=== PATIENT | male | born 1975 | race Caucasian/White ===

== ENCOUNTER → 2019-07-09 10:33 | Outpatient (BNVA) | payer MEDICAID, SELFPAY | PROVIDERS: Family Provider Family Medicine; PCP Family Medicine; Visit Provider Psychiatry & Neurology Psychiatry | DX: F60.3 Borderline personality disorder (principal); F25.0 Schizoaffective disorder, bipolar type | CPT/HCPCS: 99213 ==

== ENCOUNTER → 2019-10-06 08:31 | Outpatient (BNVA) | payer MEDICAID, SELFPAY | PROVIDERS: Family Provider Family Medicine; PCP Family Medicine; Visit Provider Psychiatry & Neurology Psychiatry | DX: F25.0 Schizoaffective disorder, bipolar type (principal); F60.3 Borderline personality disorder | CPT/HCPCS: 99214 ==

== ENCOUNTER → 2019-12-29 09:16 | Outpatient (BNVA) | payer MEDICAID, SELFPAY | PROVIDERS: Family Provider Family Medicine; PCP Family Medicine; Visit Provider Psychiatry & Neurology Psychiatry | DX: F25.0 Schizoaffective disorder, bipolar type (principal); F60.3 Borderline personality disorder; F17.210 Nicotine dependence, cigarettes, uncomplicated | CPT/HCPCS: 99213 ==

== ENCOUNTER → 2020-06-21 07:45 | Outpatient (BNVA) | payer MEDICAID, SELFPAY | PROVIDERS: Family Provider Family Medicine; PCP Family Medicine; Visit Provider Psychiatry & Neurology Psychiatry | DX: F25.0 Schizoaffective disorder, bipolar type (principal); F60.3 Borderline personality disorder; F17.200 Nicotine dependence, unspecified, uncomplicated | CPT/HCPCS: 99214 ==

== ENCOUNTER → 2020-06-27 08:35 | Outpatient (BNVA) | payer MEDICAID, SELFPAY | PROVIDERS: Family Provider Family Medicine; PCP Family Medicine; Visit Provider Psychiatry & Neurology Psychiatry | DX: F25.0 Schizoaffective disorder, bipolar type (principal); F60.3 Borderline personality disorder | CPT/HCPCS: 80053; 80061; 83036; 84443; 85025 ==

== ENCOUNTER → 2020-12-14 07:14 | Outpatient (BNVA) | payer MEDICAID, SELFPAY | PROVIDERS: Family Provider Family Medicine; Visit Provider Psychiatry & Neurology Psychiatry | DX: F25.0 Schizoaffective disorder, bipolar type (principal); F60.3 Borderline personality disorder; F17.200 Nicotine dependence, unspecified, uncomplicated | CPT/HCPCS: 99214 ==

== ENCOUNTER 2021-03-27 14:34 | Emergency (ER) | payer MEDICAID, SELFPAY ==
[2021-03-27 14:43] VITALS: BP 131/77; PULSE 96; RESP 16; TEMP 36.7; O2SAT 97; BMI 42.9
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
[2021-03-27] MEDS: azithromycin 250 mg Tablet 1000 MG PO (15:36)
[2021-03-27 15:44] VITALS: PULSE 84; RESP 18; O2SAT 97
[2021-03-27 16:05] LABS: Amphetamines Screen Urine Negative (Negative); Barbiturates Screen Urine Negative (Negative); Benzodiazepines Screen Urine Positive (Negative); Cocaine Screen Urine Negative (Negative); Opiate Screen Urine Negative (Negative); PCP Screen Urine Negative (Negative); THC Screen Urine Negative (Negative)
[2021-03-27 16:50] LABS: HIV 1 & 2 Antibody Non-Reactive (Non-Reactiv); HIV 1 & 2 Antigen Non-Reactive (Non-Reactiv)
== END 2021-03-27 15:45 | disposition home or self-care (01) ==
PROVIDERS: Emergency Provider Physician Assistant
DX: T74.21XA Adult sexual abuse, confirmed, initial encounter (principal); Z79.82 Long term (current) use of aspirin; F17.210 Nicotine dependence, cigarettes, uncomplicated; Z20.2 Contact with and (suspected) exposure to infections with a predominantly sexual mode of transmission
CPT/HCPCS: 80306; 87491; 87591; 87806; 96372; 99283; J0696; Q0144

== ENCOUNTER → 2021-06-07 07:13 | Outpatient (BNVA) | payer MEDICAID, SELFPAY | PROVIDERS: Visit Provider Psychiatry & Neurology Psychiatry | DX: F25.0 Schizoaffective disorder, bipolar type (principal); F60.3 Borderline personality disorder; F17.200 Nicotine dependence, unspecified, uncomplicated | CPT/HCPCS: 99213 ==

== ENCOUNTER 2022-03-13 07:58 | Inpatient (IN) | payer MEDICAID, SELFPAY ==
[2022-03-13] VITALS (79 sets, daily range): BP systolic 93–155; BP diastolic 51–102; PULSE 78–105; RESP 0–34; TEMP 36.3–37.6; O2SAT 96–100; BMI 27.8
--- NOTE | 2022-03-13 08:14 | W.ED.GIBLEED ---
HPI - GI Bleed General: Chief complaint: GI Bleed Stated complaint: abdominal pain Time Seen by Provider: 03/13/22 08:03 Source: patient Mode of arrival: ambulatory History of Present Illness: 46-year-old male who presents to the emergency room with complaint of black tarry stools. He says he has had abdominal discomfort and black stools for last 3 days. He does take a lot of milk of magnesia for constipation he believes he is toxic from magnesium. He does not use any multivitamins or iron supplement he has not noticed any bright red blood. He previously has had a cholecystectomy. No hematochezia hematemesis or coffee-ground emesis. Patient believes that this is because some of cocaine methamphetamine in his house. MD complaint: melena Onset (ago): day(s) (3) Relieving factors: none Exacerbating factors: none Associated symptoms: Denies abdominal pain, chills, easy bruising, epistaxis, fever(s), headache(s), malaise, nausea, other bleeding, poor appetite, rash, syncope, vomiting or weakness Treatments Prior to Arrival: none Review of Systems Const: Denies: fever(s), chills, fatigue or malaise ENMT: Denies: throat pain or epistaxis Card: Denies: chest pain, palpitations, irregular heart rhythm or syncope Resp: Denies: dyspnea, productive cough or non-productive cough GI: Reports: belching; Denies: abdominal pain, nausea, vomiting, diarrhea, constipation, bloating or GI cramping : Denies: flank pain, difficulty urinating, dysuria, urinary frequency or urinary urgency Skin/Breast: Denies: rash or pruritus Neuro: Denies: headache(s) Hoang/Lymph: Denies: easy bruising [facility] ED PFSH: Medical History Chronic idiopathic constipation Folliculitis cruris pustulosa atrophicans Morbid obesity with BMI of 40.0-44.9, adult Nonvenomous insect bite of neck Social History Smoking and tobacco status: current every day smoker cigarettes Packs smoked per day: 2 Years cigarettes smoked: 25 Quit status (tobacco): has tried quititng Number of times tried to quit tobacco: 8 Second hand smoke exposure: No Smoking risk assessment/counseling performed?: Yes Tobacco counseling given: counseling >3 minutes Physical Exam Const: GENERAL APPEARANCE: cooperative and comfortable ORIENTATION/CONSCIOUSNESS: Yes awake, Yes oriented to person, Yes oriented to place and Yes oriented to time HENMT: COMMON NORMALS: normocephalic, atraumatic, hearing grossly normal bilaterally, external ears normal, EAC's normal, TM's normal bilaterally, Normal nasal mucous membranes and turbinates present, moist oral mucous membranes and oropharynx normal HEAD & SCALP: normocephalic and atraumatic NOSE: Normal nasal mucous membranes and turbinates present EXTERNAL EAR: Yes external ears normal EXTERNAL AUDITORY CANAL: EAC's normal TYMPANIC MEMBRANE: TM's normal bilaterally Eye: COMMON NORMALS: Equal, round and reactive pupils present, EOMs intact bilaterally, conjunctivae normal and no scleral icterus CONJUNCTIVA: Yes conjunctivae normal PUPIL: Yes Equal, round and reactive pupils present Neck/C-Spine: COMMON NORMALS: full ROM, no lymphadenopathy, supple and no JVD Lymph: LYMPHATIC: no lymphadenopathy noted and no lymphedema noted Resp: COMMON NORMALS: normal respiratory effort, No retractions, No use of accessory muscles and clear to auscultation bilaterally AUSCULTATION: clear to auscultation bilaterally Cardio: COMMON NORMALS: no JVD, regular rate, regular rhythm and No murmurs present (Cardio) RATE: regular rate RHYTHM: regular rhythm GI: COMMON NORMALS: No hepatosplenomegaly present AUSCULTATION: Yes normoactive bowel sounds PALPATION: Yes Tenderness to palpation present (GI) (Epigastric), No Guarding due to palpation present (GI) and Yes No hepatosplenomegaly present Extremity: COMMON NORMALS: normal to inspection, capillary refill normal, no clubbing, cyanosis or edema, no calf tenderness and no pedal edema Neuro: SENSORIUM/ORIENTATION: Yes oriented to person, Yes oriented to place and Yes oriented to time Skin: COMMON NORMALS: no rashes or lesions noted GENERAL SKIN EXAM: no rashes or lesions noted Course Vital Signs: Vital signs: Vital Signs Temperature 97.3 F L 03/13/22 07:59 Pulse Rate 87 03/13/22 07:59 Respiratory Rate 17 03/13/22 07:59 Blood Pressure 154/91 03/13/22 08:09 Pulse Oximetry 100 11/08/22 08:09 Oxygen Delivery Me thod 03/13/22 08:09 MDM - GI Bleed Medical Decision Making Significant anemia. He has mild tenderness in the epigastric area but no distinct peritoneal signs. His hemoglobin is 4.9. He is listed on his medicine list very high dose of aspirin although I am uncertain how much of it he is actually taking. Discussed Dr. Mendez we have ordered 2 units of blood to be transfused we will admit to the ICU. Also discussed with on-call surgery. Jamel ruby had called her to question of her for gastric perforation at the antrum we will have surgery see him. He has been given Protonix as well. Medical Records I reviewed the patient's medical records. Lab Data I reviewed the patient's lab results. : 03/13/22 08:05 03/13/22 08:05 Radiology Impressions Abdomen/Pelvis CT 03/13/22 08:24 IMPRESSION: 1. Findings suggest either distal stomach gastritis versus ulcer disease with suspected perforation. 2. THIS REPORT CONTAINS FINDINGS THAT MAY BE CRITICAL TO PATIENT CARE. The findings were verbally communicated by me to FITZ LARSON at 9:00 AM KETTLE OPERATOR on 03/13/2022. The findings were acknowledged and understood. Laboratory Results WBC 7.4 10^3/uL (4.0-10.0) 03/13/22 08:05 RBC 1.95 10^6/uL (4.1-5.3) L 03/13/22 08:05 Hgb 4.9 g/dL (11.7-16.6) L* 03/13/22 08:05 Hct 15.8 % (42.0-52.0) L* 03/13/22 08:05 MCV 81.0 fl (80-94) 03/13/22 08:05 MCH 25.1 pg (28.0-34.0) L 03/13/22 08:05 MCHC 31.0 g/dL (30.0-36.0) 03/13/22 08:05 RDW 17.2 % (12.1-15.1) H 03/13/22 08:05 Plt Count 388 10^3/cmm (130-400) 03/13/22 08:05 MPV 9.1 fL (7.4-10.4) 03/13/22 08:05 Neut % (Auto) 70.8 % 03/13/22 08:05 Lymph % (Auto) 19.9 % 03/13/22 08:05 [place] % (Auto) 7.6 % 03/13/22 08:05 Eos % (Auto) 0.8 % 03/13/22 08:05 Baso % (Auto) 0.4 % 03/13/22 08:05 Neut # (Auto) 5.20 10^3/uL (1.8-7.7) 03/13/22 08:05 Lymph # (Auto) 1.5 10^3/uL (0.8-4.8) 03/13/22 08:05 [place]cl[place] # (Auto) 0.6 10^3/uL (0.2-0.9) 03/13/22 08:05 Eos # (Auto) 0.1 10^3/uL (0.0-0.8) 03/13/22 08:05 Baso # (Auto) 0.0 10^3/uL (0.0-0.1) 03/13/22 08:05 Nucleated RBC % (auto) 0 % 03/13/22 08:05 Nucleated RBCs # 0.0 /100WBC 03/13/22 08:05 PT 14.70 SECONDS (12.1-14.9) 03/13/22 08:05 INR 1.11 (0.8-1.2) 03/13/22 08:05 APTT 49.0 SECONDS (23.9-36.7) H 03/13/22 08:05 Sodium 131 mmol/L (136-145) L 03/13/22 08:05 Potassium 4.1 mmol/L (3.5-5.1) 03/13/22 08:05 Chloride 99 mmol/L (98-107) 03/13/22 08:05 Carbon Dioxide 23 mmol/L (22-29) 03/13/22 08:05 Anion Gap 13.1 (5-19) 03/13/22 08:05 BUN 10 mg/dL (6-20) 03/13/22 08:05 Creatinine 0.6 mg/dL (0.7-1.2) L 03/13/22 08:05 GFR Calculation 146.4 mL/min (90-130) H 03/13/22 08:05 Glucose 102 mg/dL (65-115) 03/13/22 08:05 Calculated Osmolality 271 mOsm/kg (285-295) L 03/13/22 08:05 Calcium 7.9 mg/dL (8.5-10.5) L 03/13/22 08:05 Magnesium 1.8 mg/dL (1.7-2.3) 03/13/22 08:05 Total Bilirubin 0.2 mg/dL (0.15-1.2) 03/13/22 08:05 AST 5 U/L (0-40) 03/13/22 08:05 ALT < 5 U/L (0-41) 03/13/22 08:05 Alkaline Phosphatase 110 U/L (40-130) 03/13/22 08:05 Total Protein 5.4 g/dL (6.6-8.7) L 03/13/22 08:05 Albumin 2.9 g/dL (3.5-5.2) L 03/13/22 08:05 Globulin 2.5 g/dL (1.3-4.6) 03/13/22 08:05 Lipase 60 U/L (13-60) 03/13/22 08:05 Urine Color Yellow (Yellow) 03/13/22 08:40 Urine Appearance Cloudy (CLEAR) A 03/13/22 08:40 Urine pH 8 (5-7) H 03/13/22 08:40 Ur Specific [place] 1.015 (1.005-1.030) 03/13/22 08:40 Urine Protein Neg (Negative) 03/13/22 08:40 Urine Glucose (UA) Norm (Normal) 03/13/22 08:40 Urine Ketones Negative (Negative) 03/13/22 08:40 Urine Blood Neg (Negative) 03/13/22 08:40 Urine Nitrate Negative (Negative) 03/13/22 08:40 Urine Bilirubin Neg (Negative) 03/13/22 08:40 Urine Urobilinogen Norm mg/dL (Negative) 03/13/22 08:40 Ur Leukocyte Esterase Negative (Negative) 03/13/22 08:40 Urine Opiates Screen Negative ng/mL (Negative) 03/13/22 08:40 Ur Barbiturates Screen Negative ng/mL (Negative) 03/13/22 08:40 Ur Phencyclidine Scrn Negative ng/mL (Negative) 03/13/22 08:40 Ur Amphetamines Screen Negative ng/mL (Negative) 03/13/22 08:40 U Benzodiazepines Scrn Negative ng/mL (Negative) 03/13/22 08:40 Urine Cocaine Screen Negative ng/mL (Negative) 03/13/22 08:40 U Marijuana (THC) Screen Negative ng/mL (Negative) 03/13/22 08:40 Blood Type B Negative 03/13/22 08:35 Rho(D) Type Negative 03/13/22 08:35 Antibody Screen Negative 03/13/22 08:35 Crossmatch See Detail 03/13/22 08:35 Discharge Plan Discharge Patient Disposition: Admitted As Inpatient Clinical Impression: Upper gastrointestinal hemorrhage, Anemia Condition: Stable Prescriptions: No Action aspirin 325 mg tablet 1,300 mg PO Q4H PRN (Reason: fever or pain) chlorpromazine 100 mg tablet 100 mg PO TID Qty: 90 5RF clonidine HCl 0.1 mg tablet 0.1 mg PO BID Qty: 60 5RF fluoxetine 40 mg capsule 40 mg PO DAILY Qty: 30 5RF hydroxyzine HCl 50 mg tablet 50 mg PO QID PRN (Reason: anxiety) Qty: 120 5RF trazodone 100 mg tablet 300 mg PO .HS Qty: 90 5RF magnesium hydroxide [Milk Of Magnesia Concentrated] 2,400 mg/10 mL suspension See Rx Instructions PO DAILY PRN (Reason: constipation) Qty: 1000 5RF Rx Instructions: take 20 ml from 1-3 times a day as needed PO daily PRN; Coding Level of Care Code ED Machine Feeder Raw Stock for Chg Fwd Exam Comprehensive
[2022-03-13 08:18] LABS: Basophils % 0.4 %; Eosinophils # 0.1 10^3/uL (0.0-0.8); Eosinophils % 0.8 %; Lymphocytes # 1.5 10^3/uL (0.8-4.8); Lymphocytes % 19.9 %; Mean Corpuscular Hemoglobin 25.1 pg (28.0-34.0); Mean Platelet Volume 9.1 fL (7.4-10.4); Monocytes # 0.6 10^3/uL (0.2-0.9); Monocytes % 7.6 %; Neutrophils % 70.8 %; Nucleated Red Blood Cells % 0 %; Platelet Count 388 10^3/cmm (130-400); Red Blood Count 1.95 10^6/uL (4.1-5.3); Red Cell Distribution Width 17.2 % (12.1-15.1); White Blood Count 7.4 10^3/uL (4.0-10.0)
[2022-03-13 08:22] LABS: Hematocrit 15.8 % (42.0-52.0); Hemoglobin 4.9 g/dL (11.7-16.6)
--- NOTE | 2022-03-13 08:24 | CTR_ITS ---
PROCEDURE INFORMATION: Exam: CT Abdomen And Pelvis With Contrast Exam date and time: 03/13/2022 8:37 AM Age: 46 years old Clinical indication: Nausea and vomiting; Abdominal pain; Localized; Lower; Prior surgery; Surgery type: Gb; Additional info: Abd pain TECHNIQUE: Imaging protocol: Computed tomography of the abdomen and pelvis with contrast. Radiation optimization: All CT scans at this facility use at least one of these dose optimization techniques: automated exposure control; mA and/or kV adjustment per patient size (includes targeted exams where dose is matched to clinical indication); or iterative reconstruction. Contrast material: OMNI 350; Contrast volume: 100 ml; Contrast route: INTRAVENOUS (IV); COMPARISON: CR XR hip LT 2-3V wo/w pel* [id number] 04/12/2015 2:42 PM RADIATION DOSE METRICS: Total DLP (mGy-cm): 776.46 FINDINGS: Liver: Moderately fatty liver. Enlarged at 200 mm. Gallbladder and bile ducts: Cholecystectomy clips. Pancreas: Normal. No ductal dilation. Spleen: Normal. No splenomegaly. Adrenal glands: Normal. No mass. Kidneys and ureters: Normal. No hydronephrosis. Stomach and bowel: Thick-walled gastric antrum extending possibly involving the duodenal bulb with surrounding inflammatory changes. There is a pocket of fluid measuring 25 x 37 mm on image 3/30 which is questionably extraluminal and could be a perforated ulcer. Scattered colonic diverticula. No evidence of acute diverticulitis. Appendix: No evidence of appendicitis. Intraperitoneal space: Small amount of free pelvic fluid. Vasculature: Unremarkable. No abdominal aortic aneurysm. Lymph nodes: Unremarkable. No enlarged lymph nodes. Urinary bladder: Unremarkable as visualized. Reproductive: Unremarkable as visualized. Bones/joints: Arthritis and listhesis seen in the spine. Soft tissues: Mild diffuse soft tissue edema. CT/CT abdomen pelvis w con* [id number] IMPRESSION: 1. Findings suggest either distal stomach gastritis versus ulcer disease with suspected perforation. 2. THIS REPORT CONTAINS FINDINGS THAT MAY BE CRITICAL TO PATIENT CARE. The findings were verbally communicated by me to BLAYNE JACOBO at 9:00 AM CAR FERRY MASTER on 03/13/2022. The findings were acknowledged and understood.
[2022-03-13 08:25] LABS: INR 1.11 (0.8-1.2)
[2022-03-13 08:29] LABS: Alanine Aminotransferase < 5 U/L (0-41); Albumin Level 2.9 g/dL (3.5-5.2); Alkaline Phosphatase 110 U/L (40-130); Anion Gap 13.1 (5-19); Aspartate Amino Transferase 5 U/L (0-40); Blood Urea Nitrogen 10 mg/dL (6-20); Calcium 7.9 mg/dL (8.5-10.5); Carbon Dioxide 23 mmol/L (22-29); Chloride 99 mmol/L (98-107); Globulin 2.5 g/dL (1.3-4.6); Glomerular Filtration Rate 146.4 mL/min (90-130); Glucose 102 mg/dL (65-115); Lipase 60 U/L (13-60); Osmolality Calculated 271 mOsm/kg (285-295); Potassium 4.1 mmol/L (3.5-5.1); Sodium 131 mmol/L (136-145); Total Bilirubin 0.2 mg/dL (0.15-1.2); Total Protein 5.4 g/dL (6.6-8.7)
[2022-03-13 08:30] LABS: Creatinine Clr Calc Pharmacy 181.0382
[2022-03-13 08:34] LABS: Magnesium 1.8 mg/dL (1.7-2.3)
[2022-03-13] MEDS: pantoprazole 40 mg SDV 80 MG IVP (08:36)
[2022-03-13] MEDS: iohexol 350 mg/mL 500 mL Btl (per mL) IV (08:41)
[2022-03-13 08:44] LABS: Add Urine Microscopic? NO; Charge for UA Resulting for Rev
[2022-03-13 08:59] LABS: Amphetamines Screen Urine Negative (Negative); Barbiturates Screen Urine Negative (Negative); Benzodiazepines Screen Urine Negative (Negative); Cocaine Screen Urine Negative (Negative); Opiate Screen Urine Negative (Negative); PCP Screen Urine Negative (Negative); THC Screen Urine Negative (Negative)
[2022-03-13 09:00] LABS: Blood Urine Neg (Negative); Glucose Urine UA Norm (Normal); Ketones Urine Negative (Negative); Nitrate Urine Negative (Negative); Protein Urine Neg (Negative); Specific Gravity, Urine 1.015 (1.005-1.030); Urine Appearance Cloudy (CLEAR); Urine Color Yellow (Yellow); pH Urine 8 (5-7)
[2022-03-13 09:01] LABS: Bilirubin Urine Neg (Negative); Leukocyte Esterase Urine Negative (Negative); Urobilinogen Urine Norm (Negative)
--- NOTE | 2022-03-13 09:18 | PM.HP ---
Providers/Chief Complaint Admitting Physician: Chris Mendez MD Chief Complaint: abdominal pain History of Present Illness Tarun Summers is a 46 year old male presenting to the emergency department with complaints of abdominal pain, dark stool over the last 2 to 3 days. He has chronic constipation, and he was initially worried he might be toxic from magnesium that he takes for this. He reports he has a lot of chronic back pain, and has had a laminectomy in the past and takes quite a bit of aspirin. I confirmed that he does take 1300 mg every 4 hours as needed. He reports no prior history of significant GI bleed, although there are notes in the chart regarding EGD and colonoscopy done in 2016 and gastritis being found at that time. H. pylori at that time was negative. He reports fatigue as well. Denies any blood in his stool, or vomiting blood. No history of liver disease. Reports he has not had any alcohol in many years. In the emergency department saline was ordered, Protonix given, 2 units of packed red blood cells ordered. Surgery consult was called. Review of Systems General: Reports: 10 or more systems reviewed and unremarkable except in HPI and below Const: Denies: fever(s) or chills Eyes: Denies: change in vision ENMT: Denies: throat pain Card: Denies: chest pain Resp: Denies: dyspnea GI: Reports: abdominal pain, constipation and melena; Denies: hematemesis : Denies: flank pain Musc: Denies: neck pain Skin/Breast: Denies: rash Neuro: Denies: headache(s) Psych: Reports: depression and mood swings Endo: Denies: polyuria Hoang/Lymph: Denies: easy bruising All/Imm: Denies: urticaria Medications/Allergies Home Medications Medication Instructions Recorded Confirmed Last Taken Type aspirin 325 mg tablet 1,300 mg PO Q4H PRN fever or pain 07/09/19 11/29/21 Unknown History chlorpromazine 100 mg tablet 100 mg PO TID #90 tabs 11/29/21 11/29/21 Unknown Rx clonidine HCl 0.1 mg tablet 0.1 mg PO BID #60 tabs 11/29/21 11/29/21 Unknown Rx fluoxetine 40 mg capsule 40 mg PO DAILY #30 caps 11/29/21 11/29/21 Unknown Rx hydroxyzine HCl 50 mg tablet 50 mg PO QID PRN anxiety #120 tabs 11/29/21 11/29/21 Unknown Rx famotidine 20 mg tablet (Pepcid) 20 mg PO .UP TO BID 03/13/22 03/13/22 Unknown History magnesium hydroxide 2,400 mg/10 mL See Rx Instructions .Route .COMPLEX 03/13/22 03/13/22 Unknown History oral suspension (Milk Of Magnesia Concentrated) simethicone 125 mg capsule (Gas 125 mg PO DAILY PRN Stomach Upset 03/13/22 03/13/22 Unknown History Relief Extra Strength) trazodone 100 mg tablet 300 mg PO BEDTIME PRN Sleep 03/13/22 03/13/22 Unknown History Allergies Allergy/AdvReac Type Severity Reaction Status Date / Time amoxicillin AdvReac Intermediate Rash Verified 03/13/22 09:26 Penicillins AdvReac Intermediate Rash Verified 03/13/22 09:26 PFSH Acute PFSH: Medical History (Updated 03/13/22 @ 09:27 by Chris Mendez MD) Borderline personality disorder Chronic idiopathic constipation Folliculitis cruris pustulosa atrophicans Morbid obesity with BMI of 40.0-44.9, adult Nicotine dependence, unspecified, uncomplicated Nonvenomous insect bite of neck Schizoaffective disorder, bipolar type Surgical History (Updated 03/13/22 @ 09:22 by Chris Menedz MD) History of back surgery History of cholecystectomy Social History Smoking and tobacco status: current every day smoker cigarettes Packs smoked per day: 2 Years cigarettes smoked: 25 Quit status (tobacco): has tried quititng Number of times tried to quit tobacco: 8 Second hand smoke exposure: No Smoking risk assessment/counseling performed?: Yes Tobacco counseling given: counseling >3 minutes Other PFSH information: Supplemental PFSH Information: Reports he does not know any significant past family history. Vitals/I&O/Wt Last Vital Signs Temp 97.3 F L 03/13/22 07:59 Pulse 87 03/13/22 07:59 Resp 17 03/13/22 07:59 BP 154/91 03/13/22 08:09 Pulse Ox 100 03/13/22 08:09 O2 Del Method 03/13/22 08:09 Weight last 48 hrs Weight 90.718 kg Physical Exam Narrative: General exam demonstrates a pale white male, reporting abdominal pain HEENT: Atraumatic normocephalic. Pupils equally round. Oropharynx clear. Neck is supple no lymphadenopathy or thyromegaly Cardiovascular regular rate and rhythm without murmur Lungs clear no wheezing or crackles Abdomen is tender epigastric area. No obvious organomegaly exam is deferred Extremities no cyanosis clubbing, cap refill brisk. Trace edema present bilaterally Skin no rash, pale Neuro no obvious focal deficits. Data : 03/13/22 08:05 03/13/22 08:05 Other Labs: INR is normal, PTT elevated at 49 Calcium 7.9 Magnesium 1.8 LFTs normal Albumin 2.9 Urinalysis negative Urine tox negative Lipase 60 CT abdomen pelvis, with contrast demonstrates concern of distal stomach gastritis versus ulcer disease with suspected perforation A&P Assessment and plan (1) Anemia: Severe anemia, secondary to acute blood loss anemia. This appears to be secondary to gastric ulcer with likely perforation. 2 units of packed red blood cells have been ordered by the emergency department. This is appropriate. Check hemoglobin following transfusion Continue serial hemoglobin monitoring. (2) GI bleed: Surgery consultation Note that concern of perforation exists on CT scan. N.p.o. No history, or evidence currently for liver disease. (3) Perforated stomach: Add Cipro, and Flagyl for prophylactic antibiotics secondary to concern for development of peritonitis Pain control with morphine (4) Nicotine dependence, unspecified, uncomplicated: Offered nicotine patch with she refused currently. Plan Mental health illness. Monitor closely. May need Haldol as needed. Initiate p.o. medicines when able Full code SCDs for DVT prophylaxis Attestations Medical Necessity Statement*: Will require greater than 2 midnight stay for evaluation and treatment of severe anemia, GI bleed, gastric ulcer with likely perforation Critical Care Time: The high probability of a clinically significant, sudden or life threatening deterioration of the patient's [hematologic, GI] system(s) required my full and direct attention, intervention and personal management. The critical care time is as shown. This time is in addition to time spent performing any reported procedures but includes the following: [x] Data and vital sign review and interpretation [x] Patient assessment, examination and intervention [x] Documentation [x] Medication orders and management Critical Care Time (min): 59 Coding Level of Care Code Acute Adult Literacy Instructor for Chg Fwd Diagnoses Anemia D64.9 GI bleed K92.2 Perforated stomach K25.5 Nicotine dependence, unspecified, uncomplicated F17.200
[2022-03-13] MEDS: sodium chloride 0.9% 250 ML 50 ML IV (09:48)
[2022-03-13] MEDS: ondansetron 2 mg/ML SDV 2 mL 4 MG IVP ×2 (11:06→20:28)
[2022-03-13] MEDS: pantoprazole 40 MG in sodium chloride 0.9% (plus) 100 ML 20 MG IV ×3 (11:27→22:07)
[2022-03-13] MEDS: pantoprazole 40 mg SDV IVP ×2 (11:27→22:05)
[2022-03-13] MEDS: metroNIDAZOLE IV 500 MG/100 ML PREMIX 100 MG IV ×2 (11:55→17:04)
[2022-03-13] MEDS: ciprofloxacin 400 MG/200 ML PREMIX 200 MG IV ×2 (11:57→22:05)
--- NOTE | 2022-03-13 12:27 | PM.CONSULT ---
Providers/Reason For Consult Consulting Physician/Specialty*: General Surgery/Mitch Bird MD, FACS, RPVI Reason for Consult*: GI bleeding Attending Physician: Chris Mendez MD History of Present Illness History of Present Illness Tarun Summers is a 46 year old male Presented to the emergency room complaining of extremity weakness, melanotic stool, vomiting. He has multiple psych issues and on disability for mental problems. Complaining of abdominal pain for weeks to months, is been getting worse over the last several days. He is taking up to 15 325 mg aspirin per day for his chronic back pain. History of upper and lower endoscopy sometime ago, reportedly it was normal. History of back surgery for chronic pain Denies chest pain or shortness of breath with physical exertion. He smokes about a pack a day. He does not exercise. Review of Systems Narrative: 10 point review of systems is negative except as per HPI Medications/Allergies Home Medications Medication Instructions Recorded Confirmed Last Taken Type aspirin 325 mg tablet 1,300 mg PO Q4H PRN Pain 07/09/19 03/13/22 03/13/22 History see pharmacy comment chlorpromazine 100 mg tablet 100 mg PO TID #90 tabs 11/29/21 03/13/22 03/13/22 Rx clonidine HCl 0.1 mg tablet 0.1 mg PO BID #60 tabs 11/29/21 03/13/22 03/13/22 Rx fluoxetine 40 mg capsule 40 mg PO DAILY #30 caps 11/29/21 03/13/22 2 Days Ago Rx ~03/11/22 hydroxyzine HCl 50 mg tablet 50 mg PO QID PRN anxiety #120 tabs 11/29/21 03/13/22 Unknown Rx famotidine 20 mg tablet (Pepcid) 20 mg PO .UP TO BID 03/13/22 03/13/22 Unknown History magnesium hydroxide 2,400 mg/10 mL See Rx Instructions .Route .COMPLEX 03/13/22 03/13/22 Unknown History oral suspension (Milk Of Magnesia Concentrated) simethicone 125 mg capsule (Gas 125 mg PO DAILY PRN Stomach Upset 03/13/22 03/13/22 Unknown History Relief Extra Strength) trazodone 100 mg tablet 300 mg PO BEDTIME PRN Sleep 03/13/22 03/13/22 Unknown History Allergies Allergy/AdvReac Type Severity Reaction Status Date / Time amoxicillin AdvReac Intermediate Rash Verified 03/13/22 09:26 Penicillins AdvReac Intermediate Rash Verified 03/13/22 09:26 Current Medications Generic Name Dose Route Start Last Admin Trade Name Freq PRN Reason Stop Dose Admin Ciprofloxacin/Dextrose 400 mg in 200 mls @ 200 mls/hr 03/13/22 09:30 03/13/22 11:57 Cipro IV 200 mls/hr Q12H TRISTIN Administration Protocol Metronidazole 500 mg in 100 mls @ 100 mls/hr 03/13/22 09:30 03/13/22 11:55 Flagyl Iv IV 100 mls/hr Q8H TRISTIN Administration Protocol Pantoprazole Sodium 40 mg/ 100 mls @ 20 mls/hr 03/13/22 12:00 03/13/22 11:27 Sodium Chloride IV 8 mg/hr .Q5H TRISTIN 20 mls/hr Administration 8 MG/HR Ondansetron HCl 4 mg 03/13/22 10:35 03/13/22 11:06 Ondansetron 2 Mg/Ml Sdv 2 Ml IVP 4 mg Q6H PRN Administration NAUSEA AND VOMITING Pantoprazole Sodium 40 mg 03/13/22 10:35 03/13/22 11:27 Pantoprazole 40 Mg Sdv IVP 40 mg Q12H TRISTIN Administration PFSH Acute PFSH: Medical History (Updated 03/13/22 @ 09:27 by Chris Mendez MD) Borderline personality disorder Chronic idiopathic constipation Folliculitis cruris pustulosa atrophicans Morbid obesity with BMI of 40.0-44.9, adult Nicotine dependence, unspecified, uncomplicated Nonvenomous insect bite of neck Schizoaffective disorder, bipolar type Surgical History (Updated 03/13/22 @ 09:22 by Chris Mendez MD) History of back surgery History of cholecystectomy Social History Smoking and tobacco status: current every day smoker cigarettes Packs smoked per day: 2 Years cigarettes smoked: 25 Quit status (tobacco): has tried quititng Number of times tried to quit tobacco: 8 Second hand smoke exposure: No Smoking risk assessment/counseling performed?: Yes Tobacco counseling given: counseling >3 minutes Vitals/I&O/Wt Last Vital Signs Temp 98.7 F 03/13/22 12:23 Pulse 99 03/13/22 12:23 Resp 18 03/13/22 12:23 BP 127/68 03/13/22 12:23 Pulse Ox 98 03/13/22 12:23 O2 Del Method 03/13/22 12:23 03/12/22 03/13/22 03/13/22 22:59 06:59 14:59 Intake Total 0 / 0 Output Total 200 / 200 Balance -200 / -200 Weight last 48 hrs Weight 207 lb 14.4 oz Weight 200 lb Physical Exam Narrative: General: No acute distress Psych: [AAOx3] Eyes: [sclerae are white] Head/ENT: [normocephalic, symmetric] CV: [regular] pulse, [], no JVD Lungs: [symmetrical chest rise] Abdomen: [soft, ND, minimal tenderness to palpation in the epigastrium. No peritoneal signs.] Ext: [no obvious traumatic deformities] Skin: warm Data : 03/13/22 08:05 03/13/22 08:05 A&P Assessment and plan (1) GI bleed: Acute anemia related to GI bleed. Given history of aspirin use, most likely GI bleed from the stomach. It will also explain his abdominal pain. On physical exam he does not have any signs of perforation. There is no free air on CT scan. At this time I do not see any evidence of a perforation of the ulcer. No indications for any surgical intervention at this time. Continue observation Plan to proceed with EGD today. We will discuss colonoscopy tomorrow depending upon the findings on EGD, as for now he is not prepped and the source is most likely upper GI. Risks and benefits of colonoscopy were discussed with the patient, inlcuding bleeding, damage to surrounding structures/tissue, perforation, aspiration, complications related to sedation and anesthesia, possible complications related to the bowel preparation. The patient agreed to proceed with a colonoscopy and all other indicated procedures and signed an informed consent. 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
--- NOTE | 2022-03-13 13:00 | P.ANESASSM_ITS ---
Pre-Anesthetic Assessment Height/Weight: Height 1.8 m Weight 94.302 kg Temp Pulse Resp BP Pulse Ox O2 Del Method 98.7 F 99 18 127/68 98 03/13/22 12:23 03/13/22 12:23 03/13/22 12:23 03/13/22 12:23 03/13/22 12:23 03/13/22 12:23 Operation Date: 03/13/22 11:10 Proposed Procedures p EGD(Not Applicable) - Mitch Bird MD Familial anesthetic complications: none Was Beta William taken within 24 hours: N/A Was Clonidine taken within 24 hours: Yes Social Tobacco and No alcohol Exam alert, oriented x 3 and regular rate & rhythm Airway Submandibular: within normal limits Cervical ROM: within normal limits Mallampati: Class II Dentition: chipped Pulmonary Chronic Obstructive Pulmonary Disease CV/HEM Anemia and Hypertension GI gastritis Neuropsych Anxiety and Depression Schizoaffective Anesthetic Plan ASA status: 3 Anesthesia: MAC Medications/Allergies Home Medications Medication Instructions Recorded Confirmed Last Taken Type aspirin 325 mg tablet 1,300 mg PO Q4H PRN Pain 07/09/19 03/13/22 03/13/22 History see pharmacy comment chlorpromazine 100 mg tablet 100 mg PO TID #90 tabs 11/29/21 03/13/22 03/13/22 Rx clonidine HCl 0.1 mg tablet 0.1 mg PO BID #60 tabs 11/29/21 03/13/22 03/13/22 Rx fluoxetine 40 mg capsule 40 mg PO DAILY #30 caps 11/29/21 03/13/22 2 Days Ago Rx ~03/11/22 hydroxyzine HCl 50 mg tablet 50 mg PO QID PRN anxiety #120 tabs 11/29/21 03/13/22 Unknown Rx famotidine 20 mg tablet (Pepcid) 20 mg PO .UP TO BID 03/13/22 03/13/22 Unknown History magnesium hydroxide 2,400 mg/10 mL See Rx Instructions .Route .COMPLEX 03/13/22 03/13/22 Unknown History oral suspension (Milk Of Magnesia Concentrated) simethicone 125 mg capsule (Gas 125 mg PO DAILY PRN Stomach Upset 03/13/22 03/13/22 Unknown History Relief Extra Strength) trazodone 100 mg tablet 300 mg PO BEDTIME PRN Sleep 03/13/22 03/13/22 Unknown History Allergies Allergy/AdvReac Type Severity Reaction Status Date / Time amoxicillin AdvReac Intermediate Rash Verified 03/13/22 09:26 Penicillins AdvReac Intermediate Rash Verified 03/13/22 09:26 Current Medications Generic Name Dose Route Start Last Admin Trade Name Freq PRN Reason Stop Dose Admin Ciprofloxacin/Dextrose 400 mg in 200 mls @ 200 mls/hr 03/13/22 09:30 03/13/22 11:57 Cipro IV 200 mls/hr Q12H TRISTIN Administration Protocol Metronidazole 500 mg in 100 mls @ 100 mls/hr 03/13/22 09:30 03/13/22 11:55 Flagyl Iv IV 100 mls/hr Q8H TRISTIN Administration Protocol Pantoprazole Sodium 40 mg/ 100 mls @ 20 mls/hr 03/13/22 12:00 03/13/22 11:27 Sodium Chloride IV 8 mg/hr .Q5H TRISTIN 20 mls/hr Administration 8 MG/HR Ondansetron HCl 4 mg 03/13/22 10:35 03/13/22 11:06 Ondansetron 2 Mg/Ml Sdv 2 Ml IVP 4 mg Q6H PRN Administration NAUSEA AND VOMITING Pantoprazole Sodium 40 mg 03/13/22 10:35 03/13/22 11:27 Pantoprazole 40 Mg Sdv IVP 40 mg Q12H TRISTIN Administration [facility] Anesthesia Medical History (Updated 03/13/22 @ 09:27 by Chris Mendez MD) Borderline personality disorder Chronic idiopathic constipation Folliculitis cruris pustulosa atrophicans Morbid obesity with BMI of 40.0-44.9, adult Nicotine dependence, unspecified, uncomplicated Nonvenomous insect bite of neck Schizoaffective disorder, bipolar type Surgical History (Updated 03/13/22 @ 09:22 by Chris Mendez MD) History of back surgery History of cholecystectomy Social History Smoking and tobacco status: current every day smoker cigarettes Packs smoked per day: 2 Years cigarettes smoked: 25 Quit status (tobacco): has tried quititng Number of times tried to quit tobacco: 8 Second hand smoke exposure: No Smoking risk assessment/counseling performed?: Yes Tobacco counseling given: counseling >3 minutes Supplemental [facility] Information Reports he does not know any significant past family history. Data Anesthesia : 03/13/22 08:05 03/13/22 08:05 Short CBC 03/13/22 Range/Units 08:05 WBC 7.4 (4.0-10.0) 10^3/uL Hgb 4.9 L* (11.7-16.6) g/dL Hct 15.8 L* (42.0-52.0) % MCV 81.0 (80-94) fl Plt Count 388 (130-400) 10^3/cmm Neut % (Auto) 70.8 % Neut # (Auto) 5.20 (1.8-7.7) 10^3/uL BMP 03/13/22 08:05 Sodium 131 L Potassium 4.1 Chloride 99 Carbon Dioxide 23 BUN 10 Creatinine 0.6 L Glucose 102 Calcium 7.9 L Liver Function 03/13/22 Range/Units 08:05 Total Bilirubin 0.2 (0.15-1.2) mg/dL AST 5 (0-40) U/L ALT < 5 (0-41) U/L Alkaline Phosphatase 110 (40-130) U/L Albumin 2.9 L (3.5-5.2) g/dL Urine 03/13/22 Range/Units 08:40 Urine Color Yellow (Yellow) Urine Appearance Cloudy A (CLEAR) Urine pH 8 H (5-7) Ur Specific [place] 1.015 (1.005-1.030) Urine Protein Neg (Negative) Urine Glucose (UA) Norm (Normal) Urine Ketones Negative (Negative) Urine Nitrate Negative (Negative) Urine Bilirubin Neg (Negative) Ur Leukocyte Esterase Negative (Negative) Blood Bank 03/13/22 08:35 Blood Type B Negative Rho(D) Type Negative Antibody Screen Negative Coags 03/13/22 08:05 PT 14.70 INR 1.11 APTT 49.0 H Cardiac Studies: No Data to Display
[2022-03-13] MEDS: EPINEPHrine 1 mg/mL INJ XX (14:39)
[2022-03-13] MEDS: sodium chloride 0.9% 1,000 ML 100 ML IV (15:20)
--- NOTE | 2022-03-13 15:20 | ANE.PACU2 ---
Inpatient post-anesthesia follow up: Airway intact: Yes Vital signs: Temperature 97.7 F Pulse Rate 90 Respiratory Rate 20 Blood Pressure 108/59 Pulse Oximetry 100 Oxygen Delivery Me thod Room Air Oxygen Flow Rate Fraction of Inspir ed Oxygen Hydration adequate: Yes Nausea and vomiting: No Pain level: 1 Mental status: Baseline
[2022-03-13] MEDS: sucralfate 1 gm/10 mL Oral Liq UDC PO ×2 (17:04→22:13)
[2022-03-13 19:03] LABS: Hemoglobin 6.7 g/dL (11.7-16.6)
[2022-03-13 19:16] LABS: Hematocrit 20.9 % (42.0-52.0)
--- NOTE | 2022-03-13 19:32 | PC.NURSE ---
SHift SUmmary: Patient received 2 units of blood. Went to GI lab and had Epi applied to a duodenal ulcer. Pt recovered form GI lab sedation without incident and is currently resting in bed. CBC pending post blood transfusion.
[2022-03-13] MEDS: morphine 4 mg/mL SDV 1 mL 2 MG IVP (20:20)
[2022-03-13] MEDS: sodium chloride 0.9% (100 ml) 100 ML (22:07)
[2022-03-13] MEDS: nicotine 21 mg Patch 1 PATCH TRANSDERMA (23:38)
[2022-03-14] VITALS (82 sets, daily range): BP systolic 79–165; BP diastolic 53–108; PULSE 67–110; RESP 6–27; TEMP 36.4–37.1; O2SAT 96–100
[2022-03-14] MEDS: sodium chloride 0.9% 1,000 ML 100 ML IV ×3 (00:31→17:47)
[2022-03-14] MEDS: metroNIDAZOLE IV 500 MG/100 ML PREMIX 100 MG IV ×3 (00:32→17:47)
[2022-03-14] MEDS: pantoprazole 40 MG in sodium chloride 0.9% (plus) 100 ML 20 MG IV ×3 (03:36→20:06)
[2022-03-14 04:17] LABS: Basophils % 0.6 %; Eosinophils # 0.1 10^3/uL (0.0-0.8); Eosinophils % 1.6 %; Hematocrit 23.8 % (42.0-52.0); Hemoglobin 7.5 g/dL (11.7-16.6); Lymphocytes # 1.7 10^3/uL (0.8-4.8); Mean Corpuscular HGB Conc 31.5 g/dL (30.0-36.0); Mean Corpuscular Hemoglobin 26.6 pg (28.0-34.0); Mean Corpuscular Volume 84.4 fl (80-94); Mean Platelet Volume 9.4 fL (7.4-10.4); Monocytes # 0.5 10^3/uL (0.2-0.9); Monocytes % 8.7 %; Neutrophils # 3.77 10^3/uL (1.8-7.7); Neutrophils % 60.8 %; Nucleated Red Blood Cells % 0 %; Platelet Count 302 10^3/cmm (130-400); Red Blood Count 2.82 10^6/uL (4.1-5.3); Red Cell Distribution Width 16.2 % (12.1-15.1); White Blood Count 6.2 10^3/uL (4.0-10.0)
[2022-03-14] MEDS: ondansetron 2 mg/ML SDV 2 mL 4 MG IVP ×2 (04:30→11:52)
[2022-03-14 04:45] LABS: Alanine Aminotransferase < 5 U/L (0-41); Albumin Level 2.3 g/dL (3.5-5.2); Alkaline Phosphatase 91 U/L (40-130); Aspartate Amino Transferase 5 U/L (0-40); Blood Urea Nitrogen 6 mg/dL (6-20); Calcium 7.7 mg/dL (8.5-10.5); Carbon Dioxide 22 mmol/L (22-29); Chloride 104 mmol/L (98-107); Globulin 2.3 g/dL (1.3-4.6); Glomerular Filtration Rate 146.4 mL/min (90-130); Glucose 79 mg/dL (65-115); Osmolality Calculated 277 mOsm/kg (285-295); Sodium 135 mmol/L (136-145); Total Bilirubin 0.2 mg/dL (0.15-1.2); Total Protein 4.6 g/dL (6.6-8.7)
--- NOTE | 2022-03-14 04:46 | P.EN_ITS ---
Event Note Event Note: He brought up to his RN that that he considered signing a DNR . And consider whether he even wanted to receive further blood transfusion. Discussing with him he states that he would not want to be kept on life support in case there was no chance for recovery. We discussed with him that he is c ertainly in a risky situation and in critical condition, however, would be expected to make a recovery. He states would like to continue as full code. He reports he has been feeling unwell for several months. He has lost weight. We discussed with him that in case of recovering from current episode he still feels unwell additional work-up could be warranted to assess for any contributing factors other than GI bleeding and anemia. However, these could certainly cause the symptoms of feeling weak and unwell. He does report that he has been feeling more depressed recently, however, denies any suicidal ideation. This would benefit from further follow-up. His weight loss would benefit further attention as well after he recovers from acute illness.
[2022-03-14] MEDS: sodium chloride 0.9% (100 ml) 100 ML (05:58)
[2022-03-14] MEDS: sucralfate 1 gm/10 mL Oral Liq UDC PO ×3 (06:00→22:10)
--- NOTE | 2022-03-14 06:32 | PC.NURSE ---
Shift summary Pt received 1u of PRBC at begging of shift with no issues. Pt remained hemodynamically stable until around 4am. While preforming venipuncture for morning labs pt became nauseous and began vomiting up emilee red blood with golf ball sized clots. Estimated volume of 300-400ml. Pts BP dropped to 70's systolic, HR in the 120's. Orders for 250 bolus for LR were received from attending physician. Surgeon was notified and orders for 2 more units of PRBC received.
[2022-03-14 08:07] LABS: Thyroid Stimulating Hormone 2.25 uIU/mL (0.27-4.20)
[2022-03-14] MEDS: ciprofloxacin 400 MG/200 ML PREMIX 200 MG IV ×2 (09:17→22:10)
[2022-03-14] MEDS: nicotine 21 mg Patch 1 PATCH TRANSDERMA (09:17)
[2022-03-14] MEDS: metoclopramide 5 mg/mL SDV 2 mL 10 MG IVP ×2 (09:19→14:01)
--- NOTE | 2022-03-14 09:31 | PM.PN ---
Subjective Subjective: Tarun had an episode of hematemesis this morning. He feels like his stomach rumbling is starting to get any may do it again. He reports his stomach does not really hurt right now. Medications: Reviewed: Yes Vitals/I&O/Wt Last Vital Signs Temp 97.8 F 03/14/22 05:45 Pulse 87 03/14/22 09:09 Resp 18 03/14/22 06:15 BP 107/61 03/14/22 06:15 Pulse Ox 100 03/14/22 09:09 O2 Del Method 03/14/22 09:09 03/13/22 03/14/22 03/14/22 22:59 06:59 14:59 Intake Total 1208.333 / 8042.358 2474.333 / 3326.666 875 / 875 Output Total 1100 / 1300 600 / 1900 Balance 108.333 / 8.333 1418.333 / 1426.666 875 / 875 Weight last 48 hrs Weight 94.302 kg Weight 90.718 kg Physical Exam Narrative: General exam demonstrates a white male who is nauseous Neck is supple no lymphadenopathy or thyromegaly Cardiovascular regular rate and rhythm without murmur Lungs clear no wheezing or crackles Abdomen is tender epigastric area. No obvious organomegaly exam is deferred Extremities no cyanosis clubbing, cap refill brisk. Trace edema present bilaterally Skin no rash, pale Data : 03/14/22 03:50 03/14/22 03:50 Micro: Microbiology 03/13/22 18:40 Occult Blood (FIT) - Final Stool - Stool Aspirate A&P Assessment and plan (1) Anemia: Severe anemia, secondary to acute blood loss anemia. Duodenal ulceration was seen on EGD. Epinephrine was injected. He had recurrent hematemesis this morning. He has had a total of 5 units of packed red blood cells, and a repeat hemoglobin is pending for around 10 AM Monitor for any continued hematemesis Continue Protonix drip Etiology, likely secondary to extended use of high-dose aspirin. Patient reports Zofran is not effective for nausea. We will add some Reglan as needed as well. Continue hydration (2) GI bleed: Appreciate surgical consultation EGD was performed yesterday with identification of duodenal ulcer, and epinephrine injection Note that concern of perforation exists on CT scan. Surgery does not believe this is likely. Reinitiated n.p.o. status No evidence of liver disease (3) Perforated stomach: Surgery believed clinically this is not likely. I concur. Cipro and Flagyl were added for the possibility of this. As patient improves these could be discontinued. (4) Nicotine dependence, unspecified, uncomplicated: Offered nicotine patch with she refused currently. Plan Mental health illness. Monitor closely. May need Haldol as needed. Initiate p.o. medicines when able Full code SCDs for DVT prophylaxis Attestations Medical Necessity Statement*: Needs continued hospital stay secondary to continued GI bleeding with need for high-volume transfusion. Critical Care Time: The high probability of a clinically significant, sudden or life threatening deterioration of the patient's [GI, hematologic] system(s) required my full and direct attention, intervention and personal management. The critical care time is as shown. 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
[2022-03-14 09:57] LABS: Basophils % 0.3 %; Eosinophils % 0.5 %; Lymphocytes # 1.3 10^3/uL (0.8-4.8); Lymphocytes % 20.6 %; Mean Corpuscular HGB Conc 31.7 g/dL (30.0-36.0); Mean Corpuscular Hemoglobin 27.1 pg (28.0-34.0); Mean Corpuscular Volume 85.7 fl (80-94); Mean Platelet Volume 9.5 fL (7.4-10.4); Monocytes # 0.4 10^3/uL (0.2-0.9); Monocytes % 6.8 %; Neutrophils # 4.33 10^3/uL (1.8-7.7); Neutrophils % 71.3 %; Nucleated Red Blood Cells % 0 %; Platelet Count 249 10^3/cmm (130-400); Red Cell Distribution Width 15.7 % (12.1-15.1); White Blood Count 6.1 10^3/uL (4.0-10.0)
[2022-03-14 10:03] LABS: Hemoglobin 5.7 g/dL (11.7-16.6)
--- NOTE | 2022-03-14 11:25 | P.PN_ITS ---
Subjective Subjective: Vomiting blood overnight, dropped blood pressure to 80s, received 2 units of blood. Hemoglobin down trended to 5.7. No bowel movements. Vitals/I&O/Wt Last Vital Signs Temp 98.1 F 03/14/22 11:15 Pulse 79 03/14/22 11:15 Resp 18 03/14/22 11:15 BP 115/65 03/14/22 11:15 Pulse Ox 100 03/14/22 11:15 O2 Del Method 03/14/22 09:09 03/13/22 03/14/22 03/14/22 22:59 06:59 14:59 Intake Total 1208.333 / 1137.385 4537.333 / 3676.666 1175 / 1175 Output Total 1100 / 1300 600 / 1900 Balance 108.333 / 8.333 1768.333 / 4250.816 7079 / 1175 Weight last 48 hrs Weight 211 lb Weight 207 lb 14.4 oz Weight 200 lb Physical Exam Narrative: General: No acute distress Psych: AAOx3 Eyes: Sclerae are white Head/ENT: Normocephalic, symmetric CV: Regular pulse,, no JVD Lungs: Symmetrical chest rise Abdomen: Soft, ND, minimal tenderness to palpation in the epigastrium. No peritoneal signs. Ext: No obvious traumatic deformities Skin: warm Data : 03/14/22 09:40 03/14/22 03:50 Micro: Microbiology 03/13/22 18:40 Occult Blood (FIT) - Final Stool - Stool Aspirate A&P Assessment and plan (1) GI bleed: Acute anemia related to GI bleed. Given history of aspirin use, most likely GI bleed from the stomach. It will also explain his abdominal pain. On physical exam he does not have any signs of perforation. There is no free air on CT scan. At this time I do not see any evidence of a perforation of the ulcer. No indications for any surgical intervention at this time. Continue observation Plan to proceed with EGD today. We will discuss colonoscopy tomorrow depending upon the findings on EGD, as for now he is not prepped and the source is most likely upper GI. Risks and benefits of colonoscopy were discussed with the patient, inlcuding bleeding, damage to surrounding structures/tissue, perforation, aspiration, complications related to sedation and anesthesia, possible complications related to the bowel preparation. The patient agreed to proceed with a colonoscopy and all other indicated procedures and signed an informed consent. (2) Borderline personality disorder: (3) Nicotine dependence, unspecified, uncomplicated: (4) Schizoaffective disorder, bipolar type: (5) Chronic idiopathic constipation: (6) Duodenal ulcer: Plan The patient is bleeding again. Plan to repeat GI endoscopy today in order to improve hemostasis. Given significant chance of active bleeding, will plan to intubate the patient and performed under general anesthesia. I also discussed with the patient that in case of continuous bleeding that I am not able to stop endoscopically, he may require surgical procedure specifically resection of the stomach, oversewing of the bleeding vessels, closure of the duodenal stump. Ri sks and benefits of surgery were discussed including infection, bleeding, damage to surrounding structures, complications related to general anesthesia, blood clots, possibility of . The patient agreed to proceed with endoscopy and all other indicated procedures including surgical hemostasis and stomach resection. All questions were answered. We discussed GDA embolization. We do not have availability of this procedure in this hospital. I think the first next step should be endoscopic hemostasis not embolization. The patient also does not want to be transferred and would prefer to stay locally. I discussed his family relationship with the patient. He is estranged from his family and does not want me to communicate to anybody in his family. He is going to receive 2 units of blood already. We will reassess hemoglobin after transfusion. -Continue Protonix drip, sucralfate. 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
[2022-03-14] MEDS: morphine 4 mg/mL SDV 1 mL 2 MG IVP ×2 (11:52→18:24)
--- NOTE | 2022-03-14 12:42 | ANES.PAUD2 ---
Documented by User: Izabela Ku CRNA 03/14/22 12:43 Pre-Anesthetic Update Pre-Anesthetic Assessment: Date of Surgery/Procedure: 03/14/22 Preop Diagnosis: GI bleed Proposed Procedure: Operation Date: 03/13/22 11:10 Proposed Procedures p EGD(Not Applicable) - Mitch Bird MD Operation Date: 03/14/22 11:30 Proposed Procedures p EGD(Not Applicable) - Mitch Bird MD Changes from Pre-Anesthetic Assessment: no Labs Last 48hrs: Short CBC 03/13/22 03/13/22 03/14/22 Range/Units 08:05 18:37 03:50 WBC 7.4 6.2 (4.0-10.0) 10^3/ uL Hgb 4.9 L* 6.7 L D 7.5 L (11.7-16.6) g/dL Hct 15.8 L* 20.9 L D 23.8 L (42.0-52.0) % MCV 81.0 84.4 (80-94) fl Plt Count 388 302 (130-400) 10^3/c mm Neut % (Auto) 70.8 60.8 % Neut # (Auto) 5.20 3.77 (1.8-7.7) 10^3/u L 03/14/22 Range/Units 09:40 WBC 6.1 (4.0-10.0) 10^3/ uL Hgb 5.7 L* (11.7-16.6) g/dL Hct 18.0 L* (42.0-52.0) % MCV 85.7 (80-94) fl Plt Count 249 (130-400) 10^3/c mm Neut % (Auto) 71.3 % Neut # (Auto) 4.33 (1.8-7.7) 10^3/u L BMP 03/13/22 03/14/22 08:05 03:50 Sodium 131 L 135 L Potassium 4.1 4.0 Chloride 99 104 Carbon Dioxide 23 22 BUN 10 6 Creatinine 0.6 L 0.6 L Glucose 102 79 Calcium 7.9 L 7.7 L Liver Function 03/13/22 03/14/22 Range/Units 08:05 03:50 Total Bilirubin 0.2 0.2 (0.15-1.2) mg/dL AST 5 5 (0-40) U/L ALT < 5 < 5 (0-41) U/L Alkaline Phosphata se 110 91 (40-130) U/L Albumin 2.9 L 2.3 L (3.5-5.2) g/dL Urine 03/13/22 Range/Units 08:40 Urine Color Yellow (Yellow) Urine Appearance Cloudy A (CLEAR) Urine pH 8 H (5-7) Ur Specific Gravit y 1.015 (1.005-1.030) Urine Protein Neg (Negative) Urine Glucose (UA) Norm (Normal) Urine Ketones Negative (Negative) Urine Nitrate Negative (Negative) Urine Bilirubin Neg (Negative) Ur Leukocyte [place] ase Negative (Negative) Blood Bank 03/13/22 08:35 Blood Type B Negative Rho(D) Type Negative Antibody Screen Negative Coags 03/13/22 08:05 PT 14.70 INR 1.11 APTT 49.0 H Vitals: Temperature 98.0 F 03/14/22 12:15 Temperature Source Axillary 03/14/22 12:15 Pulse Rate 83 03/14/22 12:15 Pulse Rhythm 03/14/22 05:40 Pulse Strength 3+ Normal 03/13/22 23:31 Respiratory Rate 16 03/14/22 12:15 Respiratory Effort Non-Labored 03/14/22 12:15 Respiratory Depth Normal 03/14/22 12:15 Respiratory Patter n 03/14/22 11:52 Blood Pressure 115/62 03/14/22 12:15 Blood Pressure Yuridia n 79 03/14/22 12:15 Blood Pressure Pos ition Semi Fowlers 03/14/22 05:25 Pulse Oximetry 100 03/14/22 12:15 Oxygen Delivery Me thod 03/14/22 09:09 Sepsis Recent Feve r Within 48 Hours No 03/13/22 07:59 Exam: Pre-Anes Outpt Exam: alert and oriented x 3 Cardiac Studies: No Data to Display Documented by User: Cristiano Hinojosa 03/14/22 15:05 Pre-Anesthetic Update Pre-Anesthetic Assessment: Date of Surgery/Procedure: 03/14/22 Cardiac Studies: No Data to Display
[2022-03-14] MEDS: sodium chloride 0.9% 1,000 ML 30 ML IV (12:45)
[2022-03-14] MEDS: EPINEPHrine 1 mg/mL INJ XX (13:10)
[2022-03-14 14:34] LABS: Hematocrit 26.8 % (42.0-52.0); Hemoglobin 8.4 g/dL (11.7-16.6)
[2022-03-14 14:48] LABS: INR 1.19 (0.8-1.2)
--- NOTE | 2022-03-14 15:05 | ANE.PACU2 ---
Inpatient post-anesthesia follow up: Airway intact: Yes Vital signs: Temperature 98.1 F Pulse Rate 76 Respiratory Rate 16 Blood Pressure 113/64 Pulse Oximetry 100 Oxygen Delivery Me thod [ Room Air Current Rate & Del naida] Oxygen Delivery Me thod Room Air Oxygen Flow Rate Fraction of Inspir ed Oxygen Hydration adequate: Yes Nausea and vomiting: No Pain level: 2 Mental status: Baseline
[2022-03-14 18:59] LABS: Hematocrit 22.5 % (42.0-52.0); Hemoglobin 7.5 g/dL (11.7-16.6)
--- NOTE | 2022-03-14 19:22 | PC.NURSE ---
Bedside report given by MELISA Maldonado.
[2022-03-15] VITALS (47 sets, daily range): BP systolic 110–141; BP diastolic 59–97; PULSE 74–107; RESP 10–23; TEMP 36.6–36.8; O2SAT 94–100
[2022-03-15] MEDS: metroNIDAZOLE IV 500 MG/100 ML PREMIX 100 MG IV ×3 (00:37→17:22)
[2022-03-15] MEDS: ondansetron 2 mg/ML SDV 2 mL 4 MG IVP (00:38)
[2022-03-15] MEDS: pantoprazole 40 MG in sodium chloride 0.9% (plus) 100 ML 20 MG IV ×2 (01:39→07:00)
[2022-03-15] MEDS: metoclopramide 5 mg/mL SDV 2 mL 10 MG IVP (03:36)
[2022-03-15] MEDS: sodium chloride 0.9% 1,000 ML 100 ML IV (03:37)
[2022-03-15] MEDS: morphine 4 mg/mL SDV 1 mL 2 MG IVP (06:34)
[2022-03-15 06:49] LABS: Basophils % 0.4 %; Eosinophils # 0.1 10^3/uL (0.0-0.8); Eosinophils % 0.7 %; Hematocrit 22.2 % (42.0-52.0); Hemoglobin 7.2 g/dL (11.7-16.6); Lymphocytes # 1.7 10^3/uL (0.8-4.8); Mean Corpuscular HGB Conc 32.4 g/dL (30.0-36.0); Mean Corpuscular Hemoglobin 27.4 pg (28.0-34.0); Mean Corpuscular Volume 84.4 fl (80-94); Mean Platelet Volume 9.9 fL (7.4-10.4); Monocytes # 0.4 10^3/uL (0.2-0.9); Neutrophils # 5.09 10^3/uL (1.8-7.7); Neutrophils % 69.6 %; Nucleated Red Blood Cells % 0 %; Platelet Count 261 10^3/cmm (130-400); Red Blood Count 2.63 10^6/uL (4.1-5.3); Red Cell Distribution Width 15.9 % (12.1-15.1); White Blood Count 7.3 10^3/uL (4.0-10.0)
[2022-03-15 07:07] LABS: Alanine Aminotransferase < 5 U/L (0-41); Albumin Level 2.1 g/dL (3.5-5.2); Alkaline Phosphatase 72 U/L (40-130); Aspartate Amino Transferase 6 U/L (0-40); Blood Urea Nitrogen 20 mg/dL (6-20); Calcium 7.5 mg/dL (8.5-10.5); Carbon Dioxide 21 mmol/L (22-29); Chloride 105 mmol/L (98-107); Globulin 2.2 g/dL (1.3-4.6); Glomerular Filtration Rate 146.4 mL/min (90-130); Glucose 86 mg/dL (65-115); Osmolality Calculated 278 mOsm/kg (285-295); Sodium 133 mmol/L (136-145); Total Bilirubin 0.2 mg/dL (0.15-1.2); Total Protein 4.3 g/dL (6.6-8.7)
[2022-03-15] MEDS: sucralfate 1 gm/10 mL Oral Liq UDC PO ×4 (07:22→20:04)
--- NOTE | 2022-03-15 08:58 | P.PN_ITS ---
Subjective Subjective: Tarun reports he feels better. Not nauseous right now. Did have some bowel movements through the night, dark and tarry. Last one was about 2 hours ago. No real abdominal pain. Medications: Reviewed: Yes Vitals/I&O/Wt Last Vital Signs Temp 98.2 F 03/15/22 04:30 Pulse 85 03/15/22 07:00 Resp 16 03/15/22 07:00 BP 141/90 03/15/22 07:00 Pulse Ox 100 03/15/22 07:00 O2 Del Method 03/14/22 12:40 03/14/22 03/15/22 03/15/22 22:59 06:59 14:59 Intake Total 1051.667 / 3276.667 1383.333 / 4660.000 Output Total 200 / 800 300 / 1100 Balance 851.667 / 2476.667 1083.333 / 3560.000 Weight last 48 hrs Weight 95.481 kg Weight 95.708 kg Weight 94.302 kg Physical Exam Narrative: General exam demonstrates a white male currently in no distress Neck is supple no lymphadenopathy or thyromegaly Cardiovascular regular rate and rhythm without murmur Lungs clear no wheezing or crackles Abdomen is tender epigastric area. No obvious organomegaly exam is deferred Extremities no cyanosis clubbing, cap refill brisk. No edema Skin no rash Data : 03/15/22 06:36 03/15/22 06:36 A&P Assessment and plan (1) Anemia: Severe anemia, secondary to acute blood loss anemia. Duodenal ulceration was seen on EGD. Epinephrine was injected initially. Went back to EGD yesterday 03/14 and clips deployed He had recurrent hematemesis this morning. He has had a total of 5 units of packed red blood cells Hemoglobin may be stabilizing. Repeat hemoglobin around 11 Monitor for any continued hematemesis May discontinue Protonix drip, changed to Protonix twice daily Etiology, likely secondary to extended use of high-dose aspirin. Reduce IV fluids (2) GI bleed: Appreciate surgical consultation 03/13 and 03/14 with last procedure deploying clips Note that concern of perforation exists on CT scan. Surgery does not believe this is likely. Reinitiated n.p.o. status No evidence of liver disease Defer initiation of diet to surgery (3) Perforated stomach: Surgery believed clinically this is not likely. I concur. Cipro and Flagyl were added for the possibility of this. As patient improves these could be discontinued. (4) Nicotine dependence, unspecified, uncomplicated: Offered nicotine patch with she refused currently. Plan Mental health illness. Monitor closely. Reinitiate fluoxetine and chlorpromazine Full code SCDs for DVT prophylaxis Possible transfer out of ICU later today Attestations Medical Necessity Statement*: Needs continued hospital stay for close monitori ng following duodenal ulcer clipping, in this patient with severe anemia and blood loss Coding Level of Care Code Acute Carpenter Cradle And Dolly for Chg Fwd Diagnoses Anemia D64.9 GI bleed K92.2 Perforated stomach K25.5 Nicotine dependence, unspecified, uncomplicated F17.200
[2022-03-15] MEDS: pantoprazole 40 mg SDV IVP ×2 (10:12→20:04)
[2022-03-15] MEDS: chlorPROMazine 50 mg Tablet 100 MG PO ×3 (10:12→20:04)
[2022-03-15] MEDS: fluoxetine 20 mg Capsule 40 MG PO (10:13)
[2022-03-15] MEDS: nicotine 21 mg Patch 1 PATCH TRANSDERMA (10:13)
[2022-03-15] MEDS: ciprofloxacin 400 MG/200 ML PREMIX 200 MG IV ×2 (10:13→20:05)
--- NOTE | 2022-03-15 10:45 | PM.PN ---
Subjective Subjective: No acute events overnight. Denies any abdominal pain. No more nausea or vomiting. Only small tarry bowel movements. Hemoglobin remained stable. He was switched to twice daily Protonix scheduled. Vitals/I&O/Wt Last Vital Signs Temp 98.2 F 03/15/22 04:30 Pulse 83 03/15/22 09:27 Resp 16 03/15/22 07:00 BP 141/90 03/15/22 07:00 Pulse Ox 100 03/15/22 09:27 O2 Del Method 03/15/22 09:27 03/14/22 03/15/22 03/15/22 22:59 06:59 14:59 Intake Total 1051.667 / 3276.667 1383.333 / 4660.000 Output Total 200 / 800 300 / 1100 Balance 851.667 / 2476.667 1083.333 / 3560.000 Weight last 48 hrs Weight 210 lb 8 oz Weight 211 lb Physical Exam Narrative: General: No acute distress Psych: AAOx3 Eyes: Sclerae are white Head/ENT: Normocephalic, symmetric CV: Regular pulse,, no JVD Lungs: Symmetrical chest rise Abdomen: Soft, ND, nontender Ext: No obvious traumatic deformities Skin: warm Data : 03/15/22 06:36 03/15/22 06:36 A&P Assessment and plan (1) GI bleed: (2) Borderline personality disorder: (3) Nicotine dependence, unspecified, uncomplicated: (4) Schizoaffective disorder, bipolar type: (5) Chronic idiopathic constipation: (6) Duodenal ulcer: Plan No evidence of recurrent bleeding. Okay to transfer out of the ICU. Start clear liquid diet. I will add Ensure to his diet. Continue Protonix and Carafate. Given high risk of recurrent bleeding, only mechanical DVT prophylaxis for now. Given that he is doing well and stable, no indications for a routine second look endoscopy at this time. Continue to monitor him closely. Attestations Medical Necessity Statement*: Treatment of acute GI bleed Coding Level of Care Code Acute Linseed Oil Temperer for g Fwd Diagnoses GI bleed K92.2 Borderline personality disorder F60.3 Nicotine dependence, unspecified, uncomplicated F17.200 Schizoaffective disorder, bipolar type F25.0 Chronic idiopathic constipation K59.04 Duodenal ulcer K26.9
[2022-03-15 10:48] LABS: Hematocrit 21.6 % (42.0-52.0); Hemoglobin 7.1 g/dL (11.7-16.6)
[2022-03-15 17:25] LABS: Hematocrit 20.9 % (42.0-52.0); Hemoglobin 6.9 g/dL (11.7-16.6)
[2022-03-15 20:04] LABS: Basophils % 0.4 %; Eosinophils # 0.1 10^3/uL (0.0-0.8); Eosinophils % 1.4 %; Hemoglobin 6.6 g/dL (11.7-16.6); Lymphocytes # 1.6 10^3/uL (0.8-4.8); Lymphocytes % 28.4 %; Mean Corpuscular HGB Conc 32.5 g/dL (30.0-36.0); Mean Corpuscular Hemoglobin 27.6 pg (28.0-34.0); Mean Corpuscular Volume 84.9 fl (80-94); Mean Platelet Volume 9.8 fL (7.4-10.4); Monocytes # 0.4 10^3/uL (0.2-0.9); Monocytes % 7.4 %; Neutrophils # 3.47 10^3/uL (1.8-7.7); Neutrophils % 62.2 %; Nucleated Red Blood Cells % 0 %; Platelet Count 248 10^3/cmm (130-400); Red Blood Count 2.39 10^6/uL (4.1-5.3); Red Cell Distribution Width 16.1 % (12.1-15.1); White Blood Count 5.6 10^3/uL (4.0-10.0)
[2022-03-15 20:31] LABS: Hematocrit 20.3 % (42.0-52.0)
--- NOTE | 2022-03-15 20:57 | PC.NURSE ---
Unit of blood transfused in Tar form 03/14/22 so the new unit could be transfused.
[2022-03-15] MEDS: sodium chloride 0.9% (100 ml) 100 ML (21:38)
[2022-03-16] VITALS (26 sets, daily range): BP systolic 102–157; BP diastolic 64–104; PULSE 75–100; RESP 9–22; TEMP 36.4–36.8; O2SAT 95–100
--- NOTE | 2022-03-16 00:17 | PC.NURSE ---
prbc infusion actually started at 2047 not 2027. incorrect time keyed in, no way to edit on tar.
[2022-03-16] MEDS: metroNIDAZOLE IV 500 MG/100 ML PREMIX 100 MG IV (00:51)
[2022-03-16] MEDS: morphine 4 mg/mL SDV 1 mL 2 MG IVP (04:09)
[2022-03-16] MEDS: metoclopramide 5 mg/mL SDV 2 mL 10 MG IVP (04:09)
[2022-03-16 04:33] LABS: Basophils % 0.7 %; Eosinophils # 0.1 10^3/uL (0.0-0.8); Eosinophils % 2.4 %; Hematocrit 24.2 % (42.0-52.0); Hemoglobin 7.9 g/dL (11.7-16.6); Lymphocytes # 1.1 10^3/uL (0.8-4.8); Lymphocytes % 24.1 %; Mean Corpuscular HGB Conc 32.6 g/dL (30.0-36.0); Mean Corpuscular Volume 85.8 fl (80-94); Monocytes # 0.3 10^3/uL (0.2-0.9); Monocytes % 6.6 %; Neutrophils # 3.01 10^3/uL (1.8-7.7); Neutrophils % 65.8 %; Nucleated Red Blood Cells % 0 %; Platelet Count 244 10^3/cmm (130-400); Red Blood Count 2.82 10^6/uL (4.1-5.3); Red Cell Distribution Width 15.6 % (12.1-15.1); White Blood Count 4.6 10^3/uL (4.0-10.0)
[2022-03-16 05:07] LABS: Anion Gap 11.7 (5-19); Blood Urea Nitrogen 7 mg/dL (6-20); Calcium 7.8 mg/dL (8.5-10.5); Carbon Dioxide 22 mmol/L (22-29); Chloride 108 mmol/L (98-107); Glomerular Filtration Rate 180.6 mL/min (90-130); Glucose 126 mg/dL (65-115); Osmolality Calculated 286 mOsm/kg (285-295); Potassium 3.7 mmol/L (3.5-5.1); Sodium 138 mmol/L (136-145)
[2022-03-16] MEDS: fluoxetine 20 mg Capsule 40 MG PO (08:02)
[2022-03-16] MEDS: pantoprazole 40 mg SDV IVP ×2 (08:02→20:36)
[2022-03-16] MEDS: nicotine 21 mg Patch 1 PATCH TRANSDERMA (08:02)
[2022-03-16] MEDS: sucralfate 1 gm/10 mL Oral Liq UDC PO ×4 (08:05→20:37)
[2022-03-16] MEDS: chlorPROMazine 50 mg Tablet 100 MG PO ×3 (08:23→20:37)
[2022-03-16] MEDS: ciprofloxacin 400 MG/200 ML PREMIX 200 MG IV (08:23)
--- NOTE | 2022-03-16 08:50 | P.PN_ITS ---
Subjective Subjective: Tarun reports he feels better. He did have some dark stools last night. Still a little bit of abdominal pain. No nausea. Medications: Reviewed: Yes Vitals/I&O/Wt Last Vital Signs Temp 97.6 F 03/16/22 03:00 Pulse 77 03/16/22 08:30 Resp 9 L 03/16/22 08:30 BP 139/102 03/16/22 08:30 Pulse Ox 100 03/16/22 08:30 O2 Del Method 03/16/22 03:00 03/15/22 03/16/22 03/16/22 22:59 06:59 14:59 Intake Total 500 / 1100 950 / 2050 Output Total 300 / 300 Balance 500 / 1100 650 / 1750 Weight last 48 hrs Weight 95.209 kg Weight 95.481 kg Weight 95.708 kg Physical Exam Narrative: General exam demonstrates a white male currently in no distress Neck is supple no lymphadenopathy or thyromegaly Cardiovascular regular rate and rhythm without murmur Lungs clear no wheezing or crackles Abdomen is tender epigastric area. No obvious organomegaly exam is deferred Extremities no cyanosis clubbing, cap refill brisk. No edema Skin no rash Data : 03/16/22 03:50 03/16/22 03:50 A&P Assessment and plan (1) Anemia: Severe anemia, secondary to acute blood loss anemia. Duodenal ulceration was seen on EGD. Epinephrine was injected initially. Went back to EGD yesterday 03/14 and clips deployed He had recurrent hematemesis this morning. He has had a total of 6 units of packed red blood cells Hemoglobin may be stabilizing. Monitor for any continued hematemesis Continue Protonix IV twice daily Etiology, likely secondary to extended use of high-dose aspirin. (2) GI bleed: Appreciate surgical consultation 03/13 and 03/14 with last procedure deploying clips Note that concern of perforation exists on CT scan. Surgery does not believe this is likely. Reinitiated n.p.o. status No evidence of liver disease Defer advancement of diet to surgery (3) Perforated stomach: Surgery believed clinically this is not likely. I concur. Cipro and Flagyl were added for the possibility of this. As patient is improving, will discontinue this (4) Nicotine dependence, unspecified, uncomplicated: Offered nicotine patch with she refused currently. Plan Mental health illness. Monitor closely. Reinitiate fluoxetine and chlorpromazine Full code SCDs for DVT prophylaxis Attestations Medical Necessity Statement*: Needs continued hospitalization for close monitoring secondary to recent upper GI bleed, active, requiring high-volume transfusion and intervention. Coding Level of Care Code Acute Lockstitch Collar Setter for Chg Fwd Diagnoses Anemia D64.9 GI bleed K92.2 Perforated stomach K25.5 Nicotine dependence, unspecified, uncomplicated F17.200
--- NOTE | 2022-03-16 10:29 | P.PN_ITS ---
Subjective Subjective: No acute events overnight. Denies any abdominal pain. He had 2 small black bowel movements. No other acute events. Hemoglobin down trended slightly and he received 1 unit of blood. He responded appropriately to blood transfusion. Vitals/I&O/Wt Last Vital Signs Temp 97.6 F 03/16/22 03:00 Pulse 77 03/16/22 08:30 Resp 9 L 03/16/22 08:30 BP 139/102 03/16/22 08:30 Pulse Ox 100 03/16/22 08:30 O2 Del Method 03/16/22 03:00 03/15/22 03/16/22 03/16/22 22:59 06:59 14:59 Intake Total 500 / 1100 950 / 2050 500 / 500 Output Total 300 / 300 Balance 500 / 1100 650 / 1750 500 / 500 Weight last 48 hrs Weight 209 lb 14.4 oz Weight 210 lb 8 oz Weight 211 lb Physical Exam Narrative: General: No acute distress Psych: AAOx3 Eyes: Sclerae are white Head/ENT: Normocephalic, symmetric CV: Regular pulse,, no JVD Lungs: Symmetrical chest rise Abdomen: Soft, ND, nontender Ext: No obvious traumatic deformities Skin: warm Data : 03/16/22 03:50 03/16/22 03:50 A&P Assessment and plan (1) GI bleed: (2) Borderline personality disorder: (3) Nicotine dependence, unspecified, uncomplicated: (4) Schizoaffective disorder, bipolar type: (5) Chronic idiopathic constipation: (6) Duodenal ulcer: Plan Advance to soft mechanical diet. Continue Protonix twice daily. He is off IV fluids already. We will recheck his hemoglobin tomorrow a.m. If stable, okay to discharge home on Protonix and Carafate. He will need repeat endoscopy in a month to reassess healing and perform biopsies. Given the strong causal relation NSAIDS and duodenal ulcer, I do think empiric treatment of the H. pylori is indicated right now. Discussed with the patient. Attestations Medical Necessity Statement*: Treatment of bleeding duodenal ulcer Coding Level of Care Code Acute Clinical Documentation Clerk for g Fwd Diagnoses GI bleed K92.2 Borderline personality disorder F60.3 Nicotine dependence, unspecified, uncomplicated F17.200 Schizoaffective disorder, bipolar type F25.0 Chronic idiopathic constipation K59.04 Duodenal ulcer K26.9
--- NOTE | 2022-03-16 10:32 | PC.NURSE ---
report given and transfered to floor at this
[2022-03-16 15:06] LABS: Hematocrit 23.9 % (42.0-52.0); Hemoglobin 7.8 g/dL (11.7-16.6)
[2022-03-17] VITALS: BP 134/73; PULSE 87; RESP 18; TEMP 36.4; O2SAT 98
[2022-03-17 04:00] VITALS: BP 103/57; PULSE 91; RESP 16; TEMP 36.6; O2SAT 99
[2022-03-17 05:29] LABS: Basophils % 0.2 %; Eosinophils # 0.2 10^3/uL (0.0-0.8); Eosinophils % 3.5 %; Hemoglobin 7.6 g/dL (11.7-16.6); Lymphocytes # 1.4 10^3/uL (0.8-4.8); Lymphocytes % 27.1 %; Mean Corpuscular Hemoglobin 27.6 pg (28.0-34.0); Mean Corpuscular Volume 83.6 fl (80-94); Mean Platelet Volume 9.8 fL (7.4-10.4); Monocytes # 0.5 10^3/uL (0.2-0.9); Monocytes % 8.8 %; Neutrophils # 3.07 10^3/uL (1.8-7.7); Nucleated Red Blood Cells % 0 %; Platelet Count 295 10^3/cmm (130-400); Red Blood Count 2.75 10^6/uL (4.1-5.3); Red Cell Distribution Width 16.3 % (12.1-15.1); White Blood Count 5.1 10^3/uL (4.0-10.0)
[2022-03-17 05:47] LABS: Blood Urea Nitrogen 5 mg/dL (6-20); Calcium 7.8 mg/dL (8.5-10.5); Carbon Dioxide 24 mmol/L (22-29); Chloride 104 mmol/L (98-107); Glomerular Filtration Rate 233.7 mL/min (90-130); Glucose 89 mg/dL (65-115); Osmolality Calculated 275 mOsm/kg (285-295); Sodium 134 mmol/L (136-145)
[2022-03-17 06:15] VITALS: PULSE 80
[2022-03-17] MEDS: sucralfate 1 gm/10 mL Oral Liq UDC PO (07:01)
--- NOTE | 2022-03-17 07:55 | P.DS_ITS ---
Discharge Providers Date of Admission: 03/13/22 09:09 Date of Discharge: March 17, 2022 Attending Provider at Admission: Chris Mendez MD Attending Provider at Discharge: Jean Mayorga MD Diagnoses at Discharge Discharge Diagnosis (1) GI bleed: Status: Acute (2) Borderline personality disorder: Status: Acute (3) Nicotine dependence, unspecified, uncomplicated: Status: Acute (4) Schizoaffective disorder, bipolar type: Status: Acute (5) Chronic idiopathic constipation: Status: Acute (6) Duodenal ulcer: Status: Acute Reason for Visit Reason for Visit: abdominal pain Hospital Course Hospital Course 46-year male who presented to hospital for upper GI bleed secondary to blood loss anemia, he has received 6 units PRBC has had 2 EGDs, on first EGD he had epinephrine injection that did not stop his bleeding second EGD was done to put clips around his duodenal ulcer. He did well in the next 72 hours, no significant drop in hemoglobin he remained hemodynamically stable. I have given him sucralfate and Protonix supplements for the next 12 weeks, H. pylori report is still pending. In case of recurrent event he might need embolization. He has been educated and counseled. Patient will not take aspirin or NSAIDs. He has been counseled. Physical Exam Narrative: Awake and alert Sitting in a chair Currently on room air Abdomen soft Pleasant and cooperative S1, S2 Discharge Data Studies Completed and Pending Completed Studies During Hospitalization Category Date Time Status CT abdomen pelvis w con* [id number] Stat Cat Scan 03/13/22 08:24 Completed Pending at discharge Category Date Time Status Hemoglobin and Hematocrit Stat Lab 03/17/22 07:53 Ordered Radiology Impressions Abdomen/Pelvis CT 03/13/22 08:24 IMPRESSION: 1. Findings suggest either distal stomach gastritis versus ulcer disease with suspected perforation. 2. THIS REPORT CONTAINS FINDINGS THAT MAY BE CRITICAL TO PATIENT CARE. The findings were verbally communicated by me to BLAYNE JACOBO at 9:00 AM CESSPOOL CLEANER on 03/13/2022. The findings were acknowledged and understood. Laboratory Results WBC 5.1 10^3/uL (4.0-10.0) 03/17/22 04:59 RBC 2.75 10^6/uL (4.1-5.3) L 03/17/22 04:59 Hgb 7.6 g/dL (11.7-16.6) L 03/17/22 04:59 Hct 23.0 % (42.0-52.0) L 03/17/22 04:59 MCV 83.6 fl (80-94) 03/17/22 04:59 MCH 27.6 pg (28.0-34.0) L 03/17/22 04:59 MCHC 33.0 g/dL (30.0-36.0) 03/17/22 04:59 RDW 16.3 % (12.1-15.1) H 03/17/22 04:59 Plt Count 295 10^3/cmm (130-400) 03/17/22 04:59 MPV 9.8 fL (7.4-10.4) 03/17/22 04:59 Neut % (Auto) 60.0 % 03/17/22 04:59 Lymph % (Auto) 27.1 % 03/17/22 04:59 [place] % (Auto) 8.8 % 03/17/22 04:59 Eos % (Auto) 3.5 % 03/17/22 04:59 Baso % (Auto) 0.2 % 03/17/22 04:59 Neut # (Auto) 3.07 10^3/uL (1.8-7.7) 03/17/22 04:59 Lymph # (Auto) 1.4 10^3/uL (0.8-4.8) 03/17/22 04:59 [place] # (Auto) 0.5 10^3/uL (0.2-0.9) 03/17/22 04:59 Eos # (Auto) 0.2 10^3/uL (0.0-0.8) 03/17/22 04:59 Baso # (Auto) 0.0 10^3/uL (0.0-0.1) 03/17/22 04:59 Nucleated RBC % (auto) 0 % 03/17/22 04:59 Nucleated RBCs # 0.0 /100WBC 03/17/22 04:59 PT 15.40 SECONDS (12.1-14.9) H 03/14/22 14:22 INR 1.19 (0.8-1.2) 03/14/22 14:22 APTT 49.0 SECONDS (23.9-36.7) H 03/13/22 08:05 Sodium 134 mmol/L (136-145) L 03/17/22 04:59 Potassium 4.0 mmol/L (3.5-5.1) 03/17/22 04:59 Chloride 104 mmol/L (98-107) 03/17/22 04:59 Carbon Dioxide 24 mmol/L (22-29) 03/17/22 04:59 Anion Gap 10.0 (5-19) 03/17/22 04:59 BUN 5 mg/dL (6-20) L 03/17/22 04:59 Creatinine 0.4 mg/dL (0.7-1.2) L 03/17/22 04:59 GFR Calculation 233.7 mL/min (90-130) H 03/17/22 04:59 Glucose 89 mg/dL (65-115) 03/17/22 04:59 Calculated Osmolality 275 mOsm/kg (285-295) L 03/17/22 04:59 Calcium 7.8 mg/dL (8.5-10.5) L 03/17/22 04:59 Magnesium 1.8 mg/dL (1.7-2.3) 03/13/22 08:05 Total Bilirubin 0.2 mg/dL (0.15-1.2) 03/15/22 06:36 AST 6 U/L (0-40) 03/15/22 06:36 ALT < 5 U/L (0-41) 03/15/22 06:36 Alkaline Phosphatase 72 U/L (40-130) 03/15/22 06:36 Total Protein 4.3 g/dL (6.6-8.7) L 03/15/22 06:36 Albumin 2.1 g/dL (3.5-5.2) L 03/15/22 06:36 Globulin 2.2 g/dL (1.3-4.6) 03/15/22 06:36 Lipase 60 U/L (13-60) 03/13/22 08:05 TSH 2.25 uIU/mL (0.27-4.20) 03/14/22 03:50 Urine Color Yellow (Yellow) 03/13/22 08:40 Urine Appearance Cloudy (CLEAR) A 03/13/22 08:40 Urine pH 8 (5-7) H 03/13/22 08:40 Ur Specific [place] 1.015 (1.005-1.030) 03/13/22 08:40 Urine Protein Neg (Negative) 03/13/22 08:40 Urine Glucose (UA) Norm (Normal) 03/13/22 08:40 Urine Ketones Negative (Negative) 03/13/22 08:40 Urine Blood Neg (Negative) 03/13/22 08:40 Urine Nitrate Negative (Negative) 03/13/22 08:40 Urine Bilirubin Neg (Negative) 03/13/22 08:40 Urine Urobilinogen Norm mg/dL (Negative) 03/13/22 08:40 Ur Leukocyte Esterase Negative (Negative) 03/13/22 08:40 Urine Opiates Screen Negative ng/mL (Negative) 03/13/22 08:40 Ur Barbiturates Screen Negative ng/mL (Negative) 03/13/22 08:40 Ur Phencyclidine Scrn Negative ng/mL (Negative) 03/13/22 08:40 Ur Amphetamines Screen Negative ng/mL (Negative) 03/13/22 08:40 U Benzodiazepines Scrn Negative ng/mL (Negative) 03/13/22 08:40 Urine Cocaine Screen Negative ng/mL (Negative) 03/13/22 08:40 U Marijuana (THC) Screen Negative ng/mL (Negative) 03/13/22 08:40 Blood Type B Negative 03/16/22 03:50 Rho(D) Type Negative 03/16/22 03:50 Antibody Screen Negative 03/16/22 03:50 Crossmatch See Detail 03/13/22 08:35 Vitals Last Vital Signs Temp 97.8 F 03/17/22 04:00 Pulse 80 03/17/22 06:15 Resp 16 03/17/22 04:00 BP 103/57 03/17/22 04:00 Pulse Ox 99 03/17/22 04:00 O2 Del Method 03/16/22 16:00 Discharge Plan Discharge Patient Disposition: Home Condition: Stable Prescriptions: New omeprazole 40 mg capsule,delayed release(DR/EC) 40 mg PO ONCE 84 Days Qty: 84 0RF Carafate 100 mg/mL suspension 1 g PO Q6H 84 Days Qty: 3360 0RF Iron (ferrous sulfate) 325 mg (65 mg iron) tablet 325 mg PO DAILY Qty: 60 0RF folic acid-vit B6-vit B12 0.5-5-0.2 mg tablet 1 tab PO DAILY Qty: 60 0RF Continued chlorpromazine 100 mg tablet 100 mg PO TID Qty: 90 5RF clonidine HCl 0.1 mg tablet 0.1 mg PO BID Qty: 60 5RF fluoxetine 40 mg capsule 40 mg PO DAILY Qty: 30 5RF hydroxyzine HCl 50 mg tablet 50 mg PO QID PRN (Reason: anxiety) Qty: 120 5RF Milk Of Magnesia Concentrated 2,400 mg/10 mL suspension See Rx Instructions .ROUTE .COMPLEX Rx Instructions: take 20 ml po from 1-3 times a day as needed Gas Relief Extra Strength 125 mg Capsule 125 mg PO DAILY PRN (Reason: Stomach Upset) Pepcid 20 mg Tablet 20 mg PO .UP TO BID trazodone 100 mg tablet 300 mg PO BEDTIME PRN (Reason: Sleep) Discontinued aspirin 325 mg tablet 1,300 mg PO Q4H PRN (Reason: Pain) Discharge Orders: Discharge Order (Routine); Ordered 03/17/22 Ordered By: Jean Mayorga Referrals: Jorge Mccormick MD [Physician] - 2 weeks (Return to surgery office in 2-week) Jesus Colmenares MD [Physician] - 03/22/22 11:00 am Discharge Diet: As Directed Discharge Activity: Increase activity as tolerated Patient Instructions: Iron Supplements (By mouth) (Duofer, Fe-20, Bifera, Oscar- Iron), Sucralfate (By mouth), Omeprazole (By mouth), Folic Acid (By mouth), Peptic Ulcer (GEN), Diet for Stomach Ulcers and Gastritis (GEN), Safe Use of NSAIDs (DC), GI Discharge Instructions, Opioid Safety Activity Restrictions/Additional Instructions: Raise the head of the bed 4-6 inches Frequent small meals through the day Avoid smoking or Chewing Tobacco Avoid excess coffee, tea, and other caffeinated beverages Avoid garments that fit tightly through the abdomen Avoid eating before going to sleep Avoid nonsteroidal anti-inflammatory drugs (NSAIDs) when possible Anti-reflux diet Anti-reflux medications as prescribed Emphasis on weight management Discharge Attestations Time Spent in Discharge Care*: less than 30 min Quality Metrics Clinical Quality Measures [ No reported AMI, CVA or VTE this stay] Coding Level of Care Code Acute Chg FW DC note Diagnoses GI bleed K92.2 Borderline personality disorder F60.3 Nicotine dependence, unspecified, uncomplicated F17.200 Schizoaffective disorder, bipolar type F25.0 Chronic idiopathic constipation K59.04 Duodenal ulcer K26.9
[2022-03-17 08:00] VITALS: BP 127/70; PULSE 79; RESP 17; TEMP 36.6; O2SAT 100
[2022-03-17] MEDS: fluoxetine 20 mg Capsule 40 MG PO (08:20)
[2022-03-17] MEDS: nicotine 21 mg Patch 1 PATCH TRANSDERMA (08:21)
[2022-03-17] MEDS: pantoprazole 40 mg SDV IVP (08:21)
[2022-03-17] MEDS: chlorPROMazine 50 mg Tablet 100 MG PO (08:26)
[2022-03-17 09:14] LABS: Hematocrit 26.4 % (42.0-52.0); Hemoglobin 8.5 g/dL (11.7-16.6)
--- NOTE | 2022-03-17 09:44 | P.PN_ITS ---
Subjective Subjective: Patient overall feels well. Denies any hematemesis or bleeding per rectum. H&H stable and tolerating p.o. intake. Medications: Reviewed: Yes Vitals/I&O/Wt Last Vital Signs Temp 97.8 F 03/17/22 08:00 Pulse 79 03/17/22 08:00 Resp 17 03/17/22 08:00 BP 127/70 03/17/22 08:00 Pulse Ox 100 03/17/22 08:00 O2 Del Method 03/17/22 08:00 03/16/22 03/17/22 03/17/22 22:59 06:59 14:59 Intake Total 440 / 2753.417 Output Total 300 / 300 Balance 440 / 2753.417 -300 / 2453.417 Weight last 48 hrs Weight 208 lb Weight 209 lb 14.4 oz Physical Exam Const: COMMON NORMALS: no acute distress and patient oriented x3 GENERAL APPEARANCE: cooperative ORIENTATION/CONSCIOUSNESS: Yes awake, Yes oriented to person, Yes oriented to place and Yes oriented to time HENMT: COMMON NORMALS: normocephalic HEAD & SCALP: normocephalic Eye: COMMON NORMALS: Equal, round and reactive pupils present and no scleral i cterus PUPIL: Yes Equal, round and reactive pupils present Lymph: LYMPHATIC: no lymphadenopathy noted Chest: COMMONS NORMALS: normal inspection of the chest Resp: COMMON NORMALS: normal respiratory effort and clear to auscultation bilaterally AUSCULTATION: clear to auscultation bilaterally Cardio: COMMON NORMALS: S1 normal heart sound present and S2 normal heart sound present; negative for No murmurs present (Cardio) HEART SOUNDS: S1 normal heart sound present and S2 normal heart sound present GI: COMMON NORMALS: Soft to palpation; negative for No hepatosplenomegaly present INSPECTION: Yes normal to inspection PALPATION: Yes Soft to palpation, No Firmness to palpation present (GI), No Tenderness to palpation present (GI), No Guarding due to palpation present (GI), No Rigid due to palpation and No No hepatosplenomegaly present Neuro: COMMON NORMALS: patient oriented x3 SENSORIUM/ORIENTATION: Yes orie nted to person, Yes oriented to place and Yes oriented to time Psych: COMMON NORMALS: mental status grossly normal Skin: COMMON NORMALS: no rashes or lesions noted GENERAL SKIN EXAM: no rashes or lesions noted Data : 03/17/22 08:20 03/17/22 04:59 A&P Assessment and plan (1) Duodenal ulcer: Assessment 46 years old gentleman with bleeding wall ulcer that required endoscopic intervention on 03/13 and 03/14/[address] Bird [facility] surgeon. Plan Raise the head of the bed 4-6 inches Frequent small meals through the day Avoid smoking or Chewing Tobacco Avoid excess coffee, tea, and other caffeinated beverages Avoid garments that fit tightly through the abdomen Avoid eating before going to sleep Avoid nonsteroidal anti-inflammatory drugs (NSAIDs) when possible Anti-reflux diet Anti-reflux medications as prescribed as well as Carafate Emphasis on weight management Patient was educated if he had a repeat episode he will potentially require angioembolization which we do not carry in our facility. Return to surgery office in 2 weeks to arrange for repeat EGD in 6 to 8 weeks Attestations Medical Necessity Statement*: Per admitting service Coding Level of Care Code Acute Strategic Intelligence Officer for Kobe Riggs Diagnoses Duodenal ulcer K26.9
--- NOTE | 2022-03-17 10:34 | PC.NURSE ---
22 gauge that was placed per personal development educator in RUE was removed for D/C.
== END 2022-03-17 10:38 | disposition home or self-care (01) | DRG 381 ==
LOC: ER 09:14 → ICU 09:18 → MEDSURG 03-16 10:25
PROVIDERS: Internal Medicine; Surgery; Admitting Provider Internal Medicine; Emergency Provider Family Medicine; Visit Provider Internal Medicine
PROC: 0DJ08ZZ Inspection of Upper Intestinal Tract, Via Natural or Artificial Opening Endoscopic (ICD-10-PCS; CPT 43235; principal; 2022-03-13 11:10)
DX: K26.5 Chronic or unspecified duodenal ulcer with perforation (principal); D62 Acute posthemorrhagic anemia; K20.90 Esophagitis, unspecified without bleeding; K59.04 Chronic idiopathic constipation; G89.29 Other chronic pain; M54.9 Dorsalgia, unspecified; F60.3 Borderline personality disorder; E66.01 Morbid (severe) obesity due to excess calories; Z68.29 Body mass index [BMI] 29.0-29.9, adult; F17.210 Nicotine dependence, cigarettes, uncomplicated; F25.0 Schizoaffective disorder, bipolar type; Z88.1 Allergy status to other antibiotic agents; Z88.0 Allergy status to penicillin; Z79.891 Long term (current) use of opiate analgesic
CPT/HCPCS: 12345; 36415; 36430; 43255; 74177; 80048; 80053; 80306; 81003; 82274; 83690; 83735; 84443; 85014; 85018; 85025; 85610; 85730; 86850; 86900; 86920; 96365; 96367; 96375; 99285; C9113; J0171; J0330; J0744; J2270; J2405; J2704; J2765; J3010; J3490; J7030; J7050; J7120; P9016; P9047; Q0161; Q9967

== ENCOUNTER → 2022-03-22 12:09 | Outpatient (BNVA) | payer MEDICAID, SELFPAY | PROVIDERS: Visit Provider Family Medicine | DX: D62 Acute posthemorrhagic anemia (principal); F25.0 Schizoaffective disorder, bipolar type | CPT/HCPCS: 80053; 80061; 81000; 85025 ==

== ENCOUNTER → 2022-03-27 10:58 | Outpatient (BNVA) | payer MEDICAID, SELFPAY | PROVIDERS: PCP Family Medicine; Visit Provider Surgery | DX: Z09 Encounter for follow-up examination after completed treatment for conditions other than malignant neoplasm (principal); K26.9 Duodenal ulcer, unspecified as acute or chronic, without hemorrhage or perforation | CPT/HCPCS: 99203; 99213 ==

== ENCOUNTER → 2022-04-19 11:22 | Outpatient (BNVA) | payer MEDICAID, SELFPAY | PROVIDERS: PCP Family Medicine; Visit Provider Family Medicine | DX: D62 Acute posthemorrhagic anemia (principal) | CPT/HCPCS: 85025 ==

== ENCOUNTER → 2022-06-13 10:18 | Outpatient (BNVA) | payer MEDICAID, SELFPAY | PROVIDERS: PCP Family Medicine; Visit Provider Family Medicine | DX: D62 Acute posthemorrhagic anemia (principal) | CPT/HCPCS: 80053; 85025 ==

== ENCOUNTER 2022-07-11 10:47 | Outpatient (CLI) | payer MEDICAID, SELFPAY ==
--- NOTE | 2022-07-11 11:05 | USCV_ITS ---
Tarun Summers Age: 46 Gender: M : 1975 Exam Date: 07/11/2022 11:27 Ordering Phys: Jesus Colmenares MD Technologist: CT Exam [facility] [facility] [place] Indication: edema PROCEDURES: The venous duplex Doppler examination of both lower extremities was performed in the standard fashion. In addition, the posterior tibial and peroneal trunk were evaluated. Bilaterally, the common femoral, superficial femoral, profunda femoral, popliteal, posterior tibial, greater saphenous veins, and the peroneal trunk were identified and interrogated in the standard fashion. These veins were found to be easily compressible with spontaneous blood flow. No evidence of insufficiency or thrombus noted. FINDINGS: no dvt, small bakers on rt CONCLUSIONS No evidence of right lower extremity DVT. No evidence of left lower extremity DVT. Right popliteal cyst measuring 1.7 x 1.1cm David Martin MD (Electronically Signed) Final Date: 11 July 2022 16:47 S
== END 2022-07-11 10:48 | disposition home or self-care (01) ==
PROVIDERS: PCP Family Medicine; Visit Provider Family Medicine
DX: R60.9 Edema, unspecified (principal); M71.21 Synovial cyst of popliteal space [Baker], right knee
CPT/HCPCS: 93970

== ENCOUNTER 2022-08-04 08:54 | Inpatient (IN) | payer MEDICAID, SELFPAY ==
[2022-08-04] VITALS (7 sets, daily range): BP systolic 91–162; BP diastolic 50–110; PULSE 81–99; RESP 14–20; TEMP 36.6–36.7; O2SAT 93–99; BMI 26.3
--- NOTE | 2022-08-04 09:04 | ED.C_ITS ---
Documented by User: PHIL Giles 08/04/22 10:56 HPI - Psych General: Chief Complaint: Psychiatric Symptoms Stated Complaint: PSYCH EVAL Time Seen by Provider: 08/04/22 08:55 Source: patient and EMS Mode of arrival: EMS Limitations: no limitations History of Present Illness: Patient is a 46-year-old male who presents to ED today via EMS for mental health evaluation. Patient tells me that he is having auditory and visual hallucinations stating that he hears and sees people living in his ceiling. Patient tells me he has a history of schizoaffective disorder, bipolar, borderline personality disorder. He states his psychiatrist is Dr. Amaral at [facility] he has not seen him in 4 to 5 months. He does state he has an appointment on 08/22. On exam patient appears very paranoid and responding to internal stimuli. He tells me that Dillon Pacheco is his uncle. He states he does not want to be admitted to [facility] because his certificate states he was born at this hospital and I know I was not . He states that I need to consult with the [employer] and that they will send me where they want to send me . Patient states he started using recreational marijuana about a week ago. Denies SI/HI. complaint: altered mental status and other (hallucinations, paranoia, psychosis ) Onset (ago): day(s) Duration: intermittent History of same: Yes Associated psychiatric symptoms: auditory hallucinations and visual hallucinations Associated symptoms: Reports auditory hallucinations and visual hallucinations; Deny depression, homicidal ideation or suicidal ideation Treatments prior to arrival: none Review of Systems Const: Denies: fever(s) or chills Card: Denies: chest pain, palpitations, lightheadedness or syncope Resp: Denies: dyspnea GI: Denies: abdominal pain, nausea, vomiting or diarrhea Skin/Breast: Denies: rash Neuro: Denies: headache(s) Psych: Reports: paranoia, visual hallucinations and auditory hallucinations; Denies: anxiety, depression, suicidal ideation or homicidal ideation [facility] ED PFSH: Medical History Anemia Borderline personality disorder Chronic idiopathic constipation Duodenal ulcer Folliculitis cruris pustulosa atrophicans GI bleed Morbid obesity with BMI of 40.0-44.9, adult Nicotine dependence, unspecified, uncomplicated Nonvenomous insect bite of neck Perforated stomach Peripheral neuropathy Schizoaffective disorder, bipolar type Spina bifida Upper gastrointestinal hemorrhage Surgical History History of back surgery History of carpal tunnel surgery of right wrist History of cholecystectomy History of incision and drainage left hip History of tonsillectomy Family History Mother Bleeding disorder anemia Cancer uterine Hypertension Lung disease asthma Grandmother Bleeding disorder anemia Diabetes Father Cancer melonoma Hyperlipidemia Grandfather Chronic kidney disease (CKD) Diabetes Stroke Denies family history of CAD (coronary artery disease) Clotting disorder Dementia Psychiatric illness Anesthesia complication Social History Smoking and tobacco status: current every day smoker cigarettes Packs smoked per day: 1 Years cigarettes smoked: 25 [ Other cigarette details: current 1.25 PPD, 54PY ] Quit status (tobacco): has tried quititng Number of times tried to quit tobacco: 8 Second hand smoke exposure: No Smoking risk assessment/counseling performed?: Yes Tobacco counseling given: counseling >3 minutes Alcohol intake: current Alcohol intake frequency: holidays/special occasions only Alcohol type: hard liquor Desire information about alcohol rehabilitation?: No Desire information about substance/drug rehabilitation?: No Lives independently: Yes Household members: caregiver Marital status: Single Number of children: 0 Current occupational status: disabled Current gender identity: Male Special dagmar needs: No Agree to transfusion: Yes Physical Exam Const: COMMON NORMALS: no acute distress, patient oriented x3, alert and well nourished GENERAL APPEARANCE: cooperative Resp: COMMON NORMALS: normal respiratory effort and clear to auscultation bilaterally AUSCULTATION: clear to auscultation bilaterally Cardio: COMMON NORMALS: regular rate and regular rhythm RATE: regular rate RHYTHM: regular rhythm Neuro: COMMON NORMALS: patient oriented x3 SENSORIUM/ORIENTATION: Yes alert Psych: COMMON NORMALS: mental status grossly normal, Normal thought process present, cooperative, normal affect, speech normal, activity/motor behavior normal, denies homicidal ideation and denies suicidal ideation APPEARANCE: Yes grossly normal ATTITUDE: Yes engaged and Yes paranoid ACTIVITY/MOTOR BEHAVIOR: Yes appropriate eye contact and No psychomotor agitation SPEECH: Yes normal speech MOOD & AFFECT: Yes euthymic mood THOUGHT PROCESS: Normal thought process present THOUGHT CONTENT: Yes Hallucination(s) present ATTENTION/CONCENTRATION: Yes attention grossly intact and Yes concentration grossly intact MEMORY/COGNITION: Yes memory grossly intact INSIGHT: Fair insight present (Psych) JUDGEMENT: Fair judgement present (Psych) Course Consultations: Consultation #1: Dr. Field-accepts to [facility] Vital Signs: Vital signs: Vital Signs Temperature 98.1 F 08/04/22 08:57 Pulse Rate 99 08/04/22 08:57 Respiratory Rate 14 08/04/22 08:57 Blood Pressure 158/110 08/04/22 08:57 Pulse Oximetry 98 08/04/22 08:57 Oxygen Delivery Me thod 08/04/22 08:57 MDM - Psych Lab Data 08/04/22 09:34 08/04/22 09:34 Laboratory Results WBC 9.7 10^3/uL (4.0-10.0) 08/04/22 09:34 RBC 5.42 10^6/uL (4.1-5.3) H 08/04/22 09:34 Hgb 15.2 g/dL (11.7-16.6) 08/04/22 09:34 Hct 43.5 % (42.0-52.0) 08/04/22 09:34 MCV 80.3 fl (80-94) 08/04/22 09:34 MCH 28.0 pg (28.0-34.0) 08/04/22 09:34 MCHC 34.9 g/dL (30.0-36.0) 08/04/22 09:34 RDW 15.9 % (12.1-15.1) H 08/04/22 09:34 Plt Count 254 10^3/cmm (130-400) 08/04/22 09:34 MPV 9.3 fL (7.4-10.4) 08/04/22 09:34 Neut % (Auto) 68.1 % 08/04/22 09:34 Lymph % (Auto) 20.9 % 08/04/22 09:34 Heard % (Auto) 9.9 % 08/04/22 09:34 Eos % (Auto) 0.6 % 08/04/22 09:34 Baso % (Auto) 0.1 % 08/04/22 09:34 Neut # (Auto) 6.60 10^3/uL (1.8-7.7) 08/04/22 09:34 Lymph # (Auto) 2.0 10^3/uL (0.8-4.8) 08/04/22 09:34 Heard # (Auto) 1.0 10^3/uL (0.2-0.9) H 08/04/22 09:34 Eos # (Auto) 0.1 10^3/uL (0.0-0.8) 08/04/22 09:34 Baso # (Auto) 0.0 10^3/uL (0.0-0.1) 08/04/22 09:34 Nucleated RBC % (auto) 0 % 08/04/22 09:34 Nucleated RBCs # 0.0 /100WBC 08/04/22 09:34 Sodium 134 mmol/L (136-145) L 08/04/22 09:34 Potassium 3.8 mmol/L (3.5-5.1) 08/04/22 09:34 Chloride 95 mmol/L (98-107) L 08/04/22 09:34 Carbon Dioxide 26 mmol/L (22-29) 08/04/22 09:34 Anion Gap 16.8 (5-19) 08/04/22 09:34 BUN 6 mg/dL (6-20) 08/04/22 09:34 Creatinine 0.8 mg/dL (0.7-1.2) 08/04/22 09:34 GFR Calculation 105.0 mL/min (90-130) 08/04/22 09:34 Glucose 125 mg/dL (65-115) H 08/04/22 09:34 Calculated Osmolality 277 mOsm/kg (285-295) L 08/04/22 09:34 Calcium 9.6 mg/dL (8.5-10.5) 08/04/22 09:34 Total Bilirubin 0.5 mg/dL (0.15-1.2) 08/04/22 09:34 AST 19 U/L (0-40) 08/04/22 09:34 ALT 13 U/L (0-41) 08/04/22 09:34 Alkaline Phosphatase 122 U/L (40-130) 08/04/22 09:34 Total Protein 7.5 g/dL (6.6-8.7) 08/04/22 09:34 Albumin 4.3 g/dL (3.5-5.2) 08/04/22 09:34 Globulin 3.2 g/dL (1.3-4.6) 08/04/22 09:34 Salicylates < 0.3 mg/dL (3-10) L 08/04/22 09:34 Acetaminophen 8.1 ug/mL (10-30) L 08/04/22 09:34 Ethyl Alcohol < 10 mg/dL (0-10) 08/04/22 09:34 Discharge Plan Discharge Patient Disposition: Admitted As Inpatient Clinical Impression: Acute psychosis, Chronic schizophrenia, Marijuana use, Schizoaffective disorder, bipolar type Condition: Stable Coding Level of Care Code ED Senior Hr Generalist for Chg Fwd Documented by User: Fitz Larson DO 08/04/22 10:57 HPI - Psych General: Chief Complaint: Psychiatric Symptoms Stated Complaint: PSYCH EVAL Time Seen by Provider: 08/04/22 08:55 PFSH ED PFSH: Medical History Anemia Borderline personality disorder Chronic idiopathic constipation Duodenal ulcer Folliculitis cruris pustulosa atrophicans GI bleed Morbid obesity with BMI of 40.0-44.9, adult Nicotine dependence, unspecified, uncomplicated Nonvenomous insect bite of neck Perforated stomach Peripheral neuropathy Schizoaffective disorder, bipolar type Spina bifida Upper gastrointestinal hemorrhage Surgical History History of back surgery History of carpal tunnel surgery of right wrist History of cholecystectomy History of incision and drainage left hip History of tonsillectomy Family History Mother Bleeding disorder anemia Cancer uterine Hypertension Lung disease asthma Grandmother Bleeding disorder anemia Diabetes Father Cancer melonoma Hyperlipidemia Grandfather Chronic kidney disease (CKD) Diabetes Stroke Denies family history of CAD (coronary artery disease) Clotting disorder Dementia Psychiatric illness Anesthesia complication Social History Smoking and tobacco status: current every day smoker cigarettes Packs smoked per day: 1 Years cigarettes smoked: 25 [ Other cigarette details: current 1.25 PPD, 54PY ] Quit status (tobacco): has tried quititng Number of times tried to quit tobacco: 8 Second hand smoke exposure: No Smoking risk assessment/counseling performed?: Yes Tobacco counseling given: counseling >3 minutes Alcohol intake: current Alcohol intake frequency: holidays/special occasions only Alcohol type: hard liquor Desire information about alcohol rehabilitation?: No Desire information about substance/drug rehabilitation?: No Lives independently: Yes Household members: caregiver Marital status: Single Number of children: 0 Current occupational status: disabled Current gender identity: Male Special dagmar needs: No Agree to transfusion: Yes Course Vital Signs: Vital signs: Vital Signs Temperature 98.1 F 08/04/22 08:57 Pulse Rate 99 08/04/22 08:57 Respiratory Rate 14 08/04/22 08:57 Blood Pressure 158/110 08/04/22 08:57 Pulse Oximetry 98 08/04/22 08:57 Oxygen Delivery Me thod 08/04/22 08:57 MDM - Psych Medical Decision Making Chart reviewed and patient discussed with midlevel. Agree with assessment and plan. Medical Records I reviewed the patient's medical records. Lab Data I reviewed the patient's lab results. 08/04/22 09:34 08/04/22 09:34 Laboratory Results WBC 9.7 10^3/uL (4.0-10.0) 08/04/22 09:34 RBC 5.42 10^6/uL (4.1-5.3) H 08/04/22 09:34 Hgb 15.2 g/dL (11.7-16.6) 08/04/22 09:34 Hct 43.5 % (42.0-52.0) 08/04/22 09:34 MCV 80.3 fl (80-94) 08/04/22 09:34 MCH 28.0 pg (28.0-34.0) 08/04/22 09:34 MCHC 34.9 g/dL (30.0-36.0) 08/04/22 09:34 RDW 15.9 % (12.1-15.1) H 08/04/22 09:34 Plt Count 254 10^3/cmm (130-400) 08/04/22 09:34 MPV 9.3 fL (7.4-10.4) 08/04/22 09:34 Neut % (Auto) 68.1 % 08/04/22 09:34 Lymph % (Auto) 20.9 % 08/04/22 09:34 Heard % (Auto) 9.9 % 08/04/22 09:34 Eos % (Auto) 0.6 % 08/04/22 09:34 Baso % (Auto) 0.1 % 08/04/22 09:34 Neut # (Auto) 6.60 10^3/uL (1.8-7.7) 08/04/22 09:34 Lymph # (Auto) 2.0 10^3/uL (0.8-4.8) 08/04/22 09:34 Heard # (Auto) 1.0 10^3/uL (0.2-0.9) H 08/04/22 09:34 Eos # (Auto) 0.1 10^3/uL (0.0-0.8) 08/04/22 09:34 Baso # (Auto) 0.0 10^3/uL (0.0-0.1) 08/04/22 09:34 Nucleated RBC % (auto) 0 % 08/04/22 09:34 Nucleated RBCs # 0.0 /100WBC 08/04/22 09:34 Sodium 134 mmol/L (136-145) L 08/04/22 09:34 Potassium 3.8 mmol/L (3.5-5.1) 08/04/22 09:34 Chloride 95 mmol/L (98-107) L 08/04/22 09:34 Carbon Dioxide 26 mmol/L (22-29) 08/04/22 09:34 Anion Gap 16.8 (5-19) 08/04/22 09:34 BUN 6 mg/dL (6-20) 08/04/22 09:34 Creatinine 0.8 mg/dL (0.7-1.2) 08/04/22 09:34 GFR Calculation 105.0 mL/min (90-130) 08/04/22 09:34 Glucose 125 mg/dL (65-115) H 08/04/22 09:34 Calculated Osmolality 277 mOsm/kg (285-295) L 08/04/22 09:34 Calcium 9.6 mg/dL (8.5-10.5) 08/04/22 09:34 Total Bilirubin 0.5 mg/dL (0.15-1.2) 08/04/22 09:34 AST 19 U/L (0-40) 08/04/22 09:34 ALT 13 U/L (0-41) 08/04/22 09:34 Alkaline Phosphatase 122 U/L (40-130) 08/04/22 09:34 Total Protein 7.5 g/dL (6.6-8.7) 08/04/22 09:34 Albumin 4.3 g/dL (3.5-5.2) 08/04/22 09:34 Globulin 3.2 g/dL (1.3-4.6) 08/04/22 09:34 Salicylates < 0.3 mg/dL (3-10) L 08/04/22 09:34 Acetaminophen 8.1 ug/mL (10-30) L 08/04/22 09:34 Ethyl Alcohol < 10 mg/dL (0-10) 08/04/22 09:34 Discharge Plan Discharge Patient Disposition: Admitted As Inpatient Clinical Impression: Acute psychosis, Chronic schizophrenia, Marijuana use, Schizoaffective disorder, bipolar type Condition: Stable Coding Level of Care Code ED Senior Hr Generalist for Kobe Riggs
[2022-08-04] MEDS: OLANZapine 5 mg ODT 7.5 MG PO (09:09)
[2022-08-04 09:44] LABS: Basophils % 0.1 %; Eosinophils # 0.1 10^3/uL (0.0-0.8); Eosinophils % 0.6 %; Hematocrit 43.5 % (42.0-52.0); Hemoglobin 15.2 g/dL (11.7-16.6); Lymphocytes % 20.9 %; Mean Corpuscular HGB Conc 34.9 g/dL (30.0-36.0); Mean Corpuscular Volume 80.3 fl (80-94); Mean Platelet Volume 9.3 fL (7.4-10.4); Monocytes % 9.9 %; Neutrophils % 68.1 %; Nucleated Red Blood Cells % 0 %; Platelet Count 254 10^3/cmm (130-400); Red Blood Count 5.42 10^6/uL (4.1-5.3); Red Cell Distribution Width 15.9 % (12.1-15.1); White Blood Count 9.7 10^3/uL (4.0-10.0)
[2022-08-04 10:20] LABS: Acetaminophen 8.1 ug/mL (10-30); Alanine Aminotransferase 13 U/L (0-41); Albumin Level 4.3 g/dL (3.5-5.2); Alkaline Phosphatase 122 U/L (40-130); Anion Gap 16.8 (5-19); Aspartate Amino Transferase 19 U/L (0-40); Blood Urea Nitrogen 6 mg/dL (6-20); Calcium 9.6 mg/dL (8.5-10.5); Carbon Dioxide 26 mmol/L (22-29); Chloride 95 mmol/L (98-107); Globulin 3.2 g/dL (1.3-4.6); Glucose 125 mg/dL (65-115); Osmolality Calculated 277 mOsm/kg (285-295); Potassium 3.8 mmol/L (3.5-5.1); Sodium 134 mmol/L (136-145); Total Bilirubin 0.5 mg/dL (0.15-1.2); Total Protein 7.5 g/dL (6.6-8.7)
[2022-08-04 10:21] LABS: Alcohol Level < 10 mg/dL (0-10); Salicylate < 0.3 mg/dL (3-10)
[2022-08-04 11:30] LABS: Amphetamines Screen Urine Negative (Negative); Barbiturates Screen Urine Negative (Negative); Benzodiazepines Screen Urine Negative (Negative); Cocaine Screen Urine Negative (Negative); Opiate Screen Urine Negative (Negative); PCP Screen Urine Negative (Negative); THC Screen Urine Negative (Negative)
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
[2022-08-04] MEDS: chlorPROMazine 50 mg Tablet 100 MG PO (18:25)
[2022-08-05 06:00] VITALS: BP 144/90; PULSE 92; RESP 16; TEMP 36.2; O2SAT 99
[2022-08-05] MEDS: chlorPROMazine 50 mg Tablet 100 MG PO (08:24)
[2022-08-05 08:25] VITALS: BP 144/90
[2022-08-05] MEDS: pantoprazole DR 40 mg Tablet PO (08:25)
[2022-08-05] MEDS: fluoxetine 20 mg Capsule 40 MG PO (08:25)
[2022-08-05] MEDS: cloNIDine 0.1 mg Tablet PO (08:25)
[2022-08-05] MEDS: TORSEmide 20 mg Tablet 40 MG PO (08:28)
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
[2022-08-05] MEDS: diphenhydrAMINE 50 mg/mL SDV 1mL IM (13:38)
[2022-08-05] MEDS: haloperidol inj 5 mg/mL INJ 1 mL IM (13:38)
[2022-08-05] MEDS: LORazepam 2 mg/mL INJ 1 mL IM (13:39)
[2022-08-05 14:00] VITALS: RESP 16
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
[2022-08-05 21:17] VITALS: RESP 17
[2022-08-06 06:00] VITALS: BP 143/93; PULSE 103; RESP 16; TEMP 37.3; O2SAT 100
[2022-08-06] MEDS: LORazepam 2 mg Tablet PO (08:03)
[2022-08-06] MEDS: acetaminophen 325 mg Tablet 650 MG PO ×2 (08:14→15:47)
[2022-08-06 08:15] VITALS: BP 143/93
[2022-08-06] MEDS: fluoxetine 20 mg Capsule 40 MG PO (08:15)
[2022-08-06] MEDS: cloNIDine 0.1 mg Tablet PO ×2 (08:15→20:13)
[2022-08-06] MEDS: ferrous sulfate EC 325 mg Tablet PO (08:15)
[2022-08-06] MEDS: pantoprazole DR 40 mg Tablet PO (08:15)
[2022-08-06] MEDS: chlorPROMazine 50 mg Tablet 100 MG PO ×2 (08:15→20:14)
[2022-08-06] MEDS: TORSEmide 20 mg Tablet 40 MG PO (08:17)
--- NOTE | 2022-08-06 10:04 | PC.NURSE ---
Given ativan PO at 0803 due to severe shaking during assessment. Patient spilled water while drinking it during assessment due to him shaking violently.
[2022-08-06] MEDS: polyethylene glycol 3350 Pkt 17 gm 34 GM PO (13:43)
[2022-08-06 14:00] VITALS: BP 132/93; PULSE 108; RESP 17; TEMP 37.2; O2SAT 97
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
[2022-08-06] MEDS: blistex lip oint 7 gm Tube 1 APPLIC TOPICAL (20:27)
[2022-08-06 22:00] VITALS: BP 122/73; PULSE 93; RESP 16; TEMP 36.6; O2SAT 95
[2022-08-07 06:00] VITALS: BP 114/75; PULSE 72; RESP 16; TEMP 36.3; O2SAT 99
[2022-08-07] MEDS: TORSEmide 20 mg Tablet 40 MG PO (09:14)
[2022-08-07] MEDS: pantoprazole DR 40 mg Tablet PO (09:14)
[2022-08-07] MEDS: fluoxetine 20 mg Capsule 40 MG PO (09:15)
[2022-08-07 09:17] VITALS: BP 111/77
[2022-08-07] MEDS: cloNIDine 0.1 mg Tablet PO ×2 (09:17→20:15)
[2022-08-07] MEDS: chlorPROMazine 50 mg Tablet 100 MG PO ×2 (09:20→20:15)
[2022-08-07] MEDS: magnesium hydroxide 30 mL UDC PO (12:29)
[2022-08-07 14:00] VITALS: BP 123/83; PULSE 96; RESP 20; TEMP 37; O2SAT 93
[2022-08-07] MEDS: paliperidone palmitate 234 mg Syringe IM (16:52)
--- NOTE | 2022-08-07 16:52 | PC.NURSE ---
Administered Invega Sustenna 234mg IM in pt's right deltoid, tolerated well.
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
[2022-08-07 19:37] VITALS: BP 123/77; PULSE 84; RESP 16; TEMP 36.7; O2SAT 98
[2022-08-07] MEDS: acetaminophen 325 mg Tablet 650 MG PO (22:01)
[2022-08-08] MEDS: trazodone 50 mg Tablet PO (01:21)
--- NOTE | 2022-08-08 01:26 | PC.NURSE ---
PRN trazodone for sleep given as ordered per pt request.
[2022-08-08 06:00] VITALS: BP 122/78; PULSE 88; RESP 16; TEMP 36.4; O2SAT 96
[2022-08-08 08:37] VITALS: BP 122/78
[2022-08-08] MEDS: cloNIDine 0.1 mg Tablet PO ×2 (08:37→20:06)
[2022-08-08] MEDS: paliperidone ER 6 mg Tablet PO (08:38)
[2022-08-08] MEDS: pantoprazole DR 40 mg Tablet PO (08:38)
[2022-08-08] MEDS: TORSEmide 20 mg Tablet 40 MG PO (08:39)
[2022-08-08] MEDS: chlorPROMazine 50 mg Tablet PO ×2 (08:39→20:07)
[2022-08-08] MEDS: ferrous sulfate EC 325 mg Tablet PO (08:40)
[2022-08-08] MEDS: magnesium hydroxide 30 mL UDC PO ×2 (10:09→18:36)
--- NOTE | 2022-08-08 10:24 | PC.NURSE ---
Administered Milk of Magnesia to patient, 30mL per patient request. Patient states that he is constipated.
[2022-08-08] MEDS: fluoxetine 20 mg Capsule 40 MG PO (11:50)
[2022-08-08 14:00] VITALS: BP 124/79; PULSE 84; RESP 18; TEMP 36.6; O2SAT 100
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
[2022-08-08] MEDS: nicotine 4 mg lozenge MUCOUS MEM (16:35)
[2022-08-08 21:07] VITALS: RESP 18
[2022-08-09 06:00] VITALS: RESP 15
[2022-08-09] MEDS: TORSEmide 20 mg Tablet 40 MG PO (09:35)
[2022-08-09] MEDS: nicotine 21 mg Patch 1 PATCH TRANSDERMA (09:35)
[2022-08-09] MEDS: paliperidone ER 6 mg Tablet PO (09:35)
[2022-08-09] MEDS: fluoxetine 20 mg Capsule 40 MG PO (09:36)
[2022-08-09] MEDS: pantoprazole DR 40 mg Tablet PO (09:36)
[2022-08-09] MEDS: acetaminophen 325 mg Tablet 650 MG PO (09:43)
[2022-08-09 09:44] VITALS: BP 123/86
[2022-08-09] MEDS: cloNIDine 0.1 mg Tablet PO (09:44)
[2022-08-09] MEDS: chlorPROMazine 50 mg Tablet PO (09:44)
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
[2022-08-09 14:00] VITALS: BP 140/78; PULSE 87; RESP 20; TEMP 36.1; O2SAT 99
[2022-08-09] MEDS: magnesium hydroxide 30 mL UDC PO (15:14)
[2022-08-09 22:00] VITALS: BP 111/70; PULSE 82; RESP 15; TEMP 36.6; O2SAT 99
[2022-08-10 06:00] VITALS: RESP 17
[2022-08-10] MEDS: magnesium hydroxide 30 mL UDC PO (07:42)
[2022-08-10] MEDS: TORSEmide 20 mg Tablet 40 MG PO (08:12)
[2022-08-10] MEDS: fluoxetine 20 mg Capsule 40 MG PO (08:12)
[2022-08-10] MEDS: paliperidone ER 6 mg Tablet PO (08:12)
[2022-08-10] MEDS: pantoprazole DR 40 mg Tablet PO (08:12)
[2022-08-10] MEDS: ferrous sulfate EC 325 mg Tablet PO (08:12)
[2022-08-10] MEDS: cloNIDine 0.1 mg Tablet PO (08:12)
[2022-08-10] MEDS: nicotine 21 mg Patch 1 PATCH TRANSDERMA (09:35)
[2022-08-10] MEDS: blistex lip oint 7 gm Tube 1 APPLIC TOPICAL (11:00)
[2022-08-10 13:24] VITALS: BP 109/63; PULSE 83; RESP 16; TEMP 36.8; O2SAT 100
[2022-08-10] MEDS: OLANZapine 5 mg ODT PO (13:38)
--- NOTE | 2022-08-10 13:39 | PC.NURSE ---
[employer] Patient states he is feeling a little overwhelmed due to his 21 day paperwork, but is not angry about it. He is unsure of his health care attorney at the moment and this RN assured him he would be represented in court pro sammi. He asked who would be his health care attorney and I assured him I would ask the social work program coordinator as I am not sure who it is at the time. Patient administered zyprexa 5mg odt.
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
[2022-08-10 20:12] VITALS: BP 111/68; PULSE 78; RESP 18; TEMP 36.8; O2SAT 98
[2022-08-10 21:48] VITALS: BP 111/68
[2022-08-11 06:00] VITALS: BP 117/67; PULSE 76; RESP 18; TEMP 36.5; O2SAT 97
[2022-08-11] MEDS: magnesium hydroxide 30 mL UDC PO ×2 (07:19→20:15)
[2022-08-11 08:05] VITALS: BP 125/80
[2022-08-11] MEDS: paliperidone ER 6 mg Tablet PO (08:05)
[2022-08-11] MEDS: TORSEmide 20 mg Tablet 40 MG PO (08:05)
[2022-08-11] MEDS: cloNIDine 0.1 mg Tablet PO (08:05)
[2022-08-11] MEDS: fluoxetine 20 mg Capsule 40 MG PO (08:05)
[2022-08-11] MEDS: pantoprazole DR 40 mg Tablet PO (08:05)
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
[2022-08-11] MEDS: nicotine 21 mg Patch 1 PATCH TRANSDERMA (10:08)
[2022-08-11 14:00] VITALS: BP 168/78; PULSE 116; RESP 16; TEMP 36.6; O2SAT 97
[2022-08-11] MEDS: acetaminophen 325 mg Tablet 650 MG PO (14:38)
[2022-08-11 22:00] VITALS: BP 104/73; PULSE 104; RESP 18; TEMP 36.4; O2SAT 98
[2022-08-11 23:05] VITALS: BP 104/73
[2022-08-12 06:00] VITALS: BP 102/60; PULSE 75; RESP 16; TEMP 36.4; O2SAT 97; BMI 25.7
[2022-08-12] MEDS: fluoxetine 20 mg Capsule 40 MG PO (08:38)
[2022-08-12] MEDS: paliperidone ER 6 mg Tablet PO (08:38)
[2022-08-12 08:39] VITALS: BP 114/76
[2022-08-12] MEDS: cloNIDine 0.1 mg Tablet PO ×2 (08:39→19:59)
[2022-08-12] MEDS: TORSEmide 20 mg Tablet 40 MG PO (08:42)
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
[2022-08-12] MEDS: pantoprazole DR 40 mg Tablet PO (12:45)
[2022-08-12 14:00] VITALS: BP 117/73; PULSE 97; RESP 17; TEMP 36.9; O2SAT 97
[2022-08-12] MEDS: nicotine 2 mg Gum BUCCAL (14:21)
[2022-08-12 19:59] VITALS: BP 128/74
[2022-08-12] MEDS: nicotine 4 mg lozenge MUCOUS MEM (19:59)
[2022-08-12] MEDS: magnesium hydroxide 30 mL UDC PO (20:00)
[2022-08-12 20:31] VITALS: BP 128/74; PULSE 97; RESP 18; TEMP 36.6; O2SAT 97
[2022-08-13 06:00] VITALS: BP 97/59; PULSE 75; RESP 16; TEMP 36.4; O2SAT 97
[2022-08-13] MEDS: acetaminophen 325 mg Tablet 650 MG PO (07:37)
[2022-08-13] MEDS: TORSEmide 20 mg Tablet 40 MG PO (07:44)
[2022-08-13] MEDS: nicotine 21 mg Patch 1 PATCH TRANSDERMA (07:44)
[2022-08-13] MEDS: pantoprazole DR 40 mg Tablet PO (07:45)
[2022-08-13] MEDS: paliperidone ER 6 mg Tablet PO (07:45)
[2022-08-13] MEDS: fluoxetine 20 mg Capsule 40 MG PO (07:46)
[2022-08-13] MEDS: polyethylene glycol 3350 Pkt 17 gm 34 GM PO (07:47)
[2022-08-13 14:00] VITALS: BP 134/85; PULSE 85; RESP 20; TEMP 36.6; O2SAT 100
[2022-08-13] MEDS: hyDROXYzine 25 mg Capsule 50 MG PO (14:20)
--- NOTE | 2022-08-13 14:21 | PC.NURSE ---
Administered 50mg hydroxyzine PO for patient. Patient came to me stating that he was having anxiety after singing with another patient. After discussing his feelings further, this nurse administered medication to patient.
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
[2022-08-13 19:59] VITALS: BP 122/80; PULSE 82; RESP 16; TEMP 36.4; O2SAT 98
[2022-08-13 21:30] VITALS: BP 122/80
[2022-08-14 06:00] VITALS: BP 110/66; PULSE 112; RESP 16; TEMP 36.4; O2SAT 98
[2022-08-14] MEDS: nicotine 21 mg Patch 1 PATCH TRANSDERMA (07:33)
[2022-08-14] MEDS: fluoxetine 20 mg Capsule 40 MG PO (08:21)
[2022-08-14] MEDS: paliperidone ER 6 mg Tablet 3 MG PO (08:21)
[2022-08-14] MEDS: pantoprazole DR 40 mg Tablet PO (08:22)
[2022-08-14] MEDS: TORSEmide 20 mg Tablet 40 MG PO (08:22)
[2022-08-14] MEDS: polyethylene glycol 3350 Pkt 17 gm 34 GM PO (08:22)
[2022-08-14] MEDS: ferrous sulfate EC 325 mg Tablet PO (08:22)
[2022-08-14] MEDS: paliperidone palmitate 156 mg Syringe IM (11:04)
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
[2022-08-14 13:33] VITALS: BP 110/66; PULSE 112; RESP 16; TEMP 36.4; O2SAT 98
[2022-08-14] MEDS: acetaminophen 325 mg Tablet 650 MG PO (13:34)
--- NOTE | 2022-08-14 13:56 | PC.NURSE ---
Discharge information, including appointments, meds, and diagnoses, were reviewed with pt. Pt verbalized his understanding. Pt reported he felt ready to leave; denied thoughts of hurting himself or anyone else. Pt awaiting ride.
== END 2022-08-14 14:26 | disposition home or self-care (01) | DRG 885 ==
LOC: ER 10:56 → NP 15:28
PROVIDERS: Physician Assistant; Admitting Provider Psychiatry & Neurology Psychiatry; Emergency Provider Family Medicine; PCP Family Medicine; Visit Provider Psychiatry & Neurology Psychiatry
DX: F25.0 Schizoaffective disorder, bipolar type (principal); F60.3 Borderline personality disorder; F17.210 Nicotine dependence, cigarettes, uncomplicated; I10 Essential (primary) hypertension; G89.29 Other chronic pain; M54.9 Dorsalgia, unspecified; F41.9 Anxiety disorder, unspecified; Z79.891 Long term (current) use of opiate analgesic; K59.04 Chronic idiopathic constipation; G62.9 Polyneuropathy, unspecified; F12.90 Cannabis use, unspecified, uncomplicated
CPT/HCPCS: 80053; 80306; 80307; 85025; 96372; 97150; 97165; 99285; J1200; J1630; J2060; Q0161

== ENCOUNTER 2023-02-01 14:22 | Inpatient (IN) | payer MEDICAID, SELFPAY ==
--- NOTE | 2023-02-01 15:03 | PC.PHAR ---
PT STATES DOES NOT TAKE MEDICATIONS AND WILL NEVER TAKE ANYTHING AGAIN. PT GUESSED HIS NAME IS SKY BUT WOULD NOT VERIFY HIS BIRTHDAY. SAID WE WERE A BUNCH OF IDIOTS.
[2023-02-01 15:18] LABS: Basophils % 0.4 %; Eosinophils # 0.2 10^3/uL (0.0-0.8); Eosinophils % 3.1 %; Hematocrit 36.8 % (37-53); Lymphocytes % 26.8 %; Mean Corpuscular HGB Conc 34.2 g/dL (30-55); Mean Corpuscular Hemoglobin 28.3 pg (27-33); Mean Corpuscular Volume 82.7 fl (82-101); Mean Platelet Volume 10.2 fL (7.4-10.4); Monocytes # 0.8 10^3/uL (0.2-0.9); Monocytes % 10.1 %; Neutrophils # 4.39 10^3/uL (1.8-7.7); Neutrophils % 59.3 %; Nucleated Red Blood Cells % 0 %; Platelet Count 164 10^3/cmm (157-399); Red Blood Count 4.45 10^6/uL (3.85-5.65); Red Cell Distribution Width 14.1 % (12.1-15.1)
--- NOTE | 2023-02-01 15:30 | ED.C_ITS ---
HPI - Psych General: Chief Complaint: Psychiatric Symptoms Stated Complaint: 96 hr hold Time Seen by Provider: 02/01/23 14:41 Source: patient Mode of arrival: other (Law enforcement) History of Present Illness: 47-year-old male who presents to the emergency room with complaints of altered mental status. He was found walking down the middle of the road in his underwear he believes that he is that he was killed by his mother he has various other vague hallucinations and distorted thoughts. He was at crisis intervention center and was directed to the emergency room as a 96-hour hold. He denies any injury denies any recent illness. Reviewing the chart I cannot see the notes but I can see multiple visits to crisis stabilization previously. MD complaint: altered mental status Duration: constant History of same: Yes Relieving factors: none Exacerbating factors: none Associated psychiatric symptoms: none Associated symptoms: Reports delusions; Deny auditory hallucinations, visual hallucinations, depression, homicidal ideation, suicidal ideation or racing thoughts Treatments prior to arrival: none Review of Systems General: Reports: ROS unobtainable due to mental status Psych: Denies: depression, visual hallucinations, auditory hallucinations, suicidal ideation or homicidal ideation [facility] ED PFSH: Medical History Anemia Borderline personality disorder Chronic idiopathic constipation Duodenal ulcer Folliculitis cruris pustulosa atrophicans GI bleed Morbid obesity with BMI of 40.0-44.9, adult Nicotine dependence, unspecified, uncomplicated Nonvenomous insect bite of neck Perforated stomach Peripheral neuropathy Schizoaffective disorder, bipolar type Spina bifida Upper gastrointestinal hemorrhage Surgical History History of back surgery History of carpal tunnel surgery of right wrist History of cholecystectomy History of incision and drainage left hip History of tonsillectomy Family History Mother Bleeding disorder anemia Cancer uterine Hypertension Lung disease asthma Grandmother Bleeding disorder anemia Diabetes Father Cancer melonoma Hyperlipidemia Grandfather Chronic kidney disease (CKD) Diabetes Stroke Denies family history of CAD (coronary artery disease) Clotting disorder Dementia Psychiatric illness Anesthesia complication Social History Smoking and tobacco status: current every day smoker cigarettes Packs smoked per day: 1 Years cigarettes smoked: 25 [ Other cigarette details: current 1.25 PPD, 54PY ] Quit status (tobacco): has tried quititng Number of times tried to quit tobacco: 8 Second hand smoke exposure: No Smoking risk assessment/counseling performed?: Yes Tobacco counseling given: counseling >3 minutes Alcohol intake: current Alcohol intake frequency: holidays/special occasions only Alcohol type: hard liquor Desire information about alcohol rehabilitation?: No Substance/Drug Use: never Desire information about substance/drug rehabilitation?: No Lives independently: Yes Household members: caregiver Marital status: Single Number of children: 0 Current occupational status: disabled Current gender identity: Male Special dagmar needs: No Agree to transfusion: Yes Physical Exam Const: GENERAL APPEARANCE: cooperative and comfortable ORIENTATION/CONSCIOUSNESS: Yes awake HENMT: COMMON NORMALS: normocephalic, atraumatic and hearing grossly normal bilaterally HEAD & SCALP: normocephalic and atraumatic Resp: COMMON NORMALS: normal respiratory effort, No retractions, No use of accessory muscles and clear to auscultation bilaterally AUSCULTATION: clear to auscultation bilaterally Cardio: COMMON NORMALS: regular rate, regular rhythm and No murmurs present (Cardio) RATE: regular rate RHYTHM: regular rhythm GI: COMMON NORMALS: Soft to palpation and No hepatosplenomegaly present AUSCULTATION: Yes normoactive bowel sounds PALPATION: Yes Soft to palpation, No Tenderness to palpation present (GI), No Guarding due to palpation present (GI) and Yes No hepatosplenomegaly present Extremity: COMMON NORMALS: normal to inspection, capillary refill normal, no clubbing, cyanosis or edema, no calf tenderness and no pedal edema Psych: THOUGHT CONTENT: Yes delusions Skin: COMMON NORMALS: no rashes or lesions noted GENERAL SKIN EXAM: no rashes or lesions noted Course Vital Signs: Vital signs: Vital Signs Temperature 97.8 F 02/05/23 06:00 Pulse Rate 72 02/05/23 06:00 Respiratory Rate 18 02/05/23 06:00 Blood Pressure 123/79 02/05/23 06:00 Pulse Oximetry 100 02/05/23 06:00 Oxygen Delivery Me thod Room Air 02/05/23 06:00 MDM - Psych Medical Decision Making Acute psychosis. Discussed with hospitalist will admit orders written medically cleared to go to the psychiatric floor. Medical Records I reviewed the patient's medical records. Lab Data I reviewed the patient's lab results. 02/01/23 15:06 02/01/23 15:06 Laboratory Results WBC 7.40 10^3/uL (3.29-11.43) 02/01/23 15:06 RBC 4.45 10^6/uL (3.85-5.65) 02/01/23 15:06 Hgb 12.60 g/dL (11.27-16.99) 02/01/23 15:06 Hct 36.8 % (37-53) L 02/01/23 15:06 MCV 82.7 fl (82-101) 02/01/23 15:06 MCH 28.3 pg (27-33) 02/01/23 15:06 MCHC 34.2 g/dL (30-55) 02/01/23 15:06 RDW 14.1 % (12.1-15.1) 02/01/23 15:06 Plt Count 164 10^3/cmm (157-399) 02/01/23 15:06 MPV 10.2 fL (7.4-10.4) 02/01/23 15:06 Neut % (Auto) 59.3 % 02/01/23 15:06 Lymph % (Auto) 26.8 % 02/01/23 15:06 [place] % (Auto) 10.1 % 02/01/23 15:06 Eos % (Auto) 3.1 % 02/01/23 15:06 Baso % (Auto) 0.4 % 02/01/23 15:06 Neut # (Auto) 4.39 10^3/uL (1.8-7.7) 02/01/23 15:06 Lymph # (Auto) 2.0 10^3/uL (0.8-4.8) 02/01/23 15:06 [place] # (Auto) 0.8 10^3/uL (0.2-0.9) 02/01/23 15:06 Eos # (Auto) 0.2 10^3/uL (0.0-0.8) 02/01/23 15:06 Baso # (Auto) 0.0 10^3/uL (0.0-0.1) 02/01/23 15:06 Nucleated RBC % (auto) 0 % 02/01/23 15:06 Nucleated RBCs # 0.0 /100WBC 02/01/23 15:06 Sodium 133 mmol/L (136-145) L 02/01/23 15:06 Potassium 3.7 mmol/L (3.5-5.1) 02/01/23 15:06 Chloride 100 mmol/L (98-107) 02/01/23 15:06 Carbon Dioxide 23 mmol/L (22-29) 02/01/23 15:06 Anion Gap 13.7 (5-19) 02/01/23 15:06 BUN 12 mg/dL (6-20) 02/01/23 15:06 Creatinine 0.7 mg/dL (0.7-1.2) 02/01/23 15:06 GFR Calculation 122.0 mL/min (90-130) 02/01/23 15:06 Glucose 160 mg/dL (65-115) H 02/01/23 15:06 Calculated Osmolality 279 mOsm/kg (285-295) L 02/01/23 15:06 Calcium 8.6 mg/dL (8.5-10.5) 02/01/23 15:06 Total Bilirubin 0.4 mg/dL (0.15-1.2) 02/01/23 15:06 AST 34 U/L (0-40) 02/01/23 15:06 ALT 17 U/L (0-41) 02/01/23 15:06 Alkaline Phosphatase 91 U/L (40-130) 02/01/23 15:06 Total Protein 6.4 g/dL (6.6-8.7) L 02/01/23 15:06 Albumin 3.8 g/dL (3.5-5.2) 02/01/23 15:06 Globulin 2.6 g/dL (1.3-4.6) 02/01/23 15:06 Urine Color Yellow (Yellow) 02/01/23 15:48 Urine Appearance Clear (CLEAR) 02/01/23 15:48 Urine pH 5 (5-7) 02/01/23 15:48 Ur Specific [place] 1.020 (1.005-1.030) 02/01/23 15:48 Urine Protein Neg (Negative) 02/01/23 15:48 Urine Glucose (UA) Norm (Normal) 02/01/23 15:48 Urine Ketones 1+ (Negative) H 02/01/23 15:48 Urine Blood Neg (Negative) 02/01/23 15:48 Urine Nitrate Negative (Negative) 02/01/23 15:48 Urine Bilirubin Neg (Negative) 02/01/23 15:48 Urine Urobilinogen 1 mg/dL (Negative) H 02/01/23 15:48 Ur Leukocyte Esterase Negative (Negative) 02/01/23 15:48 Salicylates < 0.3 mg/dL (3-10) L 02/01/23 15:06 Urine Opiates Screen Negative ng/mL (Negative) 02/01/23 15:48 Acetaminophen < 5.0 ug/mL (10-30) L 02/01/23 15:06 Ur Barbiturates Screen Negative ng/mL (Negative) 02/01/23 15:48 Ur Phencyclidine Scrn Negative ng/mL (Negative) 02/01/23 15:48 Ur Amphetamines Screen Negative ng/mL (Negative) 02/01/23 15:48 U Benzodiazepines Scrn Negative ng/mL (Negative) 02/01/23 15:48 Urine Cocaine Screen Negative ng/mL (Negative) 02/01/23 15:48 U Marijuana (THC) Screen Negative ng/mL (Negative) 02/01/23 15:48 Ethyl Alcohol < 10 mg/dL (0-10) 02/01/23 15:06 No radiology studies performed this visit Discharge Plan Discharge Patient Disposition: Admitted As Inpatient Admit Provider: Panda Bansal Clinical Impression: Acute psychosis, Borderline personality disorder Condition: Stable Coding Level of Care Code ED 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
[2023-02-01 15:35] LABS: Alanine Aminotransferase 17 U/L (0-41); Albumin Level 3.8 g/dL (3.5-5.2); Alkaline Phosphatase 91 U/L (40-130); Anion Gap 13.7 (5-19); Aspartate Amino Transferase 34 U/L (0-40); Blood Urea Nitrogen 12 mg/dL (6-20); Calcium 8.6 mg/dL (8.5-10.5); Carbon Dioxide 23 mmol/L (22-29); Chloride 100 mmol/L (98-107); Globulin 2.6 g/dL (1.3-4.6); Glucose 160 mg/dL (65-115); Osmolality Calculated 279 mOsm/kg (285-295); Potassium 3.7 mmol/L (3.5-5.1); Sodium 133 mmol/L (136-145); Total Bilirubin 0.4 mg/dL (0.15-1.2); Total Protein 6.4 g/dL (6.6-8.7)
[2023-02-01 15:36] LABS: Acetaminophen < 5.0 ug/mL (10-30); Alcohol Level < 10 mg/dL (0-10); Salicylate < 0.3 mg/dL (3-10)
--- NOTE | 2023-02-01 15:55 | PC.NURSE ---
Reviewed patient 96 hr rights with patient and with assistance of Tarun [employer] @[id number]. No needs verbalized at this time. Patient copy left at bedside with patient.
[2023-02-01 15:56] LABS: Add Urine Microscopic? NO; Charge for UA Resulting for Rev
[2023-02-01 16:03] LABS: Bilirubin Urine Neg (Negative); Blood Urine Neg (Negative); Glucose Urine UA Norm (Normal); Ketones Urine 1+ (Negative); Leukocyte Esterase Urine Negative (Negative); Nitrate Urine Negative (Negative); Protein Urine Neg (Negative); Urine Appearance Clear (CLEAR); Urine Color Yellow (Yellow); Urobilinogen Urine 1 mg/dL (Negative); pH Urine 5 (5-7)
[2023-02-01 16:07] VITALS: BP 143/83; PULSE 83; RESP 18; TEMP 36.4; O2SAT 98
[2023-02-01 16:09] LABS: Amphetamines Screen Urine Negative (Negative); Barbiturates Screen Urine Negative (Negative); Benzodiazepines Screen Urine Negative (Negative); Cocaine Screen Urine Negative (Negative); Opiate Screen Urine Negative (Negative); PCP Screen Urine Negative (Negative); THC Screen Urine Negative (Negative)
[2023-02-01 17:04] VITALS: BP 128/84; PULSE 84; RESP 16; TEMP 36.8; O2SAT 96
[2023-02-01 20:25] VITALS: RESP 18
--- NOTE | 2023-02-01 20:25 | PC.NURSE ---
pt refused resp 18
[2023-02-02] MEDS: magnesium hydroxide 30 mL UDC PO (06:40)
--- NOTE | 2023-02-02 06:46 | PC.NURSE ---
pt refused vs stating he felt fine resp 17
[2023-02-02] MEDS: ibuprofen 600 mg Tablet PO (07:33)
--- NOTE | 2023-02-02 09:56 | PC.NURSE ---
Patient denies si/hi. When asked if he was experiencing any auditory or visual hallucinations patient stated, I don't even know. Patient did appear delusional, making statements that his face had been cut off, that he was and had been killed several times, how he had been in a woodchipper and cut into strips for thread, and he believed he had no heart. Patient was cooperative with assessment.
[2023-02-02] MEDS: acetaminophen 325 mg Tablet 650 MG PO (10:55)
[2023-02-02] MEDS: OLANZapine 5 mg ODT PO (11:28)
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
[2023-02-02 13:17] VITALS: BP 167/99; PULSE 69; RESP 16; TEMP 37.2; O2SAT 100
[2023-02-02] MEDS: paliperidone palmitate 234 mg Syringe IM (13:57)
[2023-02-02] MEDS: paliperidone ER 6 mg Tablet PO (13:59)
--- NOTE | 2023-02-02 13:59 | PC.NURSE ---
Invega 234mg IM given in right deltoid. Patient tolerated well.
[2023-02-02 19:38] VITALS: BP 154/100; PULSE 83; RESP 16; TEMP 36.7; O2SAT 100; BMI 28.2
[2023-02-03 06:00] VITALS: BP 109/67; PULSE 70; RESP 18; TEMP 36.4; O2SAT 99
[2023-02-03] MEDS: paliperidone ER 6 mg Tablet PO (09:59)
[2023-02-03] MEDS: diphenhydrAMINE 50 mg Capsule PO (12:23)
[2023-02-03 14:00] VITALS: BP 131/83; PULSE 87; RESP 17; TEMP 36.4; O2SAT 98
[2023-02-03] MEDS: ibuprofen 600 mg Tablet PO (14:42)
[2023-02-03] MEDS: haloperidol 5 mg Tablet PO (14:47)
[2023-02-03] MEDS: hyDROXYzine 25 mg Capsule 50 MG PO (14:47)
--- NOTE | 2023-02-03 15:36 | W.PM.NPUPNS ---
Subjective [facility] Subjective: 47-year-old white male with a history of schizoaffective disorder admitted with noncompliance with medications and disorganized behavior and thinking. Patient reported no side effects from his medications. He had reported that he needed to leave by February 07 as it had been stated that way in the digital application that was inside of his body. He had continued to describe having bizarre ideas and had continued to appear very paranoid and unwilling to discuss anything in specific detail. He reported poor sleep. He had required as needed Zyprexa last night. Due to increased agitation. Mental Status Exam MSE Comments: This is a well-nourished well-developed white male in hospital scrubs looking older than his stated age with poor grooming and intense eye contact. No abnormal movements except for significant psychomotor agitation. He was uncooperative with exam and moderate to extreme distress. Speech was increased rate and increased volume. Mood was good. His affect was odd. Thought process was disorganized with looseness of associations. Thought content: Patient did not endorse suicidal or homicidal ideation. Patient had endorsed bizarre delusions regarding having a chip implanted inside of him that would go off on February 07. He did not report auditory or visual hallucinations and did not appear to be responding to internal stimuli. Attention and concentration were impaired and memory was unreliable, but none were formally tested. He is alert and oriented to person and place. Insight is feeble and judgment and impulse control are impaired. Vitals/I&O/Wt Last Vital Signs Temp 97.6 F 02/03/23 14:00 Pulse 87 02/03/23 14:00 Resp 17 02/03/23 14:00 BP 131/83 02/03/23 14:00 Pulse Ox 98 02/03/23 14:00 O2 Del Method Room Air 02/03/23 14:00 Weight last 48 hrs Weight 91.852 kg Weight 89.358 kg Data [facility] 02/01/23 15:06 02/01/23 15:06 A&P Assessment and plan (1) Acute psychosis: (2) Schizoaffective disorder, bipolar type without good prognostic features: (3) Chronic schizophrenia: (4) Marijuana use: Plan This is a 46-year-old white male who presents inpatient unit with noncompliance with his medications once again with bizarre thoughts, decreased sleep, and continued inability to care for himself. 1.? Invega Sustenna 234mg IM given on 02/02/23 with initiation of oral invega at 6mg at night. 2.? Continue on 96 hour hold. 3.? Encourage individual, group and milieu therapy. 4.? Continue every 15 minute checks for safety. Involuntary Hold Information 96 Hour Hold: 96 Hour Involuntary Admission: Yes 96 Hour Hold Ending Date: 02/07/23 96 Hour Hold Ending Time: 14:22 Attestations [facility] Medical Necessity Statement*: Inpatient hospitalization is medically necessary and clinically appropriate intervention at this time.? We will initiate medication and/or make changes as indicated..? His likely length of stay is 5-7 days. Coding Level of Care Code Acute Code for [facility] Fwd Diagnoses Acute psychosis F23 Schizoaffective disorder, bipolar type without good prognostic features F25.0 Chronic schizophrenia F20.9 Marijuana use F12.90
[2023-02-03 20:05] VITALS: BP 150/82; PULSE 84; RESP 15; O2SAT 100
--- NOTE | 2023-02-03 20:14 | PC.NURSE ---
Addendum entered by Gabriele Kimball 02/03/23 20:18: Explained to patient that he would need to speak with the doctor before we were able to release him. Patient stated that he wanted out now and then demanded two cartons of cigarettes. Told the patient that we wouldnt be able to do that. Patient then stated that we were worthless. Original Note: Patient approached the nurses station and asked Nurse Tech Bernabe if he was his father. Bernabe informed the patient that he was not. Patient then proceeded to making comments under his breathe and walked to the doors trying to open them to leave. Patient asked how to get out of here and we let patient know that he was not able to open the doors and explained (again) about his 96. Patient then looked at this tech and stated that I was too young to be his mother and asked if i was 2. Let the patient know that i was not his mother and much older than [age]. Patient then proceeded to tell this tech that I was an ugly son of a bitch. Patient then demanded to be released with a cartoon of cigarette. E
[2023-02-04 06:00] VITALS: RESP 15
--- NOTE | 2023-02-04 06:28 | PC.NURSE ---
Patient refused vitals. RR obtained
[2023-02-04] MEDS: paliperidone ER 6 mg Tablet PO (08:17)
--- NOTE | 2023-02-04 09:58 | PC.NURSE ---
During morning assessment, patient stated that [facility] sucks balls . Patient states that he hates it here, that he hates the planet. Patient denies SI, HI, AVH. Patient agitated during assessment, stating that he didn't want me to be asking him questions.
[2023-02-04] MEDS: nicotine 21 mg Patch 1 PATCH TRANSDERMA (11:39)
[2023-02-04] MEDS: acetaminophen 325 mg Tablet 650 MG PO (12:54)
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
[2023-02-04 13:17] VITALS: BP 131/81; PULSE 80; RESP 16; O2SAT 94
--- NOTE | 2023-02-04 14:34 | P.NPUPN_ITS ---
Subjective NPU Subjective: 47-year-old white male with a history of schizoaffective disorder admitted with noncompliance with medications and disorganized behavior and thinking. Patient had continued to be intrusive and continued to make verbal threats. He was compliant with his medication. He had reported that he was ready to leave on February 07 as he had stated that he was ordained to be free on that day. He c ontinued to appear confused on the unit while attempting to superficially engage with other patients. He reported adequate sleep. He had acknowledged having been homeless and reported no difficulties with sleep last night. Staff notes the patient had required redirection. He had stated that he had great power and influence over others. Mental Status Exam MSE Comments: This is a well-nourished well-developed white male in hospital scrubs looking older than his stated age with poor grooming and intense eye contact. No abnormal movements except for significant psychomotor agitation. He was min imally cooperative with exam and moderate distress today. His speech was normal in rate and normal in volume with some periods of latency noted. Mood was described as good. His affect was odd and subdued. Thought process was disorganized with looseness of associations. Thought content: Patient did not endorse suicidal or homicidal ideation. Patient had endorsed bizarre delusions with signficant ideas of reference and paranoia. He did not report auditory or visual hallucinations and did not appear to be responding to internal stimuli. Attention and concentration were impaired and memory was unreliable, but none were formally tested. He is alert and oriented to person and place. Insight is feeble and judgment and impulse control are impaired. Vitals/I&O/Wt Last Vital Signs Temp 97.6 F 02/03/23 14:00 Pulse 80 02/04/23 13:17 Resp 16 02/04/23 13:17 BP 131/81 02/04/23 13:17 Pulse Ox 94 02/04/23 13:17 O2 Del Method Room Air 02/04/23 13:17 Weight last 48 hrs Weight 91.852 kg Data NPU 02/01/23 15:06 02/01/23 15:06 A&P Assessment and plan (1) Acute psychosis: (2) Schizoaffective disorder, bipolar type without good prognostic features: (3) Chronic schizophrenia: (4) Marijuana use: Plan This is a 46-year-old white male who presents inpatient unit with noncompliance with his medications once again with bizarre thoughts, decreased sleep, and continued inability to care for himself. 1.? Invega Sustenna 234mg IM given on 02/02/23 with increase in oral invega to 9mg daily. 2nd shot of invega 156mg due on 02/07/23 2.? Continue on 96 hour hold. 3.? Encourage individual, group and milieu therapy. 4.? Continue every 15 minute checks for safety. Involuntary Hold Information 96 Hour Hold: 96 Hour Involuntary Admission: Yes 96 Hour Hold Ending Date: 02/07/23 96 Hour Hold Ending Time: 14:22 Attestations NPU Medical Necessity Statement*: Inpatient hospitalization is medically necessary and clinically appropriate intervention at this time.? We will initiate medication and/or make changes as indicated..? His likely length of stay is 5-7 days. Coding Level of Care Code Acute Code for g Fwd Diagnoses Acute psychosis F23 Schizoaffective disorder, bipolar type without good prognostic features F25.0 Chronic schizophrenia F20.9 Marijuana use F12.90
--- NOTE | 2023-02-04 20:19 | PC.NURSE ---
Respiration Rate 16. Couldn't wake pt up due to pt sleeping deeply.
[2023-02-05 06:00] VITALS: BP 123/79; PULSE 72; RESP 18; TEMP 36.6; O2SAT 100
[2023-02-05] MEDS: paliperidone ER 9 mg Tablet PO (07:59)
[2023-02-05] MEDS: acetaminophen 325 mg Tablet 650 MG PO (07:59)
[2023-02-05] MEDS: polyethylene glycol 3350 Pkt 17 gm PO (08:20)
[2023-02-05] MEDS: nicotine 21 mg Patch 1 PATCH TRANSDERMA (12:09)
[2023-02-05 14:00] VITALS: BP 132/81; PULSE 84; RESP 16; TEMP 37.2; O2SAT 99
--- NOTE | 2023-02-05 16:02 | P.NPUPN_ITS ---
Subjective NPU Subjective: 47-year-old white male with a history of schizoaffective disorder admitted with noncompliance with medications and disorganized behavior and thinking. the patient received his second dose of Invega at 156 mg intramuscularly today. He had remained on oral Invega at 9 mg daily. He had continued to appear somewhat bizarre on the unit often engaging in conversations without any clear direction or any clear logical format. He had stated that he wished to leave here and stay at a hotel. He had continued to minimize having any problems and stated that he did not need to be hospitalized and did not need to be on any medications. He had endorsed having multiple degrees and stated that he did not need to be locked up . Mental Status Exam MSE Comments: This is a well-nourished well-developed white male in hospital scrubs looking older than his stated age with poor grooming and intense eye contact. No abnormal movements except for significant psychomotor agitation. He was minimally cooperative with exam and appeared in no acute distress. His speech was normal in rate and normal in volume with some periods of latency noted. Mood was described as okay. His affect was odd and subdued. Thought process was disorganized with looseness of associations. Thought content: Patient did not endorse suicidal or homicidal ideation. Patient had endorsed bizarre delusions with significant ideas of reference and paranoia. He did not report auditory or visual hallucinations and did not appear to be responding to internal stimuli. Attention and concentration were impaired and memory was unreliable, but none were formally tested. He is alert and oriented to person and place. Insight is feeble and judgment and impulse control are impaired. Vitals/I&O/Wt Last Vital Signs Temp 99 F 02/05/23 14:00 Pulse 84 02/05/23 14:00 Resp 16 02/05/23 14:00 BP 132/81 02/05/23 14:00 Pulse Ox 99 02/05/23 14:00 O2 Del Method Room Air 02/05/23 06:00 Data NPU 02/01/23 15:06 02/01/23 15:06 A&P Assessment and plan (1) Acute psychosis: (2) Schizoaffective disorder, bipolar type without good prognostic features: (3) Chronic schizophrenia: (4) Marijuana use: Plan This is a 46-year-old white male who presents inpatient unit with noncompliance with his medications once again with bizarre thoughts, decreased sleep, and continued inability to care for himself. 1.? Invega Sustenna 234mg IM given on 02/02/23 and continue invega at 9mg daily. 2nd shot of invega 156mg IM given today. 2.? Continue on 96 hour hold. 3.? Encourage individual, group and milieu therapy. 4.? Continue every 15 minute checks for safety. Involuntary Hold Information 96 Hour Hold: 96 Hour Involuntary Admission: Yes 96 Hour Hold Ending Date: 02/07/23 96 Hour Hold Ending Time: 14:22 Attestations NPU Medical Necessity Statement*: Inpatient hospitalization is medically necessary and clinically appropriate intervention at this time.? We will initiate medication and/or make changes as indicated..? His likely length of stay is 5-7 days. Coding Level of Care Code Acute Code for [facility] Fwd Diagnoses Acute psychosis F23 Schizoaffective disorder, bipolar type without good prognostic features F25.0 Chronic schizophrenia F20.9 Marijuana use F12.90
[2023-02-05 19:45] VITALS: BP 135/81; PULSE 102; RESP 16; TEMP 36.8; O2SAT 96
[2023-02-05 20:31] VITALS: BP 138/70; PULSE 102; RESP 16; TEMP 36.8; O2SAT 96
[2023-02-06 06:00] VITALS: BP 133/74; PULSE 77; RESP 18; TEMP 36.7; O2SAT 99
[2023-02-06] MEDS: paliperidone ER 9 mg Tablet PO (08:30)
[2023-02-06] MEDS: polyethylene glycol 3350 Pkt 17 gm PO (08:31)
[2023-02-06] MEDS: diphenhydrAMINE 50 mg Capsule PO (11:13)
[2023-02-06] MEDS: nicotine 21 mg Patch 1 PATCH TRANSDERMA (13:02)
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
[2023-02-06] MEDS: paliperidone palmitate 156 mg Syringe IM (13:54)
[2023-02-06 14:00] VITALS: BP 112/78; PULSE 68; RESP 16; TEMP 36.9; O2SAT 98
[2023-02-06 14:43] VITALS: BP 112/78; PULSE 68; RESP 16; TEMP 36.9; O2SAT 98
== END 2023-02-06 15:00 | disposition home or self-care (01) | DRG 885 ==
LOC: ER 15:37 → NP 15:57
PROVIDERS: Admitting Provider Psychiatry & Neurology Psychiatry; Emergency Provider Family Medicine; PCP Family Medicine; Visit Provider Psychiatry & Neurology Psychiatry
DX: F25.0 Schizoaffective disorder, bipolar type (principal); Z59.00 Homelessness unspecified; Z91.148 Patient's other noncompliance with medication regimen for other reason
CPT/HCPCS: 36415; 80053; 80306; 80307; 81003; 85025; 96372; 97150; 97165; 99285; Q0163

== ENCOUNTER → 2023-04-19 14:22 | Outpatient (BNVA) | payer MEDICAID, SELFPAY | PROVIDERS: PCP Family Medicine; Visit Provider Family Medicine | DX: D50.9 Iron deficiency anemia, unspecified (principal); R60.0 Localized edema; F25.0 Schizoaffective disorder, bipolar type; Z23 Encounter for immunization | CPT/HCPCS: 80053; 82728; 83550; 85025 ==

== ENCOUNTER 2023-06-18 21:01 | Inpatient (IN) | payer MEDICAID, SELFPAY ==
[2023-06-18 21:06] VITALS: BP 164/75; PULSE 89; RESP 18; TEMP 36.7; O2SAT 98; BMI 28.7
[2023-06-18 21:21] LABS: Basophils % 0.3 %; Eosinophils # 0.1 10^3/uL (0.0-0.8); Eosinophils % 0.7 %; Hematocrit 39.1 % (37-53); Lymphocytes # 2.2 10^3/uL (0.8-4.8); Lymphocytes % 18.9 %; Mean Corpuscular HGB Conc 34.8 g/dL (30-55); Mean Corpuscular Hemoglobin 27.8 pg (27-33); Mean Corpuscular Volume 79.8 fl (82-101); Mean Platelet Volume 8.9 fL (7.4-10.4); Monocytes % 9.2 %; Neutrophils % 70.5 %; Nucleated Red Blood Cells % 0 %; Platelet Count 269 10^3/cmm (157-399); Red Cell Distribution Width 14.7 % (12.1-15.1); White Blood Count 11.35 10^3/uL (3.29-11.43)
--- NOTE | 2023-06-18 21:23 | ED.C_ITS ---
HPI - Psych 2 General: Chief Complaint: Psychiatric Symptoms Stated Complaint: 96 hr hold Time Seen by Provider: 06/18/23 21:08 Source: patient Mode of arrival: ambulatory Limitations: no limitations History of Present Illness: 47-year-old male has a history of schizo affective borderline personality disorder patient brought in by police under a 96-hour hold he has had increasing paranoia along with hallucinations. Patient is cooperative here he states he has been hallucinating denies any SI or HI. Associated symptoms: Reports visual hallucinations; Deny depression Review of Systems 2 Const: Denies: fever(s), chills, body aches or change in appetite ENMT: Denies: throat pain or dental pain Card: Denies: chest pain Resp: Denies: dyspnea GI: Denies: abdominal pain, nausea, vomiting or diarrhea Musc: Denies: neck pain or back pain Skin/Breast: Denies: rash Neuro: Denies: headache(s) Psych: Reports: paranoia and visual hallucinations; Denies: depression PFSH ED 2 PFSH: Medical History Psychiatric care Chronic schizophrenia Spina bifida Peripheral neuropathy Duodenal ulcer Perforated stomach GI bleed Anemia Upper gastrointestinal hemorrhage Chronic idiopathic constipation Morbid obesity with BMI of 40.0-44.9, adult Folliculitis cruris pustulosa atrophicans Nonvenomous insect bite of neck Nicotine dependence, unspecified, uncomplicated Schizoaffective disorder, bipolar type Borderline personality disorder Surgical History History of incision and drainage left hip History of tonsillectomy History of carpal tunnel surgery of right wrist History of back surgery History of cholecystectomy Family History Mother Bleeding disorder anemia Cancer uterine Hypertension Lung disease asthma Grandmother Bleeding disorder anemia Diabetes Father Cancer melonoma Hyperlipidemia Grandfather Chronic kidney disease (CKD) Diabetes Stroke Denies family history of CAD (coronary artery disease) Clotting disorder Dementia Psychiatric illness Anesthesia complication Social History Smoking and tobacco/nicotine status: current every day tobacco/nicotine user cigarettes Packs smoked per day: 1 Years cigarettes smoked: 25 [ Other cigarette details: current 1.25 PPD, 54PY ] Quit status (tobacco/nicotine): has tried quititng Number of times tried to quit tobacco: 8 Second hand smoke exposure: No Alcohol intake: current Alcohol intake frequency: holidays/special occasions only Alcohol type: hard liquor Substance/Drug Use: never Lives independently: Yes Household members: caregiver Marital status: Single Number of children: 0 Current occupational status: disabled Current gender identity: Male Special dagmar needs: No Agree to transfusion: Yes Physical Exam 2 Const: COMMON NORMALS: no acute distress, patient oriented x3 and healthy appearing HENMT: COMMON NORMALS: normocephalic and atraumatic HEAD & SCALP: n ormocephalic and atraumatic Neck/C-Spine: COMMON NORMALS: full ROM and supple Chest: COMMONS NORMALS: normal inspection of the chest Resp: COMMON NORMALS: normal respiratory effort Cardio: COMMON NORMALS: regular rate, regular rhythm and No murmurs present (Cardio) RATE: regular rate RHYTHM: regular rhythm Extremity: COMMON NORMALS: normal to inspection and full ROM Neuro: COMMON NORMALS: patient oriented x3, moves all extremities and no focal motor deficits Psych: COMMON NORMALS: mental status grossly normal and cooperative A TTITUDE: Yes paranoid MOOD & AFFECT: Yes elevated mood Skin: COMMON NORMALS: no rashes or lesions noted and no wounds GENERAL SKIN EXAM: no rashes or lesions noted Course 2 Vital Signs: Vital signs: Vital Signs Temperature 98.0 F 06/18/23 21:06 Pulse Rate 89 06/18/23 21:06 Respiratory Rate 18 06/18/23 21:06 Blood Pressure 164/75 06/18/23 21:06 Pulse Oximetry 98 06/18/23 21:06 Oxygen Delivery Me thod Room Air 06/18/23 21:06 MDM - Psych Medical Decision Making Patient presents here under 96-hour hold for acute psychosis and paranoia spoke to Dr. Field patient is medically cleared will admit at this time. Medical Records I reviewed the patient's medical records. Lab Data I reviewed the patient's lab results. 06/18/23 21:16 06/18/23 21:16 Laboratory Results WBC 11.35 10^3/uL (3.29-11.43) 06/18/23 21:16 RBC 4.90 10^6/uL (3.85-5.65) 06/18/23 21:16 Hgb 13.60 g/dL (11.27-16.99) 06/18/23 21:16 Hct 39.1 % (37-53) 06/18/23 21:16 MCV 79.8 fl (82-101) L 06/18/23 21:16 MCH 27.8 pg (27-33) 06/18/23 21:16 MCHC 34.8 g/dL (30-55) 06/18/23 21:16 RDW 14.7 % (12.1-15.1) 06/18/23 21:16 Plt Count 269 10^3/cmm (157-399) 06/18/23 21:16 MPV 8.9 fL (7.4-10.4) 06/18/23 21:16 Neut % (Auto) 70.5 % 06/18/23 21:16 Lymph % (Auto) 18.9 % 06/18/23 21:16 Pratt % (Auto) 9.2 % 06/18/23 21:16 Eos % (Auto) 0.7 % 06/18/23 21:16 Baso % (Auto) 0.3 % 06/18/23 21:16 Neut # (Auto) 8.00 10^3/uL (1.8-7.7) H 06/18/23 21:16 Lymph # (Auto) 2.2 10^3/uL (0.8-4.8) 06/18/23 21:16 Pratt # (Auto) 1.0 10^3/uL (0.2-0.9) H 06/18/23 21:16 Eos # (Auto) 0.1 10^3/uL (0.0-0.8) 06/18/23 21:16 Baso # (Auto) 0.0 10^3/uL (0.0-0.1) 06/18/23 21:16 Nucleated RBC % (auto) 0 % 06/18/23 21:16 Nucleated RBCs # 0.0 /100WBC 06/18/23 21:16 No radiology studies performed this visit Discharge Plan Discharge Patient Disposition: Admitted As Inpatient Clinical Impression: Acute psychosis, Schizoaffective disorder, bipolar type Condition: Stable Prescriptions: No Action acetaminophen 500 mg capsule 500 mg PO Q6H PRN torsemide 40 mg tablet 40 mg PO DAILY Qty: 90 1RF potassium chloride 20 mEq tablet extended release 20 meq PO DAILY Qty: 90 1RF paliperidone 6 mg tablet extended release 24hr 6 mg PO QAM Qty: 30 0RF Iron (ferrous sulfate) 325 mg (65 mg iron) tablet 325 mg PO .q48 90 Days Qty: 90 1RF Referrals: Jesus Colmenares MD [Primary Care Provider] - Coding Level of Care Code ED 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
[2023-06-18 21:34] LABS: Amphetamines Screen Urine Negative (Negative); Barbiturates Screen Urine Negative (Negative); Benzodiazepines Screen Urine Negative (Negative); Cocaine Screen Urine Negative (Negative); Opiate Screen Urine Negative (Negative); PCP Screen Urine Negative (Negative); THC Screen Urine Positive (Negative)
--- NOTE | 2023-06-18 21:34 | PC.NURSE ---
Pt served with copy of 96 HH right paper by this RN, primary RN and security. Pt is A&Ox3. Pt states he has no questions at this time. Personal belongings collected at bedside include 1 watch an 2 hoop piercings pt removed from his pants.
[2023-06-18 21:39] LABS: Alanine Aminotransferase 17 U/L (0-41); Albumin Level 4.3 g/dL (3.5-5.2); Alkaline Phosphatase 103 U/L (40-130); Anion Gap 16.3 (5-19); Aspartate Amino Transferase 45 U/L (0-40); Blood Urea Nitrogen 6 mg/dL (6-20); Carbon Dioxide 24 mmol/L (22-29); Chloride 89 mmol/L (98-107); Globulin 3.1 g/dL (1.3-4.6); Glomerular Filtration Rate 104.5 mL/min (90-130); Glucose 140 mg/dL (65-115); Osmolality Calculated 262 mOsm/kg (285-295); Potassium 3.3 mmol/L (3.5-5.1); Sodium 126 mmol/L (136-145); Total Bilirubin 0.3 mg/dL (0.15-1.2); Total Protein 7.4 g/dL (6.6-8.7)
[2023-06-18 21:47] LABS: Acetaminophen < 5.0 ug/mL (10-30); Alcohol Level < 10 mg/dL (0-10); Salicylate < 0.3 mg/dL (3-10)
[2023-06-19 06:00] VITALS: BP 162/94; PULSE 75; RESP 18; TEMP 36.3; O2SAT 99
[2023-06-19] MEDS: nicotine 21 mg Patch 1 PATCH TRANSDERMA (08:08)
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
[2023-06-19] MEDS: OLANZapine 5 mg ODT PO (09:03)
[2023-06-19 14:00] VITALS: BP 110/65; PULSE 68; RESP 16; TEMP 36.6; O2SAT 98
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
[2023-06-19] MEDS: acetaminophen 325 mg Tablet 650 MG PO (19:58)
--- NOTE | 2023-06-19 21:10 | PC.NURSE ---
RESTING IN BED AROUSES TO VOICE. PT DENIES SI/HI AND AVH AT THIS TIME. RATES PAIN IN BACK 3/10, TYLENOL WAS GIVEN ORDERED. RATES ANXIETY AND DEPRESSION 0/10. SUPPORT WAS VOICED
[2023-06-19 21:18] VITALS: BP 131/70; PULSE 79; RESP 15; O2SAT 97
[2023-06-20 06:00] VITALS: BP 131/74; PULSE 74; RESP 17; TEMP 36.6; O2SAT 98
--- NOTE | 2023-06-20 06:21 | PC.NURSE ---
PT HAS RESTED WELL THROUGH OUT THE SHIFT. PT RECEIVED TYLENOL EARLIER IN THE SHIFT AND HAS NOT HAD ANYMORE COMPLAINTS OF PAIN. PT HAS SLEPT APPROXIMATELY 10 HOURS THIS SHIFT. PT CONTINUES TO REST IN BED WITH EYES CLOSED.
[2023-06-20] MEDS: acetaminophen 325 mg Tablet 650 MG PO (08:36)
[2023-06-20] MEDS: nicotine 21 mg Patch 1 PATCH TRANSDERMA (08:47)
[2023-06-20] MEDS: OLANZapine 5 mg ODT PO (11:15)
[2023-06-20] MEDS: magnesium hydroxide 30 mL UDC PO (12:19)
[2023-06-20 14:00] VITALS: BP 127/79; PULSE 73; RESP 16; TEMP 36.7; O2SAT 99
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
[2023-06-20] MEDS: alum-mag-hydroxide-sime 30 mL UDC PO (17:43)
[2023-06-20 20:05] VITALS: BP 121/76; PULSE 116; RESP 15; TEMP 37; O2SAT 94
--- NOTE | 2023-06-20 20:21 | PC.NURSE ---
IN BED RESTING AROUSES TO VOICE. DENIES PAIN. DENIES SI/HI AND AVH AT THIS TIME. RATES ANXIETY AND DEPRESSION 0/10. PT IS NOTED TO HAVE A FLAT AND DEPRESSED AFFECT AND MOOD. PT STATES HE IS TIRED AND WANTS TO SLEEP. ALL QUESTIONS ANSWERED AND SUPPORT VOICED. PT ROLLED OVER AND CONTINUED TO REST.
[2023-06-21 06:00] VITALS: BP 121/78; PULSE 67; RESP 15; TEMP 36.6; O2SAT 98
[2023-06-21] MEDS: acetaminophen 325 mg Tablet 650 MG PO ×2 (06:34→19:56)
[2023-06-21] MEDS: nicotine 21 mg Patch 1 PATCH TRANSDERMA (07:55)
[2023-06-21] MEDS: ibuprofen 600 mg Tablet PO (07:55)
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
[2023-06-21] MEDS: magnesium hydroxide 30 mL UDC PO (09:28)
[2023-06-21 14:00] VITALS: BP 124/80; PULSE 78; RESP 12; TEMP 36.7; O2SAT 100
--- NOTE | 2023-06-21 16:16 | P.NPUPN_ITS ---
Subjective NPU 2 Subjective: 47-year-old male with a history of schiz oaffective disorder bipolar type admitted with worsening psychosis and some manic symptoms. He continued to appear somewhat grandiose on the milieu. He had reported that is Invega was working and did not wish to receive any additional medications. Patient was informed that it would likely benefit him for him to take oral Invega to supplement his current dose of 156 mg IM given its lack of success that keeping him out of the hospital when taking his intramuscular depot. He had reported that his mood was good. He had been redirectable on the milieu. He reported adequate sleep. Mental Status Exam 2 MSE Comments: This is a well-nourished well-developed white male in hospital scrubs looking older than his stated age with improved grooming and fair eye contact. No abnormal involuntary motor movements appreciated. There is no evidence of psychomotor agitation or psychomotor retardation. He was cooperative with exam and in no acute distress. Speech was normal in rate and normal in volume. Mood described as good. His affect was labile today. His thought process was linear. Thought content: Patient did not endorse homicidal ideation or suicidal ideation. He had some delusions of grandeur stating that he was special He did not report auditory or visual hallucinations. Attention and concentration were impaired and memory was unreliable, but none were formally tested. He is alert and oriented to person and place. Insight is poor, judgment is poor and impulse control is impaired. Vitals/I&O/Wt Last Vital Signs Temp 97.8 F 06/21/23 06:00 Pulse 67 06/21/23 06:00 Resp 15 06/21/23 06:00 BP 121/78 06/21/23 06:00 Pulse Ox 98 06/21/23 06:00 O2 Del Method Room Air 06/21/23 06:00 Data NPU 06/18/23 21:16 06/18/23 21:16 A&P Assessment and plan (1) Acute psychosis: (2) Schizoaffective disorder, bipolar type without good prognostic features: (3) Chronic schizophrenia: (4) Marijuana use: Plan This is a 47-year-old white male who presents inpatient unit with compliance with his medications but currently homeless and engaged in disorganized behavior with increase in paranoia. 1.?Invega sustenna 156mg daily given on 05/31/23. Consider addition of another mood stabilizer or adding oral invega sustenna with plan NEXT INVEGA IM to increase to 234mg on monthly basis. 2.? Encourage sobriety at the highest possible level of care the patient is willing to commit. 3.? Encourage individual, group and milieu therapy. 4.? Continue every 15 minute checks for safety. 5. Add invega oral at 3mg at night. Involuntary Hold Information 2 96 Hour Hold: 96 Hour Involuntary Admission: Yes 96 Hour Hold Ending Date: 06/25/23 96 Hour Hold Ending Time: 21:01 Attestations NPU 2 Medical Necessity Statement*: Inpatient hospitalization is medically necessary and clinically appropriate intervention at this time.? ? We will initiate medication and/or make changes as indicated..? His likely length of stay is 4-6 days. Coding Level of Care Code Acute Code for g Fwd Diagnoses Acute psychosis F23 Schizoaffective disorder, bipolar type without good prognostic features F25.0 Chronic schizophrenia F20.9 Marijuana use F12.90
[2023-06-21] MEDS: hyDROXYzine 25 mg Capsule 50 MG PO (16:17)
[2023-06-21] MEDS: alum-mag-hydroxide-sime 30 mL UDC PO (17:22)
[2023-06-21] MEDS: neomycin-poly-bacitracin oint 28 gm 1 APPLIC TOPICAL (18:12)
[2023-06-21] MEDS: paliperidone ER 3 mg Tablet PO (19:57)
[2023-06-21 20:37] VITALS: BP 114/74; PULSE 68; RESP 16; O2SAT 98
[2023-06-22 06:00] VITALS: BP 102/67; PULSE 70; RESP 16; O2SAT 98
[2023-06-22] MEDS: nicotine 21 mg Patch 1 PATCH TRANSDERMA (08:14)
[2023-06-22] MEDS: magnesium hydroxide 30 mL UDC PO (08:49)
[2023-06-22] MEDS: acetaminophen 325 mg Tablet 650 MG PO (10:27)
[2023-06-22] MEDS: neomycin-poly-bacitracin oint 28 gm 1 APPLIC TOPICAL ×2 (10:28→17:35)
--- NOTE | 2023-06-22 12:17 | P.NPUPN_ITS ---
Subjective NPU 2 Subjective: 47-year-old male with a history of schiz oaffective disorder bipolar type admitted with worsening psychosis and manic symptoms. Patient appears less grandiose. He continued to report that he now wished to stay in [place] and would stay in a custodial until his new home was in place. Patient had minimized the significance of his removal from the previous custodial and stated that the people at the custodial had wanted patient out for reasons relating to his sexuality. He was redirectable but demanding on the unit. He had reported no side effects from his medication. He denied any feelings of hopelessness. He reported adequate energy and reported no racing thoughts. Mental Status Exam 2 MSE Comments: This is a well-nourished well-developed white male in hospital scrubs looking older than his stated age with improved grooming and fair eye contact. No abnormal involuntary motor movements appreciated. There is no evidence of psychomotor agitation or psychomotor retardation. He was cooperative with exam and in no acute distress. Speech was normal in rate and normal in volume. Mood described as okay. His affect was less labile and less irritable today. His thought process was linear. Thought content: Patient did not endorse homicidal ideation or suicidal ideation. His grandiosity was diminished. He did not report auditory or visual hallucinations. Attention and concentration were impaired and memory was unreliable, but none were formally tested. He is alert and oriented to person and place. Insight is poor, judgment is poor and impulse control is impaired. Vitals/I&O/Wt Last Vital Signs Temp 98.1 F 06/21/23 14:00 Pulse 70 06/22/23 06:00 Resp 16 06/22/23 06:00 BP 102/67 06/22/23 06:00 Pulse Ox 98 06/22/23 06:00 O2 Del Method Room Air 06/22/23 06:00 Data NPU 06/18/23 21:16 06/18/23 21:16 A&P Assessment and plan (1) Schizoaffective disorder, bipolar type without good prognostic features: (2) Acute psychosis: (3) Chronic schizophrenia: (4) Marijuana use: Plan This is a 47-year-old white male who presents inpatient unit with compliance with his medications but currently homeless and engaged in disorganized behavior with increase in paranoia. 1.?Invega sustenna 156mg daily given on 05/31/23. Consider addition of another mood stabilizer or adding oral invega sustenna with plan NEXT INVEGA IM to increase to 234mg on monthly basis. 2.? Encourage sobriety at the highest possible level of care the patient is willing to commit. 3.? Encourage individual, group and milieu therapy. 4.? Continue every 15 minute checks for safety. 5. Continue invega oral at 3mg at night. Involuntary Hold Information 2 96 Hour Hold: 96 Hour Involuntary Admission: Yes 96 Hour Hold Ending Date: 06/25/23 96 Hour Hold Ending Time: 21:01 Attestations NPU 2 Medical Necessity Statement*: Inpatient hospitalization is medically necessary and clinically appropriate intervention at this time.? ? We will initiate medication and/or make changes as indicated..? His likely length of stay is 1-2 days. Coding Level of Care Code Acute Code for g Fwd Diagnoses Schizoaffective disorder, bipolar type without good prognostic features F25.0 Acute psychosis F23 Chronic schizophrenia F20.9 Marijuana use F12.90
[2023-06-22 14:00] VITALS: BP 132/80; PULSE 72; RESP 16; TEMP 36.6; O2SAT 100
--- NOTE | 2023-06-22 15:00 | PC.NURSE ---
wanting to know if he could have his invega injection while he was here. last one was given 05/31/23 he believes at the crisis center.
[2023-06-22 20:10] VITALS: BP 146/64; PULSE 88; RESP 16; TEMP 36.3; O2SAT 100
[2023-06-22] MEDS: paliperidone ER 3 mg Tablet PO (20:19)
[2023-06-23 05:58] VITALS: BP 106/64; PULSE 72; RESP 16; O2SAT 99
[2023-06-23] MEDS: nicotine 21 mg Patch 1 PATCH TRANSDERMA (08:37)
[2023-06-23] MEDS: acetaminophen 325 mg Tablet 650 MG PO (08:37)
[2023-06-23] MEDS: ibuprofen 600 mg Tablet PO (10:25)
[2023-06-23 14:00] VITALS: BP 128/82; PULSE 69; RESP 16; TEMP 36.6; O2SAT 100
--- NOTE | 2023-06-23 16:34 | P.NPUPN_ITS ---
Subjective NPU 2 Subjective: 47-year-old male with a history of schiz oaffective disorder bipolar type admitted with worsening psychosis and manic symptoms. The patient reported that he was feeling better with the additional of oral Invega. He continued to spouse that he had several medical degrees and earned a degree from [id number] for engineering. He reported that he would like to leave soon but wished to be given a 3-month extended release Invega prior to leaving the hospital. He was redirectable on the milieu. He continued to report adequate sleep. He denied having any racing thoughts. Mental Status Exam 2 MSE Comments: This is a well-nourished well-developed white male in hospital scrubs looking older than his stated age with improved grooming and fair eye contact. No abnormal involuntary motor movements appreciated. There is no evidence of psychomotor agitation or psychomotor retardation. He was cooperative with exam and in no acute distress. Speech was normal in rate and normal in volume. Mood described as okay. His affect was less labile and less irritable today. His thought process was linear. Thought content: Patient did not endorse homicidal ideation or suicidal ideation. His delusions of grandeur was prominent. He did not report auditory or visual hallucinations. Attention and concentration were impaired and memory was unreliable, but none were formally tested. He is alert and oriented to person and place. Insight is poor, judgment is poor and impulse control is impaired. Vitals/I&O/Wt Last Vital Signs Temp 98 F 06/23/23 14:00 Pulse 69 06/23/23 14:00 Resp 16 06/23/23 14:00 BP 128/82 06/23/23 14:00 Pulse Ox 100 06/23/23 14:00 O2 Del Method Room Air 06/23/23 14:00 Weight last 48 hrs Weight 105.687 kg Data NPU 06/18/23 21:16 06/18/23 21:16 A&P Assessment and plan (1) Schizoaffective disorder, bipolar type without good prognostic features: (2) Acute psychosis: (3) Chronic schizophrenia: (4) Marijuana use: Plan This is a 47-year-old white male who presents inpatient unit with compliance with his medications but currently homeless and engaged in disorganized behavior with increase in paranoia. 1.?Invega sustenna 156mg daily given on 05/31/23. Consider addition of another mood stabilizer or adding oral invega sustenna with plan NEXT INVEGA IM to increase to 234mg on monthly basis. CONSIDER SWITCH TO INVEGA TRINZA. 2.? Encourage sobriety at the highest possible level of care the patient is willing to commit. 3.? Encourage individual, group and milieu therapy. 4.? Continue every 15 minute checks for safety. 5. Continue invega oral at 3mg at night. Involuntary Hold Information 2 96 Hour Hold: 96 Hour Involuntary Admission: Yes 96 Hour Hold Ending Date: 06/25/23 96 Hour Hold Ending Time: 21:01 Attestations NPU 2 Medical Necessity Statement*: Inpatient hospitalization is medically necessary and clinically appropriate intervention at this time.? ? We will initiate medication and/or make changes as indicated..? His likely length of stay is 1-2 days. Coding Level of Care Code Acute Code for g Fwd Diagnoses Schizoaffective disorder, bipolar type without good prognostic features F25.0 Acute psychosis F23 Chronic schizophrenia F20.9 Marijuana use F12.90
[2023-06-23] MEDS: paliperidone ER 3 mg Tablet PO (20:09)
[2023-06-23 20:20] VITALS: BP 114/71; PULSE 68; RESP 16; TEMP 36.3; O2SAT 98
[2023-06-24] MEDS: magnesium hydroxide 30 mL UDC PO (03:07)
[2023-06-24 06:00] VITALS: BP 126/82; PULSE 70; RESP 18; TEMP 36.3; O2SAT 99
[2023-06-24] MEDS: nicotine 21 mg Patch 1 PATCH TRANSDERMA (08:02)
[2023-06-24 12:33] VITALS: BP 121/82; PULSE 87; RESP 13; TEMP 36.6; O2SAT 100
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
[2023-06-24 12:57] VITALS: BP 121/82; PULSE 87; RESP 13; TEMP 36.6; O2SAT 100
== END 2023-06-24 15:28 | disposition home or self-care (01) | DRG 885 ==
LOC: ER 21:27 → NP 21:37
PROVIDERS: Admitting Provider Psychiatry & Neurology Psychiatry; Emergency Provider Emergency Medicine; PCP Family Medicine; Visit Provider Psychiatry & Neurology Psychiatry
DX: F25.0 Schizoaffective disorder, bipolar type (principal); Z59.00 Homelessness unspecified; F12.90 Cannabis use, unspecified, uncomplicated; F17.210 Nicotine dependence, cigarettes, uncomplicated; G62.9 Polyneuropathy, unspecified; K59.04 Chronic idiopathic constipation; E66.01 Morbid (severe) obesity due to excess calories; F60.3 Borderline personality disorder; Z91.128 Patient's intentional underdosing of medication regimen for other reason; Z68.32 Body mass index [BMI] 32.0-32.9, adult
CPT/HCPCS: 36415; 80053; 80306; 80307; 85025; 97150; 97165; 99285

== ENCOUNTER 2023-07-19 20:54 | Inpatient (IN) | payer MEDICAID, SELFPAY ==
[2023-07-19 20:57] VITALS: BP 144/88; PULSE 91; RESP 14; TEMP 36.4; O2SAT 97; BMI 32.1
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
[2023-07-19 21:15] LABS: Basophils % 0.6 %; Eosinophils # 0.2 10^3/uL (0.0-0.8); Lymphocytes # 2.8 10^3/uL (0.8-4.8); Lymphocytes % 42.3 %; Mean Corpuscular Hemoglobin 28.1 pg (27-33); Mean Corpuscular Volume 82.9 fl (82-101); Mean Platelet Volume 9.7 fL (7.4-10.4); Monocytes # 0.6 10^3/uL (0.2-0.9); Monocytes % 9.1 %; Neutrophils % 44.7 %; Nucleated Red Blood Cells % 0 %; Platelet Count 238 10^3/cmm (157-399); Red Blood Count 5.19 10^6/uL (3.85-5.65); Red Cell Distribution Width 15.1 % (12.1-15.1); White Blood Count 6.71 10^3/uL (3.29-11.43)
[2023-07-19 21:40] LABS: Alanine Aminotransferase 12 U/L (0-41); Albumin Level 4.1 g/dL (3.5-5.2); Alkaline Phosphatase 100 U/L (40-130); Anion Gap 16.1 (5-19); Aspartate Amino Transferase 16 U/L (0-40); Blood Urea Nitrogen 7 mg/dL (6-20); Calcium 8.9 mg/dL (8.5-10.5); Carbon Dioxide 26 mmol/L (22-29); Chloride 101 mmol/L (98-107); Creatinine Clr Calc Pharmacy 163.8192; Glucose 113 mg/dL (65-115); Osmolality Calculated 287 mOsm/kg (285-295); Potassium 4.1 mmol/L (3.5-5.1); Sodium 139 mmol/L (136-145); Total Bilirubin 0.2 mg/dL (0.15-1.2); Total Protein 7.1 g/dL (6.6-8.7)
[2023-07-19 21:41] LABS: Amphetamines Screen Urine Negative (Negative); Barbiturates Screen Urine Negative (Negative); Benzodiazepines Screen Urine Negative (Negative); Cocaine Screen Urine Negative (Negative); Opiate Screen Urine Negative (Negative); PCP Screen Urine Negative (Negative); THC Screen Urine Negative (Negative)
[2023-07-19 21:44] LABS: Acetaminophen < 5.0 ug/mL (10-30); Alcohol Level < 10 mg/dL (0-10); Salicylate < 0.3 mg/dL (3-10)
[2023-07-19 22:58] VITALS: BP 127/84; PULSE 83; RESP 18; TEMP 36.6; O2SAT 99
[2023-07-20 06:00] VITALS: BP 107/70; PULSE 70; RESP 18; TEMP 36.7; O2SAT 98
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
[2023-07-20] MEDS: potassium chloride ER 20 mEq Tablet PO (11:49)
[2023-07-20] MEDS: ferrous sulfate EC 325 mg Tablet PO (11:49)
[2023-07-20] MEDS: TORSEmide 20 mg Tablet 40 MG PO (11:50)
[2023-07-20 14:00] VITALS: BP 114/78; PULSE 113; RESP 20; TEMP 36.9; O2SAT 95
[2023-07-20] MEDS: acetaminophen 325 mg Tablet 650 MG PO (20:47)
[2023-07-20 22:00] VITALS: BP 107/67; PULSE 73; RESP 17; TEMP 36.8; O2SAT 98
[2023-07-20] MEDS: hyDROXYzine 25 mg Capsule 50 MG PO (22:11)
[2023-07-20] MEDS: trazodone 50 mg Tablet PO (22:11)
[2023-07-21 06:00] VITALS: BP 112/63; PULSE 72; RESP 18; TEMP 36.3; O2SAT 96
--- NOTE | 2023-07-21 07:36 | P.NPUPN_ITS ---
Subjective NPU 2 Subjective: Patient presented today reporting that he is feeling better. We discussed working with the social work team to identify there are any additional outpatient resources to assist with his residential challenges. We discussed the likelihood of discharge by the middle of the week. He denied any side effect of medications. Mental Status Exam 2 MSE Comments: This is a well-nourished well-developed white male in hospital scrubs with adequate grooming and eye contact. No abnormal movements. Cooperative with exam in mild distress. Speech was mostly normal in rate and volume. Mood described as less angry today. His affect was congruent. His thought process was mostly organized but occasionally disorganized. Thought content: Patient did not endorse homicidal ideation but endorsed some fleeting suicidal ideation without a plan, there were no delusions reported but paranoia and odd delusions as well as delusions of grandeur noted. He did not report auditory or visual hallucinations. Attention and concentration were limited and memory was unreliable, but none were formally tested. He is alert and oriented to person and place. Insight and judgment are limited and impulse control is limited. Vitals/I&O/Wt Last Vital Signs Temp 97.4 F L 07/21/23 06:00 Pulse 72 07/21/23 06:00 Resp 18 07/21/23 06:00 BP 112/63 07/21/23 06:00 Pulse Ox 96 07/21/23 06:00 O2 Del Method Room Air 07/21/23 06:00 Weight last 48 hrs Weight 104.326 kg Weight 104.326 kg Data NPU 07/19/23 21:06 07/19/23 21:06 A&P Assessment and plan (1) Acute psychosis: (2) Schizoaffective disorder, bipolar type without good prognostic features: (3) Chronic schizophrenia: (4) Marijuana use: Plan This is a 47-year-old white male who presents inpatient unit with endorsed compliance with his medications but currently homeless and engaged in disorganized behavior including grandiose delusions and paranoia reporting that he is 4 to 6 months away from opportunities to get him out of being homeless. 1.? Continue Invega sustenna 156mg daily given on 06/27/2023. Should give injection prior to discharge even if early in the ?7-day window. 2.? Encourage sobriety at the highest possible level of care the patient is willing to commit. 3.? Encourage individual, group and milieu therapy. 4.? Continue every 15 minute checks for safety. Involuntary Hold Information 2 96 Hour Hold: 96 Hour Involuntary Admission: No Attestations NPU 2 Medical Necessity Statement*: Inpatient hospitalization is medically necessary and clinically appropriate intervention at this time.? We will initiate medication and/or make changes as indicated..? His likely length of stay is 2-3 days. Coding Level of Care Code Acute Code for [facility] Fwd Diagnoses Acute psychosis F23 Schizoaffective disorder, bipolar type without good prognostic features F25.0 Chronic schizophrenia F20.9 Marijuana use F12.90
[2023-07-21] MEDS: potassium chloride ER 20 mEq Tablet PO (09:50)
[2023-07-21] MEDS: TORSEmide 20 mg Tablet 40 MG PO (09:50)
[2023-07-21] MEDS: acetaminophen 325 mg Tablet 650 MG PO (10:43)
[2023-07-21 14:00] VITALS: BP 117/73; PULSE 106; RESP 18; TEMP 37.2; O2SAT 98
[2023-07-21] MEDS: nicotine 21 mg Patch 1 PATCH TRANSDERMA (16:25)
[2023-07-21 19:53] VITALS: BP 121/80; PULSE 72; RESP 18; O2SAT 96
[2023-07-21] MEDS: hyDROXYzine 25 mg Capsule 50 MG PO (20:34)
[2023-07-21] MEDS: trazodone 50 mg Tablet PO (20:34)
[2023-07-22 06:00] VITALS: BP 114/77; PULSE 54; RESP 16; TEMP 36.9; O2SAT 99
[2023-07-22] MEDS: TORSEmide 20 mg Tablet 40 MG PO (08:22)
[2023-07-22] MEDS: ferrous sulfate EC 325 mg Tablet PO (08:22)
[2023-07-22] MEDS: potassium chloride ER 20 mEq Tablet PO (08:22)
[2023-07-22] MEDS: acetaminophen 325 mg Tablet 650 MG PO ×2 (08:22→19:19)
[2023-07-22] MEDS: magnesium hydroxide 30 mL UDC PO (13:41)
[2023-07-22 14:00] VITALS: BP 105/69; PULSE 93; RESP 14; TEMP 36.4; O2SAT 99
[2023-07-22] MEDS: nicotine 21 mg Patch 1 PATCH TRANSDERMA (15:28)
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
[2023-07-22] MEDS: hyDROXYzine 25 mg Capsule 50 MG PO (20:25)
[2023-07-22] MEDS: trazodone 50 mg Tablet PO (20:25)
[2023-07-22 21:18] VITALS: BP 106/67; PULSE 67; RESP 16; TEMP 36.4; O2SAT 95
[2023-07-23 06:00] VITALS: BP 126/73; PULSE 59; RESP 15; O2SAT 99
[2023-07-23] MEDS: potassium chloride ER 20 mEq Tablet PO (07:41)
[2023-07-23] MEDS: acetaminophen 325 mg Tablet 650 MG PO ×2 (07:41→17:24)
[2023-07-23] MEDS: TORSEmide 20 mg Tablet 40 MG PO (07:41)
[2023-07-23 14:00] VITALS: BP 99/53; PULSE 68; RESP 16; TEMP 36.6; O2SAT 98
[2023-07-23] MEDS: nicotine 21 mg Patch 1 PATCH TRANSDERMA (15:14)
--- NOTE | 2023-07-23 16:39 | PC.NURSE ---
Dr. Bansal gave verbal orders to this nurse to order Invega Intrensa 819mg IM injection for pt at the out patient pharmacy. The medicine is due to arrive on 07/24/23.
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
[2023-07-23 20:06] VITALS: BP 122/71; PULSE 77; RESP 17; TEMP 36.8; O2SAT 97
[2023-07-23] MEDS: trazodone 50 mg Tablet PO (20:07)
[2023-07-23] MEDS: hyDROXYzine 25 mg Capsule 50 MG PO (20:07)
[2023-07-24 06:00] VITALS: BP 103/65; PULSE 65; RESP 16; TEMP 36.4; O2SAT 98
[2023-07-24] MEDS: ferrous sulfate EC 325 mg Tablet PO (08:18)
[2023-07-24] MEDS: potassium chloride ER 20 mEq Tablet PO (08:18)
[2023-07-24] MEDS: TORSEmide 20 mg Tablet 40 MG PO (08:18)
[2023-07-24] MEDS: acetaminophen 325 mg Tablet 650 MG PO ×2 (10:18→20:07)
[2023-07-24 14:00] VITALS: BP 95/64; PULSE 91; RESP 18; TEMP 36.4; O2SAT 97
[2023-07-24] MEDS: magnesium hydroxide 30 mL UDC PO (15:32)
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
[2023-07-24] MEDS: trazodone 50 mg Tablet PO (20:06)
[2023-07-24] MEDS: hyDROXYzine 25 mg Capsule 50 MG PO (20:09)
[2023-07-24 20:32] VITALS: BP 117/77; PULSE 79; RESP 16; TEMP 36.6; O2SAT 97
[2023-07-25 06:00] VITALS: BP 111/64; PULSE 64; RESP 18; TEMP 36.3; O2SAT 99
[2023-07-25] MEDS: potassium chloride ER 20 mEq Tablet PO (08:17)
[2023-07-25] MEDS: TORSEmide 20 mg Tablet 40 MG PO (08:18)
[2023-07-25] MEDS: nicotine 21 mg Patch 1 PATCH TRANSDERMA (08:18)
--- NOTE | 2023-07-25 08:26 | PC.NURSE ---
UP TO NURSES STATION FOR MEDICATIONS. DENIES SI/HI AND AVH AT THIS TIME. RATES ANXIETY 0/10 AND DEPRESSION 2/10. PT STATES HE SHOULD BE LEAVING TODAY AFTER HE TAKES HIS SHOT. DENIES PAIN. PT MOOD APPEARS UPBEAT AND BRIGHT, EXCITED TO BE DISCHARGING. ALL QUESTIONS ANSWERED AND SUPPORT WAS VOICED.
[2023-07-25] MEDS: INVEGA TRINZA 819 MG IM (10:54)
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
[2023-07-25 13:09] VITALS: BP 111/64; PULSE 64; RESP 18; TEMP 36.3; O2SAT 99
--- NOTE | 2023-07-25 17:57 | CSC.DCP_ITS ---
CSC Discharge Plan Current SI: None Current HI: Denies any homicidal thoughts, plans, intentions, or time frames Safety Plan Completed: No Client Presentation upon Discharge: Client was pleasant upon discharge. Current Progress Towards Recovery and Well-Being: Client will return to [facility] facility tomorrow. Continued Stability Barriers: Unhoused, mental health. Stability Goals Achieved During Program Participation: Community-based assistance and Basic needs assistance Services referred from Center: Outpatient MH treatment Care Provided-Services the individual received: Crisis Services Was the client admitted to [facility]?: Yes [facility] Outcome: Crisis Stabilized CSC Discharge Disposition/Location: No Fixed Place/Residence
--- NOTE | 2023-07-25 17:57 | CSC.DSPLAN ---
CSC Discharge Plan Current SI: None Current HI: Denies any homicidal thoughts, plans, intentions, or time frames Safety Plan Completed: No Client Presentation upon Discharge: Client was pleasant upon discharge. Current Progress Towards Recovery and Well-Being: Client will return to [facility] facility tomorrow. Continued Stability Barriers: Unhoused, mental health. Stability Goals Achieved During Program Participation: Community-based assistance and Basic needs assistance Services referred from Center: Outpatient MH treatment Care Provided-Services the individual received: Crisis Services Was the client admitted to [facility]?: Yes [facility] Outcome: Crisis Stabilized CSC Discharge Disposition/Location: No Fixed Place/Residence
== END 2023-07-25 13:30 | disposition home or self-care (01) | DRG 885 ==
LOC: ER 21:11 → NP 21:54
PROVIDERS: Admitting Provider Psychiatry & Neurology Psychiatry; Emergency Provider Emergency Medicine; PCP Family Medicine; Visit Provider Psychiatry & Neurology Psychiatry
DX: F25.0 Schizoaffective disorder, bipolar type (principal); F60.3 Borderline personality disorder; G62.9 Polyneuropathy, unspecified; K59.04 Chronic idiopathic constipation; F17.210 Nicotine dependence, cigarettes, uncomplicated; F12.90 Cannabis use, unspecified, uncomplicated
CPT/HCPCS: 36415; 80053; 80306; 80307; 85025; 96372; 97150; 97165; 99285

== ENCOUNTER 2023-07-26 19:49 | Emergency (ER) | payer MEDICAID, SELFPAY ==
[2023-07-26 19:53] VITALS: BP 149/74; PULSE 107; RESP 18; TEMP 36.6; O2SAT 96; BMI 34.2
[2023-07-26 21:39] LABS: Basophils % 0.5 %; Eosinophils # 0.1 10^3/uL (0.0-0.8); Eosinophils % 2.2 %; Hematocrit 42.9 % (37-53); Lymphocytes # 2.4 10^3/uL (0.8-4.8); Mean Corpuscular HGB Conc 33.6 g/dL (30-55); Mean Corpuscular Hemoglobin 27.9 pg (27-33); Monocytes # 0.7 10^3/uL (0.2-0.9); Monocytes % 11.7 %; Neutrophils # 2.72 10^3/uL (1.8-7.7); Neutrophils % 45.4 %; Nucleated Red Blood Cells % 0 %; Platelet Count 206 10^3/cmm (157-399); Red Blood Count 5.17 10^6/uL (3.85-5.65); Red Cell Distribution Width 15.3 % (12.1-15.1); White Blood Count 5.98 10^3/uL (3.29-11.43)
[2023-07-26 21:57] LABS: Anion Gap 13.8 (5-19); Blood Urea Nitrogen 16 mg/dL (6-20); Calcium 9.1 mg/dL (8.5-10.5); Carbon Dioxide 29 mmol/L (22-29); Chloride 99 mmol/L (98-107); Creatinine Clr Calc Pharmacy 147.8306; Glomerular Filtration Rate 104.5 mL/min (90-130); Glucose 81 mg/dL (65-115); Osmolality Calculated 286 mOsm/kg (285-295); Potassium 3.8 mmol/L (3.5-5.1); Sodium 138 mmol/L (136-145)
[2023-07-26 22:02] LABS: Add Urine Microscopic? NO; Charge for UA Resulting for Rev
[2023-07-26 22:07] LABS: Bilirubin Urine Neg (Negative); Blood Urine Neg (Negative); Glucose Urine UA Norm (Normal); Ketones Urine Negative (Negative); Leukocyte Esterase Urine Negative (Negative); Nitrate Urine Negative (Negative); Protein Urine Neg (Negative); Urine Appearance Clear (CLEAR); Urine Color Yellow (Yellow); Urobilinogen Urine Neg (Negative); pH Urine 5 (5-7)
--- NOTE | 2023-07-27 00:24 | ED_ITS ---
HPI - General Adult 2 General: Chief complaint: General Medical Stated complaint: trouble walk sob feels like toxic shock from meds Time Seen by Provider: 07/27/23 00:24 History of Present Illness: 47-year-old male presents to the emergen cy department stating that he received an Invega shot from Dr. Fink and he is concerned that it might have been too strong. The patient denies fevers chills rigors stiff muscles. He states he has had muscle cramps for a very long time. He states he feels like after sitting in the waiting room so long that his neck and shoulders are stiff also. He states that he was discharged from the psychiatric unit yesterday. Associated symptoms: Deny chest pain or dyspnea Review of Systems 2 General: Reports: 10 or more systems reviewed and unremarkable except in HPI and below Card: Denies: chest pain Resp: Denies: dyspnea Musc: Reports: other (Intermittent muscle cramps) PFSH ED 2 PFSH: Medical History Psychiatric care Schizoaffective disorder, bipolar type without good prognostic features Chronic schizophrenia Spina bifida Peripheral neuropathy Duodenal ulcer Perforated stomach GI bleed Anemia Upper gastrointestinal hemorrhage Chronic idiopathic constipation Morbid obesity with BMI of 40.0-44.9, adult Folliculitis cruris pustulosa atrophicans Nonvenomous insect bite of neck Nicotine dependence, unspecified, uncomplicated Schizoaffective disorder, bipolar type Borderline personality disorder Surgical History History of incision and drainage left hip History of tonsillectomy History of carpal tunnel surgery of right wrist History of back surgery History of cholecystectomy Family History Mother Bleeding disorder anemia Cancer uterine Hypertension Lung disease asthma Grandmother Bleeding disorder anemia Diabetes Father Cancer melonoma Hyperlipidemia Grandfather Chronic kidney disease (CKD) Diabetes Stroke Denies family history of CAD (coronary artery disease) Clotting disorder Dementia Psychiatric illness Anesthesia complication Social History Smoking and tobacco/nicotine status: current every day tobacco/nicotine user cigarettes Packs smoked per day: 1 Years cigarettes smoked: 25 [ Other cigarette details: current 1.25 PPD, 54PY ] Quit status (tobacco/nicotine): has tried quititng Number of times tried to quit tobacco: 8 Second hand smoke exposure: No Alcohol intake: current Alcohol intake frequency: holidays/special occasions only Alcohol type: hard liquor Substance/Drug Use: never Lives independently: Yes Household members: caregiver Marital status: Single Number of children: 0 Current occupational status: disabled Current gender identity: Male Special dagmar needs: No Agree to transfusion: Yes Physical Exam 2 Narrative: EXAM NARRATIVE: Constitutional: the patient appears well nourished and with normal development. Vital signs reviewed as documented. HENMT: Normocephalic, atraumatic. External ears normal appearance without drainage. Nose without drainage, normal appearance. Mucus membranes moist. Neck is supple, No jugular venous distension, trachea is midline, no appreciable carotid bruits. No lymphadenopathy. No meningeal signs. Flexion, extension and lateral rotation is without pain. Eyes: Pupils are equal, round, reactive to light and accommodation. No scleral icterus. Extra-ocular movement are intact. Thorax is symmetrical and with equal rise and fall with respirations. Resp: Lungs are clear to auscultation. No wheezes, rales, crackles or ronchi at present. Cardio: Regular rate and rhythm. Positive S1, S2. No appreciable murmurs, rubs or gallops. GI: Abdominal exam reveals normal bowel sounds to all quadrants. No organomegaly. No obvious palpable masses noted. No hepatomegally appreciated. Soft, non-tender to palpation. Extremity: Extremities are non-edematous and both femoral and pedal pulses are 2+ and equal bilaterally. Moves all extremities well, sensation in all extremities. Neuro: Alert and oriented x4, person, place, time and situation. Cranial nerves II through XII are grossly intact, there is no focal neurological deficits that I can appreciate at present. Sensation intact to all extremities. 2-point discrimination intact. Light touch intact to all extremities. Motor strength in the upper and lower extremities are equal and bilateral 5/5. Psych: Cooperative, calm, normal thought process, appropriate judgment. Skin: No lesions, rashes. No gross abnormalities noted. Back: Symmetrical, no obvious deformity, No CVA tenderness Course 2 Vital Signs: Vital signs: Vital Signs Temperature 97.8 F 07/26/23 19:53 Pulse Rate 107 H 07/26/23 19:53 Respiratory Rate 18 07/26/23 19:53 Blood Pressure 149/74 07/26/23 19:53 Pulse Oximetry 96 07/26/23 19:53 Oxygen Delivery Me thod Room Air 07/26/23 19:53 MDM - General Adult Medical Decision Making Physical exam completed and documented patient's physical exam is negative for any concerns of medication excess. Differential Diagnosis Dehydration, medication reaction Medical Records I reviewed the patient's medical records. Lab Data I reviewed the patient's lab results. 07/26/23 21:22 07/26/23 21: Laboratory Results WBC 5.98 10^3/uL (3.29-11.43) 07/26/23 21: RBC 5.17 10^6/uL (3.85-5.65) 07/26/23 21: Hgb 14.40 g/dL (11.27-16.99) 07/26/23 21: Hct 42.9 % (37-53) 07/26/23 21: MCV 83.0 fl (82-101) 07/26/23 21: MCH 27.9 pg (27-33) 07/26/23 21: MCHC 33.6 g/dL (30-55) 07/26/23 21: RDW 15.3 % (12.1-15.1) H 07/26/23 21: Plt Count 206 10^3/cmm (157-399) 07/26/23 21: MPV 10.0 fL (7.4-10.4) 07/26/23: Neut % (Auto) 45.4 % 07/26/23: Lymph % (Auto) 40.0 % 07/26/23 21: [place] % (Auto) 11.7 % 07/26/23: Eos % (Auto) 2.2 % 07/26/23: Baso % (Auto) 0.5 % 07/26/23: Neut # (Auto) 2.72 10^3/uL (1.8-7.7) 07/26/23: Lymph # (Auto) 2.4 10^3/uL (0.8-4.8) 07/26/23: [place] # (Auto) 0.7 10^3/uL (0.2-0.9) 07/26/23 21:22 Eos # (Auto) 0.1 10^3/uL (0.0-0.8) 07/26/23 21:22 Baso # (Auto) 0.0 10^3/uL (0.0-0.1) 07/26/23 21:22 Nucleated RBC % (auto) 0 % 07/26/23 21: Nucleated RBCs # 0.0 /100WBC 07/26/23 21:22 Sodium 138 mmol/L (136-145) 07/26/23 21:22 Potassium 3.8 mmol/L (3.5-5.1) 07/26/23 21:22 Chloride 99 mmol/L (98-107) 07/26/23 21:22 Carbon Dioxide 29 mmol/L (22-29) 07/26/23 21:22 Anion Gap 13.8 (5-19) 07/26/23 21: BUN 16 mg/dL (6-20) 07/26/23 21:22 Creatinine 0.8 mg/dL (0.7-1.2) 07/26/23 21:22 GFR Calculation 104.5 mL/min (90-130) 07/26/23 21:22 Glucose 81 mg/dL (65-115) 07/26/23 21: Calculated Osmolality 286 mOsm/kg (285-295) 07/26/23 21:22 Calcium 9.1 mg/dL (8.5-10.5) 07/26/23 21:22 Urine Color Yellow (Yellow) 07/26/23 21:57 Urine Appearance Clear (CLEAR) 07/26/23 21:57 Urine pH 5 (5-7) 07/26/23 21:57 Ur Specific [place] 1.010 (1.005-1.030) 07/26/23 21:57 Urine Protein Neg (Negative) 07/26/23 21:57 Urine Glucose (UA) Norm (Normal) 07/26/23 21:57 Urine Ketones Negative (Negative) 07/26/23 21:57 Urine Blood Neg (Negative) 07/26/23 21:57 Urine Nitrate Negative (Negative) 07/26/23 21:57 Urine Bilirubin Neg (Negative) 07/26/23 21:57 Urine Urobilinogen Neg mg/dL (Negative) 07/26/23 21:57 Ur Leukocyte Esterase Negative (Negative) 07/26/23 21:57 No radiology studies performed this visit Discharge Plan Discharge Patient Disposition: Home Clinical Impression: Medical condition not demonstrated Condition: Stable Prescriptions: No Action ferrous sulfate 325 mg (65 mg iron) tablet,delayed release (DR/EC) 325 mg PO EVERY OTHER DAY torsemide [Soaanz] 20 mg tablet 40 mg PO DAILY potassium chloride [K-Tab] 20 mEq tablet extended release 20 meq PO DAILY Invega Trinza 819 mg/2.63 mL syringe 819 mg IM ONCE Qty: 2.63 0RF Rx Instructions: Patient due date for next shot is on October 23, 2023. Discharge Orders: Discharge ED (Routine); Ordered 07/27/23 Ordered By: Geoff Khoury Referrals: Jesus Colmenares MD [Primary Care Provider] - Discharge Diet: Usual diet Discharge Activity: Resume usual activity Patient Instructions: Opioid Safety, Pain Management Activity Restrictions/Additional Instructions: Follow-up with your psychiatrist to discuss your concerns and to discuss additional therapy or alternative therapies. Coding Level of Care Code ED Computer Aided Design Operator for Kobe Riggs
[2023-07-27 02:42] VITALS: BP 110/75; PULSE 80; O2SAT 98
[2023-07-27 02:46] VITALS: BP 110/75; PULSE 80; O2SAT 98
== END 2023-07-27 02:46 | disposition home or self-care (01) ==
PROVIDERS: Emergency Provider Internal Medicine; PCP Family Medicine
DX: Z03.89 Encounter for observation for other suspected diseases and conditions ruled out (principal); F17.210 Nicotine dependence, cigarettes, uncomplicated
CPT/HCPCS: 36415; 80048; 81003; 85025; 99283

== ENCOUNTER 2023-07-28 16:56 | Inpatient (IN) | payer MEDICAID, SELFPAY ==
--- NOTE | 2023-07-28 17:01 | W.ED.GENADLT ---
HPI - General Adult General: Chief complaint: Psychiatric Symptoms Stated complaint: MHE Time Seen by Provider: 07/28/23 17:01 History of Present Illness: 47-year-old male presents to the emergency department stating that he received an Invega shot and was discharged from the behavioral health unit on 07/25/2023. He states that since receiving the Invega shot he was concerned that it may have been too strong because he is feeling more depressed and having visual hallucinations. Patient does have a history of borderline personality disorder as well as schizoaffective disorder. He is not suicidal or homicidal. He states he is hearing voices but they are not telling him to harm himself or harm anyone else. It does appear that the patient's presenting complaints today are very similar to what he has recently been treated for by Dr. Bansal. Review of Systems General: Reports: 10 or more systems reviewed and unremarkable except in HPI and below Psych: Reports: depression and auditory hallucinations; Denies: visual hallucinations, tactile hallucinations, suicidal ideation or homicidal ideation [facility] ED PFSH: Medical History Psychiatric care Schizoaffective disorder, bipolar type without good prognostic features Chronic schizophrenia Spina bifida Peripheral neuropathy Duodenal ulcer Perforated stomach GI bleed Anemia Upper gastrointestinal hemorrhage Chronic idiopathic constipation Morbid obesity with BMI of 40.0-44.9, adult Folliculitis cruris pustulosa atrophicans Nonvenomous insect bite of neck Nicotine dependence, unspecified, uncomplicated Schizoaffective disorder, bipolar type Borderline personality disorder Surgical History History of incision and drainage left hip History of tonsillectomy History of carpal tunnel surgery of right wrist History of back surgery History of cholecystectomy Family History Mother Bleeding disorder anemia Cancer uterine Hypertension Lung disease asthma Grandmother Bleeding disorder anemia Diabetes Father Cancer melonoma Hyperlipidemia Grandfather Chronic kidney disease (CKD) Diabetes Stroke Denies family history of CAD (coronary artery disease) Clotting disorder Dementia Psychiatric illness Anesthesia complication Social History Smoking and tobacco/nicotine status: current every day tobacco/nicotine user cigarettes Packs smoked per day: 1 Years cigarettes smoked: 25 [ Other cigarette details: current 1.25 PPD, 54PY ] Quit status (tobacco/nicotine): has tried quititng Number of times tried to quit tobacco: 8 Second hand smoke exposure: No Alcohol intake: current Alcohol intake frequency: holidays/special occasions only Alcohol type: hard liquor Substance/Drug Use: never Lives independently: Yes Household members: caregiver Marital status: Single Number of children: 0 Current occupational status: disabled Current gender identity: Male Special dagmar needs: No Agree to transfusion: Yes Physical Exam Narrative: EXAM NARRATIVE: Constitutional: the patient appears well nourished and with normal development. Vital signs reviewed as documented. HENMT: Normocephalic, atraumatic. External ears normal appearance without drainage. Nose without drainage, normal appearance. Mucus membranes moist. Neck is supple, No jugular venous distension, trachea is midline, no appreciable carotid bruits. No lymphadenopathy. No meningeal signs. Flexion, extension and lateral rotation is without pain. Eyes: Pupils are equal, round, reactive to light and accommodation. No scleral icterus. Extra-ocular movement are intact. Thorax is symmetrical and with equal rise and fall with respirations. Resp: Lungs are clear to auscultation. No wheezes, rales, crackles or ronchi at present. Cardio: Regular rate and rhythm. Positive S1, S2. No appreciable murmurs, rubs or gallops. GI: Abdominal exam reveals normal bowel sounds to all quadrants. No organomegaly. No obvious palpable masses noted. No hepatomegally appreciated. Soft, non-tender to palpation. Extremity: Extremities are non-edematous and both femoral and pedal pulses are 2+ and equal bilaterally. Moves all extremities well, sensation in all extremities. Neuro: Alert and oriented x4, person, place, time and situation. Cranial nerves II through XII are grossly intact, there is no focal neurological deficits that I can appreciate at present. Motor strength in the upper and lower extremities are equal and bilateral 5/5. Psych: Cooperative, calm, normal thought process, appropriate judgment. Skin: No lesions, rashes. No gross abnormalities noted. Back: Symmetrical, no obvious deformity, No CVA tenderness Course Vital Signs: Vital signs: Vital Signs Temperature 97.9 F 07/28/23 17:02 Pulse Rate 114 H 07/28/23 17:02 Respiratory Rate 17 07/28/23 17:02 Blood Pressure 143/92 07/28/23 17:02 Pulse Oximetry 98 07/28/23 17:02 Oxygen Delivery Me thod Room Air 07/28/23 17:02 MDM - General Adult Medical Decision Making Physical exam completed and documented I did review the patient's CBC and CMP which were essentially unremarkable I reviewed the patient's previous admission and [facility] I did contact Dr. Field and Dr. Field excepted the patient for admission to the [facility]. Medical Records I reviewed the patient's medical records. Lab Data I reviewed the patient's lab results. 07/28/23 17:43 07/28/23 17:43 Laboratory Results WBC 8.54 10^3/uL (3.29-11.43) 07/28/23 17:43 RBC 5.47 10^6/uL (3.85-5.65) 07/28/23 17:43 Hgb 15.60 g/dL (11.27-16.99) 07/28/23 17:43 Hct 46.2 % (37-53) 07/28/23 17:43 MCV 84.5 fl (82-101) 07/28/23 17:43 MCH 28.5 pg (27-33) 07/28/23 17:43 MCHC 33.8 g/dL (30-55) 07/28/23 17:43 RDW 15.1 % (12.1-15.1) 07/28/23 17:43 Plt Count 233 10^3/cmm (157-399) 07/28/23 17:43 MPV 10.3 fL (7.4-10.4) 07/28/23 17:43 Neut % (Auto) 65.2 % 07/28/23 17:43 Lymph % (Auto) 26.1 % 07/28/23 17:43 [place] % (Auto) 6.3 % 07/28/23 17:43 Eos % (Auto) 1.4 % 07/28/23 17:43 Baso % (Auto) 0.6 % 07/28/23 17:43 Neut # (Auto) 5.57 10^3/uL (1.8-7.7) 07/28/23 17:43 Lymph # (Auto) 2.2 10^3/uL (0.8-4.8) 07/28/23 17:43 [place] # (Auto) 0.5 10^3/uL (0.2-0.9) 07/28/23 17:43 Eos # (Auto) 0.1 10^3/uL (0.0-0.8) 07/28/23 17:43 Baso # (Auto) 0.1 10^3/uL (0.0-0.1) 07/28/23 17:43 Nucleated RBC % (auto) 0 % 07/28/23 17:43 Nucleated RBCs # 0.0 /100WBC 07/28/23 17:43 Sodium 138 mmol/L (136-145) 07/28/23 17:43 Potassium 3.2 mmol/L (3.5-5.1) L 07/28/23 17:43 Chloride 96 mmol/L (98-107) L 07/28/23 17:43 Carbon Dioxide 27 mmol/L (22-29) 07/28/23 17:43 Anion Gap 18.2 (5-19) 07/28/23 17:43 BUN 12 mg/dL (6-20) 07/28/23 17:43 Creatinine 0.8 mg/dL (0.7-1.2) 07/28/23 17:43 GFR Calculation 104.5 mL/min (90-130) 07/28/23 17:43 Glucose 87 mg/dL (65-115) 07/28/23 17:43 Calculated Osmolality 285 mOsm/kg (285-295) 07/28/23 17:43 Calcium 9.4 mg/dL (8.5-10.5) 07/28/23 17:43 Total Bilirubin 0.3 mg/dL (0.15-1.2) 07/28/23 17:43 AST 22 U/L (0-40) 07/28/23 17:43 ALT 26 U/L (0-41) 07/28/23 17:43 Alkaline Phosphatase 109 U/L (40-130) 07/28/23 17:43 Total Protein 7.7 g/dL (6.6-8.7) 07/28/23 17:43 Albumin 4.6 g/dL (3.5-5.2) 07/28/23 17:43 Globulin 3.1 g/dL (1.3-4.6) 07/28/23 17:43 Urine Color Yellow (Yellow) 07/28/23 17:29 Urine Appearance Clear (CLEAR) 07/28/23 17:29 Urine pH 5 (5-7) 07/28/23 17:29 Ur Specific [place] 1.015 (1.005-1.030) 07/28/23 17:29 Urine Protein Neg (Negative) 07/28/23 17:29 Urine Glucose (UA) Norm (Normal) 07/28/23 17:29 Urine Ketones Negative (Negative) 07/28/23 17:29 Urine Blood Neg (Negative) 07/28/23 17: Urine Nitrate Negative (Negative) 07/28/23 17: Urine Bilirubin Neg (Negative) 07/28/23 17:29 Urine Urobilinogen Norm mg/dL (Negative) 07/28/23 17:29 Ur Leukocyte Esterase Trace (Negative) H 07/28/23 17:29 Urine RBC None /hpf (0-2) 07/28/23 17:29 Urine WBC Rare /hpf (0-5) 07/28/23 17:29 Ur Squamous Epith Cells 0-4 /hpf (0-5) H 07/28/23 17:29 Amorphous Sediment Not Reportable 07/28/23 17:29 Urine Bacteria Trace /hpf (NONE) 07/28/23 17:29 Salicylates < 0.3 mg/dL (3-10) L 07/28/23 17:43 Urine Opiates Screen Negative ng/mL (Negative) 07/28/23 17: Acetaminophen < 5.0 ug/mL (10-30) L 07/28/23 17:43 Ur Barbiturates Screen Negative ng/mL (Negative) 07/28/23 17:29 Ur Phencyclidine Scrn Negative ng/mL (Negative) 07/28/23 17:29 Ur Amphetamines Screen Negative ng/mL (Negative) 07/28/23 17:29 U Benzodiazepines Scrn Negative ng/mL (Negative) 07/28/23 17:29 Urine Cocaine Screen Negative ng/mL (Negative) 07/28/23 17:29 U Marijuana (THC) Screen Positive ng/mL (Negative) H 07/28/23 17:29 Ethyl Alcohol < 10 mg/dL (0-10) 07/28/23 17:43 No radiology studies performed this visit Discharge Plan Discharge Patient Disposition: Admitted As Inpatient Admit Provider: Manfred Field Clinical Impression: Auditory hallucination, Depression, Acute hypokalemia Condition: Stable Coding Level of Care Code ED Weatherization Technician for Kobe Riggs
[2023-07-28 17:02] VITALS: BP 143/92; PULSE 114; RESP 17; TEMP 36.6; O2SAT 98; BMI 34.2
--- NOTE | 2023-07-28 17:35 | ECG_ITS ---
[facility] Test Date: 2023-07-28 Pat Name: Tarun Summers Department: Room: Gender: Male Chief Resource Officer: : 1975 Requested By: Geoff Khoury Order Number: [id number] England MD: Andriy Hairston M.D. Measurements Intervals [place] Rate: 90 P: 52 KS: 135 QRS: 75 QRSD: 93 T: 59 QT: 341 QTc: 419 Interpretive Statements SINUS RHYTHM Compared to ECG 07/04/2018 19:24:54 Sinus tachycardia no longer present Electronically Signed On 07-28-2023 23:51:52 CDT by Andriy Hairston M.D. [email or web address]
[2023-07-28 18:13] LABS: Basophils # 0.1 10^3/uL (0.0-0.1); Basophils % 0.6 %; Eosinophils # 0.1 10^3/uL (0.0-0.8); Eosinophils % 1.4 %; Hematocrit 46.2 % (37-53); Lymphocytes # 2.2 10^3/uL (0.8-4.8); Lymphocytes % 26.1 %; Mean Corpuscular HGB Conc 33.8 g/dL (30-55); Mean Corpuscular Hemoglobin 28.5 pg (27-33); Mean Corpuscular Volume 84.5 fl (82-101); Mean Platelet Volume 10.3 fL (7.4-10.4); Monocytes # 0.5 10^3/uL (0.2-0.9); Monocytes % 6.3 %; Neutrophils # 5.57 10^3/uL (1.8-7.7); Neutrophils % 65.2 %; Nucleated Red Blood Cells % 0 %; Platelet Count 233 10^3/cmm (157-399); Red Blood Count 5.47 10^6/uL (3.85-5.65); Red Cell Distribution Width 15.1 % (12.1-15.1); White Blood Count 8.54 10^3/uL (3.29-11.43)
[2023-07-28 18:16] LABS: Add Urine Culture? No; Add Urine Microscopic? YES; Bacteria Urine TRACE /hpf; Bilirubin Urine Neg (Negative); Blood Urine Neg (Negative); Glucose Urine UA Norm (Normal); Ketones Urine Negative (Negative); Leukocyte Esterase Urine Trace (Negative); Nitrate Urine Negative (Negative); Protein Urine Neg (Negative); Specific Gravity, Urine 1.015 (1.005-1.030); Squamous Epithelial Cell Urine 0-4 /hpf (0-5); Urine Appearance Clear (CLEAR); Urine Color Yellow (Yellow); Urobilinogen Urine Norm (Negative); WBC Urine RARE /hpf (0-5); pH Urine 5 (5-7)
[2023-07-28 18:19] LABS: Amphetamines Screen Urine Negative (Negative); Barbiturates Screen Urine Negative (Negative); Benzodiazepines Screen Urine Negative (Negative); Cocaine Screen Urine Negative (Negative); Opiate Screen Urine Negative (Negative); PCP Screen Urine Negative (Negative); THC Screen Urine Positive (Negative)
[2023-07-28 18:34] LABS: Alanine Aminotransferase 26 U/L (0-41); Albumin Level 4.6 g/dL (3.5-5.2); Alkaline Phosphatase 109 U/L (40-130); Anion Gap 18.2 (5-19); Aspartate Amino Transferase 22 U/L (0-40); Blood Urea Nitrogen 12 mg/dL (6-20); Calcium 9.4 mg/dL (8.5-10.5); Carbon Dioxide 27 mmol/L (22-29); Chloride 96 mmol/L (98-107); Creatinine Clr Calc Pharmacy 147.8306; Globulin 3.1 g/dL (1.3-4.6); Glomerular Filtration Rate 104.5 mL/min (90-130); Glucose 87 mg/dL (65-115); Osmolality Calculated 285 mOsm/kg (285-295); Potassium 3.2 mmol/L (3.5-5.1); Sodium 138 mmol/L (136-145); Total Bilirubin 0.3 mg/dL (0.15-1.2); Total Protein 7.7 g/dL (6.6-8.7)
[2023-07-28 18:41] LABS: Acetaminophen < 5.0 ug/mL (10-30); Alcohol Level < 10 mg/dL (0-10); Salicylate < 0.3 mg/dL (3-10)
[2023-07-28] MEDS: potassium chloride ER 20 mEq Tablet 40 MEQ PO (19:32)
[2023-07-28 19:42] VITALS: BP 113/78; PULSE 98; RESP 18; TEMP 36.2; O2SAT 98
[2023-07-28] MEDS: hyDROXYzine 25 mg Capsule 50 MG PO (20:05)
[2023-07-28] MEDS: trazodone 50 mg Tablet PO (20:05)
[2023-07-28 22:00] VITALS: BP 113/78; PULSE 98; RESP 18; TEMP 36.2; O2SAT 98
[2023-07-29 06:00] VITALS: BP 115/65; PULSE 52; RESP 16; O2SAT 97
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
[2023-07-29] MEDS: potassium chloride ER 10 mEq Tablet 20 MEQ PO (09:54)
[2023-07-29] MEDS: TORSEmide 20 mg Tablet 40 MG PO (09:54)
[2023-07-29 14:00] VITALS: BP 94/54; PULSE 82; RESP 15; TEMP 36.3; O2SAT 96
[2023-07-29 19:17] VITALS: BP 90/56; PULSE 86; RESP 16; TEMP 36.6; O2SAT 97
[2023-07-30 06:00] VITALS: BP 109/71; PULSE 78; RESP 20; TEMP 36.7; O2SAT 98
[2023-07-30] MEDS: acetaminophen 325 mg Tablet 650 MG PO (07:04)
[2023-07-30] MEDS: TORSEmide 20 mg Tablet 40 MG PO (08:08)
[2023-07-30] MEDS: ferrous sulfate EC 325 mg Tablet PO (08:08)
[2023-07-30] MEDS: potassium chloride ER 10 mEq Tablet 20 MEQ PO (08:08)
[2023-07-30] MEDS: nicotine 21 mg Patch 1 PATCH TRANSDERMA (08:55)
[2023-07-30] MEDS: ibuprofen 600 mg Tablet PO (11:35)
[2023-07-30 14:00] VITALS: BP 124/84; PULSE 108; RESP 16; TEMP 36.6; O2SAT 98
--- NOTE | 2023-07-30 15:43 | P.NPUPN_ITS ---
Subjective NPU 2 Subjective: Patient presented today reporting that he was open to some of the recommendations of the treatment team. He was less adversarial in his approach and reported that he knows he needs to find some kind of residential setting to avoid this pattern of hospitalization. He reported that he wanted to go to [facility]. We discussed the fact that that meant he needed that he be discharged earlier in the day to be there in time for their walk-in. He denied any side effects to his medications. Mental Status Exam 2 MSE Comments: This is a well-nourished well-developed white male in hospital scrubs with adequate grooming and limited eye contact. No abnormal movements except for mild psychomotor retardation. Cooperative with exam in no mild distress. Speech was normal in rate, rhythm and volume. Mood described as fine, his affect was labile and frustrated/irritable. His thought process was mostly linear and organized. Thought content: Patient did not endorse homicidal ideation and denied any suicidal ideation, There were no delusions reported but clear evidence of paranoia and delusional thinking. He did not report auditory or visual hallucinations. Attention and concentration were limited and memory was unreliable, but none were formally tested. He is alert and oriented to person and place. Insight was poor, and judgment are limited and impulse control was limited versus impaired. Vitals/I&O/Wt Last Vital Signs Temp 97.9 F 07/30/23 14:00 Pulse 108 H 07/30/23 14:00 Resp 16 07/30/23 14:00 BP 124/84 07/30/23 14:00 Pulse Ox 98 07/30/23 14:00 O2 Del Method Room Air 07/30/23 14:00 Weight last 48 hrs Weight 111.13 kg Data NPU 07/28/23 17:43 07/28/23 17:43 A&P Assessment and plan (1) Acute psychosis: (2) Schizoaffective disorder, bipolar type without good prognostic features: (3) Chronic schizophrenia: (4) Marijuana use: Plan This is a 47-year-old white male who presents inpatient unit with endorsed compliance with his medications but currently homeless and engaged in disorganized behavior including grandiose delusions and paranoia reporting that he is 4 to 6 months away from opportunities to get him out of being homeless. 1.? Continue current medication. 2.? Encourage sobriety at the highest possible level of care the patient is willing to commit. 3.? Encourage individual, group and milieu therapy. 4.? Continue every 15 minute checks for safety. 5. Work with social work team on whether there are any possible options to assist with his residential situation which is clearly adding stress to his overall challenges. 6. Tentative plan for discharge tomorrow. Involuntary Hold Information 2 96 Hour Hold: 96 Hour Involuntary Admission: No Attestations NPU 2 Medical Necessity Statement*: Inpatient hospitalization is medically necessary and clinically appropriate intervention at this time.? We will initiate medication and/or make changes as indicated..? His likely length of stay is 1-3 days. Coding Level of Care Code Acute Code for [facility] Fwd Diagnoses Acute psychosis F23 Schizoaffective disorder, bipolar type without good prognostic features F25.0 Chronic schizophrenia F20.9 Marijuana use F12.90
[2023-07-30 19:53] VITALS: BP 123/86; PULSE 79; RESP 18; TEMP 36.3; O2SAT 99
[2023-07-30] MEDS: trazodone 50 mg Tablet PO (20:01)
[2023-07-30] MEDS: magnesium hydroxide 30 mL UDC PO (20:01)
[2023-07-30] MEDS: hyDROXYzine 25 mg Capsule 50 MG PO (20:06)
[2023-07-31 06:00] VITALS: BP 111/69; PULSE 76; RESP 15; TEMP 36.4; O2SAT 99
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
[2023-07-31 07:47] VITALS: BP 111/69; PULSE 76; RESP 15; TEMP 36.4; O2SAT 99
== END 2023-07-31 07:51 | disposition home or self-care (01) | DRG 885 ==
LOC: ER 18:35 → NP 18:44
PROVIDERS: Admitting Provider Psychiatry & Neurology Psychiatry; Emergency Provider Internal Medicine; PCP Family Medicine; Visit Provider Psychiatry & Neurology Psychiatry
DX: F25.0 Schizoaffective disorder, bipolar type (principal); F60.3 Borderline personality disorder; Q05.9 Spina bifida, unspecified; G62.9 Polyneuropathy, unspecified; K59.04 Chronic idiopathic constipation; F17.210 Nicotine dependence, cigarettes, uncomplicated; F12.90 Cannabis use, unspecified, uncomplicated
CPT/HCPCS: 36415; 80053; 80306; 80307; 81001; 85025; 93005; 97165; 99285

== ENCOUNTER 2023-11-04 01:33 | Emergency (ER) | payer MEDICAID, SELFPAY ==
[2023-11-04 01:33] VITALS: BP 168/109; PULSE 71; RESP 15; TEMP 36.3; O2SAT 97; BMI 34.8
--- NOTE | 2023-11-04 01:39 | W.ED.PSYCHS ---
Documented by User: Yashira Hubbard MD 11/04/23 18:25 HPI - Psych General: Chief Complaint: Psychiatric Symptoms Stated Complaint: MHE Time Seen by Provider: 11/04/23 01:37 Source: patient Mode of arrival: ambulatory Limitations: no limitations History of Present Illness: 47-year-old male who has a history of schizoaffective disorder hallucinations and bipolar. Patient's been seen here before and is known to me. He states that he has not had his Invega in 3 months and he is having auditory hallucinations. He states has not taken any of his meds at this time states he wants to get help. He is not suicidal or homicidal he is answer my questions appropriately Associated symptoms: Reports auditory hallucinations and depression Review of Systems Const: Denies: fever(s), chills, body aches or change in appetite ENMT: Denies: throat pain or dental pain Card: Denies: chest pain Resp: Denies: dyspnea GI: Denies: abdominal pain, nausea, vomiting or diarrhea Musc: Denies: neck pain or back pain Skin/Breast: Denies: rash Neuro: Denies: headache(s) Psych: Reports: depression and auditory hallucinations [facility] ED PFSH: Medical History Psychiatric care Schizoaffective disorder, bipolar type without good prognostic features Chronic schizophrenia Spina bifida Peripheral neuropathy Duodenal ulcer Perforated stomach GI bleed Anemia Upper gastrointestinal hemorrhage Chronic idiopathic constipation Morbid obesity with BMI of 40.0-44.9, adult Folliculitis cruris pustulosa atrophicans Nonvenomous insect bite of neck Nicotine dependence, unspecified, uncomplicated Schizoaffective disorder, bipolar type Borderline personality disorder Surgical History History of incision and drainage left hip History of tonsillectomy History of carpal tunnel surgery of right wrist History of back surgery History of cholecystectomy Family History Mother Bleeding disorder anemia Cancer uterine Hypertension Lung disease asthma Grandmother Bleeding disorder anemia Diabetes Father Cancer melonoma Hyperlipidemia Grandfather Chronic kidney disease (CKD) Diabetes Stroke Denies family history of CAD (coronary artery disease) Clotting disorder Dementia Psychiatric illness Anesthesia complication Social History Smoking and tobacco/nicotine status: current every day tobacco/nicotine user cigarettes Packs smoked per day: 1 Years cigarettes smoked: 25 [ Other cigarette details: current 1.25 PPD, 54PY ] Quit status (tobacco/nicotine): has tried quititng Number of times tried to quit tobacco: 8 Second hand smoke exposure: No Alcohol intake: current Alcohol intake frequency: holidays/special occasions only Alcohol type: hard liquor Substance/Drug Use: never Lives independently: Yes Household members: caregiver Marital status: Single Number of children: 0 Current occupational status: disabled Current gender identity: Male Special dagmar needs: No Agree to transfusion: Yes Physical Exam Const: COMMON NORMALS: no acute distress, patient oriented x3 and healthy appearing HENMT: COMMON NORMALS: normocephalic and atraumatic HEAD & SCALP: normocephalic and atraumatic Eye: COMMON NORMALS: Equal, round and reactive pupils present and EOMs intact bilaterally PUPIL: Yes Equal, round and reactive pupils present Neck/C-Spine: COMMON NORMALS: full ROM and supple Chest: COMMONS NORMALS: normal inspection of the chest Resp: COMMON NORMALS: normal respiratory effort Cardio: COMMON NORMALS: regular rate RATE: regular rate Extremity: COMMON NORMALS: normal to inspection and full ROM Neuro: COMMON NORMALS: patient oriented x3, moves all extremities and no focal motor deficits Psych: COMMON NORMALS: mental status grossly normal and cooperative THOUGHT CONTENT: Yes Hallucination(s) present Skin: COMMON NORMALS: no rashes or lesions noted and no wounds GENERAL SKIN EXAM: no rashes or lesions noted Course Vital Signs: Vital signs: Vital Signs Temperature 97.4 F L 11/04/23 01:33 Pulse Rate 71 11/04/23 01:33 Respiratory Rate 15 11/04/23 01:33 Blood Pressure 168/109 11/04/23 01:33 Pulse Oximetry 97 11/04/23 01:33 Oxygen Delivery Me thod Room Air 11/04/23 01:33 MDM - Psych Lab Data 11/04/23 01:56 11/04/23 01:56 Laboratory Results WBC 6.13 10^3/uL (3.29-11.43) 11/04/23 01:56 RBC 4.85 10^6/uL (3.85-5.65) 11/04/23 01:56 Hgb 14.10 g/dL (11.27-16.99) 11/04/23 01:56 Hct 40.8 % (37-53) 11/04/23 01:56 MCV 84.1 fl (82-101) 11/04/23 01:56 MCH 29.1 pg (27-33) 11/04/23 01:56 MCHC 34.6 g/dL (30-55) 11/04/23 01:56 RDW 14.4 % (12.1-15.1) 11/04/23 01:56 Plt Count 197 10^3/cmm (157-399) 11/04/23 01:56 MPV 9.9 fL (7.4-10.4) 11/04/23 01:56 Neut % (Auto) 55.1 % 11/04/23 01:56 Lymph % (Auto) 33.9 % 11/04/23 01:56 [place] % (Auto) 8.3 % 11/04/23 01:56 Eos % (Auto) 2.0 % 11/04/23 01:56 Baso % (Auto) 0.5 % 11/04/23 01:56 Neut # (Auto) 3.38 10^3/uL (1.8-7.7) 11/04/23 01:56 Lymph # (Auto) 2.1 10^3/uL (0.8-4.8) 11/04/23 01:56 [place] # (Auto) 0.5 10^3/uL (0.2-0.9) 11/04/23 01:56 Eos # (Auto) 0.1 10^3/uL (0.0-0.8) 11/04/23 01:56 Baso # (Auto) 0.0 10^3/uL (0.0-0.1) 11/04/23 01:56 Nucleated RBC % (auto) 0 % 11/04/23 01:56 Nucleated RBCs # 0.0 /100WBC 11/04/23 01:56 Sodium 138 mmol/L (136-145) 11/04/23 01:56 Potassium 3.3 mmol/L (3.5-5.1) L 11/04/23 01:56 Chloride 101 mmol/L (98-107) 11/04/23 01:56 Carbon Dioxide 27 mmol/L (22-29) 11/04/23 01:56 Anion Gap 13.3 (5-19) 11/04/23 01:56 BUN 3 mg/dL (6-20) L 11/04/23 01:56 Creatinine 0.7 mg/dL (0.7-1.2) 11/04/23 01:56 GFR Calculation 122.0 mL/min (90-130) 11/04/23 01:56 Glucose 98 mg/dL (65-115) 11/04/23 01:56 Calculated Osmolality 283 mOsm/kg (285-295) L 11/04/23 01:56 Calcium 9.0 mg/dL (8.5-10.5) 11/04/23 01:56 Total Bilirubin 0.4 mg/dL (0.15-1.2) 11/04/23 01:56 AST 12 U/L (0-40) 11/04/23 01:56 ALT 8 U/L (0-41) 11/04/23 01:56 Alkaline Phosphatase 96 U/L (40-130) 11/04/23 01:56 Total Protein 7.0 g/dL (6.6-8.7) 11/04/23 01:56 Albumin 4.1 g/dL (3.5-5.2) 11/04/23 01:56 Globulin 2.9 g/dL (1.3-4.6) 11/04/23 01:56 TSH 2.04 uIU/mL (0.27-4.20) 11/04/23 01:58 Urine Color Yellow (Yellow) 11/04/23 01:50 Urine Appearance Clear (CLEAR) 11/04/23 01:50 Urine pH 8 (5-7) H 11/04/23 01:50 Ur Specific [place] 1.005 (1.005-1.030) 11/04/23 01:50 Urine Protein Neg (Negative) 11/04/23 01:50 Urine Glucose (UA) Norm (Normal) 11/04/23 01:50 Urine Ketones Negative (Negative) 11/04/23 01:50 Urine Blood Neg (Negative) 11/04/23 01:50 Urine Nitrate Negative (Negative) 11/04/23 01:50 Urine Bilirubin Neg (Negative) 11/04/23 01:50 Urine Urobilinogen Neg mg/dL (Negative) 11/04/23 01:50 Ur Leukocyte Esterase Negative (Negative) 11/04/23 01:50 Salicylates < 0.3 mg/dL (3-10) L 11/04/23 01:56 Urine Opiates Screen Negative ng/mL (Negative) 11/04/23 01:50 Acetaminophen < 5.0 ug/mL (10-30) L 11/04/23 01:56 Ur Barbiturates Screen Negative ng/mL (Negative) 11/04/23 01:50 Ur Phencyclidine Scrn Negative ng/mL (Negative) 11/04/23 01:50 Ur Amphetamines Screen Negative ng/mL (Negative) 11/04/23 01:50 U Benzodiazepines Scrn Negative ng/mL (Negative) 11/04/23 01:50 Urine Cocaine Screen Negative ng/mL (Negative) 11/04/23 01:50 U Marijuana (THC) Screen Negative ng/mL (Negative) 11/04/23 01:50 Ethyl Alcohol < 10 mg/dL (0-10) 11/04/23 01:56 Influenza Type A Ag negative (Negative) 11/04/23 02:22 Influenza Type B Ag negative (Negative) 11/04/23 02:22 RSV Antigen Negative (Negative) 11/04/23 02:22 SARS-CoV-2 Ag (Rapid) negative (Negative) 11/04/23 02:22 Discharge Plan Discharge Patient Disposition: Home Clinical Impression: Auditory hallucination, Schizoaffective disorder, bipolar type Condition: Stable Prescriptions: No Action ferrous sulfate 325 mg (65 mg iron) tablet,delayed release (DR/EC) 325 mg PO .EVERY 48 HOURS torsemide [Soaanz] 20 mg tablet 40 mg PO QAM potassium chloride [K-Tab] 20 mEq tablet extended release 20 meq PO QAM Invega Trinza 819 mg/2.63 mL syringe 819 mg IM .EVERY 3 MONTHS Rx Instructions: Patient due date for next shot is on October 23, 2023. acetaminophen 500 mg Tablet 1,000 mg PO BID Discharge Orders: Discharge ED (Routine); Ordered 11/04/23 Ordered By: Fitz Larson Referrals: Jesus Colmenares MD [Primary Care Provider] - Discharge Diet: Usual diet Discharge Activity: Resume usual activity Patient Instructions: Opioid Safety, Pain Management Activity Restrictions/Additional Instructions: Thank you for choosing [facility] for your healthcare needs today. It is very important that you follow up as instructed or that you return to the Emergency Department should you have concerns or if your condition changes or worsens in any way. You were seen in the emergency room today for hallucinations and paranoid thoughts. We reviewed your case with the on-call psychiatrist. You are approximately 12 days late on your Invega. You had requested to be discharged. Psychiatry feels that is a viable option if you proceed directly from the emergency room to crisis stabilization while they will make adjustments in your medications and continue your outpatient therapy. Coding Level of Care Code ED Paraffin Machine Operator for Chg Fwd Documented by User: Fitz Larson DO 11/04/23 14:04 HPI - Psych General: Chief Complaint: Psychiatric Symptoms Stated Complaint: MHE Time Seen by Provider: 11/04/23 01:37 [facility] ED PFSH: Medical History Psychiatric care Schizoaffective disorder, bipolar type without good prognostic features Chronic schizophrenia Spina bifida Peripheral neuropathy Duodenal ulcer Perforated stomach GI bleed Anemia Upper gastrointestinal hemorrhage Chronic idiopathic constipation Morbid obesity with BMI of 40.0-44.9, adult Folliculitis cruris pustulosa atrophicans Nonvenomous insect bite of neck Nicotine dependence, unspecified, uncomplicated Schizoaffective disorder, bipolar type Borderline personality disorder Surgical History History of incision and drainage left hip History of tonsillectomy History of carpal tunnel surgery of right wrist History of back surgery History of cholecystectomy Family History Mother Bleeding disorder anemia Cancer uterine Hypertension Lung disease asthma Grandmother Bleeding disorder anemia Diabetes Father Cancer melonoma Hyperlipidemia Grandfather Chronic kidney disease (CKD) Diabetes Stroke Denies family history of CAD (coronary artery disease) Clotting disorder Dementia Psychiatric illness Anesthesia complication Social History Smoking and tobacco/nicotine status: current every day tobacco/nicotine user cigarettes Packs smoked per day: 1 Years cigarettes smoked: 25 [ Other cigarette details: current 1.25 PPD, 54PY ] Quit status (tobacco/nicotine): has tried quititng Number of times tried to quit tobacco: 8 Second hand smoke exposure: No Alcohol intake: current Alcohol intake frequency: holidays/special occasions only Alcohol type: hard liquor Substance/Drug Use: never Lives independently: Yes Household members: caregiver Marital status: Single Number of children: 0 Current occupational status: disabled Current gender identity: Male Special dagmar needs: No Agree to transfusion: Yes Course Vital Signs: Vital signs: Vital Signs Temperature 97.4 F L 11/04/23 01:33 Pulse Rate 71 11/04/23 01:33 Respiratory Rate 15 11/04/23 01:33 Blood Pressure 168/109 11/04/23 01:33 Pulse Oximetry 97 11/04/23 01:33 Oxygen Delivery Me thod Room Air 11/04/23 01:33 MDM - Psych Medical Decision Making Care assumed at change of shift and working on finding placement for the patient. Later on he approached staff and wanted to be discharged states he is feeling much better. We do not have him on a 96-hour hold only and talk to the patient on of anything that he can really justify 96-hour hold at this time but I do think he needs to reinitiate his medications. I contacted Dr. Fink is actually familiar with this patient we will discharge the patient from the emergency room security will escort him to the crisis stabilization and they are Dr. Fink is planning to adjust his medications and initiate an injectable long-acting antipsychotic or make arrangements for follow-up. Nursing staff also contacted prior crisis stabilization to ensure that they were prepared for the patient. Medical Records I reviewed the patient's medical records. Lab Data I reviewed the patient's lab results. 11/04/23 01:56 11/04/23 01:56 Laboratory Results WBC 6.13 10^3/uL (3.29-11.43) 11/04/23 01:56 RBC 4.85 10^6/uL (3.85-5.65) 11/04/23 01:56 Hgb 14.10 g/dL (11.27-16.99) 11/04/23 01:56 Hct 40.8 % (37-53) 11/04/23 01:56 MCV 84.1 fl (82-101) 11/04/23 01:56 MCH 29.1 pg (27-33) 11/04/23 01:56 MCHC 34.6 g/dL (30-55) 11/04/23 01:56 RDW 14.4 % (12.1-15.1) 11/04/23 01:56 Plt Count 197 10^3/cmm (157-399) 11/04/23 01:56 MPV 9.9 fL (7.4-10.4) 11/04/23 01:56 Neut % (Auto) 55.1 % 11/04/23 01:56 Lymph % (Auto) 33.9 % 11/04/23 01:56 [place] % (Auto) 8.3 % 11/04/23 01:56 Eos % (Auto) 2.0 % 11/04/23 01:56 Baso % (Auto) 0.5 % 11/04/23 01:56 Neut # (Auto) 3.38 10^3/uL (1.8-7.7) 11/04/23 01:56 Lymph # (Auto) 2.1 10^3/uL (0.8-4.8) 11/04/23 01:56 [place] # (Auto) 0.5 10^3/uL (0.2-0.9) 11/04/23 01:56 Eos # (Auto) 0.1 10^3/uL (0.0-0.8) 11/04/23 01:56 Baso # (Auto) 0.0 10^3/uL (0.0-0.1) 11/04/23 01:56 Nucleated RBC % (auto) 0 % 11/04/23 01:56 Nucleated RBCs # 0.0 /100WBC 11/04/23 01:56 Sodium 138 mmol/L (136-145) 11/04/23 01:56 Potassium 3.3 mmol/L (3.5-5.1) L 11/04/23 01:56 Chloride 101 mmol/L (98-107) 11/04/23 01:56 Carbon Dioxide 27 mmol/L (22-29) 11/04/23 01:56 Anion Gap 13.3 (5-19) 11/04/23 01:56 BUN 3 mg/dL (6-20) L 11/04/23 01:56 Creatinine 0.7 mg/dL (0.7-1.2) 11/04/23 01:56 GFR Calculation 122.0 mL/min (90-130) 11/04/23 01:56 Glucose 98 mg/dL (65-115) 11/04/23 01:56 Calculated Osmolality 283 mOsm/kg (285-295) L 11/04/23 01:56 Calcium 9.0 mg/dL (8.5-10.5) 11/04/23 01:56 Total Bilirubin 0.4 mg/dL (0.15-1.2) 11/04/23 01:56 AST 12 U/L (0-40) 11/04/23 01:56 ALT 8 U/L (0-41) 11/04/23 01:56 Alkaline Phosphatase 96 U/L (40-130) 11/04/23 01:56 Total Protein 7.0 g/dL (6.6-8.7) 11/04/23 01:56 Albumin 4.1 g/dL (3.5-5.2) 11/04/23 01:56 Globulin 2.9 g/dL (1.3-4.6) 11/04/23 01:56 TSH 2.04 uIU/mL (0.27-4.20) 11/04/23 01:58 Urine Color Yellow (Yellow) 11/04/23 01:50 Urine Appearance Clear (CLEAR) 11/04/23 01:50 Urine pH 8 (5-7) H 11/04/23 01:50 Ur Specific [place] 1.005 (1.005-1.030) 11/04/23 01:50 Urine Protein Neg (Negative) 11/04/23 01:50 Urine Glucose (UA) Norm (Normal) 11/04/23 01:50 Urine Ketones Negative (Negative) 11/04/23 01:50 Urine Blood Neg (Negative) 11/04/23 01:50 Urine Nitrate Negative (Negative) 11/04/23 01:50 Urine Bilirubin Neg (Negative) 11/04/23 01:50 Urine Urobilinogen Neg mg/dL (Negative) 11/04/23 01:50 Ur Leukocyte Esterase Negative (Negative) 11/04/23 01:50 Salicylates < 0.3 mg/dL (3-10) L 11/04/23 01:56 Urine Opiates Screen Negative ng/mL (Negative) 11/04/23 01:50 Acetaminophen < 5.0 ug/mL (10-30) L 11/04/23 01:56 Ur Barbiturates Screen Negative ng/mL (Negative) 11/04/23 01:50 Ur Phencyclidine Scrn Negative ng/mL (Negative) 11/04/23 01:50 Ur Amphetamines Screen Negative ng/mL (Negative) 11/04/23 01:50 U Benzodiazepines Scrn Negative ng/mL (Negative) 11/04/23 01:50 Urine Cocaine Screen Negative ng/mL (Negative) 11/04/23 01:50 U Marijuana (THC) Screen Negative ng/mL (Negative) 11/04/23 01:50 Ethyl Alcohol < 10 mg/dL (0-10) 11/04/23 01:56 Influenza Type A Ag negative (Negative) 11/04/23 02:22 Influenza Type B Ag negative (Negative) 11/04/23 02:22 RSV Antigen Negative (Negative) 11/04/23 02:22 SARS-CoV-2 Ag (Rapid) negative (Negative) 11/04/23 02:22 No radiology studies performed this visit Discharge Plan Discharge Patient Disposition: Home Clinical Impression: Auditory hallucination, Schizoaffective disorder, bipolar type Condition: Stable Prescriptions: No Action ferrous sulfate 325 mg (65 mg iron) tablet,delayed release (DR/EC) 325 mg PO .EVERY 48 HOURS torsemide [Soaanz] 20 mg tablet 40 mg PO QAM potassium chloride [K-Tab] 20 mEq tablet extended release 20 meq PO QAM Invega Trinza 819 mg/2.63 mL syringe 819 mg IM .EVERY 3 MONTHS Rx Instructions: Patient due date for next shot is on October 23, 2023. acetaminophen 500 mg Tablet 1,000 mg PO BID Discharge Orders: Discharge ED (Routine); Ordered 11/04/23 Ordered By: Fitz Larson Referrals: Jesus Colmenares MD [Primary Care Provider] - Discharge Diet: Usual diet Discharge Activity: Resume usual activity Patient Instructions: Opioid Safety, Pain Management Activity Restrictions/Additional Instructions: Thank you for choosing [facility] for your healthcare needs today. It is very important that you follow up as instructed or that you return to the Emergency Department should you have concerns or if your condition changes or worsens in any way. You were seen in the emergency room today for hallucinations and paranoid thoughts. We reviewed your case with the on-call psychiatrist. You are approximately 12 days late on your Invega. You had requested to be discharged. Psychiatry feels that is a viable option if you proceed directly from the emergency room to crisis stabilization while they will make adjustments in your medications and continue your outpatient therapy. Coding Level of Care Code ED Paraffin Machine Operator for Kobe Riggs
[2023-11-04 02:01] LABS: Basophils % 0.5 %; Eosinophils # 0.1 10^3/uL (0.0-0.8); Hematocrit 40.8 % (37-53); Lymphocytes # 2.1 10^3/uL (0.8-4.8); Lymphocytes % 33.9 %; Mean Corpuscular HGB Conc 34.6 g/dL (30-55); Mean Corpuscular Hemoglobin 29.1 pg (27-33); Mean Corpuscular Volume 84.1 fl (82-101); Mean Platelet Volume 9.9 fL (7.4-10.4); Monocytes # 0.5 10^3/uL (0.2-0.9); Monocytes % 8.3 %; Neutrophils # 3.38 10^3/uL (1.8-7.7); Neutrophils % 55.1 %; Nucleated Red Blood Cells % 0 %; Platelet Count 197 10^3/cmm (157-399); Red Blood Count 4.85 10^6/uL (3.85-5.65); Red Cell Distribution Width 14.4 % (12.1-15.1); White Blood Count 6.13 10^3/uL (3.29-11.43)
[2023-11-04 02:11] LABS: Amphetamines Screen Urine Negative (Negative); Barbiturates Screen Urine Negative (Negative); Benzodiazepines Screen Urine Negative (Negative); Cocaine Screen Urine Negative (Negative); Opiate Screen Urine Negative (Negative); PCP Screen Urine Negative (Negative); THC Screen Urine Negative (Negative)
--- NOTE | 2023-11-04 02:13 | ECG_ITS ---
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 Measurements Intervals [place] Rate: 72 P: 55 [place]: 179 QRS: 59 QRSD: 92 T: 53 QT: 418 QTc: 460 Interpretive Statements SINUS RHYTHM Compared to ECG 07/28/2023 17:35:01 No significant changes Electronically Signed On 11-05-2023 21:46:53 CDT by Ayad Chen M.D. [id number]
[2023-11-04 02:21] LABS: Alanine Aminotransferase 8 U/L (0-41); Albumin Level 4.1 g/dL (3.5-5.2); Alkaline Phosphatase 96 U/L (40-130); Anion Gap 13.3 (5-19); Aspartate Amino Transferase 12 U/L (0-40); Blood Urea Nitrogen 3 mg/dL (6-20); Carbon Dioxide 27 mmol/L (22-29); Chloride 101 mmol/L (98-107); Creatinine Clr Calc Pharmacy 170.6592; Globulin 2.9 g/dL (1.3-4.6); Glucose 98 mg/dL (65-115); Osmolality Calculated 283 mOsm/kg (285-295); Potassium 3.3 mmol/L (3.5-5.1); Sodium 138 mmol/L (136-145); Total Bilirubin 0.4 mg/dL (0.15-1.2)
[2023-11-04 02:24] LABS: Acetaminophen < 5.0 ug/mL (10-30); Alcohol Level < 10 mg/dL (0-10); Salicylate < 0.3 mg/dL (3-10)
[2023-11-04 02:44] LABS: Influenza A by IFA negative (Negative); Influenza B by IFA negative (Negative); SARS Covid-2 Antigen negative (Negative)
[2023-11-04 02:47] LABS: RSV Transfer Patient (ED) Negative (Negative)
[2023-11-04 03:31] LABS: Add Urine Microscopic? NO; Charge for UA Resulting for Rev
[2023-11-04 03:33] LABS: Urine Appearance Clear (CLEAR); Urine Color Yellow (Yellow)
[2023-11-04 03:34] LABS: Bilirubin Urine Neg (Negative); Blood Urine Neg (Negative); Glucose Urine UA Norm (Normal); Ketones Urine Negative (Negative); Leukocyte Esterase Urine Negative (Negative); Nitrate Urine Negative (Negative); Protein Urine Neg (Negative); Specific Gravity, Urine 1.005 (1.005-1.030); Urobilinogen Urine Neg (Negative); pH Urine 8 (5-7)
[2023-11-04 03:51] LABS: Thyroid Stimulating Hormone 2.04 uIU/mL (0.27-4.20)
--- NOTE | 2023-11-04 07:37 | PC.NURSE ---
Rounding Patient is resting in bed with eyes closed. No signs of distress noted at this time. PSA has eyes on patient.
--- NOTE | 2023-11-04 09:42 | PC.PHAR ---
PT UNABLE TO VERIFY MEDICATIONS. MED REC DONE FROM LAST FILL DATES AND PT HISTORY AT LAST VISIT DONE BY ALEKSANDAR JENNINGS
== END 2023-11-04 11:59 | disposition home or self-care (01) ==
PROVIDERS: Emergency Medicine; Emergency Provider Family Medicine; PCP Family Medicine
DX: F25.0 Schizoaffective disorder, bipolar type (principal); Z11.52 Encounter for screening for COVID-19; F17.210 Nicotine dependence, cigarettes, uncomplicated
CPT/HCPCS: 36415; 80053; 80306; 80307; 81003; 84443; 85025; 87426; 87804; 87899; 93005; 99284

== ENCOUNTER 2023-11-29 07:19 | Inpatient (IN) | payer MEDICAID, SELFPAY ==
[2023-11-29] VITALS (51 sets, daily range): BP systolic 90–149; BP diastolic 56–86; PULSE 87–132; RESP 5–27; TEMP 36.4–37.2; O2SAT 91–100; BMI 33.5
--- NOTE | 2023-11-29 07:26 | XR_ITS ---
WS: [id number] XR chest 1V portable [id number] REASON FOR EXAM: dyspnea/cough FINDINGS: Chest is unchanged compared to 07/04/2018. Mild tortuosity of the thoracic aorta. Normal heart size. Calcified granulomas disease bilaterally. No acute/subacute pulmonary parenchymal or pleural abnormality. Mild thoracic scoliosis. XR/XR chest 1V portable [id number] IMPRESSION: No acute abnormality.
--- NOTE | 2023-11-29 07:38 | ECG_ITS ---
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 Measurements Intervals [place] Rate: 104 P: 2 [place]: 145 QRS: -12 QRSD: 89 T: -1 QT: 336 QTc: 443 Interpretive Statements SINUS TACHYCARDIA ABNORMAL RHYTHM ECG Compared to ECG 11/04/2023 02:13:30 Sinus rhythm no longer present Electronically Signed On 11-29-2023 9:18:43 CDT by Ayad Chen M.D. [id number]
[2023-11-29] MEDS: sodium chloride 0.9% 1,000 ML 999 ML IV (07:43)
[2023-11-29] MEDS: ondansetron 2 mg/ML SDV 2 mL 4 MG IVP ×2 (07:45→20:49)
[2023-11-29 07:51] LABS: Basophils % 0.4 %; Eosinophils % 0.2 %; Hematocrit 27.4 % (37-53); Lymphocytes # 1.8 10^3/uL (0.8-4.8); Lymphocytes % 21.4 %; Mean Corpuscular HGB Conc 33.2 g/dL (30-55); Mean Corpuscular Hemoglobin 29.1 pg (27-33); Mean Corpuscular Volume 87.5 fl (82-101); Mean Platelet Volume 10.4 fL (7.4-10.4); Monocytes # 0.6 10^3/uL (0.2-0.9); Monocytes % 7.2 %; Neutrophils # 5.95 10^3/uL (1.8-7.7); Neutrophils % 70.3 %; Nucleated Red Blood Cells % 0 %; Platelet Count 218 10^3/cmm (157-399); Red Blood Count 3.13 10^6/uL (3.85-5.65); Red Cell Distribution Width 14.7 % (12.1-15.1); White Blood Count 8.46 10^3/uL (3.29-11.43)
--- NOTE | 2023-11-29 08:07 | ED_ITS ---
HPI - Nausea/Vomiting/Diarrhea 2 General: Chief complaint: Nausea/Vomiting/Diarrhea Stated complaint: N/V Time Seen by Provider: 11/29/23 07:22 History of Present Illness: 48-year-old male presents emergency room complaining of hematochezia and hematemesis as well as some moderate melena. Patient has had several episodes in the past of GI bleed including 2 hospitalizations in the last 3 years required transfusion and EGD with epinephrine injection. Both times he recovered. 1 related to excessive use of NSAIDs. He denies heavy drinking or recent use of NSAIDs. He had 2 episodes of hematemesis last night as well as 1 dark stool mixed with red blood. Associated nausea: Yes Associated symtoms: Reports nausea; Denies chest pain or dysuria Review of Systems 2 Const: Denies: fever(s) or chills Card: Denies: chest pain Resp: Denies: dyspnea GI: Reports: abdominal pain, nausea, vomiting, hematemesis, coffee ground emesis, hematochezia and melena : Denies: dysuria, urinary frequency or urinary urgency Musc: Denies: neck pain or back pain Skin/Breast: Denies: rash PFSH ED 2 PFSH: Medical History Psychiatric care Schizoaffective disorder, bipolar type without good prognostic features Chronic schizophrenia Spina bifida Peripheral neuropathy Duodenal ulcer Perforated stomach GI bleed Anemia Upper gastrointestinal hemorrhage Chronic idiopathic constipation Morbid obesity with BMI of 40.0-44.9, adult Folliculitis cruris pustulosa atrophicans Nonvenomous insect bite of neck Nicotine dependence, unspecified, uncomplicated Schizoaffective disorder, bipolar type Borderline personality disorder Surgical History History of incision and drainage left hip History of tonsillectomy History of carpal tunnel surgery of right wrist History of back surgery History of cholecystectomy Family History Mother Bleeding disorder anemia Cancer uterine Hypertension Lung disease asthma Grandmother Bleeding disorder anemia Diabetes Father Cancer melonoma Hyperlipidemia Grandfather Chronic kidney disease (CKD) Diabetes Stroke Other Acute psychosis Denies family history of CAD (coronary artery disease) Clotting disorder Dementia Psychiatric illness Anesthesia complication Social History Smoking and tobacco/nicotine status: current every day tobacco/nicotine user cigarettes Packs smoked per day: 1 Years cigarettes smoked: 25 [ Other cigarette details: current 1.25 PPD, 54PY ] Quit status (tobacco/nicotine): has tried quititng Number of times tried to quit tobacco: 8 Second hand smoke exposure: No Alcohol intake: current Alcohol intake frequency: holidays/special occasions only Alcohol type: hard liquor Substance/Drug Use: never Lives independently: Yes Household members: caregiver Marital status: Single Number of children: 0 Current occupational status: disabled Current gender identity: Male Special dagmar needs: No Agree to transfusion: Yes Physical Exam 2 Const: GENERAL APPEARANCE: cooperative ORIENTATION/CONSCIOUSNESS: Yes awake, Yes oriented to person, Yes oriented to place and Yes oriented to time HENMT: COMMON NORMALS: normocephalic, atraumatic and hearing grossly normal bilaterally HEAD & SCALP: normocephalic and atraumatic Resp: COMMON NORMALS: normal respiratory effort, No retractions, No use of accessory muscles and clear to auscultation bilaterally AUSCULTATION: clear to auscultation bilaterally Cardio: COMMON NORMALS: regular rhythm and No murmurs present (Cardio) R ATE: tachycardic RHYTHM: regular rhythm GI: COMMON NORMALS: No hepatosplenomegaly present AUSCULTATION: Yes normoactive bowel sounds PALPATION: Yes Tenderness to palpation present (GI) (Mild diffuse), No Guarding due to palpation present (GI) and Yes No hepatosplenomegaly present Extremity: COMMON NORMALS: normal to inspection, capillary refill normal, no clubbing, cyanosis or edema, no calf tenderness and no pedal edema Neuro: SENSORIUM/ORIENTATION: Yes oriented to person, Yes oriented to place and Yes oriented to time Skin: COMMON NORMALS: no rashes or lesions noted GENERAL SKIN EXAM: no rashes or lesions noted Course 2 Vital Signs: Vital signs: Vital Signs Temperature 97.5 F L 11/29/23 07:20 Pulse Rate 91 11/29/23 12:25 Respiratory Rate 18 11/29/23 12:25 Blood Pressure 138/86 11/29/23 12:25 Pulse Oximetry 100 11/29/23 12:25 Oxygen Delivery Me thod Room Air 11/29/23 12:21 MDM - Nausea/Vomiting/Diarrhea Medical Decision Making Hemoglobin is dropped from 14 110 9 1 on rectal exam patient had a mix of melanic stools and some bright red blood. He has not had any vomiting or further bloody stools since arriving here. He has a history of 2 previous GI bleeds requiring admission. He has been typed and screened will admit started on Protonix consult Dr. Snell I did contact him he is aware the patient is here Dr. Mendez is seeing patient in the department. Lab Data 11/29/23 11:48 11/29/23 08:05 Radiology Impressions Chest X-Ray 11/29/23 07:26 IMPRESSION: No acute abnormality. Abdomen/Pelvis CT 11/29/23 08:18 IMPRESSION: 1. No active contrast extravasation within the GI tract identified. 2. There is increased attenuation within the stomach/duodenum and distal colon. This can be seen with blood products in the GI tract from bleeding. 3. Prior cholecystectomy. 4. No renal obstruction. 5. No ascites or adenopathy. Laboratory Results WBC 8.46 10^3/uL (3.29-11.43) 11/29/23 07:37 RBC 3.13 10^6/uL (3.85-5.65) L 11/29/23 07:37 Hgb 9.10 g/dL (11.27-16.99) L 11/29/23 07:37 Hct 27.4 % (37-53) L 11/29/23 07:37 MCV 87.5 fl (82-101) 11/29/23 07:37 MCH 29.1 pg (27-33) 11/29/23 07:37 MCHC 33.2 g/dL (30-55) 11/29/23 07:37 RDW 14.7 % (12.1-15.1) 11/29/23 07:37 Plt Count 218 10^3/cmm (157-399) 11/29/23 07:37 MPV 10.4 fL (7.4-10.4) 11/29/23 07:37 Neut % (Auto) 70.3 % 11/29/23 07:37 Lymph % (Auto) 21.4 % 11/29/23 07:37 [place] % (Auto) 7.2 % 11/29/23 07:37 Eos % (Auto) 0.2 % 11/29/23 07:37 Baso % (Auto) 0.4 % 11/29/23 07:37 Neut # (Auto) 5.95 10^3/uL (1.8-7.7) 11/29/23 07:37 Lymph # (Auto) 1.8 10^3/uL (0.8-4.8) 11/29/23 07:37 [place] # (Auto) 0.6 10^3/uL (0.2-0.9) 11/29/23 07:37 Eos # (Auto) 0.0 10^3/uL (0.0-0.8) 11/29/23 07:37 Baso # (Auto) 0.0 10^3/uL (0.0-0.1) 11/29/23 07:37 Nucleated RBC % (auto) 0 % 11/29/23 07:37 Nucleated RBCs # 0.0 /100WBC 11/29/23 07:37 PT 14.30 SECONDS (12.1-14.9) 11/29/23 08:35 INR 1.08 (0.8-1.2) 11/29/23 08:35 APTT 37.9 SECONDS (23.9-36.7) H 11/29/23 08:35 Sodium 140 mmol/L (136-145) 11/29/23 08:05 Potassium 4.6 mmol/L (3.5-5.1) 11/29/23 08:05 Chloride 105 mmol/L (98-107) 11/29/23 08:05 Carbon Dioxide 24 mmol/L (22-29) 11/29/23 08:05 Anion Gap 15.6 (5-19) 11/29/23 08:05 BUN 39 mg/dL (6-20) H 11/29/23 08:05 Creatinine 0.7 mg/dL (0.7-1.2) 11/29/23 08:05 GFR Calculation 121.4 mL/min (90-130) 11/29/23 08:05 Glucose 108 mg/dL (65-115) 11/29/23 08:05 Calculated Osmolality 300 mOsm/kg (285-295) H 11/29/23 08:05 Calcium 8.0 mg/dL (8.5-10.5) L 11/29/23 08:05 Total Bilirubin 0.3 mg/dL (0.15-1.2) 11/29/23 08:05 AST 9 U/L (0-40) 11/29/23 08:05 ALT 10 U/L (0-41) 11/29/23 08:05 Alkaline Phosphatase 64 U/L (40-130) 11/29/23 08:05 Total Protein 5.5 g/dL (6.6-8.7) L 11/29/23 08:05 Albumin 3.3 g/dL (3.5-5.2) L 11/29/23 08:05 Globulin 2.2 g/dL (1.3-4.6) 11/29/23 08:05 Urine Color Yellow (Yellow) 11/29/23 09:02 Urine Appearance Slightly cloudy (CLEAR) 11/29/23 09:02 Urine pH 5 (5-7) 11/29/23 09:02 Ur Specific Orange 1.015 (1.005-1.030) 11/29/23 09:02 Urine Protein Neg (Negative) 11/29/23 09:02 Urine Glucose (UA) Norm (Normal) 11/29/23 09:02 Urine Ketones Negative (Negative) 11/29/23 09:02 Urine Blood Neg (Negative) 11/29/23 09:02 Urine Nitrate Negative (Negative) 11/29/23 09:02 Urine Bilirubin Neg (Negative) 11/29/23 09:02 Urine Urobilinogen Norm mg/dL (Negative) 11/29/23 09:02 Ur Leukocyte Esterase Negative (Negative) 11/29/23 09:02 Urine RBC 0-4 /hpf (0-2) H 11/29/23 09:02 Urine WBC 0-4 /hpf (0-5) H 11/29/23 09:02 Ur Squamous Epith Cells 0-4 /hpf (0-5) H 11/29/23 09:02 Amorphous Sediment Not Reportable 11/29/23 09:02 Urine Bacteria Trace /hpf (NONE) 11/29/23 09:02 Hyaline Casts 0-4 /lpf H 11/29/23 09:02 Blood Type B Negative 11/29/23 08:35 Rho(D) Type Rh negative 11/29/23 08:35 Antibody Screen Negative 11/29/23 08:35 All radiology interpretation(s) finalized by discharge Discharge Plan Discharge Patient Disposition: Admitted As Inpatient Admit Provider: Chris Mendez Clinical Impression: GI bleed, Duodenal ulcer, Anemia associated with acute blood loss Condition: Stable Coding Level of Care Code 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
--- NOTE | 2023-11-29 08:18 | CT_ITS ---
WS: [id number] CT ABDOMEN AND PELVIS WITH CONTRAST HISTORY: abd pain TECHNIQUE: Imaging performed of the abdomen and pelvis with IV contrast. Single phase imaging of the abdomen. Coronal and sagittal reformats are submitted. All CT scans at [facility] use at [address] one of these dose optimization techniques: automated exposure control; mA and/or kV adjustment per patient size (includes targeted exams where dose is matched to clinical indication); or iterative re construction. IV CONTRAST: Omnipaque 350; 100 mL IV. Partially delayed injection due to IV difficulty. Oral contrast: No DLP: 991.31 mGy.cm COMPARISON: 03/13/2022 Lower thorax: Lungs are clear. Heart is normal size. Small hiatal hernia. Liver/biliary system: Normal size with no intrahepatic dilatation. Gallbladder: Prior cholecystectomy. Pancreas: Normal size pancreas and pancreatic duct. No adjacent inflammation. Spleen: Normal size spleen. No mass or infarct. Adrenal glands: Normal. Right kidney: Too small to characterize cortical hypodensity lower pole. No renal obstruction. Left kidney: Normal. Aorta: Normal. Lymphadenopathy: None. Free fluid: None. GI tract: Stomach is moderately well distended with fluid and air. Towards the pylorus and proximal d uodenum there is mixed attenuation in the fluid. With the history of hematemesis this may be blood mi xed with stomach content. No small bowel obstruction. No colon obstruction. The appendix is identifie d and normal. No site of active extravasation. There is additional increased attenuation in the lumen of the distal colon. This could represent blood products within the colon. Abdominal wall: Unremarkable abdominal wall. No hernia. Pelvis: No free fluid or adenopathy within the pelvis. Small amount of extravasated contrast in the d ependent bladder. Bones: Mild degenerative changes throughout the lumbar spine. Slight retrolisthesis of L4 by 3 to 4 m m. At L3-4 there is a focal large central disc protrusion without laminectomy defect. CT/CT abdomen pelvis w con* [id number] IMPRESSION: 1. No active contrast extravasation within the GI tract identified. 2. There is increased attenuation within the stomach/duodenum and distal colon . This can be seen with blood products in the GI tract from bleeding. 3. Prior cholecystectomy. 4. No renal obstruction. 5. No ascites or adenopathy.
[2023-11-29 08:42] LABS: Alanine Aminotransferase 10 U/L (0-41); Albumin Level 3.3 g/dL (3.5-5.2); Alkaline Phosphatase 64 U/L (40-130); Anion Gap 15.6 (5-19); Aspartate Amino Transferase 9 U/L (0-40); Blood Urea Nitrogen 39 mg/dL (6-20); Carbon Dioxide 24 mmol/L (22-29); Chloride 105 mmol/L (98-107); Creatinine Clr Calc Pharmacy 165.4788; Globulin 2.2 g/dL (1.3-4.6); Glomerular Filtration Rate 121.4 mL/min (90-130); Glucose 108 mg/dL (65-115); Osmolality Calculated 300 mOsm/kg (285-295); Potassium 4.6 mmol/L (3.5-5.1); Sodium 140 mmol/L (136-145); Total Bilirubin 0.3 mg/dL (0.15-1.2); Total Protein 5.5 g/dL (6.6-8.7)
[2023-11-29 08:52] LABS: INR 1.08 (0.8-1.2)
[2023-11-29 08:53] LABS: Partial Thromboplastin Time 37.9 SECONDS (23.9-36.7)
[2023-11-29] MEDS: pantoprazole 40 mg SDV 80 MG IVP (08:57)
[2023-11-29 09:33] LABS: Add Urine Microscopic? YES; Bilirubin Urine Neg (Negative); Blood Urine Neg (Negative); Glucose Urine UA Norm (Normal); Ketones Urine Negative (Negative); Leukocyte Esterase Urine Negative (Negative); Nitrate Urine Negative (Negative); Protein Urine Neg (Negative); Specific Gravity, Urine 1.015 (1.005-1.030); Urine Appearance Slightly Cloudy (CLEAR); Urine Color Yellow (Yellow); Urobilinogen Urine Norm (Negative); pH Urine 5 (5-7)
[2023-11-29 09:34] LABS: Bacteria Urine TRACE /hpf; Hyaline Casts Urine 0-4 /lpf; RBC Urine 0-4 /hpf (0-2); Squamous Epithelial Cell Urine 0-4 /hpf (0-5); WBC Urine 0-4 /hpf (0-5)
[2023-11-29] MEDS: iohexol 350 mg/mL 500 mL Btl (per mL) IV ×2 (09:47→23:53)
--- NOTE | 2023-11-29 11:06 | P.HP_ITS ---
Providers/Chief Complaint 2 Admitting Physician: Chris Mendez MD Primary Care Provider: Jesus Colmenares MD Chief Complaint: N/V History of Present Illness Tarun Summers is a 48 year old male presenting to the emergency department complaining of GI bleeding. He has been noticing some bright red blood in his stool, mixed with some dark material as well as hematemesis. Symptoms started occurring around 9 or 10 PM last night. His last emesis was around 730 this morning. He has a prior history of GI bleeding 2 years ago from a duodenal ulcer with anti-inflammatory use. He reports he has been taking aspirin. 25 mg twice daily recently for back pain. He denies any significant alcohol use. He denies any history of liver disease. At this point he denies any abdominal pain. Review of Systems 2 General: Reports: 10 or more systems reviewed and unremarkable except in HPI and below Card: Denies: chest pain Resp: Denies: dyspnea GI: Reports: nausea, vomiting, hematemesis, hematochezia and melena; Denies: abdominal pain Medications/Allergies Home Medications Medication Instructions Recorded Confirmed Last Taken Type paliperidone palm (3 month) 819 819 mg IM .EVERY 3 MONTHS 07/28/23 11/29/23 07/23/23 History mg/2.63 mL intramuscular syringe (Invega Trinza) aspirin 325 mg tablet 325 mg PO Q4H PRN Pain 11/29/23 11/29/23 Unknown History benztropine 1 mg tablet 1 - 2 mg PO DAILY PRN TREMORS 11/29/23 11/29/23 Unknown History Allergies Allergy/AdvReac Type Severity Reaction Status Date / Time amoxicillin AdvReac Intermediate Rash Verified 07/26/23 20:07 Penicillins AdvReac Intermediate Rash Verified 07/26/23 20:07 PFSH Acute 2 PFSH: Medical History (Updated 11/29/23 @ 11:15 by Chris Mendez MD) Psychiatric care Schizoaffective disorder, bipolar type without good prognostic features Chronic schizophrenia Spina bifida Peripheral neuropathy Duodenal ulcer Perforated stomach GI bleed Anemia Upper gastrointestinal hemorrhage Chronic idiopathic constipation Morbid obesity with BMI of 40.0-44.9, adult Folliculitis cruris pustulosa atrophicans Nonvenomous insect bite of neck Nicotine dependence, unspecified, uncomplicated Schizoaffective disorder, bipolar type Borderline personality disorder Surgical History History of incision and drainage left hip History of tonsillectomy History of carpal tunnel surgery of right wrist History of back surgery History of cholecystectomy Family History Mother Bleeding disorder anemia Cancer uterine Hypertension Lung disease asthma Grandmother Bleeding disorder anemia Diabetes Father Cancer melonoma Hyperlipidemia Grandfather Chronic kidney disease (CKD) Diabetes Stroke Other Acute psychosis Denies family history of CAD (coronary artery disease) Clotting disorder Dementia Psychiatric illness Anesthesia complication Social History Smoking and tobacco/nicotine status: current every day tobacco/nicotine user cigarettes Packs smoked per day: 1 Years cigarettes smoked: 25 [ Other cigarette details: current 1.25 PPD, 54PY ] Quit status (tobacco/nicotine): has tried quititng Number of times tried to quit tobacco: 8 Second hand smoke exposure: No Alcohol intake: current Alcohol intake frequency: holidays/special occasions only Alcohol type: hard liquor Substance/Drug Use: never Lives independently: Yes Household members: caregiver Marital status: Single Number of children: 0 Current occupational status: disabled Current gender identity: Male Special dagmar needs: No Agree to transfusion: Yes Vitals/I&O/Wt Last Vital Signs Temp 97.5 F L 11/29/23 07:20 Pulse 106 H 11/29/23 10:35 Resp 22 H 11/29/23 10:35 BP 104/64 11/29/23 10:35 Pulse Ox 96 11/29/23 10:35 Weight last 48 hrs Weight 108.862 kg Physical Exam 2 Narrative: General exam is a male, no distress, really wanting to sleep HEENT: Atraumatic normocephalic. Oropharynx clear Neck is supple no lymphadenopathy thyromegaly Cardiovascular tachycardic, regular, no murmur Lungs clear Abdomen is soft, positive bowel sounds. No obvious organomegaly exam is deferred Extremities no cyanosis, edema, cap refill brisk Skin no rash Neuro no obvious focal deficits. Data 11/29/23 07:37 11/29/23 08:05 Other Labs: PT, PTT normal Calcium 8.0, albumin 3.3 LFTs normal Urinalysis negative CT abdomen pelvis no active contrast in the GI tract, increased attenuation stomach duodenum. I reviewed this as well Chest x-ray no infiltrate, I reviewed as well. EKG which I reviewed demonstrates sinus tachycardia, left axis deviation, nonspecific ST-T wave changes. A&P Assessment and plan (1) GI bleed: Patient with significant GI bleed with acute blood loss anemia 80 mg of Protonix given in the ER, continue 40 mg IV every 12 hours Risk factors include aspirin use, obviously hold any anti-inflammatories Surgery consult N.p.o. for now Hydration Serial hemoglobins No evidence of liver disease Associated with tachycardia, borderline hypotension (2) Anemia associated with acute blood loss: See above Plan Nicotine dependence, encourage abstinence Bipolar disorder Attestations 2 Medical Necessity Statement*: Will require greater than 2 midnight stay for secondary to severe acute blood loss anemia with GI bleeding in this patient who has abnormal vital signs with tachycardia and borderline hypotension Critical Care Time: The high probability of a clinically significant, sudden or life threatening deterioration of the patient's [GI, vascular] system(s) required my full and direct attention, intervention and personal management. The critical care time is as shown. This time is in addition to time spent performing any reported procedures but includes the following: [x] Data and vital sign review and interpretation [x] Patient assessment, examination and intervention [x] Documentation [x] Medication orders and management Critical Care Time (min): 48 Coding Level of Care Code Critical Care >/= 30 minutes Critical care time (in minutes): 48 The high probability of a clinically significant, sudden or life threatening deterioration, as referenced in this documentation, required my full and direct attention, intervention and personal management. The critical care time shown is in addition to time spent performing any reported separately billable procedures and includes the following: [x] Data and vital sign review and interpretation [x ] Patient assessment, examination and intervention [x] Medication orders and management [x] Patient/Family updates as able [x] Care Coordination and Documentation. Diagnoses GI bleed K92.2 Anemia associated with acute blood loss D62
[2023-11-29 11:56] LABS: Hematocrit 22.8 % (37-53)
--- NOTE | 2023-11-29 12:19 | PC.NURSE ---
Arrived from ED AO x4 no c/o
[2023-11-29] MEDS: sodium chloride 0.9% 1,000 ML 125 ML IV ×2 (12:33→21:36)
[2023-11-29] MEDS: peg /e-lyte soln 4,000 mL Btl 1000 ML PO (13:10)
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
[2023-11-29] MEDS: bisacodyl 5 mg Tablet 20 MG PO (17:25)
[2023-11-29 19:11] LABS: Hematocrit 22.2 % (37-53)
[2023-11-29] MEDS: morphine 4 mg/mL SDV 1 mL 2 MG IVP (19:44)
[2023-11-29] MEDS: pantoprazole 40 mg SDV IVP (19:44)
[2023-11-29] MEDS: sodium chloride 0.9% 100 mL Bag 50 ML IV ×2 (20:41→22:49)
[2023-11-29] MEDS: norepinephrine 4 MG/250 ML BAG 15 MG IV (21:10)
[2023-11-29 21:20] LABS: Glucose Point of Care 187 mg/dL (70-110)
[2023-11-29] MEDS: octreotide 500 MCG in sodium chloride 0.9% (100 ml) 100 ML 10.1 MCG IV (21:39)
[2023-11-29 21:53] LABS: Hematocrit 19.3 % (37-53)
--- NOTE | 2023-11-29 22:00 | PM.CCNAC ---
Critical Care Event Note Rapid response was called when patient became hypotensive, became unresponsive, when I arrived in the room patient was cold and clammy however verbally redirectable We used Trendelenburg position which improved his blood pressure I requested Levophed and octreotide on stat basis and request another unit of blood and platelets I also give him 1 dose of Tranxene [place] acid Patient endorsing feeling worn out he is alert and oriented airway is protected currently on room air Blood pressure improved The high probability of a clinically significant, sudden or life threatening deterioration of the patient's [] system(s) required my full and direct attention, intervention and personal management. The critical care time is as shown. This time is in addition to time spent performing any reported procedures but includes the following: [x] Data and vital sign review and interpretation [x] Patient assessment, examination and intervention [x] Documentation [x] Medication orders and management Critical Care Time Code activated: No Critical Care Time (min): 30 Additional information about critical care time: 30 Coding Level of Care Code Acute Code for [facility]
[2023-11-29] MEDS: tranexamic acid 1,000 MG/100 ML PREMIX 600 MG IV ×4 (22:42→23:24)
--- NOTE | 2023-11-29 23:00 | CTR_ITS ---
PROCEDURE INFORMATION: Exam: CT Abdomen And Pelvis With Contrast Exam date and time: 11/29/2023 11:42 PM Age: 48 years old Clinical indication: Other: Hematemesis and rectal bleeding; Prior surgery; Surgery date: 6+ months; Patient HX: New onset of copious hematemesis with rectal bleeding. Hgb of 6.40. History of duodenal ulcer. ; Additional info: Bloody emesis TECHNIQUE: Imaging protocol: Computed tomography of the abdomen and pelvis with contrast. Radiation optimization: All CT scans at this facility use at least one of these dose optimization techniques: automated exposure control; mA and/or kV adjustment per patient size (includes targeted exams where dose is matched to clinical indication); or iterative reconstruction. Contrast material: OMNI 350; Contrast volume: 100 ml; Contrast route: INTRAVENOUS (IV); COMPARISON: CT abdomen pelvis w con* [id number] 11/29/2023 9:45 AM RADIATION DOSE METRICS: Total DLP (mGy-cm): 1501.55 FINDINGS: Lungs: On the 1st slice of the scan there is a persisting 8 mm noncalcified nodule in the left lower lobe similar to the recent prior. However the nodule was not present on the scan from 2019. Liver: Normal. No mass. Gallbladder and biliary ducts: The gallbladder is surgically absent Pancreas: Normal. No ductal dilation. Spleen: Normal. No splenomegaly. Adrenal glands: Normal. No mass. Kidneys and ureters: Normal. No hydronephrosis. Stomach and bowel: No bowel obstruction or ileus. There is scattered stool and fluid in both the proximal and distal colon. No wall thickening, obstruction or surrounding inflammation. No visible mass. The fluid is not hyperdense and is not obviously hemorrhagic. Small bowel is unremarkable. Appendix: The appendix is normal. Intraperitoneal space: Unremarkable. No free air. No significant fluid collection. Vasculature: Unremarkable. No abdominal aortic aneurysm. Lymph nodes: Unremarkable. No enlarged lymph nodes. Urinary bladder: Unremarkable as visualized. Reproductive: Unremarkable as visualized. Bones/joints: L4-L5 chronic degenerative disc disease. Soft tissues: Unremarkable. CT/CT abdomen pelvis w con* [id number] IMPRESSION: 1. No acute abdominopelvic findings. However there is fluid in the distal colon consistent with history of GI hemorrhage. No evidence of active bleeding. The source of the hemorrhage is not evident. 2. Since 2021 new 8 mm left lower lobe noncalcified lung nodule. For patients at low risk (minimal or absent history of smoking and of other known risk factors), recommend CT Chest at 6-12 months, then consider CT Chest at 18-24 months. For patients at high risk (history of smoking or of other known risk factors), recommend CT Chest at 6-12 months, then CT Chest at 18-24 months. (Reference: [place]) References: [place] Sherman, et al. Guidelines for Management of Incidental Pulmonary Nodules Detected on CT Images: From the Fleischner Society 2017. Radiology. 2017;284(1):228-243.
[2023-11-30] VITALS (91 sets, daily range): BP systolic 94–140; BP diastolic 56–84; PULSE 67–100; RESP 2–33; TEMP 36.1–36.8; O2SAT 91–100
[2023-11-30] MEDS: morphine 4 mg/mL SDV 1 mL 2 MG IVP ×4 (00:30→23:53)
[2023-11-30 01:18] LABS: Basophils % 0.1 %; Eosinophils % 0.1 %; Lymphocytes # 1.5 10^3/uL (0.8-4.8); Lymphocytes % 10.2 %; Mean Corpuscular HGB Conc 32.7 g/dL (30-55); Mean Corpuscular Hemoglobin 29.1 pg (27-33); Mean Platelet Volume 11.3 fL (7.4-10.4); Monocytes # 0.9 10^3/uL (0.2-0.9); Monocytes % 5.8 %; Neutrophils # 12.47 10^3/uL (1.8-7.7); Neutrophils % 83.1 %; Nucleated Red Blood Cells % 0 %; Platelet Count 142 10^3/cmm (157-399); Red Blood Count 2.27 10^6/uL (3.85-5.65); Red Cell Distribution Width 15.7 % (12.1-15.1); White Blood Count 15.01 10^3/uL (3.29-11.43)
[2023-11-30 01:19] LABS: Hematocrit 20.2 % (37-53)
--- NOTE | 2023-11-30 03:35 | PC.NURSE ---
Pt up to bathroom multiple times at beginning of shift. Very bloody stool was noted each time. This nurse was in pt room starting blood when pt stated he needed to use the bathroom again. Pt sat up on side of bed, but became dizzy and stated, I won't be able to walk to the bathroom this time. This nurse retrieved a bedside commode and pt continued to c/o dizziness. Pt stated he did not need assistance to get to bedside commode. This nurse stayed at pt side. Pt transferred himself to bedside commode and as soon as stool came out, pt's head tilted backwards and he began snore-breathing and unresponsive. This nurse yelled out for help. iraj Hamilton RN and MELISA Florian came to bedside along with RT Marilynn. A Rapid Response was called at 2103. Bora from lab, [place] - milk route supervisor, and Dr. Mayorga arrived. New labs were drawn at 2106. Levophed was started at 2107. Bedside blood sugar was checked and a bedside EKG was done at 2107. Pt vitals: BP 83/58, HR 116, 97% O2 on RA. At 2109, pt BP 115/66, HR 111, 96% O2 on RA. Orders from Dr. Mayorga to give 1000 mg tranexamic acid (TXA), start octreotide gtt, and finish giving the unit of blood that had been started. 1 unit FFP ordered with 1 unit platelets and one more unit PRBC. At 2244, second unit PRBC began infusing. Pt became nauseas and began throwing up large blood clots. Blood transfusion was paused. This nurse called Dr. Mayorga at approx. 2300. Dr. Mayorga stated to call Dr. Snell. Dr. Snell was contacted and updated on pt status. Dr. Snell stated that blood was to be continued and ordered a stat CT abdomen/pelvis with contrast as well as 3 more units of TXA. This nurse verified with Dr. Snell that pt had just received [address] Snell stated pt needed 3 more bags. MELISA Hamilton was at this nurse's side and heard this nurse verify TXA order with Dr. Snell. Dr. Snell then asked how fast the TXA bag would run. This nurse informed Dr. Snell that each bag would be ran in [address] Snell ordered an H&H drawn after TXA infused and CT scan read. At 0130, this nurse had resulted H&H and CT scan read. Dr. Snell contacted and told 4,000 mg TXA had been infused as well as second unit PRBC and platelets. Dr. Snell stated, How much TXA? This nurse, again, stated 4,000 mg was given - per Dr. Snell's previous order. Dr. Snell stated, He needs 2 more units PRBC. This nurse verified, again, that two more units PRBC needed infused and a new H&H drawn after those units had infused. Dr. Snell agreed this was correct.
[2023-11-30] MEDS: sodium chloride 0.9% 1,000 ML 125 ML IV (04:00)
[2023-11-30] MEDS: sodium chloride 0.9% 100 mL Bag 50 ML IV (04:44)
[2023-11-30] MEDS: octreotide 500 MCG in sodium chloride 0.9% (100 ml) 100 ML 10.1 MCG IV (05:19)
[2023-11-30] MEDS: pantoprazole 40 mg SDV IVP ×2 (07:40→19:49)
--- NOTE | 2023-11-30 08:00 | W.PM.OPSUD ---
Surgery/Procedure H&P Update DATE OF PROCEDURE: November 30, 2023 DATE H&P PERFORMED: 11/29/23 H&P UPDATE INFORMATION: I have reviewed H&P completed within last 30 days, I have examined patient prior to procedure and No changes to prior documentation PLANNED PROCEDURE: Operation Date: 11/30/23 08:15 Proposed Procedures p EGD(Not Applicable) - DO misha Damon Colonoscopy(Not Applicable) - Joshua Snell DO
[2023-11-30 08:17] LABS: Basophils % 0.3 %; Eosinophils % 0.2 %; Hematocrit 27.3 % (37-53); Lymphocytes # 2.4 10^3/uL (0.8-4.8); Lymphocytes % 23.2 %; Mean Corpuscular HGB Conc 32.6 g/dL (30-55); Mean Corpuscular Hemoglobin 28.3 pg (27-33); Mean Corpuscular Volume 86.9 fl (82-101); Monocytes # 0.7 10^3/uL (0.2-0.9); Monocytes % 6.7 %; Neutrophils # 6.99 10^3/uL (1.8-7.7); Neutrophils % 69.2 %; Nucleated Red Blood Cells % 0 %; Platelet Count 152 10^3/cmm (157-399); Red Blood Count 3.14 10^6/uL (3.85-5.65); Red Cell Distribution Width 15.9 % (12.1-15.1); White Blood Count 10.11 10^3/uL (3.29-11.43)
--- NOTE | 2023-11-30 08:39 | ANES.PREANE2 ---
Pre-Anesthetic Assessment Height/Weight: Height 1.8 m Weight 111.13 kg Temp Pulse Resp BP Pulse Ox O2 Del Method 97 F L 71 12 116/66 100 Room Air 11/30/23 05:12 11/30/23 08:15 11/30/23 08:15 11/30/23 08:00 11/30/23 08:15 11/30/23 08:15 Operation Date: 11/30/23 08:15 Proposed Procedures p EGD(Not Applicable) - Joshua Snell DO s Colonoscopy(Not Applicable) - Joshua Snell DO Familial anesthetic complications: None Was Beta William taken within 24 hours: N/A Was Clonidine taken within 24 hours: N/A Last intake: . 8 hrs, but vomiting up large clots as of last night Social Alcohol and Tobacco Exam alert, oriented x 3, clear to auscultation bilaterally and regular rate & rhythm Airway Mallampati: Class III CV/HEM Anemia on levo 1 mcg/min Anesthetic Plan ASA status: 3E Anesthesia: General Risk of > 500 ml blood loss (7ml/kg in children): No Medications/Allergies Home Medications Medication Instructions Recorded Confirmed Last Taken Type paliperidone palm (3 month) 819 819 mg IM .EVERY 3 MONTHS 07/28/23 11/29/23 07/23/23 History mg/2.63 mL intramuscular syringe (Thuyega Brittaneyza) aspirin 325 mg tablet 325 mg PO Q4H PRN Pain 11/29/23 11/29/23 Unknown History benztropine 1 mg tablet 1 - 2 mg PO DAILY PRN TREMORS 11/29/23 11/29/23 Unknown History Allergies Allergy/AdvReac Type Severity Reaction Status Date / Time amoxicillin AdvReac Intermediate Rash Verified 07/26/23 20:07 Penicillins AdvReac Intermediate Rash Verified 07/26/23 20:07 Current Medications Generic Name Dose Route Start Last Admin Trade Name Freq PRN Reason Stop Dose Admin Sodium Chloride 1,000 mls @ 125 mls/hr 11/29/23 12:18 11/30/23 04:00 Sodium Chloride 0.9% IV 125 mls/hr .Q8H TRISTIN Administration Octreotide Acetate 500 mcg/ 101 mls @ 10.1 mls/hr 11/29/23 21:15 11/30/23 05:19 Sodium Chloride IV 50 mcg/hr .Q10H TRISTIN 10.1 mls/hr Administration 50 MCG/HR Norepinephrine Bitartrate 4 mg in 250 mls @ 0 mls/hr 11/29/23 21:15 11/30/23 06:18 Levophed IV 1 mcg/min .Q0M TRISTIN 3.75 mls/hr Titration Protocol Per Protocol Morphine Sulfate 2 mg 11/29/23 19:32 11/30/23 04:18 Morphine 4 Mg/Ml Sdv 1 Ml IVP 2 mg Q4H PRN Administration SEVERE PAIN Ondansetron HCl 4 mg 11/29/23 12:18 11/29/23 20:49 Ondansetron 2 Mg/Ml Sdv 2 Ml IVP 4 mg Q6H PRN Administration NAUSEA AND VOMITING Pantoprazole Sodium 40 mg 11/29/23 20:00 11/30/23 07:40 Pantoprazole 40 Mg Sdv IVP 40 mg Q12H TRISTIN Administration Sodium Chloride 50 ml 11/29/23 19:32 11/30/23 04:44 Sodium Chloride 0.9% 100 Ml Bag IV 11/30/23 19:32 50 ml PRN PRN Administration Blood transfusion prime and flush PFSH Anesthesia Medical History Psychiatric care Schizoaffective disorder, bipolar type without good prognostic features Chronic schizophrenia Spina bifida Peripheral neuropathy Duodenal ulcer Perforated stomach GI bleed Anemia Upper gastrointestinal hemorrhage Chronic idiopathic constipation Morbid obesity with BMI of 40.0-44.9, adult Folliculitis cruris pustulosa atrophicans Nonvenomous insect bite of neck Nicotine dependence, unspecified, uncomplicated Schizoaffective disorder, bipolar type Borderline personality disorder Surgical History History of incision and drainage left hip History of tonsillectomy History of carpal tunnel surgery of right wrist History of back surgery History of cholecystectomy Family History Mother Bleeding disorder anemia Cancer uterine Hypertension Lung disease asthma Grandmother Bleeding disorder anemia Diabetes Father Cancer melonoma Hyperlipidemia Grandfather Chronic kidney disease (CKD) Diabetes Stroke Other Acute psychosis Denies family history of CAD (coronary artery disease) Clotting disorder Dementia Psychiatric illness Anesthesia complication Social History Smoking and tobacco/nicotine status: current every day tobacco/nicotine user cigarettes Packs smoked per day: 1 Years cigarettes smoked: 25 [ Other cigarette details: current 1.25 PPD, 54PY ] Quit status (tobacco/nicotine): has tried quititng Number of times tried to quit tobacco: 8 Second hand smoke exposure: No Alcohol intake: current Alcohol intake frequency: holidays/special occasions only Alcohol type: hard liquor Substance/Drug Use: never Lives independently: Yes Household members: caregiver Marital status: Single Number of children: 0 Current occupational status: disabled Current gender identity: Male Special dagmar needs: No Agree to transfusion: Yes Data Anesthesia 11/30/23 00:20 11/29/23 08:05 Short CBC 11/29/23 11/29/23 11/29/23 Range/Units 00:20 07:37 11:48 WBC Cancelled 8.46 Hgb Cancelled 9.10 L 7.60 L Hct Cancelled 27.4 L 22.8 L MCV Cancelled 87.5 Plt Count Cancelled 218 Neut % (Auto) Cancelled 70.3 Neut # (Auto) Cancelled 5.95 11/29/23 11/29/23 11/30/23 Range/Units 19:06 21:07 00:20 WBC 15.01 H Hgb 7.40 L 6.40 L* 6.60 L Hct 22.2 L 19.3 L* 20.2 L* MCV 89.0 Plt Count 142 L D Neut % (Auto) 83.1 Neut # (Auto) 12.47 H BMP 11/29/23 11/29/23 07:37 08:05 Sodium Cancelled 140 Potassium Cancelled 4.6 Chloride Cancelled 105 Carbon Dioxide Cancelled 24 BUN Cancelled 39 H Creatinine Cancelled 0.7 Glucose Cancelled 108 Calcium Cancelled 8.0 L Liver Function 11/29/23 11/29/23 Range/Units 07:37 08:05 Total Bilirubin Cancelled 0.3 AST Cancelled 9 ALT Cancelled 10 Alkaline Phosphatase Cancelled 64 Albumin Cancelled 3.3 L Urine 11/29/23 Range/Units 09:02 Urine Color Yellow (Yellow) Urine Appearance Slightly cloudy (CLEAR) Urine pH 5 (5-7) Ur Specific [place] 1.015 (1.005-1.030) Urine Protein Neg (Negative) Urine Glucose (UA) Norm (Normal) Urine Ketones Negative (Negative) Urine Nitrate Negative (Negative) Urine Bilirubin Neg (Negative) Ur Leukocyte Esterase Negative (Negative) Urine RBC 0-4 H (0-2) /hpf Urine WBC 0-4 H (0-5) /hpf Blood Bank 11/29/23 08:35 Blood Type B Negative Rho(D) Type Rh negative Antibody Screen Negative Coags 11/29/23 08:35 PT 14.30 INR 1.08 APTT 37.9 H Cardiac Studies: No Data to Display
--- NOTE | 2023-11-30 09:10 | PC.NURSE ---
Patient in care of GI lab staff at 0906.
[2023-11-30] MEDS: EPINEPHrine 1 mg/mL INJ XX (09:32)
--- NOTE | 2023-11-30 10:25 | ANE.PACU2 ---
Inpatient post-anesthesia follow up: Airway intact: Yes Vital signs: Temperature 97.6 F Pulse Rate 87 Respiratory Rate 18 Blood Pressure 126/63 Pulse Oximetry 94 Oxygen Delivery Me thod [ Room Air Current Rate & Del naida] Oxygen Delivery Me thod Room Air Oxygen Flow Rate Fraction of Inspir ed Oxygen Hydration adequate: Yes Nausea and vomiting: No Pain level: 1 Mental status: Baseline
--- NOTE | 2023-11-30 10:29 | PC.NURSE ---
1023:Patient arrived from GI lab with anesthesiologist and 1 RN, patient alert and able to transfer self from GI bed to ICU bed. Patient is requesting tissues and lunch. Tissues provided, Pending Dr. Carpio orders on meal status. Patient asks Were there any lacerations or punctures during my procedure? Anesthesiologist educated patient that there were none reported to the best of her knowledge, but Dr. Snell would be giving a patient update soon. See Documented stable vitals.
[2023-11-30 11:51] LABS: Estmated Average Glucose 91; Hemoglobin A1C 4.8 % (4.0-6.0)
[2023-11-30] MEDS: sodium chloride 0.9% 1,000 ML 75 ML IV ×2 (12:04→23:57)
[2023-11-30] MEDS: sucralfate 1 gm/10 mL Oral Liq UDC PO ×3 (12:04→21:43)
[2023-11-30 12:53] LABS: Alanine Aminotransferase 9 U/L (0-41); Albumin Level 2.7 g/dL (3.5-5.2); Alkaline Phosphatase 52 U/L (40-130); Aspartate Amino Transferase 11 U/L (0-40); Blood Urea Nitrogen 21 mg/dL (6-20); Calcium 7.3 mg/dL (8.5-10.5); Carbon Dioxide 20 mmol/L (22-29); Chloride 107 mmol/L (98-107); Creatinine Clr Calc Pharmacy 167.1708; Globulin 1.9 g/dL (1.3-4.6); Glomerular Filtration Rate 121.4 mL/min (90-130); Glucose 128 mg/dL (65-115); Magnesium 1.9 mg/dL (1.7-2.3); Osmolality Calculated 287 mOsm/kg (285-295); Sodium 136 mmol/L (136-145); Total Bilirubin 0.3 mg/dL (0.15-1.2); Total Protein 4.6 g/dL (6.6-8.7)
--- NOTE | 2023-11-30 13:01 | P.PN_ITS ---
Subjective 2 Subjective: Hospital course, labs appreciated. Today morning seen post endoscopy. Overnight patient had episode of hypotension for which he was started on Levophed drip. Today morning receiving second round of blood transfusion. Currently on 2 of Levophed. Vitals/I&O/Wt Last Vital Signs Temp 97.6 F 11/30/23 10:30 Pulse 78 11/30/23 12:00 Resp 12 11/30/23 12:00 BP 137/75 11/30/23 12:00 Pulse Ox 97 11/30/23 12:00 O2 Del Method Room Air 11/30/23 12:00 11/29/23 11/30/23 11/30/23 22:59 06:59 14:59 Intake Total 3350 / 3350 2744.938 / 6094.938 1084.590 / 1084.590 Output Total 800 / 800 450 / 1250 350 / 350 Balance 2550 / 2550 2294.938 / 4844.938 734.590 / 734.590 Weight last 48 hrs Weight 111.13 kg Weight 108.862 kg Weight 108.862 kg Physical Exam 2 Narrative: General exam is a male, no distress, drowsy post EGD, waking up to have complete normalization and following directions HEENT: Atraumatic normocephalic. Oropharynx clear Neck is supple no lymphadenopathy thyromegaly Cardiovascular tachycardic, regular, no murmur Lungs clear Abdomen is soft, positive bowel sounds. No obvious organomegaly exam is deferred Extremities no cyanosis, edema, cap refill brisk Skin no rash Neuro no obvious focal deficits. Data 11/30/23 08:11 11/30/23 12:11 A&P Assessment and plan (1) GI bleed: Post EGD. Found to have significant duodenitis and gastritis without any active source of bleeding. Also found to have digested blood throughout colon. Monitor hemoglobin every 12 hourly. Target hemoglobin more than 7. Post 2 unit of blood transfusion. Continue with Protonix twice daily, Carafate before meals and at bedtime. Diet advance as per surgical team. (2) Anemia associated with acute blood loss: See above (3) Shock: In setting of GI bleed. Currently on 2 of Levophed. Wean keeping mean artery pressure 65. Continue with NS at 75 cc/h. (4) Duodenal ulcer: (5) Tobacco use disorder, moderate, dependence: Plan Nicotine dependence, encourage abstinence Bipolar disorder Check A1c, B12 and folate level. Appreciate recent TSH levels. Appreciate iron panel from 2022. Full code Brat diet Protonix will be sufficient for PUD prophylaxis SCD for DVT prophylaxis. Not on medical prophylaxis given blood loss anemia Attestations 2 Medical Necessity Statement*: Requires further hospitalization for management of acute blood loss anemia in setting of duodenitis, gastritis, leading to shock on vasopressors Critical Care Time: The high probability of a clinically significant, sudden or life threatening deterioration of the patient's [GI, cardiac] system(s) required my full and direct attention, intervention and personal management. The critical care time is as shown. This time is in addition to time spent performing any reported procedures but includes the following: [x] Data and vital sign review and interpretation [x] Patient assessment, examination and intervention [x] Documentation [x] Medication orders and management Critical Care Time (min): 60 Coding Level of Care Code Critical Care >/= 30 minutes Critical care time (in minutes): 60 The high probability of a clinically significant, sudden or life threatening deterioration, as referenced in this documentation, required my full and direct attention, intervention and personal management. The critical care time shown is in addition to time spent performing any reported separately billable procedures and includes the following: [x] Data and vital sign review and interpretation [x ] Patient assessment, examination and intervention [x] Medication orders and management [x] Patient/Family updates as able [x] Care Coordination and Documentation. Other Coding Information This patient has a high probability of clinically significant, sudden or life threatening deterioration of the patient's (neurological/pulmonary/cardiac/renal/ID/endocrine) systems required my full, direct attention, the highest level of physician preparedness for urgent intervention and personal management. I managed/supervised life or organ supporting interventions that required frequent physician assessment. I devoted my full attention in the ICU to the direct care of this patient for the period of time indicated above. Time I spent with family or surrogate(s) is included only if the patient was incapable of providing necessary information or participating in decision making. This time includes the following services provided: Telemetry review Hemodynamic interpretation, assessment and management Review and interpretation of CXR Review and interpretation of lab values Review and interpretation of microbiologic data and culture results Review of medications and administration Review and interpretation of Nutrition requirements and management Discussion of management with other consultants and services Clinical update to family members Diagnoses GI bleed K92.2 Anemia associated with acute blood loss D62 Shock R57.9 Duodenal ulcer K26.9 Tobacco use disorder, moderate, dependence F17.200
[2023-11-30 13:09] LABS: Vitamin B12 217 pg/mL (232-1245)
[2023-11-30 13:19] LABS: Anion Gap 13.4 (5-19); Potassium 4.4 mmol/L (3.5-5.1)
[2023-11-30 15:18] LABS: Hematocrit 26.5 % (37-53)
--- NOTE | 2023-11-30 17:24 | PC.NURSE ---
Family at bedside, 165 patient AOX4, product transfer pumper ashley, JARRED. Approximately 15 minutes later, patient is lethargic and mumbling, no longer following commands. Dr. Finney notified.
[2023-12-01] VITALS (17 sets, daily range): BP systolic 98–124; BP diastolic 51–67; PULSE 63–95; RESP 12–20; TEMP 36.4–37.1; O2SAT 96–100
[2023-12-01 04:19] LABS: Basophils % 0.2 %; Eosinophils # 0.1 10^3/uL (0.0-0.8); Eosinophils % 0.5 %; Hematocrit 23.4 % (37-53); Lymphocytes # 2.4 10^3/uL (0.8-4.8); Mean Corpuscular HGB Conc 33.3 g/dL (30-55); Mean Corpuscular Hemoglobin 29.2 pg (27-33); Mean Corpuscular Volume 87.6 fl (82-101); Mean Platelet Volume 10.3 fL (7.4-10.4); Monocytes # 0.7 10^3/uL (0.2-0.9); Monocytes % 5.4 %; Neutrophils # 8.85 10^3/uL (1.8-7.7); Neutrophils % 73.4 %; Nucleated Red Blood Cells % 0 %; Platelet Count 144 10^3/cmm (157-399); Red Blood Count 2.67 10^6/uL (3.85-5.65); Red Cell Distribution Width 16.9 % (12.1-15.1); White Blood Count 12.05 10^3/uL (3.29-11.43)
[2023-12-01 04:40] LABS: Alanine Aminotransferase 7 U/L (0-41); Albumin Level 2.7 g/dL (3.5-5.2); Alkaline Phosphatase 60 U/L (40-130); Anion Gap 10.3 (5-19); Aspartate Amino Transferase 10 U/L (0-40); Blood Urea Nitrogen 12 mg/dL (6-20); Calcium 7.4 mg/dL (8.5-10.5); Carbon Dioxide 26 mmol/L (22-29); Chloride 109 mmol/L (98-107); Chol HDL Ratio 4.15 mg/dL (1.0-5.00); Cholesterol 83 mg/dL (0-200); Creatinine Clr Calc Pharmacy 195.0326; Globulin 1.7 g/dL (1.3-4.6); Glucose 100 mg/dL (65-115); HDL Cholesterol 20 mg/dL (60-100); LDL Cholesterol Calculated 25 mg/dL (50-129); Magnesium 2.1 mg/dL (1.7-2.3); Osmolality Calculated 292 mOsm/kg (285-295); Potassium 4.3 mmol/L (3.5-5.1); Sodium 141 mmol/L (136-145); Total Bilirubin 0.2 mg/dL (0.15-1.2); Total Protein 4.4 g/dL (6.6-8.7); Triglycerides 189 mg/dL (0-150); VLDL Cholestrol Calculation 38 mg/dL (0-30)
[2023-12-01 04:56] LABS: Folate Level 5.6 ng/mL (4.5-32.2)
[2023-12-01] MEDS: sucralfate 1 gm/10 mL Oral Liq UDC PO ×2 (06:44→09:47)
[2023-12-01] MEDS: morphine 4 mg/mL SDV 1 mL 2 MG IVP (07:45)
[2023-12-01] MEDS: pantoprazole 40 mg SDV IVP (07:45)
--- NOTE | 2023-12-01 10:20 | PC.NURSE ---
Pt complaining of hip pain. States he HAS to get up and walk or it will get worse. Assisted pt ( standby) elevated one time a round unit and wren with walker. Gait steady , no balance issues noted. Heart rate in 90's. No complaints of abdominal pain, shortness of breath, etc. back to chair in room, soda provided as requested. Pt stated it felt somewhat better
[2023-12-01 13:19] LABS: Hematocrit 24.9 % (37-53)
--- NOTE | 2023-12-01 13:25 | P.DS_ITS ---
Discharge Providers Date of Admission: 11/29/23 11:17 Date of Discharge: December 01, 2023 Attending Provider at Admission: Chris Mendez MD Attending Provider at Discharge: Triston Zamudio MD Consults: Surgery: Dr. Snell Primary Care Provider: Jesus Colmenares MD Diagnoses at Discharge Discharge Diagnosis (1) GI bleed: Status: Acute (2) Anemia associated with acute blood loss: Status: Acute (3) Shock: Status: Acute (4) Duodenal ulcer: Status: Acute (5) Tobacco use disorder, moderate, dependence: Status: Acute Reason for Visit Reason for Visit: N/V Brief History: History as per HPI: Tarun Summers is a 48 year old male presenting to the emergency department complaining of GI bleeding. He has been noticing some bright red blood in his stool, mixed with some dark material as well as hematemesis. Symptoms started occurring around 9 or 10 PM last night. His last emesis was around 730 this morning. He has a prior history of GI bleeding 2 years ago from a duodenal ulcer with anti-inflammatory use. He reports he has been taking aspirin. 25 mg twice daily recently for back pain. He denies any significant alcohol use. He denies any history of liver disease. At this point he denies any abdominal pain. Hospital Course Hospital Course Patient was admitted to the hospital further evaluation and management of acute blood loss anemia in setting of GI bleed. Overall during hospitalization required 2 unit of blood transfusion. He did develop shock during hospitalization for which she was transiently treated with IV fluids and va sopressors. Surgery was consulted he underwent endoscopy on 11/29 which showed significant duodenitis/gastritis without any active bleeding but did show digested blood in the colon. His hemoglobin was monitored and had remained stable over last 24 hours while he has been on bland diet. He is been discharged in medically stable condition on bland diet for next 1 week with advised to continue taking Protonix twice daily for next 1 month followed by once daily, Carafate 4 times a day with meals for next 4 weeks. He is to follow-up with a primary care provider within next 1 week for repeat CBC. Physical Exam Narrative: General exam is a male, no distress, AAox3 HEENT: Atraumatic normocephalic. Oropharynx clear Neck is supple no lymphadenopathy thyromegaly Cardiovascular tachycardic, regular, no murmur Lungs clear Abdomen is soft, positive bowel sounds. No obvious organomegaly exam is deferred Extremities no cyanosis, edema, cap refill brisk Skin no rash Neuro no obvious focal deficits. Discharge Data Studies Completed and Pending Completed Studies During Hospitalization Category Date Time Status CT abdomen pelvis w con* [id number] Stat Cat Scan 11/29/23 08:[address] abdomen pelvis w con* [id number] Stat Cat Scan 11/29/23 23:00 Completed XR chest 1V portable [id number] Stat Exams 11/29/23 07:26 Completed Pending at discharge Category Date Time Status Complete Blood Count w/Auto AM LABS Lab 11/30/23 04:00 Ordered Gastricult Occult BLD Stat Lab 11/29/23 08:19 Ordered Immunochemical Fecal OCB Stat Lab 11/29/23 08:19 Uncollected MAG [Magnesium] AM LABS Lab 12/02/23 04:00 Ordered MAG [Magnesium] AM LABS Lab 12/03/23 04:00 Ordered Pathology: Surgical [PTH] Routine Pth 11/30/23 10:09 Ordered Radiology Impressions Chest X-Ray 11/29/23 07:26 IMPRESSION: No acute abnormality. Abdomen/Pelvis CT 11/29/23 23:00 IMPRESSION: 1. No acute abdominopelvic findings. However there is fluid in the distal colon consistent with history of GI hemorrhage. No evidence of active bleeding. The source of the hemorrhage is not evident. 2. Since 2021 new 8 mm left lower lobe noncalcified lung nodule. For patients at low risk (minimal or absent history of smoking and of other known risk factors), recommend CT Chest at 6-12 months, then consider CT Chest at 18-24 months. For patients at high risk (history of smoking or of other known risk factors), recommend CT Chest at 6-12 months, then CT Chest at 18-24 months. (Reference: [place]) References: [place] Sherman, et al. Guidelines for Management of Incidental Pulmonary Nodules Detected on CT Images: From the Fleischner Society 2017. Radiology. 2017;284(1):228-243. Laboratory Results WBC 12.05 10^3/uL (3.29-11.43) H 12/01/23 03:52 Corrected WBC Cancelled 11/29/23 00:20 RBC 2.67 10^6/uL (3.85-5.65) L 12/01/23 03:52 Hgb 8.10 g/dL (11.27-16.99) L 12/01/23 13:04 Hct 24.9 % (37-53) L 12/01/23 13:04 MCV 87.6 fl (82-101) 12/01/23 03:52 MCH 29.2 pg (27-33) 12/01/23 03:52 MCHC 33.3 g/dL (30-55) 12/01/23 03:52 RDW 16.9 % (12.1-15.1) H 12/01/23 03:52 Plt Count 144 10^3/cmm (157-399) L 12/01/23 03:52 MPV 10.3 fL (7.4-10.4) 12/01/23 03:52 Gran % Cancelled 11/29/23 00:20 Neut % (Auto) 73.4 % 12/01/23 03:52 Lymph % (Auto) 20.0 % 12/01/23 03:52 [place] % (Auto) 5.4 % 12/01/23 03:52 Eos % (Auto) 0.5 % 12/01/23 03:52 Baso % (Auto) 0.2 % 12/01/23 03:52 Neut # (Auto) 8.85 10^3/uL (1.8-7.7) H 12/01/23 03:52 Lymph # (Auto) 2.4 10^3/uL (0.8-4.8) 12/01/23 03:52 [place] # (Auto) 0.7 10^3/uL (0.2-0.9) 12/01/23 03:52 Eos # (Auto) 0.1 10^3/uL (0.0-0.8) 12/01/23 03:52 Baso # (Auto) 0.0 10^3/uL (0.0-0.1) 12/01/23 03:52 Absolute Gran (auto) Cancelled 11/29/23 00:20 Nucleated RBC % (auto) 0 % 12/01/23 03:52 Nucleated RBCs # 0.0 /100WBC 12/01/23 03:52 PT 14.30 SECONDS (12.1-14.9) 11/29/23 08:35 INR 1.08 (0.8-1.2) 11/29/23 08:35 APTT 37.9 SECONDS (23.9-36.7) H 11/29/23 08:35 Sodium 141 mmol/L (136-145) 12/01/23 03:52 Potassium 4.3 mmol/L (3.5-5.1) 12/01/23 03:52 Chloride 109 mmol/L (98-107) H 12/01/23 03:52 Carbon Dioxide 26 mmol/L (22-29) 12/01/23 03:52 Anion Gap 10.3 (5-19) 12/01/23 03:52 BUN 12 mg/dL (6-20) 12/01/23 03:52 Creatinine 0.6 mg/dL (0.7-1.2) L 12/01/23 03:52 GFR Calculation 145.0 mL/min (90-130) H 12/01/23 03:52 Glucose 100 mg/dL (65-115) 12/01/23 03:52 POC Glucose 187 mg/dL (70-110) H 11/29/23 21:08 Estimat Average Glucose 91 11/30/23 08:11 Hemoglobin A1c 4.8 % (4.0-6.0) 11/30/23 08:11 Calculated Osmolality 292 mOsm/kg (285-295) 12/01/23 03:52 Calcium 7.4 mg/dL (8.5-10.5) L 12/01/23 03:52 Magnesium 2.1 mg/dL (1.7-2.3) 12/01/23 03:52 Total Bilirubin 0.2 mg/dL (0.15-1.2) 12/01/23 03:52 AST 10 U/L (0-40) 12/01/23 03:52 ALT 7 U/L (0-41) 12/01/23 03:52 Alkaline Phosphatase 60 U/L (40-130) 12/01/23 03:52 Total Protein 4.4 g/dL (6.6-8.7) L 12/01/23 03:52 Albumin 2.7 g/dL (3.5-5.2) L 12/01/23 03:52 Globulin 1.7 g/dL (1.3-4.6) 12/01/23 03:52 Triglycerides 189 mg/dL (0-150) H 12/01/23 03:52 Cholesterol 83 mg/dL (0-200) 12/01/23 03:52 LDL Cholesterol, Calc 25 mg/dL (50-129) L 12/01/23 03:52 Total VLDL Cholesterol 38 mg/dL (0-30) H 12/01/23 03:52 HDL Cholesterol 20 mg/dL (60-100) L 12/01/23 03:52 Cholesterol/HDL Ratio 4.15 mg/dL (1.0-5.00) 12/01/23 03:52 Vitamin B12 217 pg/mL (232-1245) L 11/30/23 12:11 Folate 5.6 ng/mL (4.5-32.2) 12/01/23 03:52 Urine Color Yellow (Yellow) 11/29/23 09:02 Urine Appearance Slightly cloudy (CLEAR) 11/29/23 09:02 Urine pH 5 (5-7) 11/29/23 09:02 Ur Specific [place] 1.015 (1.005-1.030) 11/29/23 09:02 Urine Protein Neg (Negative) 11/29/23 09:02 Urine Glucose (UA) Norm (Normal) 11/29/23 09:02 Urine Ketones Negative (Negative) 11/29/23 09:02 Urine Blood Neg (Negative) 11/29/23 09:02 Urine Nitrate Negative (Negative) 11/29/23 09:02 Urine Bilirubin Neg (Negative) 11/29/23 09:02 Urine Urobilinogen Norm mg/dL (Negative) 11/29/23 09:02 Ur Leukocyte Esterase Negative (Negative) 11/29/23 09:02 Urine RBC 0-4 /hpf (0-2) H 11/29/23 09:02 Urine WBC 0-4 /hpf (0-5) H 11/29/23 09:02 Ur Squamous Epith Cells 0-4 /hpf (0-5) H 11/29/23 09:02 Amorphous Sediment Not Reportable 11/29/23 09:02 Urine Bacteria Trace /hpf (NONE) 11/29/23 09:02 Hyaline Casts 0-4 /lpf H 11/29/23 09:02 Blood Type B Negative 11/29/23 08:35 Rho(D) Type Rh negative 11/29/23 08:35 Antibody Screen Negative 11/29/23 08:35 Crossmatch See Detail 11/29/23 08:35 Vitals Last Vital Signs Temp 98.1 F 12/01/23 11:00 Pulse 75 12/01/23 12:00 Resp 15 12/01/23 12:00 BP 100/62 12/01/23 12:00 Pulse Ox 99 12/01/23 12:00 O2 Del Method Room Air 12/01/23 12:00 Discharge Plan Discharge Patient Disposition: Home Condition: Stable Prescriptions: New sucralfate 100 mg/mL Suspension 1 g PO AC&BEDTIME Qty: 1000 0RF pantoprazole [Protonix] 40 mg tablet,delayed release (DR/EC) 40 mg PO BID 30 Days Qty: 60 0RF Rx Instructions: Twice daily for next 1 month followed by once daily Continued benztropine 1 mg tablet 1 - 2 mg PO DAILY PRN (Reason: TREMORS) Invega Trinza 819 mg/2.63 mL syringe 819 mg IM .EVERY 3 MONTHS Rx Instructions: Patient due date for next shot is on October 23, 2023. Discontinued aspirin 325 mg Tablet 325 mg PO Q4H PRN (Reason: Pain) Discharge Orders: Discharge Order (Routine); Ordered 12/01/23 Ordered By: Triston Zamudio Referrals: Jesus Comlenares MD [Primary Care Provider] - 2 weeks Discharge Diet: Advance as tolerated and Soft Mechanical Discharge Activity: Resume usual activity and Increase activity as tolerated Patient Instructions: GI Discharge Instructions, Opioid Safety Activity Restrictions/Additional Instructions: Continue with bland diet for next 1 week and advance gradually to regular diet. Takes Protonix twice daily for next 1 month followed by once daily. Continue taking Carafate 4 times a day with meals for next 1 month. Do not take aspirin or [id number] painkillers for now. Follow-up with a primary care provider within next 1 week for repeat CBC. Discharge Attestations Time Spent in Discharge Care*: greater than 30 min Specific Discharge Activities: educating patient, discussing with pcp/other providers, discussing with case resource manager/social workers/dc planners, documenting/other paperwork and evaluating patient/reviewing data Status at Discharge: Cognitive status at discharge: cognitively intact , Behavioral status at discharge: cooperative , Functional status at discharge: independent ambulation , Overall status at discharge: patient is back to baseline Quality Metrics Clinical Quality Measures [ No reported AMI, CVA or VTE this stay] Coding Level of Care Code 73504 Total time (in minutes) for Discharge: 60 Diagnoses GI bleed K92.2 Anemia associated with acute blood loss D62 Shock R57.9 Duodenal ulcer K26.9 Tobacco use disorder, moderate, dependence F17.200
--- NOTE | 2023-12-01 14:42 | PC.NURSE ---
IV access removed, intact. Patient states he does not have anyone to pick him up and he does not have anywhere to go. Does not have transport to pharmacy. Does not want staff to arrange transport. Does not want staff to arrange prison, patient states he has been kicked out of local shelters and does not want to go back to them. Patient advised on taking medications and following discharge instructions. Patient verbalizes understanding of teachings. Patient states he wants to go smoke, patient advised on stop smoking program, and that [facility] is a tobacco free campus, patient states I'm discharged now and I can do what I want. Patient made aware that unit could not make follow up appointment on Saturday and patient will need to call provided number on Saturday to make appointment. Patient provided with written education on discharge instructions, diet, activity, S/S to call EMS or get to ER. Follow up for CBC. Patient states he will go to this facilities crisis stabilization center and they will make appointments for him and get his medications. See charted stable vitals. All belongings with patient at time of discharge including clothing and cellphone.
== END 2023-12-01 14:31 | disposition home or self-care (01) | DRG 378 ==
LOC: ER 09:58 → ICU 11:18
PROVIDERS: Internal Medicine; Surgery; Admitting Provider Internal Medicine; Emergency Provider Family Medicine; PCP Family Medicine; Visit Provider Student in an Organized Health Care Education/Training Program
PROC: 0DJ08ZZ Inspection of Upper Intestinal Tract, Via Natural or Artificial Opening Endoscopic (ICD-10-PCS; CPT 43235; principal; 2023-11-30 08:15)
PROC: 0DJD8ZZ Inspection of Lower Intestinal Tract, Via Natural or Artificial Opening Endoscopic (ICD-10-PCS; CPT 45378; 2023-11-30 08:15)
DX: K92.1 Melena (principal); D62 Acute posthemorrhagic anemia; R57.9 Shock, unspecified; F17.210 Nicotine dependence, cigarettes, uncomplicated; K20.90 Esophagitis, unspecified without bleeding; K29.70 Gastritis, unspecified, without bleeding; K26.9 Duodenal ulcer, unspecified as acute or chronic, without hemorrhage or perforation; K92.0 Hematemesis; F31.9 Bipolar disorder, unspecified; Z79.82 Long term (current) use of aspirin
CPT/HCPCS: 36415; 36416; 36430; 43239; 45378; 71045; 74177; 80053; 80061; 81001; 82607; 82746; 82962; 83036; 83735; 85014; 85018; 85025; 85610; 85730; 86850; 86900; 86920; 86927; 88305; 93005; 96374; 96375; 96376; 99285; J0171; J0330; J1100; J2270; J2354; J2405; J2470; J2704; J3010; J7030; P9016; P9017; P9035; P9040; P9051; Q9967

== ENCOUNTER 2023-12-10 18:55 | Emergency (ER) | payer MEDICAID, SELFPAY ==
[2023-12-10] VITALS (7 sets, daily range): BP systolic 102–126; BP diastolic 49–66; PULSE 82–104; RESP 16–18; TEMP 36.7; O2SAT 96–100; BMI 27.8
--- NOTE | 2023-12-10 19:21 | CTR_ITS ---
PROCEDURE INFORMATION: Exam: CT Head Without Contrast Exam date and time: 12/10/2023 7:33 PM Age: 48 years old Clinical indication: Other: Left extremity sensation change TECHNIQUE: Imaging protocol: Computed tomography of the head without contrast. Radiation optimization: All CT scans at this facility use at least one of these dose optimization techniques: automated exposure control; mA and/or kV adjustment per patient size (includes targeted exams where dose is matched to clinical indication); or iterative reconstruction. COMPARISON: No relevant prior studies available. RADIATION DOSE METRICS: Total DLP (mGy-cm): 1129 FINDINGS: Brain: No acute intracranial hemorrhage or territorial infarction. No mass effect or midline shift. Cerebral ventricles: No ventriculomegaly. Paranasal sinuses: Visualized sinuses are unremarkable. No fluid levels. Mastoid air cells: Visualized mastoid air cells are well aerated. Bones: Unremarkable. No acute fracture. Soft tissues: Unremarkable. CT/CT head wo con* [id number] IMPRESSION: No acute intracranial findings.
--- NOTE | 2023-12-10 19:22 | W.ED.NEUROSD ---
HPI - Neuro Symptoms/Deficit General: Chief Complaint: Neuro Symptoms/Deficit Stated Complaint: L arm Tingling, Rt leg Pain Time Seen by Provider: 12/10/23 18:58 Source: patient and EMS Mode of arrival: EMS Limitations: no limitations History of Present Illness: Patient presents emergency department today brought by EMS for evaluation and treatment of several different issues. Patient reports feeling like his left arm and left leg are tingly however, he is experiencing pain in the right lower extremity. Pain in the lower extremities is nonacute however he feels like it is worse today. Patient was seen and evaluated in the emergency department about a week and a half ago for issues with GI bleed. Patient has had GI bleeds in the past. He states he is taking the medications provided to him when he was discharged. Patient was found to be acutely anemic after his GI bleed and feels he is still anemic. He states he is extremely weak. He denies chest pains or shortness of breath. No active abdominal pains. He has not seen any black tarry stools or bright red blood per rectum. He indicates he believes he has been able to stay hydrated but, patient is currently homeless and is outside quite a bit. Patient states he has not had his antipsychotic injection since July and believes he is doing well mentally. However, he states he is very sick and generally unwell and indicates his desire to be placed in a prison. He states he has a primary care doctor but is not fond of him and states he told him that a prison will not take him. He states that for how sick he is he needs to be in a nursing facility. [facility] ED PFS: Medical History (Updated 12/10/23 @ 21:40 by PHIL Culp) Auditory hallucination Varicose vein of leg Psychiatric care Schizoaffective disorder, bipolar type without good prognostic features Chronic schizophrenia Spina bifida Peripheral neuropathy Duodenal ulcer Perforated stomach GI bleed Anemia Upper gastrointestinal hemorrhage Chronic idiopathic constipation Folliculitis cruris pustulosa atrophicans Nonvenomous insect bite of neck Nicotine dependence, unspecified, uncomplicated Schizoaffective disorder, bipolar type Borderline personality disorder Surgical History History of incision and drainage left hip History of tonsillectomy History of carpal tunnel surgery of right wrist History of back surgery History of cholecystectomy Family History Mother Bleeding disorder anemia Cancer uterine Hypertension Lung disease asthma Grandmother Bleeding disorder anemia Diabetes Father Cancer melonoma Hyperlipidemia Grandfather Chronic kidney disease (CKD) Diabetes Stroke Other Acute psychosis Denies family history of CAD (coronary artery disease) Clotting disorder Dementia Psychiatric illness Anesthesia complication Social History Smoking and tobacco/nicotine status: current every day tobacco/nicotine user cigarettes Packs smoked per day: 1 Years cigarettes smoked: 25 [ Other cigarette details: current 1.25 PPD, 54PY ] Quit status (tobacco/nicotine): has tried quititng Number of times tried to quit tobacco: 8 Second hand smoke exposure: No Alcohol intake: current Alcohol intake frequency: holidays/special occasions only Alcohol type: hard liquor Substance/Drug Use: never Lives independently: Yes Household members: caregiver Marital status: Single Number of children: 0 Current occupational status: disabled Current gender identity: Male Special dagmar needs: No Agree to transfusion: Yes Physical Exam Const: COMMON NORMALS: no acute distress, patient oriented x3 and alert HENMT: COMMON NORMALS: normocephalic, atraumatic and hearing grossly normal bilaterally HEAD & SCALP: normocephalic and atraumatic Eye: COMMON NORMALS: Equal, round and reactive pupils present, EOMs intact bilaterally and conjunctivae normal CONJUNCTIVA: Yes conjunctivae normal PUPIL: Yes Equal, round and reactive pupils present Neck/C-Spine: COMMON NORMALS: full ROM, no meningeal signs and no JVD Lymph: LYMPHATIC: no lymphadenopathy noted Resp: COMMON NORMALS: normal respiratory effort, No retractions and No use of accessory muscles Cardio: COMMON NORMALS: no JVD and regular rate RATE: regular rate GI: OTHER: Normoactive bowel sounds. Abdomen soft. Nontender on palpation. Back/Pelvis: OTHER: Full flexion extension capabilities of back without difficulty. Extremity: NARRATIVE EXTREMITY EXAM: Patient is ambulatory and weightbearing. He is moving all extremities in bed and is able to reposition his own self in the bed. He holds and opens a soda can independently-gripping can with his left hand. Neuro: COMMON NORMALS: patient oriented x3 SENSORIUM/ORIENTATION: Yes alert MENINGEAL SIGNS: Yes no meningeal signs CRANIAL NERVES: Yes CN normal except as noted GAIT: Yes Normal gait present OTHER: Patient has no signs of any neurological deficit on examination. 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 Psych: COMMON NORMALS: cooperative, normal affect, speech normal and activity/motor behavior normal SPEECH: Yes normal speech Skin: COMMON NORMALS: no rashes or lesions noted and turgor normal GENERAL SKIN EXAM: no rashes or lesions noted and turgor normal OTHER: Patient has some swelling of the lower extremities with the left being slightly worse than the right however, I appreciate no pitting. No skin discoloration. Course Vital Signs: Vital signs: Vital Signs Temperature 98.0 F 12/10/23 19:00 Pulse Rate 87 12/10/23 19:06 Respiratory Rate 16 12/10/23 19:06 Blood Pressure 102/58 12/10/23 19:06 Pulse Oximetry 98 12/10/23 19:06 Oxygen Delivery Me thod Room Air 12/10/23 19:00 MDM - Neuro Symptoms/Deficit Medical Decision Making Patient presented to the emergency department today with multiple complaints. Patient indicates lower extremity swelling and pain which, after chart review, appears to be chronic. No known injury to have caused any acute worsening of his pain. 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 Cranial nerve examination showed no deficits. CT of the head reveals no signs of any deficits on the right side of the brain or head. Patient's lab work is unremarkable. His hemoglobin level is stable from his hospital discharge. No significant abnormalities on his electrolytes today. Kidney function shows no significant concerns. Patient is tolerating p.o. in the room. He was provided soda and a sandwich which he has tolerated. He did ask for something for muscle pains and after providing [place], on reevaluation, patient was found to be asleep in the bed. I did get a second opinion of the patient's evaluation by Dr. Campos. He also sees no concerns in the patient's evaluation here in the emergency department which would warrant any type of readmission to the hospital at this time. Patient does have a primary care doctor. Splane to him that we still recommend he follow-up with his primary care doctor for continued lab monitoring of his hemoglobin. He is also encouraged to continue taking the Protonix and Carafate from his recent GI bleed. Differential Diagnosis Unlikely carpal tunnel syndrome, convulsions, delirium, subarachnoid hemorrhage, cerebrovascular accident, multiple sclerosis or transient cerebral ischemia Lab Data 12/10/23 19:21 12/10/23 19:[address] 12/10/23 19:21 IMPRESSION: No acute intracranial findings. Laboratory Results WBC 5.11 10^3/uL (3.29-11.43) 12/10/23 19:21 RBC 2.84 10^6/uL (3.85-5.65) L 12/10/23 19:21 Hgb 7.90 g/dL (11.27-16.99) L 12/10/23 19:21 Hct 24.9 % (37-53) L 12/10/23 19:21 MCV 87.7 fl (82-101) 12/10/23 19:21 MCH 27.8 pg (27-33) 12/10/23 19:21 MCHC 31.7 g/dL (30-55) 12/10/23 19:21 RDW 16.8 % (12.1-15.1) H 12/10/23 19:21 Plt Count 373 10^3/cmm (157-399) 12/10/23 19:21 MPV 9.3 fL (7.4-10.4) 12/10/23 19:21 Neut % (Auto) 57.9 % 12/10/23 19:21 Lymph % (Auto) 30.1 % 12/10/23 19:21 [place] % (Auto) 9.0 % 12/10/23 19:21 Eos % (Auto) 2.2 % 12/10/23 19:21 Baso % (Auto) 0.6 % 12/10/23 19:21 Neut # (Auto) 2.96 10^3/uL (1.8-7.7) 12/10/23 19:21 Lymph # (Auto) 1.5 10^3/uL (0.8-4.8) 12/10/23 19:21 [place] # (Auto) 0.5 10^3/uL (0.2-0.9) 12/10/23 19:21 Eos # (Auto) 0.1 10^3/uL (0.0-0.8) 12/10/23 19:21 Baso # (Auto) 0.0 10^3/uL (0.0-0.1) 12/10/23 19:21 Nucleated RBC % (auto) 0 % 12/10/23 19:21 Nucleated RBCs # 0.0 /100WBC 12/10/23 19:21 Sodium 137 mmol/L (136-145) 12/10/23 19:21 Potassium 3.8 mmol/L (3.5-5.1) 12/10/23 19:21 Chloride 98 mmol/L (98-107) 12/10/23 19:21 Carbon Dioxide 26 mmol/L (22-29) 12/10/23 19:21 Anion Gap 16.8 (5-19) 12/10/23 19:21 BUN 7 mg/dL (6-20) 12/10/23 19:21 Creatinine 1.1 mg/dL (0.7-1.2) 12/10/23 19:21 GFR Calculation 72.1 mL/min (90-130) L 12/10/23 19:21 Glucose 130 mg/dL (65-115) H 12/10/23 19:21 Calculated Osmolality 284 mOsm/kg (285-295) L 12/10/23 19:21 Lactic Acid 1.4 mmol/L (0.5-2.2) 12/10/23 19:21 Calcium 8.3 mg/dL (8.5-10.5) L 12/10/23 19:21 Magnesium 2.1 mg/dL (1.7-2.3) 12/10/23 19:21 Total Bilirubin 0.2 mg/dL (0.15-1.2) 12/10/23 19:21 AST 12 U/L (0-40) 12/10/23 19:21 ALT 9 U/L (0-41) 12/10/23 19:21 Alkaline Phosphatase 97 U/L (40-130) 12/10/23 19:21 Creatine Kinase 115 U/L (39-308) 12/10/23 19:21 Total Protein 6.6 g/dL (6.6-8.7) 12/10/23 19:21 Albumin 3.7 g/dL (3.5-5.2) 12/10/23 19:21 Globulin 2.9 g/dL (1.3-4.6) 12/10/23 19:21 Procalcitonin 0.03 ng/mL (0-0.5) 12/10/23 19:21 Urine Color Yellow (Yellow) 12/10/23 19:57 Urine Appearance Clear (CLEAR) 12/10/23 19:57 Urine pH 5.5 (5-7) 12/10/23 19:57 Ur Specific [place] 1.014 (1.005-1.030) 12/10/23 19:57 Urine Protein Negative (Negative) 12/10/23 19:57 Urine Glucose (UA) Negative (Normal) 12/10/23 19:57 Urine Ketones Trace (Negative) 12/10/23 19:57 Urine Blood Negative (Negative) 12/10/23 19:57 Urine Nitrate Negative (Negative) 12/10/23 19:57 Urine Bilirubin Negative (Negative) 12/10/23 19:57 Urine Urobilinogen 1.0 mg/dL (Negative) 12/10/23 19:57 Ur Leukocyte Esterase Negative (Negative) 12/10/23 19:57 Amorphous Sediment Not Reportable 12/10/23 19:57 Urine Opiates Screen Negative ng/mL (Negative) 12/10/23 19:57 Ur Barbiturates Screen Negative ng/mL (Negative) 12/10/23 19:57 Ur Phencyclidine Scrn Negative ng/mL (Negative) 12/10/23 19:57 Ur Amphetamines Screen Negative ng/mL (Negative) 12/10/23 19:57 U Benzodiazepines Scrn Negative ng/mL (Negative) 12/10/23 19:57 Urine Cocaine Screen Negative ng/mL (Negative) 12/10/23 19:57 U Marijuana (THC) Screen Negative ng/mL (Negative) 12/10/23 19:57 Ethyl Alcohol < 10 mg/dL (0-10) 12/10/23 19:21 All radiology interpretation(s) finalized by discharge Discharge Plan Discharge Patient Disposition: Home Clinical Impression: Myalgia, Fatigue, Anemia Condition: Stable Prescriptions: No Action benztropine 1 mg tablet 1 - 2 mg PO DAILY PRN (Reason: TREMORS) sucralfate 100 mg/mL Suspension 1 g PO AC&BEDTIME Qty: 1000 0RF Protonix 40 mg tablet,delayed release (/EC) 40 mg PO BID 30 Days Qty: 60 0RF Rx Instructions: Twice daily for next 1 month followed by once daily Invega Trinza 819 mg/2.63 mL syringe 819 mg IM .EVERY 3 MONTHS Rx Instructions: Patient due date for next shot is on October 23, 2023. Discharge Orders: Discharge ED (Routine); Ordered 12/10/23 Ordered By: Fidelina Valladares Referrals: Jesus Colmenares MD [Primary Care Provider] - Discharge Diet: Usual diet Discharge Activity: Increase activity as tolerated Patient Instructions: Anemia, Musculoskeletal Pain (ED) Activity Restrictions/Additional Instructions: Today's evaluation showed no acute concerns. Imaging of your head revealed no signs of intracranial injury to indicate cause for left-sided extremity sensation change. Your blood levels are stable from the time you are discharged from the hospital. The best thing you can do is continue to take your Protonix and sucralfate to help continue heal the ulcer that was found on your scope a couple weeks ago. Your electrolytes show no acute abnormalities requiring any type of electrolyte replacement at this time. I did have another one of the emergency room providers look over your evaluation here today to make sure they agreed with your evaluation. They also recommend keeping your follow-up appoint with your primary care doctor to continue monitoring your blood levels as was also the recommendation when you were discharged from the hospital. Coding Level of Care Code ED Product/Industry Consultant for Kobe Riggs
[2023-12-10 19:27] LABS: Basophils % 0.6 %; Eosinophils # 0.1 10^3/uL (0.0-0.8); Eosinophils % 2.2 %; Hematocrit 24.9 % (37-53); Lymphocytes # 1.5 10^3/uL (0.8-4.8); Lymphocytes % 30.1 %; Mean Corpuscular HGB Conc 31.7 g/dL (30-55); Mean Corpuscular Hemoglobin 27.8 pg (27-33); Mean Corpuscular Volume 87.7 fl (82-101); Mean Platelet Volume 9.3 fL (7.4-10.4); Monocytes # 0.5 10^3/uL (0.2-0.9); Neutrophils # 2.96 10^3/uL (1.8-7.7); Neutrophils % 57.9 %; Nucleated Red Blood Cells % 0 %; Platelet Count 373 10^3/cmm (157-399); Red Blood Count 2.84 10^6/uL (3.85-5.65); Red Cell Distribution Width 16.8 % (12.1-15.1); White Blood Count 5.11 10^3/uL (3.29-11.43)
--- NOTE | 2023-12-10 19:29 | ECG_ITS ---
[facility] Test Date: 2023-12-10 Pat Name: Tarun Summers Department: Room: Gender: Male Outpatient Dietitian: : 1975 Requested By: Fidelina Jackson Order Number: [id number] Tomás MD: Andriy Hairston M.D. Measurements Intervals [place] Rate: 87 P: 49 LA: 157 QRS: 62 QRSD: 92 T: 52 QT: 363 QTc: 437 Interpretive Statements SINUS RHYTHM Compared to ECG 11/29/2023 07:38:14 Sinus tachycardia no longer present Electronically Signed On 12-11-2023 10:29:39 CDT by Andriy Hairston M.D. [email or web address] health st. elizabeth boardman [email or web address] [id number]
[2023-12-10 19:45] LABS: Lactic Sepsis W/Reflex 1.4 mmol/L (0.5-2.2)
[2023-12-10 19:56] LABS: Procalcitonin 0.03 ng/mL (0-0.5)
[2023-12-10 20:06] LABS: Charge for UA Resulting for Rev
[2023-12-10 20:08] LABS: Alanine Aminotransferase 9 U/L (0-41); Albumin Level 3.7 g/dL (3.5-5.2); Alkaline Phosphatase 97 U/L (40-130); Anion Gap 16.8 (5-19); Aspartate Amino Transferase 12 U/L (0-40); Blood Urea Nitrogen 7 mg/dL (6-20); Calcium 8.3 mg/dL (8.5-10.5); Carbon Dioxide 26 mmol/L (22-29); Chloride 98 mmol/L (98-107); Creatine Phosphokinase 115 U/L (39-308); Creatinine Clr Calc Pharmacy 96.6909; Globulin 2.9 g/dL (1.3-4.6); Glomerular Filtration Rate 72.1 mL/min (90-130); Glucose 130 mg/dL (65-115); Magnesium 2.1 mg/dL (1.7-2.3); Osmolality Calculated 284 mOsm/kg (285-295); Potassium 3.8 mmol/L (3.5-5.1); Sodium 137 mmol/L (136-145); Total Bilirubin 0.2 mg/dL (0.15-1.2); Total Protein 6.6 g/dL (6.6-8.7)
[2023-12-10 20:09] LABS: Alcohol Level < 10 mg/dL (0-10)
[2023-12-10 20:12] LABS: Bilirubin Urine Negative (Negative); Blood Urine Negative (Negative); Glucose Urine UA Negative (Normal); Ketones Urine Trace (Negative); Leukocyte Esterase Urine Negative (Negative); Nitrate Urine Negative (Negative); Protein Urine Negative (Negative); Specific Gravity, Urine 1.014 (1.005-1.030); Urine Appearance Clear (CLEAR); Urine Color Yellow (Yellow); pH Urine 5.5 (5-7)
[2023-12-10 20:17] LABS: Amphetamines Screen Urine Negative (Negative); Barbiturates Screen Urine Negative (Negative); Benzodiazepines Screen Urine Negative (Negative); Cocaine Screen Urine Negative (Negative); Opiate Screen Urine Negative (Negative); PCP Screen Urine Negative (Negative); THC Screen Urine Negative (Negative)
[2023-12-10] MEDS: HYDROcodone-acetaminophen 5-325 mg Tablet 1 TAB PO (21:00)
== END 2023-12-10 22:14 | disposition home or self-care (01) ==
PROVIDERS: Emergency Provider Physician Assistant; PCP Family Medicine
DX: M79.10 Myalgia, unspecified site (principal); R53.83 Other fatigue; D64.9 Anemia, unspecified; F17.210 Nicotine dependence, cigarettes, uncomplicated
CPT/HCPCS: 36415; 70450; 80053; 80306; 80307; 81003; 81015; 82550; 83605; 83735; 84145; 85025; 93005; 99284

== ENCOUNTER 2024-03-03 09:03 | Inpatient (IN) | payer MEDICAID, SELFPAY ==
[2024-03-03] VITALS (89 sets, daily range): BP systolic 85–147; BP diastolic 51–99; PULSE 73–135; RESP 7–24; TEMP 36.4–37.1; O2SAT 89–100; BMI 32.1
--- NOTE | 2024-03-03 09:12 | CT_ITS ---
WS: [id number] CT ABDOMEN AND PELVIS WITH CONTRAST HISTORY: abd pain/upper GI bleed TECHNIQUE: Imaging performed of the abdomen and pelvis with IV contrast. Single phase imaging of the abdomen. Coronal and sagittal reformats are submitted. All CT scans at [facility] use at [address] one of these dose optimization techniques: automated exposure control; mA and/or kV adjustment per patient size (includes targeted exams where dose is matched to clinical indication); or iterative re construction. IV CONTRAST: Omnipaque 350; 100 mL IV. Oral contrast: No DLP: 892.55 mGy.cm COMPARISON: 11/29/2023 Lower thorax: Lung bases are clear. Heart is normal size. Distal esophageal circumferential wall thic kening with edema extending to the GE junction. New since 11/29/2023. Liver/biliary system: Normal size with no intrahepatic dilatation. Gallbladder: Status post cholecystectomy. Pancreas: Normal size pancreas and pancreatic duct. No adjacent inflammation. Spleen: Normal size spleen. No mass or infarct. Adrenal glands: Normal. Right kidney: Normal size. No obstruction. Cortical hypodensity lower pole. Too small to characterize . Left kidney: Normal. Aorta: Normal. Lymphadenopathy: None. Free fluid: None. GI tract: Stomach is markedly distended with fluid and a small amount of air. Focal moderately intens e enhancement involving the gastroduodenal junction with narrowing of the lumen. Focal contained ulce ration with air suspicious for perforation measuring 2.8 x 4.0 cm along the medial curvature of the d uodenum. Normal appendix. No colon obstruction. Abdominal wall: Unremarkable abdominal wall. No hernia. Pelvis: No free fluid or adenopathy within the pelvis. Bones: Unremarkable. CT/CT abdomen pelvis w con* [id number] IMPRESSION: 1. Large duodenal ulcer measuring 2.8 x 4.0 cm in the proximal duodenum. Conta ined perforated ulcer contains a small amount of air. There is no free air with in the peritoneal cavity. Hyperemia involving the gastric and duodenal mucosa w ith a large amount of edema. 2. Additional circumferential wall thickening and edema involving the distal e sophagus through the GE junction may be related to vomiting. New since 4.
--- NOTE | 2024-03-03 09:17 | ED_ITS ---
HPI - GI Bleed 2 General: Chief complaint: Nausea/Vomiting/Diarrhea Stated complaint: N/V Time Seen by Provider: 03/03/24 09:07 History of Present Illness: 48 old male presents emergency room comp laining of persistent nausea vomiting with streaks of blood in the vomitus. Patient was hospitalized earlier this year with a GI bleed required 2 units of blood to be transfused. She was discharged home on Protonix. EGD at that time showed duodenitis and gastritis with no active bleeding Associated symptoms: Reports nausea and vomiting; Denies abdominal pain, chills, fever(s) or rash Related Data Home Medications Medication Instructions Recorded Confirmed aspirin 325 mg tablet 325 mg PO Q4H PRN Pain 03/03/24 03/03/24 docusate sodium 100 mg capsule 100 mg PO BID PRN Constipation 03/03/24 03/03/24 (Stool Softener) famotidine 20 mg tablet 20 mg PO DAILY PRN Acid Reflux 03/03/24 03/03/24 Allergies Allergy/AdvReac Type Severity Reaction Status Date / Time amoxicillin AdvReac Intermediate Rash Verified 07/26/23 20:07 Penicillins AdvReac Intermediate Rash Verified 07/26/23 20:07 Review of Systems 2 Const: Denies: fever(s) or chills Card: Denies: chest pain Resp: Denies: dyspnea GI: Reports: nausea, vomiting, hematemesis and melena; Denies: abdominal pain or hematochezia : Denies: dysuria, urinary frequency or urinary urgency Musc: Denies: neck pain or back pain Skin/Breast: Denies: rash PFSH ED 2 PFSH: Medical History Auditory hallucination Varicose vein of leg Psychiatric care Schizoaffective disorder, bipolar type without good prognostic features Chronic schizophrenia Spina bifida Peripheral neuropathy Duodenal ulcer Perforated stomach GI bleed Anemia Upper gastrointestinal hemorrhage Chronic idiopathic constipation Folliculitis cruris pustulosa atrophicans Nonvenomous insect bite of neck Nicotine dependence, unspecified, uncomplicated Schizoaffective disorder, bipolar type Borderline personality disorder Surgical History History of incision and drainage left hip History of tonsillectomy History of carpal tunnel surgery of right wrist History of back surgery History of cholecystectomy Family History Mother Bleeding disorder anemia Cancer uterine Hypertension Lung disease asthma Grandmother Bleeding disorder anemia Diabetes Father Cancer melonoma Hyperlipidemia Grandfather Chronic kidney disease (CKD) Diabetes Stroke Other Acute psychosis Denies family history of CAD (coronary artery disease) Clotting disorder Dementia Psychiatric illness Anesthesia complication Social History Smoking and tobacco/nicotine status: current every day tobacco/nicotine user cigarettes Packs smoked per day: 1 Years cigarettes smoked: 25 [ Other cigarette details: current 1.25 PPD, 54PY ] Quit status (tobacco/nicotine): has tried quititng Number of times tried to quit tobacco: 8 Second hand smoke exposure: No Alcohol intake: current Alcohol intake frequency: holidays/special occasions only Alcohol type: hard liquor Substance/Drug Use: never Lives independently: Yes Household members: caregiver Marital status: Single Number of children: 0 Current occupational status: disabled Current gender identity: Male Special dagmar needs: No Agree to transfusion: Yes Physical Exam 2 Const: COMMON NORMALS: no acute distress GENERAL APPEARANCE: cooperative and comfortable ORIENTATION/CONSCIOUSNESS: Yes awake, Yes oriented to person, Yes oriented to place and Yes oriented to time HENMT: COMMON NORMALS: normocephalic, atraumatic and hearing grossly normal bilaterally HEAD & SCALP: normocephalic and atraumatic Resp: COMMON NORMALS: normal respiratory effort, No retractions, No use of accessory muscles and clear to auscultation bilaterally AUSCULTATION: clear to auscultation bilaterally Cardio: COMMON NORMALS: regular rate, regular rhythm and No murmurs present (Cardio) RATE: regular rate RHYTHM: regular rhythm GI: COMMON NORMALS: Soft to palpation and No hepatosplenomegaly present A USCULTATION: Yes normoactive bowel sounds PALPATION: Yes Soft to palpation, No Tenderness to palpation present (GI), No Guarding due to palpation present (GI) and Yes No hepatosplenomegaly present Extremity: COMMON NORMALS: normal to inspection, capillary refill normal, no clubbing, cyanosis or edema, no calf tenderness and no pedal edema Neuro: SENSORIUM/ORIENTATION: Yes oriented to person, Yes oriented to place and Yes oriented to time Skin: COMMON NORMALS: no rashes or lesions noted GENERAL SKIN EXAM: no rashes or lesions noted Course 2 Vital Signs: Vital signs: Vital Signs Temperature 98.0 F 03/04/24 09:40 Pulse Rate 81 03/04/24 14:20 Respiratory Rate 22 H 03/04/24 14:20 Blood Pressure 111/61 03/04/24 14:20 Pulse Oximetry 92 03/04/24 14:20 Oxygen Delivery Me thod Room Air 03/03/24 15:05 MDM - GI Bleed Medical Decision Making Perforated duodenal ulcer which is contained. Started on Protonix. Serial hemoglobins n.p.o. NG placed discussed with hospitalist consult general surgery Medical Records I reviewed the patient's medical records. Lab Data I reviewed the patient's lab results. 03/04/24 04:24 03/04/24 04:24 Radiology Impressions Abdomen/Pelvis CT 03/03/24 09:12 IMPRESSION: 1. Large duodenal ulcer measuring 2.8 x 4.0 cm in the proximal duodenum. Contained perforated ulcer contains a small amount of air. There is no free air within the peritoneal cavity. Hyperemia involving the gastric and duodenal mucosa with a large amount of edema. 2. Additional circumferential wall thickening and edema involving the distal esophagus through the GE junction may be related to vomiting. New since 11/29/2023. Laboratory Results WBC 13.33 10^3/uL (3.29-11.43) H 03/03/24 09:29 RBC 5.49 10^6/uL (3.85-5.65) 03/03/24 09:29 Hgb 11.30 g/dL (11.27-16.99) 03/03/24 09: Hct 37.9 % (37-53) 03/03/24 09: MCV 69.0 fl (82-101) L 03/03/24 09: MCH 20.6 pg (27-33) L 03/03/24 09: MCHC 29.8 g/dL (30-55) L 03/03/24 09: RDW 21.1 % (12.1-15.1) H 03/03/24 09:29 Plt Count 268 10^3/cmm (157-399) 03/03/24 09: MPV 9.5 fL (7.4-10.4) 03/03/24 09: Neut % (Auto) 81.3 % 03/03/24 09: Lymph % (Auto) 10.0 % 03/03/24 09: [place] % (Auto) 7.8 % 03/03/24 09: Eos % (Auto) 0.2 % 03/03/24 09: Baso % (Auto) 0.2 % 03/03/24 09: Neut # (Auto) 10.84 10^3/uL (1.8-7.7) H 03/03/24 09: Lymph # (Auto) 1.3 10^3/uL (0.8-4.8) 03/03/24 09: Brooks # (Auto) 1.0 10^3/uL (0.2-0.9) H 03/03/24 09: Eos # (Auto) 0.0 10^3/uL (0.0-0.8) 03/03/24 09: Baso # (Auto) 0.0 10^3/uL (0.0-0.1) 03/03/24 09: Nucleated RBC % (auto) 0 % 03/03/24 09: Nucleated RBCs # 0.0 /100WBC 03/03/24 09: PT 13.30 SECONDS (12.1-14.9) 03/03/24 09:39 INR 0.98 (0.8-1.2) 03/03/24 09:39 Sodium 137 mmol/L (136-145) 03/03/24 09: Potassium 3.5 mmol/L (3.5-5.1) 03/03/24 09: Chloride 88 mmol/L (98-107) L 03/03/24 09:29 Carbon Dioxide 35 mmol/L (22-29) H 03/03/24 09:29 Anion Gap 17.5 (5-19) 03/03/24 09:29 BUN 22 mg/dL (6-20) H 03/03/24 09:29 Creatinine 1.0 mg/dL (0.7-1.2) 03/03/24 09:29 GFR Calculation 80.4 mL/min (90-130) L 03/03/24 09:29 Glucose 172 mg/dL (65-115) H 03/03/24 09:29 Calculated Osmolality 291 mOsm/kg (285-295) 03/03/24 09: Calcium 9.3 mg/dL (8.5-10.5) 03/03/24 09: Iron 32 ug/dL (59-158) L 03/03/24 10:35 TIBC 454 mcg/dl 03/03/24 10:35 % Saturation 7.0 % (20-50) L 03/03/24 10:35 Unsat Iron Binding 422 ug/dL (112-347) H 03/03/24 10:35 Ferritin 22 ng/mL (30-400) L 03/03/24 10:35 Total Bilirubin 0.5 mg/dL (0.15-1.2) 03/03/24 09: AST 19 U/L (0-40) 03/03/24 09: ALT 32 U/L (0-41) 03/03/24 09: Alkaline Phosphatase 117 U/L (40-130) 03/03/24 09: Total Protein 8.1 g/dL (6.6-8.7) 03/03/24 09: Albumin 4.3 g/dL (3.5-5.2) 03/03/24 09: Globulin 3.8 g/dL (1.3-4.6) 03/03/24 09: Lipase 14 U/L (13-60) 03/03/24 09:29 Urine Color Yellow (Yellow) 03/03/24 11:20 Urine Appearance Clear (CLEAR) 03/03/24 11:20 Urine pH 8.5 (5-7) A 03/03/24 11:20 Ur Specific [place] 1.076 (1.005-1.030) H 03/03/24 11:20 Urine Protein 2+ (Negative) A 03/03/24 11:20 Urine Glucose (UA) Negative (Normal) 03/03/24 11:20 Urine Ketones Negative (Negative) 03/03/24 11:20 Urine Blood Negative (Negative) 03/03/24 11:20 Urine Nitrate Negative (Negative) 03/03/24 11:20 Urine Bilirubin Negative (Negative) 03/03/24 11:20 Urine Urobilinogen 1.0 mg/dL (Negative) 03/03/24 11:20 Ur Leukocyte Esterase Negative (Negative) 03/03/24 11:20 Urine RBC 0-4 /hpf (0-2) H 03/03/24 11:20 Urine WBC 0-4 /hpf (0-5) H 03/03/24 11:20 Ur Squamous Epith Cells 0-4 /hpf (0-5) H 03/03/24 11:20 Ur Transition Epith Cell 0-4 /hpf 03/03/24 11:20 Amorphous Sediment Trace /hpf 03/03/24 11:20 Urine Bacteria Trace /hpf (NONE) 03/03/24 11:20 Hyaline Casts 15-25 /lpf H 03/03/24 11:20 Urine Mucus 1+ /hpf 03/03/24 11:20 Blood Type B Negative 03/03/24 10:35 Rho(D) Type Rh negative 03/03/24 10:35 Antibody Screen Negative 03/03/24 10:35 All radiology interpretation(s) finalized by discharge Discharge Plan Discharge Patient Disposition: Admitted As Inpatient Admit Provider: Chris Mendez Clinical Impression: Duodenal ulcer, GI bleed, Acute hypokalemia Condition: Stable Coding Level of Care Code 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
[2024-03-03 09:38] LABS: Basophils % 0.2 %; Eosinophils % 0.2 %; Hematocrit 37.9 % (37-53); Lymphocytes # 1.3 10^3/uL (0.8-4.8); Mean Corpuscular HGB Conc 29.8 g/dL (30-55); Mean Corpuscular Hemoglobin 20.6 pg (27-33); Mean Platelet Volume 9.5 fL (7.4-10.4); Monocytes % 7.8 %; Neutrophils # 10.84 10^3/uL (1.8-7.7); Neutrophils % 81.3 %; Nucleated Red Blood Cells % 0 %; Platelet Count 268 10^3/cmm (157-399); Red Blood Count 5.49 10^6/uL (3.85-5.65); Red Cell Distribution Width 21.1 % (12.1-15.1); White Blood Count 13.33 10^3/uL (3.29-11.43)
--- NOTE | 2024-03-03 09:46 | PC.PHAR ---
Addendum entered by Lorena Case 03/03/24 09:49: Pt no longer taking Invega Trinza injection every 3 months. Pt had benztropine 1mg take 1 or 2 daily prn tremors last fill 11/04/23 and Sucralfate 100mg/ml susp. 1g orally before meals and bedtime last fill 12/01/23. Removed from med list. Original Note: Pt states he takes no prescription medications at this time. Pt states takes aspirin, a stool softener, and famotidine over the counter, when needed. Pt has taken no medications today.
[2024-03-03] MEDS: iohexol 350 mg/mL 500 mL Btl (per mL) IV (09:48)
[2024-03-03 10:01] LABS: Alanine Aminotransferase 32 U/L (0-41); Albumin Level 4.3 g/dL (3.5-5.2); Alkaline Phosphatase 117 U/L (40-130); Anion Gap 17.5 (5-19); Aspartate Amino Transferase 19 U/L (0-40); Blood Urea Nitrogen 22 mg/dL (6-20); Calcium 9.3 mg/dL (8.5-10.5); Carbon Dioxide 35 mmol/L (22-29); Chloride 88 mmol/L (98-107); Creatinine Clr Calc Pharmacy 113.4664; Globulin 3.8 g/dL (1.3-4.6); Glomerular Filtration Rate 80.4 mL/min (90-130); Glucose 172 mg/dL (65-115); Lipase 14 U/L (13-60); Osmolality Calculated 291 mOsm/kg (285-295); Potassium 3.5 mmol/L (3.5-5.1); Sodium 137 mmol/L (136-145); Total Bilirubin 0.5 mg/dL (0.15-1.2); Total Protein 8.1 g/dL (6.6-8.7)
[2024-03-03] MEDS: pantoprazole 40 mg SDV 80 MG IVP (10:23)
--- NOTE | 2024-03-03 11:20 | P.HP_ITS ---
Providers/Chief Complaint 2 Admitting Physician: Chris Mendez MD, hospitalist Primary Care Provider: Jesus Colmenares MD Chief Complaint: N/V History of Present Illness Tarun Summers is a 48 year old male presenting the hospital with vomiting, abdominal pain, now with some blood in emesis. Overall illness going on about 4 days. Some dizziness when getting up, and some sweats. No documented fever. Reports he has not had a bowel movement in 2 days, but there is not been any black or tarry stools or blood in his stool. Has been vomiting liquids lately. Does have abdominal pain, all above his umbilicus. Most recent hospital stay was in November and ulcer was noted on endoscopy then. At that point he was taking aspirin. He reports he is still taking aspirin intermittently because he has low back pain that Tylenol does not work for. He realizes he should not be taking it. He denies any ibuprofen/other anti-inflammatory use. Review of Systems 2 General: Reports: 10 or more systems reviewed and unremarkable except in HPI and below Card: Denies: chest pain Resp: Denies: dyspnea GI: Reports: abdominal pain and hematemesis; Denies: hematochezia or melena Medications/Allergies Home Medications Medication Instructions Recorded Confirmed Last Taken Type aspirin 325 mg tablet 325 mg PO Q4H PRN Pain 03/03/24 03/03/24 Unknown History docusate sodium 100 mg capsule 100 mg PO BID PRN Constipation 03/03/24 03/03/24 Unknown History (Stool Softener) famotidine 20 mg tablet 20 mg PO DAILY PRN Acid Reflux 03/03/24 03/03/24 Unknown History Allergies Allergy/AdvReac Type Severity Reaction Status Date / Time amoxicillin AdvReac Intermediate Rash Verified 07/26/23 20:07 Penicillins AdvReac Intermediate Rash Verified 07/26/23 20:07 PFSH Acute 2 PFSH: Medical History Auditory hallucination Varicose vein of leg Psychiatric care Schizoaffective disorder, bipolar type without good prognostic features Chronic schizophrenia Spina bifida Peripheral neuropathy Duodenal ulcer Perforated stomach GI bleed Anemia Upper gastrointestinal hemorrhage Chronic idiopathic constipation Folliculitis cruris pustulosa atrophicans Nonvenomous insect bite of neck Nicotine dependence, unspecified, uncomplicated Schizoaffective disorder, bipolar type Borderline personality disorder Surgical History History of incision and drainage left hip History of tonsillectomy History of carpal tunnel surgery of right wrist History of back surgery History of cholecystectomy Family History Mother Bleeding disorder anemia Cancer uterine Hypertension Lung disease asthma Grandmother Bleeding disorder anemia Diabetes Father Cancer melonoma Hyperlipidemia Grandfather Chronic kidney disease (CKD) Diabetes Stroke Other Acute psychosis Denies family history of CAD (coronary artery disease) Clotting disorder Dementia Psychiatric illness Anesthesia complication Social History Smoking and tobacco/nicotine status: current every day tobacco/nicotine user cigarettes Packs smoked per day: 1 Years cigarettes smoked: 25 [ Other cigarette details: current 1.25 PPD, 54PY ] Quit status (tobacco/nicotine): has tried quititng Number of times tried to quit tobacco: 8 Second hand smoke exposure: No Alcohol intake: current Alcohol intake frequency: holidays/special occasions only Alcohol type: hard liquor Substance/Drug Use: never Lives independently: Yes Household members: caregiver Marital status: Single Number of children: 0 Current occupational status: disabled Current gender identity: Male Special dagmar needs: No Agree to transfusion: Yes Vitals/I&O/Wt Last Vital Signs Temp 97.6 F 03/03/24 09:12 Pulse 88 03/03/24 10:27 Resp 18 03/03/24 09:12 BP 143/91 03/03/24 10:27 Pulse Ox 100 03/03/24 10:27 O2 Del Method Room Air 03/03/24 10:27 Weight last 48 hrs Weight 104.326 kg Physical Exam 2 Narrative: General Exam is a white male, who appears sleepy, who denies any distress other than some abdominal pain above his umbilicus. Vital signs reviewed and currently stable. HEENT: Atraumatic and normocephalic. Oropharynx clear Neck is supple no lymphadenopathy thyromegaly Cardiovascular regular rate and rhythm, no murmur Lungs clear no wheezing or crackles Abdomen is soft. Positive bowel sounds. Tenderness is present in the upper quadrants. No rebound exam is deferred Extremities no cyanosis clubbing or edema, cap refill brisk Skin no rash Neuro no focal deficits Data 03/03/24 09:29 03/03/24 09:29 Other Labs: MCV is 69 LFTs are normal Calcium and albumin is normal Lipase is normal Urinalysis pending Abdomen and pelvis CT which I reviewed as well demonstrates a large duodenal ulcer, with contained perforation, and some wall thickening in the GE junction A&P Assessment and plan (1) GI bleed: Patient presents with GI bleeding He previously had a gastric ulcer, duodenitis See below Protonix 40 mg IV every 12 hours. He received 80 mg IV in the ER. IV fluids, bolus now Suspect he will have acute blood loss anemia, when hemoglobin is repeated. Will perform serial hemoglobins. Next 1 due at 1500, and will decide, when should be repeated. CBC, CMP in the morning N.p.o. From my understanding surgery has requested an NG tube Morphine if needed for pain Check INR Empiric antibiotics, cefepime plus Flagyl secondary to intestinal perforation. No antifungals warranted at this time. (2) Duodenal ulcer: Patient has a large duodenal ulcer with contained perforation Surgery consultation Suspect he will have acute blood loss anemia, when hemoglobin is repeated. Will perform serial hemoglobins (3) Microcytosis: Iron studies will be done. I suspect he has significant iron deficiency anemia. Will plan to give iron infusion when this returns Plan Multiple other medical problems as outlined in past medical history Full code SCDs for DVT prophylaxis, anticoagulation contraindicated secondary to GI bleeding High risk for acute decompensation. Appropriate for initial placement in ICU. Attestations 2 Medical Necessity Statement*: Will require greater than 2 midnight stay for evaluation and treatment of GI bleeding with duodenal ulcer and contained perforation. Diagnoses GI bleed K92.2 Duodenal ulcer K26.9 Microcytosis R71.8 Time Spent (min) 45
[2024-03-03 11:37] LABS: Bilirubin Urine Negative (Negative); Blood Urine Negative (Negative); Glucose Urine UA Negative (Normal); Ketones Urine Negative (Negative); Leukocyte Esterase Urine Negative (Negative); Nitrate Urine Negative (Negative); Protein Urine 2+ (Negative); Urine Appearance Clear (CLEAR); Urine Color Yellow (Yellow); pH Urine 8.5 (5-7)
[2024-03-03 11:52] LABS: Specific Gravity, Urine 1.076 (1.005-1.030); UA Manual Slide Review YES; UA Slide Review UA Slide Review Perf
[2024-03-03 11:54] LABS: Add Urine Microscopic? YES; RBC Urine 0-4 /hpf (0-2); Squamous Epithelial Cell Urine 0-4 /hpf (0-5); Transitional Epi Cells Urine 0-4 /hpf; WBC Urine 0-4 /hpf (0-5)
[2024-03-03 11:55] LABS: INR 0.98 (0.8-1.2)
[2024-03-03 11:55] LABS: Add Urine Culture? No; Amorphous Sediment Urine TRACE /hpf; Bacteria Urine TRACE /hpf; Hyaline Casts Urine 15-25 /lpf; Mucus Urine 1+ /hpf
[2024-03-03] MEDS: sodium chloride 0.9% 1,000 ML 999 ML IV (12:01)
--- NOTE | 2024-03-03 12:08 | P.CONIM_ITS ---
Providers/Reason For Consult 2 Consulting Physician/Specialty*: General Surgery Reason for Consult*: Duodenal ulcer Primary Care Provider: Jesus Colmenares MD History of Present Illness History of Present Illness Tarun Summers is a 48 year old male with history of recurring upper GI bleeding who presents to the hospital with nausea and vomit over the last 48 hours, patient has unable to keep anything down, he also has noticed some blood streaking in his vomit. The CT scan of the abdomen pelvis was done and show evidence of a large duodenal ulcer with a possible contained perforation. I was consulted for this finding. Patient denies any abdominal pain, no fever no chills no evidence of peritonitis. Review of Systems 2 General: Reports: 10 or more systems reviewed and unremarkable except in HPI and below Medications/Allergies Home Medications Medication Instructions Recorded Confirmed Last Taken Type aspirin 325 mg tablet 325 mg PO Q4H PRN Pain 03/03/24 03/03/24 Unknown History docusate sodium 100 mg capsule 100 mg PO BID PRN Constipation 03/03/24 03/03/24 Unknown History (Stool Softener) famotidine 20 mg tablet 20 mg PO DAILY PRN Acid Reflux 03/03/24 03/03/24 Unknown History Allergies Allergy/AdvReac Type Severity Reaction Status Date / Time amoxicillin AdvReac Intermediate Rash Verified 07/26/23 20:07 Penicillins AdvReac Intermediate Rash Verified 07/26/23 20:07 Current Medications Generic Name Dose Route Start Last Admin Trade Name Freq PRN Reason Stop Dose Admin Sodium Chloride 1,000 mls @ 999 mls/hr 03/03/24 11:22 03/03/24 12:01 Sodium Chloride 0.9% IV 03/03/24 12:22 999 mls/hr .Q1H1M ONE Administration PFSH Acute 2 PFSH: Medical History Auditory hallucination Varicose vein of leg Psychiatric care Schizoaffective disorder, bipolar type without good prognostic features Chronic schizophrenia Spina bifida Peripheral neuropathy Duodenal ulcer Perforated stomach GI bleed Anemia Upper gastrointestinal hemorrhage Chronic idiopathic constipation Folliculitis cruris pustulosa atrophicans Nonvenomous insect bite of neck Nicotine dependence, unspecified, uncomplicated Schizoaffective disorder, bipolar type Borderline personality disorder Surgical History History of incision and drainage left hip History of tonsillectomy History of carpal tunnel surgery of right wrist History of back surgery History of cholecystectomy Family History Mother Bleeding disorder anemia Cancer uterine Hypertension Lung disease asthma Grandmother Bleeding disorder anemia Diabetes Father Cancer melonoma Hyperlipidemia Grandfather Chronic kidney disease (CKD) Diabetes Stroke Other Acute psychosis Denies family history of CAD (coronary artery disease) Clotting disorder Dementia Psychiatric illness Anesthesia complication Social History Smoking and tobacco/nicotine status: current every day tobacco/nicotine user cigarettes Packs smoked per day: 1 Years cigarettes smoked: 25 [ Other cigarette details: current 1.25 PPD, 54PY ] Quit status (tobacco/nicotine): has tried quititng Number of times tried to quit tobacco: 8 Second hand smoke exposure: No Alcohol intake: current Alcohol intake frequency: holidays/special occasions only Alcohol type: hard liquor Substance/Drug Use: never Lives independently: Yes Household members: caregiver Marital status: Single Number of children: 0 Current occupational status: disabled Current gender identity: Male Special dagmar needs: No Agree to transfusion: Yes Vitals/I&O/Wt Last Vital Signs Temp 97.6 F 03/03/24 09:12 Pulse 88 03/03/24 10:27 Resp 18 03/03/24 09:12 BP 143/91 03/03/24 10:27 Pulse Ox 100 03/03/24 10:27 O2 Del Method Room Air 03/03/24 10:27 Weight last 48 hrs Weight 230 lb Physical Exam 2 Narrative: General : Patient is well developed , no acute distress, oriented x3 Head : Normal cephalic, a-traumatic. Nose : Mucous membranes are without erythema. Lungs : Equal chest rise bilaterally, no use of accessory muscles, trachea is midline. CV : Rate and rhythm are normal. Abdomen : Soft, ND, NT, no g/r/m Extremities : No edema. Upper extremities are normal bilaterally. Back : non-tender to palpation, no CVA tenderness. Data 03/03/24 09:29 03/03/24 09:29 A&P Assessment and plan (1) GI bleed: (2) Duodenal ulcer: Plan 48-year-old male with history of gastric and duodenal ulcers who presents with duodenal ulcer with imaging concerning for possible contained perforation. Patient clinically stable normal vital signs no abdominal pain no peritonitis. With this findings I think the most appropriate course of action for him will be conservative management and see if there is a small perforation appears to be completely contained by the omentum. Patient will require to be n.p.o. for the next 24 to 48 hours, NG tube decompression to give the stomach empty and to prevent any leakage of contents into the abdominal cavity. He will require high-dose PPI drip, we will do serial abdominal exams. The plan is that after 24 to 48 hours of decompression if there is no changes in clinical status we will do a contrast study to evaluate for leak if there is no leak from the intestinal tract he will be able to be advanced to clear liquid diet and eventually to a GI soft diet. If there is changes in the clinical status of if the patient has a leak on the contrasted study patient will require surgical intervention. I talked to the patient I informed him of our findings I specifically told him that this is a very high risk condition that may require surgical intervention, I informed him that if he does require surgical intervention this would be a high risk operation. He shows understanding agrees with the plan. Of note, patient has been taking large amount of aspirin so this ulceration is likely in the setting of NSAID use. -N.p.o. -IV fluids -Broad-spectrum antibiotics -PPI drip -Serial abdominal exams -Will plan on contrast study next 24 to 48 hours Coding Level of Care Code Acute Code for Chg Fwd Diagnoses GI bleed K92.2 Duodenal ulcer K26.9
[2024-03-03 12:10] LABS: Ferritin 22 ng/mL (30-400); Iron 32 ug/dL (59-158); Total Iron Binding Capacity 454 mcg/dl; Unsaturated Iron Binding 422 ug/dL (112-347)
[2024-03-03] MEDS: sodium chloride 0.9% 1,000 ML 125 ML IV (13:26)
[2024-03-03] MEDS: metroNIDAZOLE IV 500 MG/100 ML PREMIX 100 MG IV ×2 (13:30→19:09)
[2024-03-03] MEDS: cefepime 2,000 mg SDV 2000 MG IV (13:34)
--- NOTE | 2024-03-03 14:34 | PC.NURSE ---
Recieved patient from ER. Patient is alert and oriented to person, place, time, and situation. HR: 75, SPO2: 99% on room air, BP: 127/85, temp 98.2. 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 Upon arrival, nurse attempted NG tube placement. WHen NG tube was inserted, before it could be auscultated, patient pulled it out and said he cannopt handle having it in and does not want one. Nurse explained the reasoning and importance for one but the patient still refuses. Nurse will check later to see if patient changes his mind, and alerted Dr nance and rosaura to lack of NG tube.
[2024-03-03 15:15] LABS: Hematocrit 33.6 % (37-53)
[2024-03-03] MEDS: iron sucrose 200 MG in sodium chloride 0.9% (100 ml) 100 ML 220 MG IV (15:58)
--- NOTE | 2024-03-03 17:42 | P.MISC_ITS ---
Miscellaneous Note Purpose of Documentation: Update on patient care Note: -refused NG tube. I tried to provide edu cation regarding need for NG to prevent secretions in the area of perforation but patient still refuses. -VS stable -No abdominal pain -HGB has trended down, will continue to monitor. -Abdominal exam is completelly benign
--- NOTE | 2024-03-03 19:42 | PC.NURSE ---
SHift SUmmary: uneventful shift. Arrived in ICU partway through the day. Has rested in bed, received medications as ordered. Vitals within normal limits. HGB dropped from 11.3 down to 10. H&H labs to be drawn at 2200 for followup.
--- NOTE | 2024-03-03 20:30 | ECG_ITS ---
[email or web address] Test Date: 2024-03-03 Pat Name: Tarun Summers Department: Room: [facility] [id number] Gender: Male Gm: : 1975 Requested By: David Villegas Order Number: [id number] Tomás MD: Elsi Szymanski M.D. Measurements Intervals [place] Rate: 126 P: 0 VA: 0 QRS: 76 QRSD: 92 T: 41 QT: 341 QTc: 494 Interpretive Statements ATRIAL FIBRILLATION WITH RAPID VENTRICULAR RESPONSE ABNORMAL RHYTHM ECG Compared to ECG 12/10/2023 19:29:55 Sinus rhythm no longer present Electronically Signed On 03-04-2024 18:11:14 CDT by Elsi Szymanski M.D. [email or web address]
[2024-03-03] MEDS: metoprolol tartrate 1 mg/1 mL SDV 5 mL 5 MG IVP (21:27)
--- NOTE | 2024-03-03 21:30 | P.PN_ITS ---
Subjective 2 Subjective: 48-year-old male admitted with history of peptic ulcer disease and acute GI bleeding states that he has been taking 4 aspirin a day due to 2 inability to afford Tylenol. He has had duodenal ulcers on multiple previous occasions. Patient denies abdominal pain. I was called regarding new onset atrial fibrillation proven by EKG ordered by the nurse after patient developed tachycardia. Notably his potassium earlier today was only 3.5 and but his magnesium level not checked yet this admission. Last TSH was 11/2023 at 2.04. Patient denies palpitations or chest pain. Vitals/I&O/Wt Last Vital Signs Temp 98.7 F 03/03/24 17:15 Pulse 124 H 03/03/24 20:00 Resp 18 03/03/24 20:00 BP 107/68 03/03/24 20:00 Pulse Ox 92 03/03/24 20:00 O2 Del Method Room Air 03/03/24 15:05 03/03/24 03/03/24 03/03/24 06:59 14:59 22:59 Intake Total 100 / 100 1210 / 1310 Balance 100 / 100 1210 / 1310 Weight last 48 hrs Weight 101.5 kg Weight 104.326 kg Physical Exam 2 Narrative: General well-developed well-nourished male awake but resting in bed comfortably. He is not tachypneic. No distress and not diaphoretic CV tachycardic and irregular Lungs clear to auscultation bilateral Abdomen decreased bowel tones soft nontender nondistended no rebound Calves no edema or asymmetry Mentation he is alert alert and pleasant Data 03/03/24 20:07 03/03/24 09:29 A&P Assessment and plan (1) New onset atrial fibrillation: Patient will be treated with metoprolol 5 mg IV and 25 mg twice a day. If heart rate not below 100 we will give additional doses. Stat CBC, potassium and magnesium now. I also cassandra phosphorus and TSH. Patient tells me he is not an alcoholic and has only had 1 shot last month and 1 shot this month. He is not a candidate for anticoagulation currently I will order an echocardiogram for new onset A-fib to be done in the morning (2) Acute hypokalemia: Add 40 mill colons potassium chloride per liter to his NS after this liter will change to LR with 40 (3) Duodenal ulcer: Continue PPI. If blood count is dropping consider adding octreotide. (4) ANDREAS (iron deficiency anemia): pt receiving iron sucrose 200mg IV once. will need more. Attestations 2 Medical Necessity Statement*: Patient admitted with acute GI bleed and now with atrial fibrillation is anticipated to be in the hospital greater than 2 midnights Coding Level of Care Code Acute Code for Chg Fwd Diagnoses New onset atrial fibrillation I48.91 Acute hypokalemia E87.6 Duodenal ulcer K26.9 ANDREAS (iron deficiency anemia) D50.9 Time Spent (min) 30
[2024-03-03] MEDS: potassium chloride ER 20 mEq Tablet 40 MEQ PO (21:35)
[2024-03-03] MEDS: lactated ringers 1,000 ML 999 ML IV (21:53)
[2024-03-03] MEDS: dextrose 5%-lr + KCl 20 1,000 ML 125 MEQ IV (21:57)
[2024-03-03 21:59] LABS: Basophils % 0.2 %; Eosinophils # 0.1 10^3/uL (0.0-0.8); Eosinophils % 0.5 %; Hematocrit 30.9 % (37-53); Lymphocytes # 2.1 10^3/uL (0.8-4.8); Mean Corpuscular HGB Conc 30.1 g/dL (30-55); Mean Corpuscular Hemoglobin 20.8 pg (27-33); Mean Corpuscular Volume 69.1 fl (82-101); Monocytes # 0.9 10^3/uL (0.2-0.9); Monocytes % 9.1 %; Neutrophils # 6.32 10^3/uL (1.8-7.7); Neutrophils % 67.7 %; Nucleated Red Blood Cells % 0 %; Platelet Count 231 10^3/cmm (157-399); Red Blood Count 4.47 10^6/uL (3.85-5.65); Red Cell Distribution Width 20.9 % (12.1-15.1); White Blood Count 9.35 10^3/uL (3.29-11.43)
[2024-03-03] MEDS: metoprolol tartrate 25 mg Tablet PO (22:03)
[2024-03-03 22:06] LABS: Troponin T (5th) Once 17 ng/L (0-15)
[2024-03-03 22:20] LABS: Anion Gap 13.2 (5-19); Blood Urea Nitrogen 17 mg/dL (6-20); Calcium 7.8 mg/dL (8.5-10.5); Carbon Dioxide 28 mmol/L (22-29); Chloride 95 mmol/L (98-107); Creatinine Clr Calc Pharmacy 159.9865; Glomerular Filtration Rate 121.4 mL/min (90-130); Glucose 103 mg/dL (65-115); Magnesium 1.9 mg/dL (1.7-2.3); Osmolality Calculated 278 mOsm/kg (285-295); Phosphorus 3.5 mg/dL (2.5-4.5); Potassium 3.2 mmol/L (3.5-5.1); Sodium 133 mmol/L (136-145); Thyroid Stimulating Hormone 0.89 uIU/mL (0.27-4.20)
[2024-03-03] MEDS: pantoprazole 40 mg SDV IVP (23:18)
[2024-03-03] MEDS: amiodarone 150 MG/100 ML PREMIX 400 MG IV (23:58)
[2024-03-04] VITALS (174 sets, daily range): BP systolic 82–124; BP diastolic 46–76; PULSE 60–117; RESP 6–25; TEMP 36.7–37.4; O2SAT 88–100
[2024-03-04] MEDS: potassium chloride ER 20 mEq Tablet 40 MEQ PO (00:06)
--- NOTE | 2024-03-04 00:19 | PC.NURSE ---
Afib Patient noted to be in sinus rhythm on this nurse's arrival to shift. At 1742, patient went into Afib RVR. Rate anywhere from 100-160. Dr Reina notified. He came to observe the patient and placed orders for medications into the MAR which were carried out by this nurse. At 2348, notified Dr Reina of continuing Afib with rates 120-140. Ordered a bolus of amioderone 150 mg x 1 and additional oral potassium.
[2024-03-04] MEDS: cefepime 2,000 mg SDV 2000 MG IV ×2 (01:57→14:07)
[2024-03-04] MEDS: metroNIDAZOLE IV 500 MG/100 ML PREMIX 100 MG IV ×4 (01:59→20:03)
[2024-03-04] MEDS: sodium chloride 0.9% 1,000 ML 999 ML IV (04:57)
[2024-03-04 04:58] LABS: Basophils % 0.3 %; Eosinophils # 0.1 10^3/uL (0.0-0.8); Eosinophils % 1.1 %; Hematocrit 32.9 % (37-53); Lymphocytes # 1.9 10^3/uL (0.8-4.8); Lymphocytes % 25.5 %; Mean Corpuscular HGB Conc 29.8 g/dL (30-55); Mean Corpuscular Hemoglobin 21.3 pg (27-33); Mean Corpuscular Volume 71.5 fl (82-101); Mean Platelet Volume 10.1 fL (7.4-10.4); Monocytes # 0.8 10^3/uL (0.2-0.9); Monocytes % 11.1 %; Neutrophils # 4.54 10^3/uL (1.8-7.7); Neutrophils % 61.6 %; Nucleated Red Blood Cells % 0 %; Platelet Count 232 10^3/cmm (157-399); White Blood Count 7.37 10^3/uL (3.29-11.43)
[2024-03-04 05:15] LABS: Alanine Aminotransferase 17 U/L (0-41); Albumin Level 3.1 g/dL (3.5-5.2); Alkaline Phosphatase 84 U/L (40-130); Anion Gap 11.8 (5-19); Aspartate Amino Transferase 11 U/L (0-40); Blood Urea Nitrogen 13 mg/dL (6-20); Calcium 7.9 mg/dL (8.5-10.5); Carbon Dioxide 27 mmol/L (22-29); Chloride 101 mmol/L (98-107); Creatinine Clr Calc Pharmacy 159.9865; Glomerular Filtration Rate 121.4 mL/min (90-130); Glucose 107 mg/dL (65-115); Osmolality Calculated 283 mOsm/kg (285-295); Potassium 3.8 mmol/L (3.5-5.1); Sodium 136 mmol/L (136-145); Total Bilirubin 0.4 mg/dL (0.15-1.2); Total Protein 6.1 g/dL (6.6-8.7)
[2024-03-04] MEDS: dextrose 5%-lr + KCl 20 1,000 ML 125 MEQ IV ×3 (05:59→23:21)
--- NOTE | 2024-03-04 06:51 | PM.PN ---
Subjective Subjective: 48-year-old male who is hospital day 1 after being admitted for management of upper GI bleeding and contained perforated duodenal ulcer. Patient has been doing okay, only acute event over the less than 4 hours that he developed A-fib around 8 PM last night, he has been treated with metoprolol with good rate control but continues to be on A-fib. Denies significant abdominal pain just mild epigastric pain, no fever or chills. Vitals/I&O/Wt Last Vital Signs Temp 98.0 F 03/04/24 04:31 Pulse 83 03/04/24 06:00 Resp 16 03/04/24 06:00 BP 93/62 03/04/24 06:00 Pulse Ox 96 03/04/24 06:00 O2 Del Method Room Air 03/03/24 15:05 03/03/24 03/03/24 03/04/24 14:59 22:59 06:59 Intake Total 100 / 100 2210 / 2310 3200 / 5510 Output Total 1000 / 1000 Balance 100 / 100 2210 / 2310 2200 / 4510 Weight last 48 hrs Weight 234 lb 12.677 oz Weight 234 lb 12.677 oz Weight 223 lb 12.307 oz Weight 230 lb Physical Exam GI: OTHER: Abdominal exam is completely benign, abdomen is soft, nontender, nondistended, no peritoneal signs, positive bowel sounds that are hypoactive Data 03/04/24 04:24 03/04/24 04:24 A&P Assessment and plan (1) Duodenal ulcer: Plan 48-year-old male with a possible contained perforated duodenal ulcer in the setting of NSAID consumption. Hemoglobin has stabilized, he developed A-fib overnight. Other than that he is doing okay white count is normal now has trended down to 7. He is afebrile. No abdominal pain, no abdominal distention no abdominal rigidity or any other concerning signs. Tentatively the plan is to proceed with contrast study today and if there is no evidence of active leakage into the abdominal cavity the next step will be to advance diet to clear liquid diet. Additional management will be continued by medical ICU team and is appreciated. Attestations Medical Necessity Statement*: Per medical team Coding Level of Care Code Acute Code for [facility] Diagnoses Duodenal ulcer K26.9
--- NOTE | 2024-03-04 07:32 | USCV_ITS ---
Tarun Summers Age: 48 Gender: M : 1975 Exam Date: 03/04/2024 16:21 Ordering Phys: Chris Mendez MD Technologist: CT [place]am [place] [facility] [place] Indication: BP: 102 / 68 HR: 66 Rhythm: Sinus Technical Quality: Adequate MEASUREMENTS (Male / Female) Normal Values 2D ECHO LVOT Diameter 2.1 cm LV Ejection Fraction MOD 4C 66.2 % LV Ejection Fraction MOD 2C 64.3 % LV Ejection Fraction 2C AL 63.9 % LA Diameter 2.8 cm RA Systolic Volume 4C AL 47.6 ml RA Systolic Volume 4C MOD 46.3 ml LA Sys Volume AL 60.7 cm cubed LA Sys Volume Index AL 25.9 cm cubed/m squared Aorta at Sinotubular Diameter 2.6 cm IVC Diameter 2.0 cm M-MODE LA Ao Ratio MM 1.0 AV Cusp Separation MM 2.1 cm DOPPLER AV Peak Velocity 136.0 cm/s LVOT Peak Velocity 98.0 cm/s AV Area Cont Eq vti 3.1 cm squared AV Area Cont Eq pk 2.6 cm squared MV Peak Velocity 252.0 cm/s MV Area PHT 3.3 cm squared Mitral E to A Ratio 1.3 TR Peak Velocity 175.0 cm/s TR Peak Gradient 12.3 mmHg TV Peak E Velocity 66.0 cm/s Right Atrial Pressure 3.0 mmHg Pulmonary Artery Systolic Pressu 15.3 mmHg PV Peak Velocity 107.5 cm/s FINDINGS Left Ventricle Normal left ventricular size, systolic function and wall thickness, with no regional wall motion abnormalities. Left ventricular ejection fraction is estimated at 65%. Right Ventricle Normal right ventricular size and systolic function. Right Atrium Normal right atrial size. Left Atrium Normal left atrial size. Mitral Valve Structurally normal mitral valve. No mitral valve regurgitation. Aortic Valve Structurally normal trileaflet aortic valve. No aortic valve stenosis. Tricuspid Valve Structurally normal tricuspid valve. Trace tricuspid valve regurgitation. Pulmonic Valve Structurally normal pulmonic valve. Trace pulmonary valve regurgitation. Pericardium No pericardial effusion. Aorta Normal size aortic root and proximal ascending aorta. IVC Normal inferior vena cava. CONCLUSIONS Normal left ventricle systolic function. LVEF normal 65%. Normal chamber sizes. No significant valvular abnormality noted. Normal right heart and pulmonary pressures. Elsi Szymanski MD (Electronically Signed) Final Date: 05 March 2024 08:56 S
--- NOTE | 2024-03-04 07:32 | P.PN_ITS ---
Subjective 2 Subjective: Reports abdomen feels better. Less painful. No vomiting. Did go into atrial fibrillation yesterday. Got a dose of amiodarone, and placed on metoprolol. Still in A-fib but rate controlled. Potassium supplemented. Magnesium and TSH normal. Medications: Reviewed: Yes Vitals/I&O/Wt Last Vital Signs Temp 98.0 F 03/04/24 04:31 Pulse 83 03/04/24 06:00 Resp 16 03/04/24 06:00 BP 93/62 03/04/24 06:00 Pulse Ox 96 03/04/24 06:00 O2 Del Method Room Air 03/03/24 15:05 03/03/24 03/04/24 03/04/24 22:59 06:59 14:59 Intake Total 2210 / 2310 3200 / 5510 Output Total 1000 / 1000 Balance 2210 / 2310 2200 / 4510 Weight last 48 hrs Weight 106.5 kg Weight 106.5 kg Weight 101.5 kg Weight 104.326 kg Physical Exam 2 Narrative: General Exam no distress Neck is supple no lymphadenopathy thyromegaly Cardiovascular regular rate and rhythm, no murmur Lungs clear no wheezing or crackles Abdomen is soft. Positive bowel sounds. Not significantly tender Extremities no cyanosis clubbing or edema, cap refill brisk Data 03/04/24 04:24 03/04/24 04:24 A&P Assessment and plan (1) New onset atrial fibrillation: New onset A-fib noted last night Not a candidate for anticoagulation Received 1 dose of amiodarone, metoprolol p.o. Cardizem will be easier to titrate considering his n.p.o. status. No bolus. Will continue metoprolol pushes if needed. TSH magnesium have been checked Potassium has been supplemented Check echo (2) Acute hypokalemia: Supplemented and normal this morning, check again tomorrow. (3) GI bleed: Patient presents with GI bleeding He previously had a gastric ulcer, duodenitis Continue Protonix 40 mg IV every 12 hours. He received 80 mg IV in the ER. Continue IV fluids Repeat CBC tomorrow. Hemoglobin appears to stabilized Morphine if needed for pain Empiric antibiotics, cefepime plus Flagyl secondary to intestinal perforation. No antifungals warranted at this time. (4) Duodenal ulcer: Continue Protonix 40 mg IV every 12 hours No history of cirrhosis or evidence of. INR normal. Concern on imaging that this has a contained perforation (5) ANDREAS (iron deficiency anemia): Repeat iron sucrose dosing today (6) Microcytosis: Has iron deficiency anemia, see above Plan Multiple other medical problems as outlined in past medical history Full code SCDs for DVT prophylaxis, anticoagulation contraindicated secondary to GI bleeding High risk for acute decompensation. Attestations 2 Medical Necessity Statement*: Needs continued hospitalization for IV antibiotics, evaluation of large duodenal ulcer with possible contained perforation Diagnoses New onset atrial fibrillation I48.91 Acute hypokalemia E87.6 GI bleed K92.2 Duodenal ulcer K26.9 ANDREAS (iron deficiency anemia) D50.9 Microcytosis R71.8 Time Spent (min) 28
[2024-03-04] MEDS: dilTIAZem 100 MG in sodium chloride 0.9% (add-van) 100 ML IV (08:09)
[2024-03-04] MEDS: iron sucrose 200 MG in sodium chloride 0.9% (100 ml) 100 ML 220 MG IV (09:57)
[2024-03-04] MEDS: pantoprazole 40 mg SDV IVP ×2 (10:39→22:18)
[2024-03-04 17:05] LABS: Hematocrit 32.8 % (37-53)
[2024-03-04] MEDS: morphine 4 mg/mL SDV 1 mL IVP (17:16)
--- NOTE | 2024-03-04 21:50 | PC.NURSE ---
Reba drip: Patient was in SR, Dr. Reina was contacted and gave telephone orders to stop reba esteves.
[2024-03-05] VITALS (31 sets, daily range): BP systolic 98–146; BP diastolic 64–94; PULSE 55–73; RESP 12–24; TEMP 36.4–36.9; O2SAT 91–100; BMI 33.2
[2024-03-05] MEDS: cefepime 2,000 mg SDV 2000 MG IV ×2 (01:00→13:25)
[2024-03-05] MEDS: metroNIDAZOLE IV 500 MG/100 ML PREMIX 100 MG IV ×4 (01:00→19:14)
[2024-03-05] MEDS: morphine 4 mg/mL SDV 1 mL IVP ×2 (02:02→23:05)
[2024-03-05 04:20] LABS: Basophils % 0.5 %; Eosinophils # 0.1 10^3/uL (0.0-0.8); Eosinophils % 2.8 %; Hematocrit 30.4 % (37-53); Lymphocytes # 1.3 10^3/uL (0.8-4.8); Lymphocytes % 31.4 %; Mean Corpuscular HGB Conc 28.6 g/dL (30-55); Mean Corpuscular Hemoglobin 20.9 pg (27-33); Mean Corpuscular Volume 72.9 fl (82-101); Mean Platelet Volume 10.7 fL (7.4-10.4); Monocytes # 0.5 10^3/uL (0.2-0.9); Monocytes % 11.6 %; Neutrophils # 2.26 10^3/uL (1.8-7.7); Neutrophils % 53.2 %; Nucleated Red Blood Cells % 0 %; Platelet Count 269 10^3/cmm (157-399); Red Blood Count 4.17 10^6/uL (3.85-5.65); Red Cell Distribution Width 20.7 % (12.1-15.1); White Blood Count 4.24 10^3/uL (3.29-11.43)
[2024-03-05 04:46] LABS: Alanine Aminotransferase 14 U/L (0-41); Albumin Level 3.3 g/dL (3.5-5.2); Alkaline Phosphatase 76 U/L (40-130); Anion Gap 11.1 (5-19); Aspartate Amino Transferase 10 U/L (0-40); Blood Urea Nitrogen 9 mg/dL (6-20); Calcium 7.9 mg/dL (8.5-10.5); Carbon Dioxide 25 mmol/L (22-29); Chloride 106 mmol/L (98-107); Creatinine Clr Calc Pharmacy 163.7167; Globulin 2.7 g/dL (1.3-4.6); Glomerular Filtration Rate 121.4 mL/min (90-130); Glucose 92 mg/dL (65-115); Osmolality Calculated 284 mOsm/kg (285-295); Potassium 4.1 mmol/L (3.5-5.1); Sodium 138 mmol/L (136-145); Total Bilirubin 0.3 mg/dL (0.15-1.2)
--- NOTE | 2024-03-05 05:06 | FL_ITS ---
WS: [id number] Upper GI series with Gastrografin, 03/05/2024 Clinical Data: evaluation duodenal ulcer Comparison: CT abdomen, 03/03/2024 Spot films: 11 Fluoroscopy time 3.2 minutes Findings: The preliminary film was not remarkable. The patient drank the Gastrografin flowed normally through t he esophagus. There was a small hiatal hernia but no erosion. The barium filled the stomach and the g astric rugae were normal. No gastric ulcer or extravasation could be seen. There were no extrinsic ga stric deformities. The Gastrografin passed into the duodenum which was a narrow and scarred. There wa s delayed passage into the descending duodenum. No fistula or extravasation occurred. FL/FL upper GI gastrografin [id number] Impression: 1. Narrowing and deformity of the duodenal bulb consistent with duodenal ulcer. 2. Narrowing of the descending duodenum consistent with duodenum nidus. 3. No evidence of fistula or extravasation.
--- NOTE | 2024-03-05 06:40 | P.PN_ITS ---
Subjective 2 Subjective: Doing well overnight, no significant abdominal pain, resting in bed during my morning evaluation. Vitals/I&O/Wt Last Vital Signs Temp 98.1 F 03/05/24 04:30 Pulse 58 L 03/05/24 06:00 Resp 15 03/05/24 06:00 BP 107/72 03/05/24 06:00 Pulse Ox 99 03/05/24 06:00 O2 Del Method Room Air 03/05/24 06:00 03/04/24 03/04/24 03/05/24 14:59 22:59 06:59 Intake Total 215.917 / 201.120 0697.833 / 1175.854 2392 / 2722.750 Output Total 300 / 300 1450 / 1750 250 / 2000 Balance -84.083 / -84.083 -43.167 / -127.250 850 / 722.750 Weight last 48 hrs Weight 238 lb 1.588 oz Weight 234 lb 12.677 oz Weight 234 lb 12.677 oz Weight 223 lb 12.307 oz Weight 230 lb Physical Exam 2 GI: OTHER: Abdomen soft nontender nondistended Data 03/05/24 03:57 03/05/24 03:57 A&P Assessment and plan (1) GI bleed: (2) Duodenal ulcer: Plan Patient showing excellent progression after conservative management of duodenal ulcer with possible contained perforation. We will obtain an upper GI study today and if no significant leakage is noted we will proceed to advance a diet. His white count has been normal heart rate blood pressure had also been normal no fever and no abdominal pain. Attestations 2 Medical Necessity Statement*: Per medical team Coding Level of Care Code Acute Code for [facility] Diagnoses GI bleed K92.2 Duodenal ulcer K26.9
--- NOTE | 2024-03-05 07:24 | P.PN_ITS ---
Subjective 2 Subjective: No bleeding overnight. Denies any pain this morning. Eager to eat if he can, upper GI pending. Medications: Reviewed: Yes Vitals/I&O/Wt Last Vital Signs Temp 98.1 F 03/05/24 04:30 Pulse 58 L 03/05/24 06:00 Resp 15 03/05/24 06:00 BP 107/72 03/05/24 06:00 Pulse Ox 99 03/05/24 06:00 O2 Del Method Room Air 03/05/24 06:00 03/04/24 03/05/24 03/05/24 22:59 06:59 14:59 Intake Total 1406.833 / 1565.253 8470 / 2722.750 Output Total 1450 / 1750 250 / 2000 Balance -43.167 / -127.250 850 / 722.750 Weight last 48 hrs Weight 108 kg Weight 106.5 kg Weight 106.5 kg Weight 101.5 kg Weight 104.326 kg Physical Exam 2 Narrative: General Exam no distress Neck is supple no lymphadenopathy thyromegaly Cardiovascular regular rate and rhythm, no murmur Lungs clear no wheezing or crackles Abdomen is soft. Positive bowel sounds. No tenderness Extremities no cyanosis clubbing or edema, cap refill brisk Data 03/05/24 03:57 03/05/24 03:57 A&P Assessment and plan (1) New onset atrial fibrillation: New onset A-fib noted 03/04, resolved quickly, no recurrence. Diltiazem has been discontinued. Not a candidate for anticoagulation secondary to bleeding, [id number] also low.. TSH magnesium have been checked Potassium has been supplemented, normal today Echo taken but pending (2) Acute hypokalemia: Resolved (3) GI bleed: Patient presents with GI bleeding He previously had a gastric ulcer, duodenitis Continue Protonix 40 mg IV every 12 hours. He received 80 mg IV in the ER. Continue IV fluids Repeat CBC tomorrow. Hemoglobin appears to stabilized Morphine if needed for pain Empiric antibiotics, cefepime plus Flagyl secondary to intestinal perforation. No antifungals warranted at this time. (4) Duodenal ulcer: Continue Protonix 40 mg IV every 12 hours No history of cirrhosis or evidence of. INR normal. Concern on imaging that this has a contained perforation Upper GI today (5) ANDREAS (iron deficiency anemia): Repeat iron sucrose dosing today, this will be third infusion (6) Microcytosis: Has iron deficiency anemia, see above Plan Multiple other medical problems as outlined in past medical history Full code SCDs for DVT prophylaxis, anticoagulation contraindicated secondary to GI bleeding High risk for acute decompensation. May transfer to medical surgical floor Attestations 2 Medical Necessity Statement*: Needs continued hospitalization for further exploration of duodenal ulceration with likely contained perforation. Diagnoses New onset atrial fibrillation I48.91 Acute hypokalemia E87.6 GI bleed K92.2 Duodenal ulcer K26.9 ANDREAS (iron deficiency anemia) D50.9 Microcytosis R71.8 Time Spent (min) 24
[2024-03-05] MEDS: iron sucrose 200 MG in sodium chloride 0.9% (100 ml) 100 ML 220 MG IV (07:58)
[2024-03-05] MEDS: pantoprazole 40 mg SDV IVP ×2 (10:25→22:41)
[2024-03-05] MEDS: dextrose 5%-lr + KCl 20 1,000 ML 125 MEQ IV (13:25)
--- NOTE | 2024-03-05 15:22 | PM.MISC ---
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 We will advance diet to clear liquid diet today we will plan to advance to full liquid tomorrow patient will be started on Carafate. Plan was discussed with medical team.
[2024-03-05] MEDS: sucralfate 1 gm/10 mL Oral Liq UDC PO ×2 (17:39→20:22)
[2024-03-05] MEDS: acetaminophen 500 mg Tablet 1000 MG PO (19:23)
[2024-03-06] VITALS (8 sets, daily range): BP systolic 104–127; BP diastolic 64–80; PULSE 55–96; RESP 16–18; TEMP 36.4–36.8; O2SAT 92–99
[2024-03-06] MEDS: dextrose 5%-lr + KCl 20 1,000 ML 125 MEQ IV (00:38)
[2024-03-06] MEDS: cefepime 2,000 mg SDV 2000 MG IV (01:18)
[2024-03-06] MEDS: metroNIDAZOLE IV 500 MG/100 ML PREMIX 100 MG IV ×2 (01:19→06:06)
[2024-03-06 05:21] LABS: Basophils % 0.6 %; Eosinophils # 0.1 10^3/uL (0.0-0.8); Hematocrit 25.8 % (37-53); Lymphocytes # 1.4 10^3/uL (0.8-4.8); Lymphocytes % 42.3 %; Mean Corpuscular HGB Conc 29.1 g/dL (30-55); Mean Corpuscular Hemoglobin 20.8 pg (27-33); Mean Corpuscular Volume 71.5 fl (82-101); Mean Platelet Volume 10.4 fL (7.4-10.4); Monocytes # 0.4 10^3/uL (0.2-0.9); Monocytes % 10.7 %; Neutrophils # 1.45 10^3/uL (1.8-7.7); Neutrophils % 43.1 %; Nucleated Red Blood Cells % 0 %; Platelet Count 239 10^3/cmm (157-399); Red Blood Count 3.61 10^6/uL (3.85-5.65); Red Cell Distribution Width 20.4 % (12.1-15.1); White Blood Count 3.36 10^3/uL (3.29-11.43)
[2024-03-06 05:39] LABS: Anion Gap 11.2 (5-19); Blood Urea Nitrogen 6 mg/dL (6-20); Calcium 7.6 mg/dL (8.5-10.5); Carbon Dioxide 22 mmol/L (22-29); Chloride 109 mmol/L (98-107); Glomerular Filtration Rate 121.4 mL/min (90-130); Glucose 97 mg/dL (65-115); Osmolality Calculated 284 mOsm/kg (285-295); Potassium 4.2 mmol/L (3.5-5.1); Sodium 138 mmol/L (136-145)
[2024-03-06] MEDS: sucralfate 1 gm/10 mL Oral Liq UDC PO ×4 (06:06→20:04)
--- NOTE | 2024-03-06 08:08 | P.PN_ITS ---
Subjective 2 Subjective: Had some loose dark stool through the night. He believes possibly 4, only 1 charted. Denies any abdominal pain, nausea. Medications: Reviewed: Yes Vitals/I&O/Wt Last Vital Signs Temp 97.6 F 03/06/24 07:42 Pulse 59 L 03/06/24 07:42 Resp 16 03/06/24 07:42 BP 121/80 03/06/24 07:42 Pulse Ox 92 03/06/24 07:42 O2 Del Method Room Air 03/06/24 07:42 03/05/24 03/06/24 03/06/24 22:59 06:59 14:59 Intake Total 2150 / 3250 200 / 3450 Output Total 500 / 500 Balance 2150 / 3250 -300 / 2950 Weight last 48 hrs Weight 112.519 kg Weight 108 kg Physical Exam 2 Narrative: General Exam no distress Neck is supple no lymphadenopathy thyromegaly Cardiovascular regular rate and rhythm, no murmur Lungs clear no wheezing or crackles Abdomen is soft. Positive bowel sounds. No tenderness Extremities no cyanosis clubbing or edema, cap refill brisk Data 03/06/24 05:00 03/06/24 05:00 A&P Assessment and plan (1) New onset atrial fibrillation: New onset A-fib noted 03/04, resolved quickly, no recurrence. Diltiazem has been discontinued. Not a candidate for anticoagulation secondary to bleeding, [id number] also low.. TSH magnesium have been checked, normal Electrolytes normal Echo normal With baseline heart rate of 60, no further treatment will be given (2) Acute hypokalemia: Resolved (3) GI bleed: Patient presents with GI bleeding He previously had a gastric ulcer, duodenitis Continue Protonix 40 mg IV every 12 hours. He received 80 mg IV in the ER. Discontinue IV fluids Hemoglobin somewhat lower. Repeat hemoglobin around 11. If rebounds, advance diet Morphine if needed for pain Antibiotics can be discontinued at this time Continue to monitor at least until tomorrow (4) Duodenal ulcer: Continue Protonix 40 mg IV every 12 hours No history of cirrhosis or evidence of. INR normal. Concern on imaging that this has a contained perforation Upper GI on March 05 did not demonstrate perforation (5) ANDREAS (iron deficiency anemia): Has received 3 infusions which should be adequate (6) Microcytosis: Has iron deficiency anemia, see above Plan Multiple other medical problems as outlined in past medical history Full code SCDs for DVT prophylaxis, anticoagulation contraindicated secondary to GI bleeding Still currently at risk for decompensation. Attestations 2 Medical Necessity Statement*: Needs continued close monitoring secondary to worsening hemoglobin, in this patient with duodenal ulcer with concern of perforation, with high risk for rebleed as no specific mechanical intervention has been done. Diagnoses New onset atrial fibrillation I48.91 Acute hypokalemia E87.6 GI bleed K92.2 Duodenal ulcer K26.9 ANDREAS (iron deficiency anemia) D50.9 Microcytosis R71.8 Time Spent (min) 21
--- NOTE | 2024-03-06 08:13 | P.PN_ITS ---
Subjective 2 Subjective: This is a 48-year-old male with history of duodenal ulcer with possible contained perforation. He was managed conservatively with antibiotics and high- dose PPI. Yesterday the upper GI was done and was negative for evidence of a leak. Patient has been doing okay no significant abdominal pain tolerating clear liquids Several bowel movements yesterday, no melena reported. Vitals/I&O/Wt Last Vital Signs Temp 97.6 F 03/06/24 07:42 Pulse 59 L 03/06/24 07:42 Resp 16 03/06/24 07:42 BP 121/80 03/06/24 07:42 Pulse Ox 92 03/06/24 07:42 O2 Del Method Room Air 03/06/24 07:42 03/05/24 03/06/24 03/06/24 22:59 06:59 14:59 Intake Total 2150 / 3250 200 / 3450 Output Total 500 / 500 Balance 2150 / 3250 -300 / 2950 Weight last 48 hrs Weight 248 lb 1 oz Weight 238 lb 1.588 oz Physical Exam 2 GI: OTHER: Abdominal exam is benign abdomen soft nontender nondistended. Data 03/06/24 05:00 03/06/24 05:00 A&P Assessment and plan (1) GI bleed: (2) Duodenal ulcer: Plan Patient showing excellent progression after conservative management of a duodenal ulcer with possible contained perforation. He can be advanced to full liquid diet today, if tolerating diet he will be cleared for discharge by general surgery by tomorrow. Patient will need to continue high-dose PPI and Carafate at home. Of note his hemoglobin did trended down today, but he has not had any hematemesis or bloody stools. In the case of further downtrend of the hemoglobin we may consider obtaining a CT of the abdomen to evaluate for possible source of bleeding, at this point I do not recommend to proceed with any kind of endoscopic evaluation as the patient has been recently treated for a possible duodenal perforation, in the case of recurrent bleeding patient will need to be transferred out for IR evaluation rather than to proceed with an endoscopic procedure that can precipitate rupture of the duodenum. -Can be advanced to full liquid diet -Continue high-dose PPI and Carafate -Additional management per primary team is appreciated. Attestations 2 Medical Necessity Statement*: Per medical team Coding Level of Care Code Acute Code for Chg Fwd Diagnoses GI bleed K92.2 Duodenal ulcer K26.9
[2024-03-06] MEDS: pantoprazole 40 mg SDV IVP ×2 (11:02→22:39)
[2024-03-06 11:06] LABS: Hematocrit 28.5 % (37-53)
[2024-03-07 04:00] VITALS: BP 112/72; PULSE 66; RESP 16; TEMP 36.6; O2SAT 96
[2024-03-07 04:57] LABS: Basophils % 0.4 %; Eosinophils # 0.1 10^3/uL (0.0-0.8); Eosinophils % 2.2 %; Lymphocytes # 1.5 10^3/uL (0.8-4.8); Lymphocytes % 32.8 %; Mean Corpuscular HGB Conc 29.3 g/dL (30-55); Mean Corpuscular Hemoglobin 20.8 pg (27-33); Mean Corpuscular Volume 71.1 fl (82-101); Mean Platelet Volume 10.1 fL (7.4-10.4); Monocytes # 0.5 10^3/uL (0.2-0.9); Monocytes % 11.4 %; Neutrophils # 2.36 10^3/uL (1.8-7.7); Neutrophils % 52.8 %; Nucleated Red Blood Cells % 0 %; Platelet Count 294 10^3/cmm (157-399); Red Blood Count 3.94 10^6/uL (3.85-5.65); White Blood Count 4.48 10^3/uL (3.29-11.43)
[2024-03-07 05:30] LABS: Anion Gap 13.7 (5-19); Blood Urea Nitrogen 4 mg/dL (6-20); Carbon Dioxide 24 mmol/L (22-29); Chloride 110 mmol/L (98-107); Glomerular Filtration Rate 121.4 mL/min (90-130); Glucose 135 mg/dL (65-115); Magnesium 2.1 mg/dL (1.7-2.3); Osmolality Calculated 293 mOsm/kg (285-295); Potassium 5.7 mmol/L (3.5-5.1); Sodium 142 mmol/L (136-145)
[2024-03-07] MEDS: sucralfate 1 gm/10 mL Oral Liq UDC PO ×2 (05:38→14:45)
[2024-03-07 06:00] VITALS: BMI 34.0
[2024-03-07 08:00] VITALS: BP 127/75; PULSE 75; RESP 15; TEMP 36.5; O2SAT 97
--- NOTE | 2024-03-07 09:13 | P.PN_ITS ---
Subjective 2 Subjective: Doing well over the last 24 hours has tolerated diet. No abdominal pain, doing well otherwise Vitals/I&O/Wt Last Vital Signs Temp 97.7 F 03/07/24 08:00 Pulse 75 03/07/24 08:00 Resp 15 03/07/24 08:00 BP 127/75 03/07/24 08:00 Pulse Ox 97 03/07/24 08:00 O2 Del Method Room Air 03/07/24 08:00 03/06/24 03/07/24 03/07/24 22:59 06:59 14:59 Intake Total 360 / 2440 250 / 250 Balance 360 / 2440 250 / 250 Weight last 48 hrs Weight 244 lb 6 oz Weight 248 lb 1 oz Physical Exam 2 GI: OTHER: Abdomen soft nontender nondistended. Data 03/07/24 04:49 03/07/24 04:49 A&P Assessment and plan (1) Duodenal ulcer: (2) GI bleed: Plan Patient showing excellent progression after conservative management of large duodenal ulcer with suspected contained perforation. Patient is cleared to be discharged from the general surgery standpoint, he needs to continue high-dose PPI and liquid Carafate as outpatient, will plan to do an endoscopy in 4 to 6 weeks to evaluate the anatomy of the duodenum. -Please continue twice a day PPI and liquid Carafate as outpatient, he can follow-up in my clinic in 2 weeks. Attestations 2 Medical Necessity Statement*: Per medical team Coding Level of Care Code Acute Code for Chg Fwd Diagnoses Duodenal ulcer K26.9 GI bleed K92.2
[2024-03-07 12:00] VITALS: BP 135/72; PULSE 65; RESP 15; TEMP 36.9; O2SAT 98
--- NOTE | 2024-03-07 14:23 | P.DS_ITS ---
Discharge Providers Date of Admission: 03/03/24 12:34 Date of Discharge: March 07, 2024 Attending Provider at Admission: Chris Mendez MD Attending Provider at Discharge: Fide Finney MD Primary Care Provider: Jesus Colmenares MD Diagnoses at Discharge Discharge Diagnosis (1) Duodenal ulcer: Status: Acute (2) GI bleed: Status: Acute Reason for Visit Reason for Visit: N/V Hospital Course Hospital Course 48-year-old with history of mental health disorder admitted to the hospital with upper GI bleed likely secondary to aspirin use.?Based on CT from 03/03 , there was concern he had duodenal ulceration with contained perforation.? Upper GI series on 03/05 showed no leak from the duodenum, so clear liquid diet was initiated.? Diet was advanced on 03/06, hemoglobin remained stable at 8.2 today. Patient showed excellent progression after conservative management of large duodenal ulcer with suspected contained perforation. he was cleared for discharge from general surgery today. He needs to continue high-dose PPI and liquid Carafate as outpatient, with plan to do an endoscopy in 4 to 6 weeks to evaluate the anatomy of the duodenum. Aspirin has been discontinued at discharge. He did have transient A-fib with this hospitalization.? [id number] score is low, he is not a candidate for anticoagulation, Echo was normal. He is therefore not on any anticoagulation. Physical Exam Narrative: General: No acute distress, AO x3 HEENT: PERRLA, pupils bilaterally equal and reactive, pallors not present Chest: Normal vesicular breath sounds, no added sounds, equal good air entry bilaterally CVS: S1-S2 regular, no murmurs, no tachycardia, no gallops, no rubs Abdomen: Soft, nontender, no organomegaly, bowel sounds present Neuro: No focal deficits, no facial deformity, AO x3, power 5/5 in all limbs Discharge Data Studies Completed and Pending Completed Studies During Hospitalization Category Date Time Status CT abdomen pelvis w con* [id number] Stat Cat Scan 03/03/24 09:12 Completed [place] UGI gastrografin [FL upper GI gastrografin [id number]] Exams 03/05/24 05:06 Completed Stat CV. echo complete* [id number] Routine Ultrasound 03/04/24 07:32 Completed Radiology Impressions Abdomen/Pelvis CT 03/03/24 09:12 IMPRESSION: 1. Large duodenal ulcer measuring 2.8 x 4.0 cm in the proximal duodenum. Con tained perforated ulcer contains a small amount of air. There is no free air within the peritoneal cavity. Hyperemia involving the gastric and duodenal mucosa with a large amount of edema. 2. Additional circumferential wall thickening and edema involving the distal esophagus through the GE junction may be related to vomiting. New since 11/29/2023. Gastrografin Study 03/05/24 05:06 Impression: 1. Narrowing and deformity of the duodenal bulb consistent with duodenal ulcer. 2. Narrowing of the descending duodenum consistent with duodenum nidus. 3. No evidence of fistula or extravasation. Laboratory Results WBC 4.48 10^3/uL (3.29-11.43) 03/07/24 04:49 RBC 3.94 10^6/uL (3.85-5.65) 03/07/24 04:49 Hgb 8.20 g/dL (11.27-16.99) L 03/07/24 04:49 Hct 28.0 % (37-53) L 03/07/24 04:49 MCV 71.1 fl (82-101) L 03/07/24 04:49 MCH 20.8 pg (27-33) L 03/07/24 04:49 MCHC 29.3 g/dL (30-55) L 03/07/24 04:49 RDW 21.0 % (12.1-15.1) H 03/07/24 04:49 Plt Count 294 10^3/cmm (157-399) 03/07/24 04:49 MPV 10.1 fL (7.4-10.4) 03/07/24 04:49 Neut % (Auto) 52.8 % 03/07/24 04:49 Lymph % (Auto) 32.8 % 03/07/24 04:49 [place] % (Auto) 11.4 % 03/07/24 04:49 Eos % (Auto) 2.2 % 03/07/24 04:49 Baso % (Auto) 0.4 % 03/07/24 04:49 Neut # (Auto) 2.36 10^3/uL (1.8-7.7) 03/07/24 04:49 Lymph # (Auto) 1.5 10^3/uL (0.8-4.8) 03/07/24 04:49 [place] # (Auto) 0.5 10^3/uL (0.2-0.9) 03/07/24 04:49 Eos # (Auto) 0.1 10^3/uL (0.0-0.8) 03/07/24 04:49 Baso # (Auto) 0.0 10^3/uL (0.0-0.1) 03/07/24 04:49 Nucleated RBC % (auto) 0 % 03/07/24 04:49 Nucleated RBCs # 0.0 /100WBC 03/07/24 04:49 PT 13.30 SECONDS (12.1-14.9) 03/03/24 09:39 INR 0.98 (0.8-1.2) 03/03/24 09:39 Sodium 142 mmol/L (136-145) 03/07/24 04:49 Potassium 5.7 mmol/L (3.5-5.1) H 03/07/24 04:49 Chloride 110 mmol/L (98-107) H 03/07/24 04:49 Carbon Dioxide 24 mmol/L (22-29) 03/07/24 04:49 Anion Gap 13.7 (5-19) 03/07/24 04:49 BUN 4 mg/dL (6-20) L 03/07/24 04:49 Creatinine 0.7 mg/dL (0.7-1.2) 03/07/24 04:49 GFR Calculation 121.4 mL/min (90-130) 03/07/24 04:49 Glucose 135 mg/dL (65-115) H 03/07/24 04:49 Calculated Osmolality 293 mOsm/kg (285-295) 03/07/24 04:49 Calcium 8.0 mg/dL (8.5-10.5) L 03/07/24 04:49 Phosphorus 3.5 mg/dL (2.5-4.5) 03/03/24 21:32 Magnesium 2.1 mg/dL (1.7-2.3) 03/07/24 04:49 Iron 32 ug/dL (59-158) L 03/03/24 10:35 TIBC 454 mcg/dl 03/03/24 10:35 % Saturation 7.0 % (20-50) L 03/03/24 10:35 Unsat Iron Binding 422 ug/dL (112-347) H 03/03/24 10:35 Ferritin 22 ng/mL (30-400) L 03/03/24 10:35 Total Bilirubin 0.3 mg/dL (0.15-1.2) 03/05/24 03:57 AST 10 U/L (0-40) 03/05/24 03:57 ALT 14 U/L (0-41) 03/05/24 03:57 Alkaline Phosphatase 76 U/L (40-130) 03/05/24 03:57 Troponin T 5th Gen ng/L 17 ng/L (0-15) H 03/03/24 21:32 Total Protein 6.0 g/dL (6.6-8.7) L 03/05/24 03:57 Albumin 3.3 g/dL (3.5-5.2) L 03/05/24 03:57 Globulin 2.7 g/dL (1.3-4.6) 03/05/24 03:57 Lipase 14 U/L (13-60) 03/03/24 09:29 TSH 0.89 uIU/mL (0.27-4.20) 03/03/24 21:32 Urine Color Yellow (Yellow) 03/03/24 11:20 Urine Appearance Clear (CLEAR) 03/03/24 11:20 Urine pH 8.5 (5-7) A 03/03/24 11:20 Ur Specific [place] 1.076 (1.005-1.030) H 03/03/24 11:20 Urine Protein 2+ (Negative) A 03/03/24 11:20 Urine Glucose (UA) Negative (Normal) 03/03/24 11:20 Urine Ketones Negative (Negative) 03/03/24 11:20 Urine Blood Negative (Negative) 03/03/24 11:20 Urine Nitrate Negative (Negative) 03/03/24 11:20 Urine Bilirubin Negative (Negative) 03/03/24 11:20 Urine Urobilinogen 1.0 mg/dL (Negative) 03/03/24 11:20 Ur Leukocyte Esterase Negative (Negative) 03/03/24 11:20 Urine RBC 0-4 /hpf (0-2) H 03/03/24 11:20 Urine WBC 0-4 /hpf (0-5) H 03/03/24 11:20 Ur Squamous Epith Cells 0-4 /hpf (0-5) H 03/03/24 11:20 Ur Transition Epith Cell 0-4 /hpf 03/03/24 11:20 Amorphous Sediment Trace /hpf 03/03/24 11:20 Urine Bacteria Trace /hpf (NONE) 03/03/24 11:20 Hyaline Casts 15-25 /lpf H 03/03/24 11:20 Urine Mucus 1+ /hpf 03/03/24 11:20 Blood Type B Negative 03/03/24 10:35 Rho(D) Type Rh negative 03/03/24 10:35 Antibody Screen Negative 03/03/24 10:35 Vitals Last Vital Signs Temp 98.4 F 03/07/24 12:00 Pulse 65 03/07/24 12:00 Resp 15 03/07/24 12:00 BP 135/72 03/07/24 12:00 Pulse Ox 98 03/07/24 12:00 O2 Del Method Room Air 03/07/24 12:00 Discharge Plan Discharge Patient Disposition: Home Condition: Stable Prescriptions: New pantoprazole [Protonix] 40 mg tablet,delayed release (DR/EC) 40 mg PO BID 28 Days Qty: 56 0RF sucralfate 100 mg/mL Suspension 1 g PO AC&BEDTIME 30 Days Qty: 100 0RF Continued docusate sodium [Stool Softener] 100 mg Capsule 100 mg PO BID PRN (Reason: Constipation) Discontinued aspirin 325 mg Tablet 325 mg PO Q4H PRN (Reason: Pain) famotidine 20 mg Tablet 20 mg PO DAILY PRN (Reason: Acid Reflux) Discharge Orders: Discharge Order (Routine); Ordered 03/07/24 Ordered By: Fide Finney Referrals: Joshua Snell DO [Physician] - (We have notified your physician's clinic of the need for a follow-up appointment to be scheduled. If you have not heard from them within the next 2 business days, please call them directly. ) Jesus Colmenares MD [Primary Care Provider] - (We have notified your physician's clinic of the need for a follow-up appointment to be scheduled. If you have not heard from them within the next 2 business days, please call them directly. ) Patient Instructions: Opioid Safety Discharge Attestations Time Spent in Discharge Care*: greater than 30 min Status at Discharge: Cognitive status at discharge: cognitively intact , Behavioral status at discharge: cooperative , Quality Metrics Clinical Quality Measures [ No reported AMI, CVA or VTE this stay] Coding Level of Care Code Acute Code for Chg Fwd Diagnoses Duodenal ulcer K26.9 GI bleed K92.2
[2024-03-07] MEDS: pantoprazole 40 mg SDV IVP (14:45)
[2024-03-07 15:28] VITALS: BP 135/72; PULSE 65; RESP 15; TEMP 36.9; O2SAT 98
--- NOTE | 2024-03-07 15:32 | PC.NURSE ---
Went over discharge with patient including stop aspirin and famotidine. Discussed new medications with information in discharge packet. Discussed follow up appointments and the importance of keeping the appointments and to complete medications as described. Patient verbalized understanding. Walked patient downstairs for discharge.
== END 2024-03-07 15:35 | disposition home or self-care (01) | DRG 379 ==
LOC: ER 09:31 → ICU 12:34 → MEDSURG 03-05 14:08
PROVIDERS: Internal Medicine; Physician Assistant; Admitting Provider Internal Medicine; Emergency Provider Family Medicine; PCP Family Medicine; Visit Provider Student in an Organized Health Care Education/Training Program
DX: K26.6 Chronic or unspecified duodenal ulcer with both hemorrhage and perforation (principal); D50.9 Iron deficiency anemia, unspecified; E87.6 Hypokalemia; I48.91 Unspecified atrial fibrillation; Z79.82 Long term (current) use of aspirin; F17.210 Nicotine dependence, cigarettes, uncomplicated
CPT/HCPCS: 36415; 74177; 74240; 80048; 80053; 81001; 82728; 83540; 83550; 83690; 83735; 84100; 84443; 84484; 85014; 85018; 85025; 85610; 86850; 86900; 93005; 93306; 96361; 96374; 96376; 99285; J0283; J0692; J1756; J2270; J2470; J3490; J7030; J7120

== ENCOUNTER → 2024-03-11 10:42 | Outpatient (BNVA) | payer MEDICAID, SELFPAY | PROVIDERS: PCP Family Medicine; Visit Provider Family Medicine | DX: D50.9 Iron deficiency anemia, unspecified (principal); E87.5 Hyperkalemia | CPT/HCPCS: 80053; 82728; 83550; 85025 ==

== ENCOUNTER → 2024-03-19 10:19 | Outpatient (BNVA) | payer MEDICAID, SELFPAY | PROVIDERS: PCP Family Medicine; Visit Provider Surgery | DX: K26.9 Duodenal ulcer, unspecified as acute or chronic, without hemorrhage or perforation (principal) | CPT/HCPCS: 99204; 99214 ==

== ENCOUNTER 2024-05-29 22:27 | Inpatient (IN) | payer MEDICAID, SELFPAY ==
[2024-05-13 11:18] VITALS: BP 108/66; BMI 29.4
[2024-05-29 22:29] VITALS: BP 193/130; PULSE 117; RESP 18; TEMP 36.6; O2SAT 98; BMI 36.2
--- NOTE | 2024-05-29 22:39 | W.ED.PSYCHS ---
Documented by User: PHIL Cisneros 05/29/24 23:55 HPI - Psych General: Chief Complaint: Psychiatric Symptoms Stated Complaint: HALLUCINATIONS Time Seen by Provider: 05/29/24 22:32 Source: patient and EMS Mode of arrival: EMS Limitations: other (Very poor historian) History of Present Illness: Patient is a 48-year-old male with extensive psychiatric history who is brought in by EMS for mental health evaluation. Patient objectively was brought in from the homeless half-way by EMS due to homicidal ideations towards other occupants. Per EMS, patient was claiming that he is the president and that one of the EMS drivers was his ex-boyfriend. Here in the emergency department, he is claiming to me that he is the head of the [employer] and he had ordered a 96-hour hold on himself. When asking why he would do this, he states that he does not have to answer to anyone. He is displaying ideas of grandeur and is tangential with conversation. He does not report any suicidal ideations though does not directly answer this question. He is noted at multiple times to be acknowledging someone or something talking to him while I am interviewing him in the room, when I ask him if he takes any medications he says no and you will not be giving me any medications until I speak to my principal scientist. Patient states that he is at the homeless half-way because you took my house and all of my possessions away for me. Overall the history, review of systems, and physical exam is unreliable due to patient's noncompliance. 96-hour hold is being obtained at this time. MD complaint: other (Mental health evaluation, hallucinations, homicidal ideations) Context: other (Poor historian, noncompliant with history and physical) Associated psychiatric symptoms: homicidal ideation, auditory hallucinations, visual hallucinations and delusions Associated symptoms: Reports auditory hallucinations, visual hallucinations and homicidal ideation; Deny suicidal ideation Related Data Home Medications Medication Instructions Recorded Confirmed ascorbic acid (vitamin C) 500 mg 500 mg PO DAILY 04/14/24 05/30/24 capsule Previous Rx's Medication Instructions Recorded ferrous sulfate 325 mg (65 mg 325 mg PO .q48 3 months #45 tabs 03/12/24 iron) tablet (Feosol) pantoprazole 40 mg tablet,delayed 40 mg PO BID 30 days #60 tabs 04/09/24 release (Protonix) Allergies Allergy/AdvReac Type Severity Reaction Status Date / Time amoxicillin AdvReac Intermediate Rash Verified 04/14/24 09:37 Penicillins AdvReac Intermediate Rash Verified 04/14/24 09:37 Review of Systems General: Reports: Other (Unobtainable/limited due to noncompliant patient) Psych: Reports: paranoia, visual hallucinations, auditory hallucinations, tactile hallucinations and homicidal ideation; Denies: suicidal ideation PFSH ED PFSH: Medical History Auditory hallucination Varicose vein of leg Psychiatric care Schizoaffective disorder, bipolar type without good prognostic features Chronic schizophrenia Spina bifida Peripheral neuropathy Duodenal ulcer Perforated stomach GI bleed Anemia Upper gastrointestinal hemorrhage Chronic idiopathic constipation Folliculitis cruris pustulosa atrophicans Nonvenomous insect bite of neck Nicotine dependence, unspecified, uncomplicated Schizoaffective disorder, bipolar type Borderline personality disorder Surgical History History of incision and drainage left hip History of tonsillectomy History of carpal tunnel surgery of right wrist History of back surgery History of cholecystectomy Family History Mother Bleeding disorder anemia Cancer uterine Hypertension Lung disease asthma Grandmother Bleeding disorder anemia Diabetes Father Cancer melonoma Hyperlipidemia Grandfather Chronic kidney disease (CKD) Diabetes Stroke Other Acute psychosis Denies family history of CAD (coronary artery disease) Clotting disorder Dementia Psychiatric illness Anesthesia complication Social History Smoking and tobacco/nicotine status: current every day tobacco/nicotine user cigarettes Quit status (tobacco/nicotine): has tried quititng Number of times tried to quit tobacco: 8 Second hand smoke exposure: No Alcohol intake: current Alcohol intake frequency: holidays/special occasions only Alcohol type: hard liquor Substance/Drug Use: never Lives independently: Yes Household members: caregiver Marital status: Single Number of children: 0 Current occupational status: disabled Current gender identity: Male Special dagmar needs: No Agree to transfusion: Yes Physical Exam Const: EXAM LIMITATIONS: behavioral limitations (Severely limited) ORIENTATION/CONSCIOUSNESS: Yes awake OTHER: Noncooperative, agitated HENMT: COMMON NORMALS: normocephalic and atraumatic HEAD & SCALP: normocephalic and atraumatic Eye: COMMON NORMALS: EOMs intact bilaterally Neck/C-Spine: COMMON NORMALS: full ROM Resp: COMMON NORMALS: normal respiratory effort, No retractions and No use of accessory muscles Extremity: COMMON NORMALS: normal to inspection and full ROM Neuro: COMMON NORMALS: moves all extremities and no focal motor deficits Psych: APPEARANCE: Yes grossly normal ATTITUDE: Yes paranoid and Yes bizarre ACTIVITY/MOTOR BEHAVIOR: Yes psychomotor agitation SPEECH: Yes soft MOOD & AFFECT: Yes hostile affect THOUGHT PROCESS: Illogical thought process present and Tangential thought process present THOUGHT CONTENT: No Suicidality present, Yes Homicidality present and Yes Hallucination(s) present auditory, visual and tactile INSIGHT: Poor insight present (Psych) Skin: COMMON NORMALS: no rashes or lesions noted GENERAL SKIN EXAM: no rashes or lesions noted Course Vital Signs: Vital signs: Vital Signs Temperature 97.6 F 05/30/24 01:41 Pulse Rate 77 05/30/24 06:00 Respiratory Rate 17 05/30/24 06:00 Blood Pressure 139/63 05/30/24 06:00 Pulse Oximetry 97 05/30/24 06:00 Oxygen Delivery Me thod Room Air 05/30/24 01:46 MDM - Psych Medical Decision Making Patient brought in by ambulance despite having delusional thoughts and ideas of grandiose. Was also endorsing some homicidal ideations. Patient cleared medically, he was placed on 96-hour hold and affidavits are in his chart. Spoke with Dr. Field who agrees to accept the patient to the neuropsychiatric unit. Dr. Broderick placing admit orders at this time. Lab Data 05/29/24 22:52 05/29/24 22:52 Laboratory Results WBC 7.10 10^3/uL (3.29-11.43) 05/29/24 22:52 RBC 5.33 10^6/uL (3.85-5.65) 05/29/24 22:52 Hgb 14.40 g/dL (11.27-16.99) 05/29/24 22:52 Hct 43.7 % (37-53) 05/29/24 22:52 MCV 82.0 fl (82-101) 05/29/24 22:52 MCH 27.0 pg (27-33) 05/29/24 22:52 MCHC 33.0 g/dL (30-55) 05/29/24 22:52 RDW 17.4 % (12.1-15.1) H 05/29/24 22:52 Plt Count 231 10^3/cmm (157-399) 05/29/24 22:52 MPV 9.0 fL (7.4-10.4) 05/29/24 22:52 Neut % (Auto) 60.3 % 05/29/24 22:52 Lymph % (Auto) 27.3 % 05/29/24 22:52 [place] % (Auto) 7.9 % 05/29/24 22:52 Eos % (Auto) 3.8 % 05/29/24 22:52 Baso % (Auto) 0.3 % 05/29/24 22:52 Neut # (Auto) 4.28 10^3/uL (1.8-7.7) 05/29/24 22:52 Lymph # (Auto) 1.9 10^3/uL (0.8-4.8) 05/29/24 22:52 [place] # (Auto) 0.6 10^3/uL (0.2-0.9) 05/29/24 22:52 Eos # (Auto) 0.3 10^3/uL (0.0-0.8) 05/29/24 22:52 Baso # (Auto) 0.0 10^3/uL (0.0-0.1) 05/29/24 22:52 Nucleated RBC % (auto) 0 % 05/29/24 22:52 Nucleated RBCs # 0.0 /100WBC 05/29/24 22:52 Sodium 137 mmol/L (136-145) 05/29/24 22:52 Potassium 3.4 mmol/L (3.5-5.1) L 05/29/24 22:52 Chloride 99 mmol/L (98-107) 05/29/24 22:52 Carbon Dioxide 25 mmol/L (22-29) 05/29/24 22:52 Anion Gap 16.4 (5-19) 05/29/24 22:52 BUN 9 mg/dL (6-20) 05/29/24 22:52 Creatinine 0.7 mg/dL (0.7-1.2) 05/29/24 22:52 GFR Calculation 121.4 mL/min (90-130) 05/29/24 22:52 Glucose 167 mg/dL (65-115) H 05/29/24 22:52 Calculated Osmolality 286 mOsm/kg (285-295) 05/29/24 22:52 Calcium 9.2 mg/dL (8.5-10.5) 05/29/24 22:52 Total Bilirubin 0.2 mg/dL (0.15-1.2) 05/29/24 22:52 AST 13 U/L (0-40) 05/29/24 22:52 ALT 11 U/L (0-41) 05/29/24 22:52 Alkaline Phosphatase 90 U/L (40-130) 05/29/24 22:52 Total Protein 7.4 g/dL (6.6-8.7) 05/29/24 22:52 Albumin 4.3 g/dL (3.5-5.2) 05/29/24 22:52 Globulin 3.1 g/dL (1.3-4.6) 05/29/24 22:52 Salicylates < 0.3 mg/dL (3-10) L 05/29/24 22:52 Acetaminophen < 5.0 ug/mL (10-30) L 05/29/24 22:52 Ethyl Alcohol 22 mg/dL (0-10) H 05/29/24 22:52 No radiology studies performed this visit Discharge Plan Discharge Patient Disposition: Admitted As Inpatient Admit Provider: Manfred Field Clinical Impression: Acute psychosis, Chronic schizophrenia, Homicidal ideation Condition: Stable Coding Level of Care Code ED Music Therapist for Chg Fwd Documented by User: Fitz Larson DO 05/30/24 07:59 HPI - Psych General: Chief Complaint: Psychiatric Symptoms Stated Complaint: HALLUCINATIONS Time Seen by Provider: 05/29/24 22:32 Related Data Home Medications Medication Instructions Recorded Confirmed ascorbic acid (vitamin C) 500 mg 500 mg PO DAILY 04/14/24 05/30/24 capsule Previous Rx's Medication Instructions Recorded ferrous sulfate 325 mg (65 mg 325 mg PO .q48 3 months #45 tabs 03/12/24 iron) tablet (Feosol) pantoprazole 40 mg tablet,delayed 40 mg PO BID 30 days #60 tabs 04/09/24 release (Protonix) Allergies Allergy/AdvReac Type Severity Reaction Status Date / Time amoxicillin AdvReac Intermediate Rash Verified 04/14/24 09:37 Penicillins AdvReac Intermediate Rash Verified 04/14/24 09:37 PFS ED PFSH: Medical History Auditory hallucination Varicose vein of leg Psychiatric care Schizoaffective disorder, bipolar type without good prognostic features Chronic schizophrenia Spina bifida Peripheral neuropathy Duodenal ulcer Perforated stomach GI bleed Anemia Upper gastrointestinal hemorrhage Chronic idiopathic constipation Folliculitis cruris pustulosa atrophicans Nonvenomous insect bite of neck Nicotine dependence, unspecified, uncomplicated Schizoaffective disorder, bipolar type Borderline personality disorder Surgical History History of incision and drainage left hip History of tonsillectomy History of carpal tunnel surgery of right wrist History of back surgery History of cholecystectomy Family History Mother Bleeding disorder anemia Cancer uterine Hypertension Lung disease asthma Grandmother Bleeding disorder anemia Diabetes Father Cancer melonoma Hyperlipidemia Grandfather Chronic kidney disease (CKD) Diabetes Stroke Other Acute psychosis Denies family history of CAD (coronary artery disease) Clotting disorder Dementia Psychiatric illness Anesthesia complication Social History Smoking and tobacco/nicotine status: current every day tobacco/nicotine user cigarettes Quit status (tobacco/nicotine): has tried quititng Number of times tried to quit tobacco: 8 Second hand smoke exposure: No Alcohol intake: current Alcohol intake frequency: holidays/special occasions only Alcohol type: hard liquor Substance/Drug Use: never Lives independently: Yes Household members: caregiver Marital status: Single Number of children: 0 Current occupational status: disabled Current gender identity: Male Special dagmar needs: No Agree to transfusion: Yes Course Vital Signs: Vital signs: Vital Signs Temperature 97.6 F 05/30/24 01:41 Pulse Rate 77 05/30/24 06:00 Respiratory Rate 17 05/30/24 06:00 Blood Pressure 139/63 05/30/24 06:00 Pulse Oximetry 97 05/30/24 06:00 Oxygen Delivery Me thod Room Air 05/30/24 01:46 MDM - Psych Medical Decision Making Patient brought in by ambulance despite having delusional thoughts and ideas of grandiose. Was also endorsing some homicidal ideations. Patient cleared medically, he was placed on 96-hour hold and affidavits are in his chart. Spoke with Dr. Field who agrees to accept the patient to the neuropsychiatric unit. Dr. Broderick placing admit orders at this time. Chart reviewed Lab Data 05/29/24 22:52 05/29/24 22:52 Laboratory Results WBC 7.10 10^3/uL (3.29-11.43) 05/29/24 22:52 RBC 5.33 10^6/uL (3.85-5.65) 05/29/24 22:52 Hgb 14.40 g/dL (11.27-16.99) 05/29/24 22:52 Hct 43.7 % (37-53) 05/29/24 22:52 MCV 82.0 fl (82-101) 05/29/24 22:52 MCH 27.0 pg (27-33) 05/29/24 22:52 MCHC 33.0 g/dL (30-55) 05/29/24 22:52 RDW 17.4 % (12.1-15.1) H 05/29/24 22:52 Plt Count 231 10^3/cmm (157-399) 05/29/24 22:52 MPV 9.0 fL (7.4-10.4) 05/29/24 22:52 Neut % (Auto) 60.3 % 05/29/24 22:52 Lymph % (Auto) 27.3 % 05/29/24 22:52 [place] % (Auto) 7.9 % 05/29/24 22:52 Eos % (Auto) 3.8 % 05/29/24 22:52 Baso % (Auto) 0.3 % 05/29/24 22:52 Neut # (Auto) 4.28 10^3/uL (1.8-7.7) 05/29/24 22:52 Lymph # (Auto) 1.9 10^3/uL (0.8-4.8) 05/29/24 22:52 [place] # (Auto) 0.6 10^3/uL (0.2-0.9) 05/29/24 22:52 Eos # (Auto) 0.3 10^3/uL (0.0-0.8) 05/29/24 22:52 Baso # (Auto) 0.0 10^3/uL (0.0-0.1) 05/29/24 22:52 Nucleated RBC % (auto) 0 % 05/29/24 22:52 Nucleated RBCs # 0.0 /100WBC 05/29/24 22:52 Sodium 137 mmol/L (136-145) 05/29/24 22:52 Potassium 3.4 mmol/L (3.5-5.1) L 05/29/24 22:52 Chloride 99 mmol/L (98-107) 05/29/24 22:52 Carbon Dioxide 25 mmol/L (22-29) 05/29/24 22:52 Anion Gap 16.4 (5-19) 05/29/24 22:52 BUN 9 mg/dL (6-20) 05/29/24 22:52 Creatinine 0.7 mg/dL (0.7-1.2) 05/29/24 22:52 GFR Calculation 121.4 mL/min (90-130) 05/29/24 22:52 Glucose 167 mg/dL (65-115) H 05/29/24 22:52 Calculated Osmolality 286 mOsm/kg (285-295) 05/29/24 22:52 Calcium 9.2 mg/dL (8.5-10.5) 05/29/24 22:52 Total Bilirubin 0.2 mg/dL (0.15-1.2) 05/29/24 22:52 AST 13 U/L (0-40) 05/29/24 22:52 ALT 11 U/L (0-41) 05/29/24 22:52 Alkaline Phosphatase 90 U/L (40-130) 05/29/24 22:52 Total Protein 7.4 g/dL (6.6-8.7) 05/29/24 22:52 Albumin 4.3 g/dL (3.5-5.2) 05/29/24 22:52 Globulin 3.1 g/dL (1.3-4.6) 05/29/24 22:52 Salicylates < 0.3 mg/dL (3-10) L 05/29/24 22:52 Acetaminophen < 5.0 ug/mL (10-30) L 05/29/24 22:52 Ethyl Alcohol 22 mg/dL (0-10) H 05/29/24 22:52 Discharge Plan Discharge Patient Disposition: Admitted As Inpatient Admit Provider: Manfred Field Clinical Impression: Acute psychosis, Chronic schizophrenia, Homicidal ideation Condition: Stable Coding Level of Care Code ED Music Therapist for Kobe Riggs
[2024-05-29 22:57] LABS: Basophils % 0.3 %; Eosinophils # 0.3 10^3/uL (0.0-0.8); Eosinophils % 3.8 %; Hematocrit 43.7 % (37-53); Lymphocytes # 1.9 10^3/uL (0.8-4.8); Lymphocytes % 27.3 %; Monocytes # 0.6 10^3/uL (0.2-0.9); Monocytes % 7.9 %; Neutrophils # 4.28 10^3/uL (1.8-7.7); Neutrophils % 60.3 %; Nucleated Red Blood Cells % 0 %; Platelet Count 231 10^3/cmm (157-399); Red Blood Count 5.33 10^6/uL (3.85-5.65); Red Cell Distribution Width 17.4 % (12.1-15.1)
[2024-05-29 23:17] LABS: Alanine Aminotransferase 11 U/L (0-41); Albumin Level 4.3 g/dL (3.5-5.2); Alcohol Level 22 mg/dL (0-10); Alkaline Phosphatase 90 U/L (40-130); Anion Gap 16.4 (5-19); Aspartate Amino Transferase 13 U/L (0-40); Blood Urea Nitrogen 9 mg/dL (6-20); Calcium 9.2 mg/dL (8.5-10.5); Carbon Dioxide 25 mmol/L (22-29); Chloride 99 mmol/L (98-107); Creatinine Clr Calc Pharmacy 172.2468; Globulin 3.1 g/dL (1.3-4.6); Glomerular Filtration Rate 121.4 mL/min (90-130); Glucose 167 mg/dL (65-115); Osmolality Calculated 286 mOsm/kg (285-295); Potassium 3.4 mmol/L (3.5-5.1); Sodium 137 mmol/L (136-145); Total Bilirubin 0.2 mg/dL (0.15-1.2); Total Protein 7.4 g/dL (6.6-8.7)
[2024-05-29 23:27] LABS: Acetaminophen < 5.0 ug/mL (10-30); Salicylate < 0.3 mg/dL (3-10)
[2024-05-29] MEDS: LORazepam 2 mg/mL INJ 1 mL IM (23:33)
[2024-05-29] MEDS: diphenhydrAMINE 50 mg/mL SDV 1mL IM (23:33)
[2024-05-29] MEDS: haloperidol inj 5 mg/mL INJ 1 mL IM (23:33)
--- NOTE | 2024-05-29 23:36 | PC.NURSE ---
Patient requested Ativan from nursing staff because he was starting to shake, which was not visible to nursing staff. This nurse administered prescribed medication IM to patient. Patient stated, Now, is this safe with ? Because I'm really . And I don't abort. The fire station mechanic got me . And I haven't been for 184 years. This nurse informed patient that medications would be safe if he were . Patient willingly complied with medication administration; is currently calm and cooperative at this time, resting comfortably in room with even and unlabored respirations.
--- NOTE | 2024-05-29 23:39 | PC.NURSE ---
UA has not yet been collected due to PSA notifying nursing staff that patient had previously poured out urinal in sink.
--- NOTE | 2024-05-30 00:08 | PC.NURSE ---
96 Hour Involuntary Hold Patient Rights has been reviewed with the patient and a copy of the same has been given to him. Veneer Clipper Raheel was present at the bedside a the time of presentation of Rights.
--- NOTE | 2024-05-30 01:21 | PC.NURSE ---
Report called to Patricia VINCENT in [facility]. All questions and concerns were addressed at time of report.
[2024-05-30 01:30] VITALS: BP 124/89; PULSE 98; O2SAT 96
[2024-05-30 01:41] VITALS: BP 115/77; PULSE 115; RESP 18; TEMP 36.4; O2SAT 94
[2024-05-30 01:57] VITALS: BP 124/89; PULSE 98; O2SAT 97
[2024-05-30 02:16] LABS: Amphetamines Screen Urine Negative (Negative); Barbiturates Screen Urine Negative (Negative); Benzodiazepines Screen Urine Positive (Negative); Cocaine Screen Urine Negative (Negative); Opiate Screen Urine Negative (Negative); PCP Screen Urine Negative (Negative); THC Screen Urine Negative (Negative)
[2024-05-30 06:00] VITALS: BP 139/63; PULSE 77; RESP 17; O2SAT 97
[2024-05-30] MEDS: ferrous sulfate EC 325 mg Tablet PO (09:38)
[2024-05-30] MEDS: ascorbic acid 500 mg Tablet PO (09:38)
[2024-05-30] MEDS: pantoprazole DR 40 mg Tablet PO ×2 (09:38→17:41)
[2024-05-30] MEDS: acetaminophen 325 mg Tablet 650 MG PO ×2 (11:50→18:43)
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
[2024-05-30 14:00] VITALS: BP 110/62; PULSE 77; RESP 16; O2SAT 97
[2024-05-30 20:31] VITALS: BP 98/66; PULSE 117; RESP 18; TEMP 36.6; O2SAT 97
[2024-05-31 06:00] VITALS: BP 104/68; PULSE 59; RESP 17; O2SAT 98
[2024-05-31] MEDS: acetaminophen 325 mg Tablet 650 MG PO ×3 (06:41→14:45)
[2024-05-31] MEDS: pantoprazole DR 40 mg Tablet PO ×2 (07:40→17:58)
[2024-05-31] MEDS: lidocaine 5% Patch 1 PATCH TOPICAL (07:41)
[2024-05-31] MEDS: ascorbic acid 500 mg Tablet PO (07:41)
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
[2024-05-31] MEDS: phenyleph-mineral oil-petrolat Oint 28 gm 1 APPLIC TOPICAL (12:19)
[2024-05-31] MEDS: loperamide 2 mg Capsule PO (12:47)
[2024-05-31] MEDS: nicotine 21 mg Patch 1 PATCH TRANSDERMA (13:57)
[2024-05-31 14:00] VITALS: BP 141/91; PULSE 78; RESP 16; TEMP 37.3; O2SAT 99
[2024-05-31 20:09] VITALS: BP 131/85; PULSE 79; RESP 18; TEMP 36.9; O2SAT 98
[2024-06-01] MEDS: ondansetron 4 MG Tablet PO (05:50)
[2024-06-01 06:00] VITALS: BP 135/93; PULSE 86; RESP 18; TEMP 36.4; O2SAT 99
[2024-06-01] MEDS: acetaminophen 325 mg Tablet 650 MG PO ×3 (06:00→14:17)
[2024-06-01] MEDS: pantoprazole DR 40 mg Tablet PO ×2 (08:21→17:10)
[2024-06-01] MEDS: ascorbic acid 500 mg Tablet PO (08:21)
[2024-06-01] MEDS: ferrous sulfate EC 325 mg Tablet PO (08:21)
[2024-06-01] MEDS: nicotine 21 mg Patch 1 PATCH TRANSDERMA (09:56)
--- NOTE | 2024-06-01 11:57 | P.NPUPN_ITS ---
Subjective NPU 2 Subjective: Patient presented today reporting that things were okay. He endorsed that he was here secondary to giving water to someone who did not have any outside of [facility] and that maybe one of the owners or directors upset. He then went on a rant about how she was rude and that he would not do anything for her. 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 We discussed concerns about his psychosis and he reported that he would be fine just going back out into the cold and be homeless and he would not have any challenges. We discussed needing to make sure that he was psychiatrically functional at the time of discharge which might mean that we need medication and he reports that he will not take any medications. Mental Status Exam 2 MSE Comments: This is a well-nourished well-developed white male in hospital scrubs looking older than his stated age with poor grooming. No abnormal involuntary motor movements except for mild psychomotor agitation. He was minimally cooperative with exam and irritable. 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 Mood described as fine. His affect was generally congruent but occasionally agitated. His thought process was linear. Thought content: Patient denied homicidal ideation, denied suicidal ideation although acknowledged making threats at peer at [facility]. There were prominent delusions of grandeur and paranoia was evident. He did not report auditory or visual hallucinations and did not appear to be responding to internal stimuli. Attention and concentration were limited and memory was unreliable, but none were formally tested. He is alert and oriented to person and place. Insight is impaired and judgment is poor and impulse control is impaired. Vitals/I&O/Wt Last Vital Signs Temp 97.6 F 06/01/24 06:00 Pulse 86 06/01/24 06:00 Resp 18 06/01/24 06:00 BP 135/93 06/01/24 06:00 Pulse Ox 99 06/01/24 06:00 O2 Del Method Room Air 05/30/24 01:46 Weight last 48 hrs Weight 108.046 kg Data NPU 05/29/24 22:52 05/29/24 22:52 A&P Assessment and plan (1) Schizoaffective disorder, bipolar type without good prognostic features: (2) Acute psychosis: (3) Chronic schizophrenia: (4) Marijuana use: Plan This is a 48-year-old white male who presents inpatient unit noncompliant with medications, not receiving mental health services for a chronic mental health disorder with homicidal ideation and grandiose delusions. 1.? Monitor for worsening agitation, prn haldol and zyprexa for aggression. 2.? Encourage sobriety at the highest possible level of care the patient is willing to commit. 3.? Encourage individual, group and milieu therapy. 4.? Continue every 15 minute checks for safety. 5. Will require 21 day hold as patient unlikely to improve without medications which patient is refusing. Involuntary Hold Information 2 96 Hour Hold: 96 Hour Involuntary Admission: Yes 96 Hour Hold Ending Date: 06/04/24 96 Hour Hold Ending Time: 22:45 Other Hold: Hold End Date: 06/04/24 Attestations NPU 2 Medical Necessity Statement*: Inpatient hospitalization is medically necessary and clinically appropriate intervention at this time.? We will initiate medication and/or make changes as indicated. His likely length of stay is 5-9 days. Coding Level of Care Code Acute Code for [facility] Fwd Diagnoses Schizoaffective disorder, bipolar type without good prognostic features F25.0 Acute psychosis F23 Chronic schizophrenia F20.9 Marijuana use F12.90
[2024-06-01 13:38] VITALS: BP 121/81; PULSE 74; RESP 16; TEMP 37.3; O2SAT 100
[2024-06-01 19:17] VITALS: BP 132/79; PULSE 72; RESP 18; TEMP 36.6; O2SAT 98
[2024-06-01] MEDS: loperamide 2 mg Capsule PO (19:35)
[2024-06-02 06:00] VITALS: BP 116/75; PULSE 84; RESP 18; TEMP 36.7; O2SAT 97
[2024-06-02] MEDS: ascorbic acid 500 mg Tablet PO (08:01)
[2024-06-02] MEDS: acetaminophen 325 mg Tablet 650 MG PO ×2 (08:01→13:36)
[2024-06-02] MEDS: pantoprazole DR 40 mg Tablet PO ×2 (08:01→17:33)
--- NOTE | 2024-06-02 08:09 | PC.NURSE ---
Patient complains of pain in his right hip at a 10/10. 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 Patient denies avh and si/hi. He did say he would like to speak to Dr. Field about taking thorazine. He stated, it helps with nerves too. It has since I've invented it. Patient cooperative with assessment this morning. He did endorse diarrhea and vomiting twice since he was admitted to the unit.
[2024-06-02] MEDS: loperamide 2 mg Capsule PO ×2 (09:09→16:45)
[2024-06-02] MEDS: nicotine 21 mg Patch 1 PATCH TRANSDERMA (11:25)
--- NOTE | 2024-06-02 11:40 | W.PM.NPUPNS ---
Subjective NPU Subjective: Patient presented today reporting that he is doing fine and can just be discharged to the streets. We discussed that we do not generally do that specimen so months continuing to have psychotic elements. He reports that he will not take anything other than Thorazine. We had a long discussion about the risks, benefits and alternatives of the first generation antipsychotics versus the newer medications and concerns for stiffness and EPS. And he understood and agreed to proceed as is documented in this note. He reports that for him Thorazine loosens him up more than stiffens him. We agreed to monitor for side effects and discussed the fact that there may still be a 21-day hold initiated tomorrow due to concerns for him functioning well enough off of medication. Mental Status Exam MSE Comments: This is a well-nourished well-developed white male in hospital scrubs looking older than his stated age with poor grooming. No abnormal involuntary motor movements except for mild psychomotor agitation. He was minimally cooperative with exam and irritable. Speech was normal rate and mostly in volume but would have occasional moments where he seemed to fall into ebonics possibly for this internal communications writer. Mood described as fine. His affect was generally congruent but occasionally agitated. His thought process was linear. Thought content: Patient denied homicidal ideation, denied suicidal ideation although acknowledged making threats at peer at [facility]. There were prominent delusions of grandeur and paranoia was evident. He did not report auditory or visual hallucinations and did not appear to be responding to internal stimuli. Attention and concentration were limited and memory was unreliable, but none were formally tested. He is alert and oriented to person and place. Insight is impaired and judgment is poor and impulse control is impaired. Vitals/I&O/Wt Last Vital Signs Temp 98.1 F 06/02/24 06:00 Pulse 84 06/02/24 06:00 Resp 18 06/02/24 06:00 BP 116/75 06/02/24 06:00 Pulse Ox 97 06/02/24 06:00 O2 Del Method Room Air 06/02/24 06:00 Data NPU 05/29/24 22:52 05/29/24 22:52 A&P Assessment and plan (1) Schizoaffective disorder, bipolar type without good prognostic features: (2) Acute psychosis: (3) Chronic schizophrenia: (4) Marijuana use: Plan This is a 48-year-old white male who presents inpatient unit noncompliant with medications, not receiving mental health services for a chronic mental health disorder with homicidal ideation and grandiose delusions. 1.? Monitor for worsening agitation, prn haldol and zyprexa for aggression. 2.? Encourage sobriety at the highest possible level of care the patient is willing to commit. 3.? Encourage individual, group and milieu therapy. 4.? Continue every 15 minute checks for safety. 5. We will file a 21-day hold tomorrow and then will go to forced medication protocol once the 21-day hold is granted. Involuntary Hold Information 96 Hour Hold: 96 Hour Involuntary Admission: Yes 96 Hour Hold Ending Date: 06/04/24 96 Hour Hold Ending Time: 22:45 Other Hold: Hold End Date: 06/04/24 Attestations NPU Medical Necessity Statement*: Inpatient hospitalization is medically necessary and clinically appropriate intervention at this time.? We will initiate medication and/or make changes as indicated. His likely length of stay is 7-10 days. Coding Level of Care Code Acute Code for [facility] Diagnoses Schizoaffective disorder, bipolar type without good prognostic features F25.0 Acute psychosis F23 Chronic schizophrenia F20.9 Marijuana use F12.90
[2024-06-02 12:19] LABS: Adenovirus Not Detected (NOT DETECT); Chlamydia Pneumoniae Not Detected (NOT DETECT); Coronavirus 229E,HKU1,NL63,OC4 Not Detected (NOT DETECT); Human Metapneumovirus Not Detected (NOT DETECT); Human Rhinovirus/Enterovirus Not Detected (NOT DETECT); Influenza A Not Detected (NOT DETECT); Influenza A H1 Not Detected (NOT DETECT); Influenza A H1-2009 Not Detected (NOT DETECT); Influenza A H3 Not Detected (NOT DETECT); Influenza B Not Detected (NOT DETECT); Mycoplasma Pneumoniae Not Detected (NOT DETECT); Parainfluenza Virus Type 1 Not Detected (NOT DETECT); Parainfluenza Virus Type 2 Not Detected (NOT DETECT); Parainfluenza Virus Type 3 Not Detected (NOT DETECT); Parainfluenza Virus Type 4 Not Detected (NOT DETECT); Respiratory Syncytial Virus A Not Detected (NOT DETECT); Respiratory Syncytial Virus B Not Detected (NOT DETECT); SARS-COV-2 Not Detected (NOT DETECT)
[2024-06-02 14:00] VITALS: BP 135/89; PULSE 95; RESP 17; TEMP 37.2; O2SAT 99
[2024-06-02] MEDS: ibuprofen 600 mg Tablet PO (16:45)
[2024-06-02] MEDS: chlorPROMazine 50 mg Tablet PO (17:33)
[2024-06-02 19:52] VITALS: BP 129/71; PULSE 71; RESP 18; TEMP 36.9; O2SAT 98
[2024-06-02] MEDS: ondansetron 4 MG Tablet PO (20:06)
[2024-06-03 06:30] VITALS: BP 118/77; PULSE 78; RESP 16; O2SAT 97
[2024-06-03] MEDS: acetaminophen 325 mg Tablet 650 MG PO ×2 (06:54→13:01)
[2024-06-03] MEDS: ascorbic acid 500 mg Tablet PO (08:38)
[2024-06-03] MEDS: chlorPROMazine 50 mg Tablet PO ×2 (08:38→18:55)
[2024-06-03] MEDS: pantoprazole DR 40 mg Tablet PO ×2 (08:38→18:56)
[2024-06-03] MEDS: ferrous sulfate EC 325 mg Tablet PO (08:38)
[2024-06-03] MEDS: nicotine 21 mg Patch 1 PATCH TRANSDERMA (08:38)
[2024-06-03] MEDS: haloperidol 5 mg Tablet PO (13:01)
[2024-06-03 14:00] VITALS: BP 130/90; PULSE 104; RESP 17; O2SAT 100
[2024-06-03] MEDS: ibuprofen 600 mg Tablet PO (14:37)
--- NOTE | 2024-06-03 16:48 | P.NPUPN_ITS ---
Subjective NPU 2 Subjective: Patient presents today reporting that he is tolerating the Thorazine thus far. We discussed the risks, benefits and alternatives of increasing it to 100 mg p.o. twice daily and we continue to discussed the fact that ultimately but needs to be on medication that is available in a long-acting injectable and that we feel comfortable is not going to cause significant side effects. We discussed that we would need to make a decision tomorrow about discharge but that we are still leaning towards him needing to stay so that we can get him on a long- acting injectable given his history and overall resistance to continuing medication. Mental Status Exam 2 MSE Comments: This is a well-nourished well-developed white male in hospital scrubs looking older than his stated age with poor grooming. No abnormal involuntary motor movements except for mild psychomotor agitation. He was minimally cooperative with exam and irritable. 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 Mood described as fine. His affect was generally congruent but occasionally agitated. His thought process was linear. Thought content: Patient denied homicidal ideation, denied suicidal ideation although acknowledged making threats at peer at [facility]. There were prominent delusions of grandeur and paranoia was evident. He did not report auditory or visual hallucinations and did not appear to be responding to internal stimuli. Attention and concentration were limited and memory was unreliable, but none were formally tested. He is alert and oriented to person and place. Insight is impaired and judgment is poor and impulse control is impaired. Vitals/I&O/Wt Last Vital Signs Temp 98.4 F 06/02/24 19:52 Pulse 104 H 06/03/24 14:00 Resp 17 06/03/24 14:00 BP 130/90 06/03/24 14:00 Pulse Ox 100 06/03/24 14:00 O2 Del Method Room Air 06/02/24 06:00 Data NPU 05/29/24 22:52 05/29/24 22:52 A&P Assessment and plan (1) Schizoaffective disorder, bipolar type without good prognostic features: (2) Acute psychosis: (3) Chronic schizophrenia: (4) Marijuana use: Plan This is a 48-year-old white male who presents inpatient unit noncompliant with medications, not receiving mental health services for a chronic mental health disorder with homicidal ideation and grandiose delusions. 1.? Monitor for worsening agitation, prn haldol and zyprexa for aggression. Started Thorazine 50 mg p.o. twice daily.Increase to 100 mg p.o. twice daily. 2.? Encourage sobriety at the highest possible level of care the patient is willing to commit. 3.? Encourage individual, group and milieu therapy. 4.? Continue every 15 minute checks for safety. 5. We will file a 21-day hold tomorrow and then will go to forced medication protocol once the 21-day hold is granted. Involuntary Hold Information 2 96 Hour Hold: 96 Hour Involuntary Admission: Yes 96 Hour Hold Ending Date: 06/04/24 96 Hour Hold Ending Time: 22:45 Other Hold: Hold End Date: 06/04/24 Attestations NPU 2 Medical Necessity Statement*: Inpatient hospitalization is medically necessary and clinically appropriate intervention at this time.? We will initiate medication and/or make changes as indicated. His likely length of stay is 7-10 days. Coding Level of Care Code Acute Code for [facility] Diagnoses Schizoaffective disorder, bipolar type without good prognostic features F25.0 Acute psychosis F23 Chronic schizophrenia F20.9 Marijuana use F12.90
[2024-06-03 20:27] VITALS: BP 128/60; PULSE 100; RESP 16; TEMP 36.9; O2SAT 96
[2024-06-04 06:15] VITALS: BP 129/79; PULSE 77; RESP 16; O2SAT 98
[2024-06-04] MEDS: pantoprazole DR 40 mg Tablet PO ×2 (08:09→18:32)
[2024-06-04] MEDS: ascorbic acid 500 mg Tablet PO (08:09)
[2024-06-04] MEDS: chlorPROMazine 50 mg Tablet 100 MG PO ×2 (08:10→18:32)
[2024-06-04] MEDS: acetaminophen 325 mg Tablet 650 MG PO (08:10)
[2024-06-04] MEDS: nicotine 21 mg Patch 1 PATCH TRANSDERMA (08:10)
[2024-06-04 14:00] VITALS: BP 128/86; PULSE 71; RESP 16; TEMP 36.6; O2SAT 98
--- NOTE | 2024-06-04 19:33 | P.NPUPN_ITS ---
Subjective NPU 2 Subjective: Patient presented today reporting that he is doing okay. We discussed the fact that his 21-day hold hearing will be held tomorrow and reports that he spoke to his commodities trader and has excepted that he needs to be here. He reports that he will take the time that he is here to get his strength back and get back to his top functioning. We discussed that that will also involve medication and he said that he knew. He denied any side effects of his current medication. Mental Status Exam 2 MSE Comments: This is a well-nourished well-developed white male in hospital scrubs looking older than his stated age with poor grooming. No abnormal involuntary motor movements except for mild psychomotor agitation. He was minimally cooperative with exam and irritable. Speech was normal rate and mostly in volume but would have occasional moments where he seemed to fall into ebonics possibly for this information writer. Mood described as fine. His affect was generally congruent but occasionally agitated. His thought process was linear. Thought content: Patient denied homicidal ideation, denied suicidal ideation although acknowledged making threats at peer at [facility]. There were prominent delusions of grandeur and paranoia was evident. He did not report auditory or visual hallucinations and did not appear to be responding to internal stimuli. Attention and concentration were limited and memory was unreliable, but none were formally tested. He is alert and oriented to person and place. Insight is impaired and judgment is poor and impulse control is impaired. Vitals/I&O/Wt Last Vital Signs Temp 98 F 06/04/24 14:00 Pulse 71 06/04/24 14:00 Resp 16 06/04/24 14:00 BP 128/86 06/04/24 14:00 Pulse Ox 98 06/04/24 14:00 O2 Del Method Room Air 06/04/24 14:00 Data NPU 05/29/24 22:52 05/29/24 22:52 A&P Assessment and plan (1) Schizoaffective disorder, bipolar type without good prognostic features: (2) Acute psychosis: (3) Chronic schizophrenia: (4) Marijuana use: Plan This is a 48-year-old white male who presents inpatient unit noncompliant with medications, not receiving mental health services for a chronic mental health disorder with homicidal ideation and grandiose delusions. 1.? Monitor for worsening agitation, prn haldol and zyprexa for aggression. Started Thorazine 50 mg p.o. twice daily.Increase to 100 mg p.o. twice daily. 2.? Encourage sobriety at the highest possible level of care the patient is willing to commit. 3.? Encourage individual, group and milieu therapy. 4.? Continue every 15 minute checks for safety. 5. We will file a 21-day hold tomorrow and then will go to forced medication protocol once the 21-day hold is granted. 21-day hold hearing tomorrow at 2 PM. Involuntary Hold Information 2 96 Hour Hold: 96 Hour Involuntary Admission: Yes 96 Hour Hold Ending Date: 06/04/24 96 Hour Hold Ending Time: 22:45 Other Hold: Hold End Date: 06/04/24 Attestations NPU 2 Medical Necessity Statement*: Inpatient hospitalization is medically necessary and clinically appropriate intervention at this time.? We will initiate medication and/or make changes as indicated. His likely length of stay is 7-10 days. Coding Level of Care Code Acute Code for [facility] Diagnoses Schizoaffective disorder, bipolar type without good prognostic features F25.0 Acute psychosis F23 Chronic schizophrenia F20.9 Marijuana use F12.90
[2024-06-04 20:34] VITALS: BP 132/91; PULSE 89; RESP 18; TEMP 36.7; O2SAT 94
[2024-06-05 06:00] VITALS: BP 92/56; PULSE 78; RESP 16; TEMP 36.7; O2SAT 96
[2024-06-05] MEDS: ferrous sulfate EC 325 mg Tablet PO (08:06)
[2024-06-05] MEDS: ascorbic acid 500 mg Tablet PO (08:06)
[2024-06-05] MEDS: chlorPROMazine 50 mg Tablet 100 MG PO ×2 (08:06→17:07)
[2024-06-05] MEDS: pantoprazole DR 40 mg Tablet PO ×2 (08:06→17:07)
[2024-06-05] MEDS: nicotine 21 mg Patch 1 PATCH TRANSDERMA (10:30)
[2024-06-05] MEDS: acetaminophen 325 mg Tablet 650 MG PO ×2 (10:33→17:09)
--- NOTE | 2024-06-05 12:41 | W.PM.NPUPNS ---
Subjective NPU Subjective: Patient presented today reporting that he is doing all right. He reports that he is not going to the hearing. He reported that he will just stay here for 21 days and get his strength back and things of that nature. We discussed the fact that we would be working on medication likely Invega or some other medication that allows for a long-acting injectable. He denied any side effects or problems with the Thorazine thus far. Mental Status Exam MSE Comments: This is a well-nourished well-developed white male in hospital scrubs looking older than his stated age with poor grooming. No abnormal involuntary motor movements except for mild psychomotor agitation. He was minimally cooperative with exam and irritable. Speech was normal rate and mostly in volume but would have occasional moments where he seemed to fall into ebonics possibly for this movie writer. Mood described as fine. His affect was generally congruent but occasionally agitated. His thought process was linear. Thought content: Patient denied homicidal ideation, denied suicidal ideation although acknowledged making threats at peer at [facility]. There were prominent delusions of grandeur and paranoia was evident. He did not report auditory or visual hallucinations and did not appear to be responding to internal stimuli. Attention and concentration were limited and memory was unreliable, but none were formally tested. He is alert and oriented to person and place. Insight is impaired and judgment is poor and impulse control is impaired. Vitals/I&O/Wt Last Vital Signs Temp 98.0 F 06/05/24 06:00 Pulse 78 06/05/24 06:00 Resp 16 06/05/24 06:00 BP 92/56 06/05/24 06:00 Pulse Ox 96 06/05/24 06:00 O2 Del Method Room Air 06/04/24 14:00 Data NPU 05/29/24 22:52 05/29/24 22:52 A&P Assessment and plan (1) Schizoaffective disorder, bipolar type without good prognostic features: (2) Acute psychosis: (3) Chronic schizophrenia: (4) Marijuana use: Plan This is a 48-year-old white male who presents inpatient unit noncompliant with medications, not receiving mental health services for a chronic mental health disorder with homicidal ideation and grandiose delusions. 1.? Monitor for worsening agitation, prn haldol and zyprexa for aggression. Started Thorazine 50 mg p.o. twice daily.Increase to 100 mg p.o. twice daily. 2.? Encourage sobriety at the highest possible level of care the patient is willing to commit. 3.? Encourage individual, group and milieu therapy. 4.? Continue every 15 minute checks for safety. 5. We will file a 21-day hold tomorrow and then will go to forced medication protocol once the 21-day hold is granted. 21-day hold hearing today at 2 PM. Involuntary Hold Information 96 Hour Hold: 96 Hour Involuntary Admission: Yes 96 Hour Hold Ending Date: 06/04/24 96 Hour Hold Ending Time: 22:45 Other Hold: Hold End Date: 06/04/24 Attestations NPU Medical Necessity Statement*: Inpatient hospitalization is medically necessary and clinically appropriate intervention at this time.? We will initiate medication and/or make changes as indicated. His likely length of stay is 7-10 days. Coding Level of Care Code Acute Code for [facility] Diagnoses Schizoaffective disorder, bipolar type without good prognostic features F25.0 Acute psychosis F23 Chronic schizophrenia F20.9 Marijuana use F12.90
[2024-06-05 14:00] VITALS: BP 116/82; PULSE 96; RESP 16; TEMP 36.7; O2SAT 98
--- NOTE | 2024-06-05 17:11 | PC.NURSE ---
pt up at nurses station complaining of chest pain rated 5/10 denies pain radiating anywhere, denies shortness of breath, denies numbness at this time, vital signs taken bp 129/56 pulse [address] Field informed stat ekg ordered.
--- NOTE | 2024-06-05 17:17 | ECG_ITS ---
[facility] Date: 2024-06-05 Pat Name: Tarun Summers Department: Room: 125 Gender: Male Manager Foreign: : 1975 Requested By: Manfred Field Order Number: [id number] England MD: Andriy Hairston M.D. Measurements Intervals [place] Rate: 82 P: 57 NM: 170 QRS: 66 QRSD: 100 T: 52 QT: 360 QTc: 421 Interpretive Statements SINUS RHYTHM Compared to ECG 03/03/2024 20:36:52 Atrial fibrillation no longer present Electronically Signed On 06-06-2024 13:18:06 [employer] ENGINE[employer] by Andriy Hairston M.D. [email or web address]
[2024-06-05] MEDS: magnesium hydroxide 30 mL UDC PO (18:22)
[2024-06-05] MEDS: phenyleph-mineral oil-petrolat Oint 28 gm 1 APPLIC TOPICAL (18:25)
[2024-06-05 20:56] VITALS: BP 118/72; PULSE 85; RESP 18; O2SAT 98
[2024-06-06 06:00] VITALS: BP 121/57; PULSE 85; RESP 18; TEMP 36.8; O2SAT 97
--- NOTE | 2024-06-06 07:56 | P.NPUPN_ITS ---
Subjective NPU 2 Subjective: Patient presented today reporting that things are going fine. He was endorsing to staff that the Thorazine was too strong. We discussed that we anticipated that and would certainly prefer a different medication. We discussed the risks, benefits and alternatives of Abilify and Invega and he understood and agreed to proceed as is documented in this note. He denied any other side effects to medication. Mental Status Exam 2 MSE Comments: This is a well-nourished well-developed white male in hospital scrubs looking older than his stated age with poor grooming. No abnormal involuntary motor movements except for mild psychomotor agitation. He was minimally cooperative with exam and irritable. Speech was normal rate and mostly in volume but would have occasional moments where he seemed to fall into ebonics possibly for this gag writer. Mood described as fine. His affect was generally congruent but occasionally agitated. His thought process was linear. Thought content: Patient denied homicidal ideation, denied suicidal ideation although acknowledged making threats at peer at [facility]. There were prominent delusions of grandeur and paranoia was evident. He did not report auditory or visual hallucinations and did not appear to be responding to internal stimuli. Attention and concentration were limited and memory was unreliable, but none were formally tested. He is alert and oriented to person and place. Insight is impaired and judgment is poor and impulse control is impaired. Vitals/I&O/Wt Last Vital Signs Temp 98.2 F 06/06/24 06:00 Pulse 85 06/06/24 06:00 Resp 18 06/06/24 06:00 BP 121/57 06/06/24 06:00 Pulse Ox 97 06/06/24 06:00 O2 Del Method Room Air 06/06/24 06:00 Data NPU 05/29/24 22:52 05/29/24 22:52 A&P Assessment and plan (1) Schizoaffective disorder, bipolar type without good prognostic features: (2) Acute psychosis: (3) Chronic schizophrenia: (4) Marijuana use: Plan This is a 48-year-old white male who presents inpatient unit noncompliant with medications, not receiving mental health services for a chronic mental health disorder with homicidal ideation and grandiose delusions. 1.? Monitor for worsening agitation, prn haldol and zyprexa for aggression. Started Thorazine 50 mg p.o. twice daily.Increase to 100 mg p.o. twice daily. Decrease Thorazine back to 50 mg p.o. twice daily and start Abilify 10 mg p.o. daily. 2.? Encourage sobriety at the highest possible level of care the patient is willing to commit. 3.? Encourage individual, group and milieu therapy. 4.? Continue every 15 minute checks for safety. 5. We will file a 21-day hold tomorrow and then will go to forced medication protocol once the 21-day hold is granted. 21-day hold hearing Yesterday at 2 PM. 21-day hold granted 06/05/2024. Involuntary Hold Information 2 96 Hour Hold: 96 Hour Involuntary Admission: Yes 96 Hour Hold Ending Date: 06/04/24 96 Hour Hold Ending Time: 22:45 Other Hold: Hold End Date: 06/04/24 Attestations NPU 2 Medical Necessity Statement*: Inpatient hospitalization is medically necessary and clinically appropriate intervention at this time.? We will initiate medication and/or make changes as indicated. His likely length of stay is 7-10 days. Coding Level of Care Code Acute Code for [facility] Diagnoses Schizoaffective disorder, bipolar type without good prognostic features F25.0 Acute psychosis F23 Chronic schizophrenia F20.9 Marijuana use F12.90
[2024-06-06] MEDS: ascorbic acid 500 mg Tablet PO (09:12)
[2024-06-06] MEDS: chlorPROMazine 50 mg Tablet 100 MG PO (09:12)
[2024-06-06] MEDS: pantoprazole DR 40 mg Tablet PO ×2 (09:12→17:49)
[2024-06-06] MEDS: nicotine 21 mg Patch 1 PATCH TRANSDERMA (13:53)
[2024-06-06 14:00] VITALS: BP 101/63; PULSE 87; RESP 16; TEMP 36.9; O2SAT 98
--- NOTE | 2024-06-06 18:41 | PC.NURSE ---
Dr. Field knows about the pt refusing his thorazine dose this evening, this nurse and pt talked about pt starting Abilify.
[2024-06-06 19:36] VITALS: BP 110/64; PULSE 91; RESP 18; TEMP 36.6; O2SAT 97
--- NOTE | 2024-06-06 20:38 | PC.NURSE ---
AT NURSES STATION SPEAKING TO STAFF, GETTING HOT TEA AND CEREAL FOR THE NIGHT TO RELAX. DENIES PAIN. DENIES SI/HI AND AVH AT THIS TIME. SUPPORT VOICED. REPORTED HE DID NOT TAKE HIS 1800 THORAZINE 100 MG DUE TO IT MAKING HIM FEEL VERY SEDATED. DR. WEST WAS MADE AWARE AND WILL BE ADJUSTING MEDICATIONS AND POSSIBLY STARTING ABILIFY TOMORROW. SUPPORT VOICED.
[2024-06-06] MEDS: trazodone 50 mg Tablet PO (23:57)
[2024-06-06] MEDS: OLANZapine 5 mg ODT PO (23:57)
[2024-06-06] MEDS: acetaminophen 325 mg Tablet 650 MG PO (23:57)
--- NOTE | 2024-06-07 00:21 | PC.NURSE ---
PT UP TO NURSES STATION REQUESTING HALDOL SINCE I DIDN'T TAKE MY THORAZINE AT 600 O'CLOCK I'M HAVING A HARD TIME SLEEPING. PT WAS GIVEN TRAZODONE 50 MG ORDERED FOR SLEEP AND ZYDIS 5 MG ORDERED FOR INCREASED REPORTS OF ANXIETY. PT EDUCATED THAT IF THE MEDICATIONS DO NOT WORK IN AN HOUR TO LET RN KNOW AND CAN REPEAT THE TRAZODONE AND GIVE HALDOL IF THE ZYDIS IS NOT EFFECTIVE IN BRINGING HIS ANXIETY DOWN. PT AGREED, TOOK MEDICATIONS AND THEN WENT BACK TO ROOM TO LAY DOWN AND ATTEMPT TO GO TO SLEEP. SUPPORT VOICED.
[2024-06-07 06:00] VITALS: BP 106/75; PULSE 76; RESP 18; TEMP 36.6; O2SAT 95
--- NOTE | 2024-06-07 08:24 | P.NPUPN_ITS ---
Subjective NPU 2 Subjective: Patient presented today reporting that he is doing okay. He endorsed he is tolerating the Abilify and remarks that he wished he had gone with the Abilify first because the Thorazine was very tough on his body even though he had suggest that it would not be. We discussed the likelihood of continuing to decrease the Thorazine and go with the Abilify solo. He endorsed that the Thorazine was feeling heavy on his body he feels better with the decrease he denied any other side effects. Mental Status Exam 2 MSE Comments: This is a well-nourished well-developed white male in hospital scrubs looking older than his stated age with poor grooming. No abnormal involuntary motor movements except for mild psychomotor agitation. He was cooperative with exam in no acute distress. Speech was normal rate and mostly in volume. Mood described as fine. His affect was generally congruent. His thought process was linear. Thought content: Patient denied homicidal ideation, denied suicidal ideation. There were prominent delusions of grandeur and paranoia was evident. He did not report auditory or visual hallucinations and did not appear to be responding to internal stimuli. Attention and concentration were limited and memory was unreliable, but none were formally tested. He is alert and oriented to person and place. Insight is impaired and judgment is poor and impulse control is impaired. Vitals/I&O/Wt Last Vital Signs Temp 97.8 F 06/07/24 06:00 Pulse 76 06/07/24 06:00 Resp 18 06/07/24 06:00 BP 106/75 06/07/24 06:00 Pulse Ox 95 06/07/24 06:00 O2 Del Method Room Air 06/07/24 06:00 Weight last 48 hrs Weight 111.493 kg Data NPU 05/29/24 22:52 05/29/24 22:52 A&P Assessment and plan (1) Schizoaffective disorder, bipolar type without good prognostic features: (2) Acute psychosis: (3) Chronic schizophrenia: (4) Marijuana use: Plan This is a 48-year-old white male who presents inpatient unit noncompliant with medications, not receiving mental health services for a chronic mental health disorder with homicidal ideation and grandiose delusions. 1.? Monitor for worsening agitation, prn haldol and zyprexa for aggression. Started Thorazine 50 mg p.o. twice daily.Increase to 100 mg p.o. twice daily. Decreased Thorazine back to 50 mg p.o. twice daily and started Abilify 10 mg p.o. daily. Will look to move to the long-acting injectable. 2.? Encourage sobriety at the highest possible level of care the patient is willing to commit. 3.? Encourage individual, group and milieu therapy. 4.? Continue every 15 minute checks for safety. 5. We will file a 21-day hold tomorrow and then will go to forced medication protocol once the 21-day hold is granted. 21-day hold hearing Yesterday at 2 PM. 21-day hold granted 06/05/2024. Involuntary Hold Information 2 96 Hour Hold: 96 Hour Involuntary Admission: Yes 96 Hour Hold Ending Date: 06/04/24 96 Hour Hold Ending Time: 22:45 Other Hold: Hold End Date: 06/04/24 Attestations NPU 2 Medical Necessity Statement*: Inpatient hospitalization is medically necessary and clinically appropriate intervention at this time.? We will initiate medication and/or make changes as indicated. His likely length of stay is 7-10 days. Coding Level of Care Code Acute Code for [facility] Diagnoses Schizoaffective disorder, bipolar type without good prognostic features F25.0 Acute psychosis F23 Chronic schizophrenia F20.9 Marijuana use F12.90
[2024-06-07] MEDS: ascorbic acid 500 mg Tablet PO (08:26)
[2024-06-07] MEDS: chlorPROMazine 50 mg Tablet PO ×2 (08:26→17:28)
[2024-06-07] MEDS: ferrous sulfate EC 325 mg Tablet PO (08:26)
[2024-06-07] MEDS: pantoprazole DR 40 mg Tablet PO ×2 (08:26→17:28)
[2024-06-07] MEDS: nicotine 21 mg Patch 1 PATCH TRANSDERMA (08:27)
[2024-06-07] MEDS: ARIPiprazole 10 mg Tablet PO (08:34)
[2024-06-07 14:00] VITALS: BP 123/88; PULSE 83; RESP 16; TEMP 37.1; O2SAT 97
[2024-06-07 19:44] VITALS: BP 124/76; PULSE 86; RESP 18; TEMP 36.4; O2SAT 98
[2024-06-07] MEDS: trazodone 50 mg Tablet PO (20:21)
[2024-06-07] MEDS: acetaminophen 325 mg Tablet 650 MG PO (20:21)
[2024-06-08 06:00] VITALS: BP 112/73; PULSE 65; RESP 17; O2SAT 98
[2024-06-08] MEDS: ARIPiprazole 10 mg Tablet PO (08:28)
[2024-06-08] MEDS: nicotine 21 mg Patch 1 PATCH TRANSDERMA (08:28)
[2024-06-08] MEDS: acetaminophen 325 mg Tablet 650 MG PO ×3 (08:28→21:07)
[2024-06-08] MEDS: chlorPROMazine 50 mg Tablet PO (08:29)
[2024-06-08] MEDS: pantoprazole DR 40 mg Tablet PO ×2 (08:29→16:57)
[2024-06-08] MEDS: ascorbic acid 500 mg Tablet PO (08:29)
--- NOTE | 2024-06-08 13:34 | PC.NURSE ---
NEW ORDERS RECEIVED TO DISCONTINUE THORAZINE DUE TO PT BEING PLACED ON ABILIFY AND PT WILL RECEIVE THE INJECTION. ORDERS PLACED AND SUPPORT VOICED. EDUCATION PROVIDED. VERBALIZED UNDERSTANDING.
[2024-06-08] MEDS: haloperidol 5 mg Tablet PO (13:49)
--- NOTE | 2024-06-08 13:51 | PC.NURSE ---
TO NURSES STATION COMPLAINS OF HEARING VOICES AND I NEED A HALDOL. PT WAS GIVEN HALDOL 5 MG FOR INCREASED ANXIETY AND AGITATION DUE TO HEARING VOICES.
[2024-06-08 14:00] VITALS: BP 131/80; PULSE 91; RESP 17; TEMP 36.3; O2SAT 98
--- NOTE | 2024-06-08 15:57 | P.NPUPN_ITS ---
Subjective NPU 2 Subjective: Patient presented today reporting that things are going well. He reports he is tolerating the discontinuation of the Thorazine. He reports the Abilify seems to be working much better. We discussed the risks, benefits and alternatives of increasing the Abilify to 15 mg p.o. daily and giving him the Abilify Maintena injection and he understood and agreed to proceed as is documented in this note. He denied any side effects to the medications. Mental Status Exam 2 MSE Comments: This is a well-nourished well-developed white male in hospital scrubs looking older than his stated age with poor grooming. No abnormal involuntary motor movements except for mild psychomotor agitation. He was cooperative with exam in no acute distress. Speech was normal rate and mostly in volume. Mood described as fine. His affect was generally congruent. His thought process was linear. Thought content: Patient denied homicidal ideation, denied suicidal ideation. There were prominent delusions of grandeur and paranoia was evident. He did not report auditory or visual hallucinations and did not appear to be responding to internal stimuli. Attention and concentration were limited and memory was unreliable, but none were formally tested. He is alert and oriented to person and place. Insight is impaired and judgment is poor and impulse control is impaired. Vitals/I&O/Wt Last Vital Signs Temp 97.4 F L 06/08/24 14:00 Pulse 91 06/08/24 14:00 Resp 17 06/08/24 14:00 BP 131/80 06/08/24 14:00 Pulse Ox 98 06/08/24 14:00 O2 Del Method Room Air 06/07/24 14:00 Weight last 48 hrs Weight 111.493 kg Data NPU 05/29/24 22:52 05/29/24 22:52 A&P Assessment and plan (1) Schizoaffective disorder, bipolar type without good prognostic features: (2) Acute psychosis: (3) Chronic schizophrenia: (4) Marijuana use: Plan This is a 48-year-old white male who presents inpatient unit noncompliant with medications, not receiving mental health services for a chronic mental health disorder with homicidal ideation and grandiose delusions. 1.? Monitor for worsening agitation, prn haldol and zyprexa for aggression. Started Thorazine 50 mg p.o. twice daily.Increase to 100 mg p.o. twice daily. Decreased Thorazine back to 50 mg p.o. twice daily and started Abilify 10 mg p.o. daily. Will look to move to the long-acting injectable. Discontinued Thorazine. Will increase Abilify to 15 mg p.o. daily and administer Abilify Maintena 400 mg IM q. monthly. 2.? Encourage sobriety at the highest possible level of care the patient is willing to commit. 3.? Encourage individual, group and milieu therapy. 4.? Continue every 15 minute checks for safety. 5. We will file a 21-day hold tomorrow and then will go to forced medication protocol once the 21-day hold is granted. 21-day hold hearing Yesterday at 2 PM. 21-day hold granted 06/05/2024. Involuntary Hold Information 2 96 Hour Hold: 96 Hour Involuntary Admission: Yes 96 Hour Hold Ending Date: 06/04/24 96 Hour Hold Ending Time: 22:45 Other Hold: Hold End Date: 06/04/24 Attestations NPU 2 Medical Necessity Statement*: Inpatient hospitalization is medically necessary and clinically appropriate intervention at this time.? We will initiate medication and/or make changes as indicated. His likely length of stay is 7-10 days. Coding Level of Care Code Acute Code for [facility] Diagnoses Schizoaffective disorder, bipolar type without good prognostic features F25.0 Acute psychosis F23 Chronic schizophrenia F20.9 Marijuana use F12.90
[2024-06-08] MEDS: magnesium hydroxide 30 mL UDC PO (21:06)
[2024-06-08 21:07] VITALS: BP 107/77; PULSE 115; RESP 18; TEMP 36.7; O2SAT 97
[2024-06-09] MEDS: trazodone 50 mg Tablet PO (00:06)
[2024-06-09 06:15] VITALS: BP 118/78; PULSE 89; RESP 18; TEMP 36.5; O2SAT 99
[2024-06-09] MEDS: ARIPiprazole Maintena 400 MG IM (08:32)
[2024-06-09] MEDS: ARIPiprazole 10 mg Tablet 15 MG PO (08:41)
[2024-06-09] MEDS: pantoprazole DR 40 mg Tablet PO ×2 (08:42→17:07)
[2024-06-09] MEDS: ascorbic acid 500 mg Tablet PO (08:42)
[2024-06-09] MEDS: ferrous sulfate EC 325 mg Tablet PO (08:42)
[2024-06-09] MEDS: acetaminophen 325 mg Tablet 650 MG PO ×2 (08:45→13:24)
[2024-06-09] MEDS: nicotine 21 mg Patch 1 PATCH TRANSDERMA (12:06)
[2024-06-09 14:00] VITALS: BP 123/86; PULSE 99; RESP 16; TEMP 36.9; O2SAT 98
--- NOTE | 2024-06-09 16:18 | W.PM.NPUPNS ---
Subjective NPU Subjective: Patient presented today reporting that things are going okay. He endorsed that he was feeling fine and that he was having no problems from either the injection or the oral medication. We discussed making sure he had support from the standpoint of the medication if there were possible side effects and discussed how we would manage any EPS or other concerns. He was expressing concerns about what he will do when he leaves given that it will be still cold outside which is a departure from his normal reports that we can just discharge him and he will be fine. We discussed that at the time of discharge we would have a clear plan moving forward. He denied any side effects to his medications. Mental Status Exam MSE Comments: This is a well-nourished well-developed white male in hospital scrubs looking older than his stated age with poor grooming. No abnormal involuntary motor movements except for mild psychomotor agitation. He was cooperative with exam in no acute distress. Speech was normal rate and mostly in volume. Mood described as fine. His affect was generally congruent. His thought process was linear. Thought content: Patient denied homicidal ideation, denied suicidal ideation. There were prominent delusions of grandeur and paranoia was evident. He did not report auditory or visual hallucinations and did not appear to be responding to internal stimuli. Attention and concentration were limited and memory was unreliable, but none were formally tested. He is alert and oriented to person and place. Insight is impaired and judgment is poor and impulse control is impaired. Vitals/I&O/Wt Last Vital Signs Temp 98.4 F 06/09/24 14:00 Pulse 99 06/09/24 14:00 Resp 16 06/09/24 14:00 BP 123/86 06/09/24 14:00 Pulse Ox 98 06/09/24 14:00 O2 Del Method Room Air 06/09/24 14:00 Data NPU 05/29/24 22:52 05/29/24 22:52 A&P Assessment and plan (1) Schizoaffective disorder, bipolar type without good prognostic features: (2) Acute psychosis: (3) Chronic schizophrenia: (4) Marijuana use: Plan This is a 48-year-old white male who presents inpatient unit noncompliant with medications, not receiving mental health services for a chronic mental health disorder with homicidal ideation and grandiose delusions. 1.? Monitor for worsening agitation, prn haldol and zyprexa for aggression. Started Thorazine 50 mg p.o. twice daily.Increase to 100 mg p.o. twice daily. Decreased Thorazine back to 50 mg p.o. twice daily and started Abilify 10 mg p.o. daily. Will look to move to the long-acting injectable. Discontinued Thorazine. Increased Abilify to 15 mg p.o. daily and administered Abilify Maintena 400 mg IM q. monthly. Will have 13 additional days of oral supplementation. 2.? Encourage sobriety at the highest possible level of care the patient is willing to commit. 3.? Encourage individual, group and milieu therapy. 4.? Continue every 15 minute checks for safety. 5. We will file a 21-day hold tomorrow and then will go to forced medication protocol once the 21-day hold is granted. 21-day hold hearing Yesterday at 2 PM. 21-day hold granted 06/05/2024. PDMP PDMP Reviewed: Not Reviewed Involuntary Hold Information 96 Hour Hold: 96 Hour Involuntary Admission: Yes 96 Hour Hold Ending Date: 06/04/24 96 Hour Hold Ending Time: 22:45 Other Hold: Hold End Date: 06/04/24 Attestations NPU Medical Necessity Statement*: Inpatient hospitalization is medically necessary and clinically appropriate intervention at this time.? We will initiate medication and/or make changes as indicated. His likely length of stay is 7-10 days. Coding Level of Care Code Acute Code for [facility] Fwd Diagnoses Schizoaffective disorder, bipolar type without good prognostic features F25.0 Acute psychosis F23 Chronic schizophrenia F20.9 Marijuana use F12.90
[2024-06-09 20:20] VITALS: BP 99/61; PULSE 74; RESP 16; TEMP 36.6; O2SAT 97
[2024-06-10 06:00] VITALS: BP 122/82; PULSE 74; RESP 14; TEMP 36.7; O2SAT 96
[2024-06-10] MEDS: ascorbic acid 500 mg Tablet PO (09:03)
[2024-06-10] MEDS: ARIPiprazole 10 mg Tablet 15 MG PO (09:03)
[2024-06-10] MEDS: pantoprazole DR 40 mg Tablet PO ×2 (09:03→18:09)
[2024-06-10] MEDS: nicotine 21 mg Patch 1 PATCH TRANSDERMA (09:33)
[2024-06-10] MEDS: acetaminophen 325 mg Tablet 650 MG PO (09:35)
[2024-06-10] MEDS: magnesium hydroxide 30 mL UDC PO (12:31)
[2024-06-10 14:00] VITALS: BP 103/73; PULSE 108; RESP 16; TEMP 36.4; O2SAT 97
--- NOTE | 2024-06-10 17:28 | W.PM.NPUPNS ---
Subjective NPU Subjective: Patient presented today reporting that things are going well. He reports he is doing fine with the medication I was mostly interested on the timeline of the oral dose discontinuation. We discussed that we would continue it at his current dose for several days and then decrease it to 10 mg p.o. daily for some days and then decrease it to 5 mg p.o. daily for 7 days and then discontinue it by the time we get today 14. Otherwise he denied any changes or any other problems. He denied any side effects to the medication. Mental Status Exam MSE Comments: This is a well-nourished well-developed white male in hospital scrubs looking older than his stated age with poor grooming. No abnormal involuntary motor movements except for mild psychomotor agitation. He was cooperative with exam in no acute distress. Speech was normal rate and mostly in volume. Mood described as fine. His affect was generally congruent. His thought process was linear. Thought content: Patient denied homicidal ideation, denied suicidal ideation. There were prominent delusions of grandeur and paranoia was evident. He did not report auditory or visual hallucinations and did not appear to be responding to internal stimuli. Attention and concentration were limited and memory was unreliable, but none were formally tested. He is alert and oriented to person and place. Insight is impaired and judgment is poor and impulse control is impaired. Vitals/I&O/Wt Last Vital Signs Temp 97.5 F L 06/10/24 14:00 Pulse 108 H 06/10/24 14:00 Resp 16 06/10/24 14:00 BP 103/73 06/10/24 14:00 Pulse Ox 97 06/10/24 14:00 O2 Del Method Room Air 06/10/24 14:00 Data NPU 05/29/24 22:52 05/29/24 22:52 A&P Assessment and plan (1) Schizoaffective disorder, bipolar type without good prognostic features: (2) Acute psychosis: (3) Chronic schizophrenia: (4) Marijuana use: Plan This is a 48-year-old white male who presents inpatient unit noncompliant with medications, not receiving mental health services for a chronic mental health disorder with homicidal ideation and grandiose delusions. 1.? Monitor for worsening agitation, prn haldol and zyprexa for aggression. Started Thorazine 50 mg p.o. twice daily.Increase to 100 mg p.o. twice daily. Decreased Thorazine back to 50 mg p.o. twice daily and started Abilify 10 mg p.o. daily. Will look to move to the long-acting injectable. Discontinued Thorazine. Increased Abilify to 15 mg p.o. daily and administered Abilify Maintena 400 mg IM q. monthly. Will have 12 additional days of oral supplementation. 2.? Encourage sobriety at the highest possible level of care the patient is willing to commit. 3.? Encourage individual, group and milieu therapy. 4.? Continue every 15 minute checks for safety. 5. We will file a 21-day hold tomorrow and then will go to forced medication protocol once the 21-day hold is granted. 21-day hold hearing Yesterday at 2 PM. 21-day hold granted 06/05/2024. PDMP PDMP Reviewed: Not Reviewed Involuntary Hold Information 96 Hour Hold: 96 Hour Involuntary Admission: Yes 96 Hour Hold Ending Date: 06/04/24 96 Hour Hold Ending Time: 22:45 Other Hold: Hold End Date: 06/26/24 Attestations NPU Medical Necessity Statement*: Inpatient hospitalization is medically necessary and clinically appropriate intervention at this time.? We will initiate medication and/or make changes as indicated. His likely length of stay is 7-10 days. Coding Level of Care Code Acute Code for [facility] Fwd Diagnoses Schizoaffective disorder, bipolar type without good prognostic features F25.0 Acute psychosis F23 Chronic schizophrenia F20.9 Marijuana use F12.90
[2024-06-10 20:31] VITALS: BP 113/76; PULSE 115; RESP 18; TEMP 36.7; O2SAT 97
[2024-06-11 06:00] VITALS: BP 120/80; PULSE 75; RESP 18; TEMP 36.8; O2SAT 97
[2024-06-11] MEDS: ARIPiprazole 10 mg Tablet 15 MG PO (09:11)
[2024-06-11] MEDS: nicotine 21 mg Patch 1 PATCH TRANSDERMA (09:11)
[2024-06-11] MEDS: ascorbic acid 500 mg Tablet PO (09:11)
[2024-06-11] MEDS: pantoprazole DR 40 mg Tablet PO ×2 (09:12→17:40)
[2024-06-11] MEDS: ferrous sulfate EC 325 mg Tablet PO (09:12)
[2024-06-11] MEDS: acetaminophen 325 mg Tablet 650 MG PO (11:34)
[2024-06-11 14:00] VITALS: BP 150/97; PULSE 93; RESP 16; TEMP 37.1; O2SAT 98
[2024-06-11] MEDS: ibuprofen 600 mg Tablet PO (14:24)
[2024-06-11] MEDS: phenyleph-mineral oil-petrolat Oint 28 gm 1 APPLIC TOPICAL (15:14)
--- NOTE | 2024-06-11 17:45 | P.NPUPN_ITS ---
Subjective NPU 2 Subjective: Patient presented today reporting that he will stay here is also needing to but he continues to report a plan to buy a car and live in his car after discharge. He continues to report grandiose delusions per staff reports and direct observation reporting that we are costing him $70,000 by keeping him here for these almost 4 weeks. He denied any side effects to the medication. Mental Status Exam 2 MSE Comments: This is a well-nourished well-developed white male in hospital scrubs looking older than his stated age with adequate grooming. No abnormal involuntary motor movements except for mild psychomotor agitation. He was cooperative with exam in no acute distress. Speech was normal rate and mostly in volume. Mood described as fine. His affect was generally congruent. His thought process was linear. Thought content: Patient denied homicidal ideation, denied suicidal ideation. There were prominent delusions of grandeur and paranoia was evident. He did not report auditory or visual hallucinations and did not appear to be responding to internal stimuli. Attention and concentration were limited and memory was unreliable, but none were formally tested. He is alert and oriented to person and place. Insight is impaired and judgment is poor and impulse control is impaired. Vitals/I&O/Wt Last Vital Signs Temp 97.6 F 06/11/24 21:57 Pulse 85 06/11/24 21:57 Resp 18 06/11/24 21:57 BP 136/92 06/11/24 21:57 Pulse Ox 97 06/11/24 21:57 O2 Del Method Room Air 06/11/24 14:00 Data NPU 05/29/24 22:52 05/29/24 22:52 A&P Assessment and plan (1) Schizoaffective disorder, bipolar type without good prognostic features: (2) Acute psychosis: (3) Chronic schizophrenia: (4) Marijuana use: Plan This is a 48-year-old white male who presents inpatient unit noncompliant with medications, not receiving mental health services for a chronic mental health disorder with homicidal ideation and grandiose delusions. 1.? Monitor for worsening agitation, prn haldol and zyprexa for aggression. Started Thorazine 50 mg p.o. twice daily.Increase to 100 mg p.o. twice daily. Decreased Thorazine back to 50 mg p.o. twice daily and started Abilify 10 mg p.o. daily. Will look to move to the long-acting injectable. Discontinued Thorazine. Increased Abilify to 15 mg p.o. daily and administered Abilify Maintena 400 mg IM q. monthly. Will have 11 additional days of oral supplementation. 2.? Encourage sobriety at the highest possible level of care the patient is willing to commit. 3.? Encourage individual, group and milieu therapy. 4.? Continue every 15 minute checks for safety. 5. We will file a 21-day hold tomorrow and then will go to forced medication protocol once the 21-day hold is granted. 21-day hold hearing Yesterday at 2 PM. 21-day hold granted 06/05/2024. PDMP PDMP Reviewed: Not Reviewed Involuntary Hold Information 2 96 Hour Hold: 96 Hour Involuntary Admission: Yes 96 Hour Hold Ending Date: 06/04/24 96 Hour Hold Ending Time: 22:45 Other Hold: Hold End Date: 06/26/24 Attestations NPU 2 Medical Necessity Statement*: Inpatient hospitalization is medically necessary and clinically appropriate intervention at this time.? We will initiate medication and/or make changes as indicated. His likely length of stay is 7-10 days. Coding Level of Care Code Acute Code for [facility] Fwd Diagnoses Schizoaffective disorder, bipolar type without good prognostic features F25.0 Acute psychosis F23 Chronic schizophrenia F20.9 Marijuana use F12.90
[2024-06-11] MEDS: ondansetron 4 MG Tablet PO (18:01)
[2024-06-11] MEDS: magnesium hydroxide 30 mL UDC PO (20:55)
[2024-06-11 21:57] VITALS: BP 136/92; PULSE 85; RESP 18; TEMP 36.4; O2SAT 97
[2024-06-12] MEDS: nicotine 4 mg lozenge MUCOUS MEM (00:46)
[2024-06-12] MEDS: haloperidol 5 mg Tablet PO (01:22)
[2024-06-12 06:00] VITALS: BP 133/92; PULSE 99; RESP 17; TEMP 36.8; O2SAT 99
[2024-06-12] MEDS: ascorbic acid 500 mg Tablet PO (08:46)
[2024-06-12] MEDS: ARIPiprazole 10 mg Tablet 15 MG PO (08:46)
[2024-06-12] MEDS: pantoprazole DR 40 mg Tablet PO ×2 (08:46→17:11)
[2024-06-12] MEDS: ferrous sulfate EC 325 mg Tablet PO (08:46)
[2024-06-12] MEDS: nicotine 21 mg Patch 1 PATCH TRANSDERMA (12:33)
--- NOTE | 2024-06-12 13:21 | W.PM.NPUPNS ---
Subjective NPU Subjective: Patient presented today reporting that he is doing okay. He endorsed some concern that he was not able to identify ways that he was going to be able to get a cheap car to execute his plan to live in his car after he is discharged because he is only on bail to get about $1000 by July 04. Otherwise he endorsed that he is having no issues with his medication and we discussed the tapering of the oral Abilify that we will begin soon as we continue the oral cross cover. He denied any side effects to the medication. Mental Status Exam MSE Comments: This is a well-nourished well-developed white male in hospital scrubs looking older than his stated age with adequate grooming. No abnormal involuntary motor movements except for mild psychomotor agitation. He was cooperative with exam in no acute distress. Speech was normal rate and mostly in volume. Mood described as fine. His affect was generally congruent. His thought process was linear. Thought content: Patient denied homicidal ideation, denied suicidal ideation. There were prominent delusions of grandeur and paranoia was evident. He did not report auditory or visual hallucinations and did not appear to be responding to internal stimuli. Attention and concentration were limited and memory was unreliable, but none were formally tested. He is alert and oriented to person and place. Insight is impaired and judgment is poor and impulse control is impaired. Vitals/I&O/Wt Last Vital Signs Temp 98.3 F 06/12/24 06:00 Pulse 99 06/12/24 06:00 Resp 17 06/12/24 06:00 BP 133/92 06/12/24 06:00 Pulse Ox 99 06/12/24 06:00 O2 Del Method Room Air 06/12/24 06:00 Data NPU 05/29/24 22:52 05/29/24 22:52 A&P Assessment and plan (1) Schizoaffective disorder, bipolar type without good prognostic features: (2) Acute psychosis: (3) Chronic schizophrenia: (4) Marijuana use: Plan This is a 48-year-old white male who presents inpatient unit noncompliant with medications, not receiving mental health services for a chronic mental health disorder with homicidal ideation and grandiose delusions. 1.? Monitor for worsening agitation, prn haldol and zyprexa for aggression. Started Thorazine 50 mg p.o. twice daily.Increase to 100 mg p.o. twice daily. Decreased Thorazine back to 50 mg p.o. twice daily and started Abilify 10 mg p.o. daily. Will look to move to the long-acting injectable. Discontinued Thorazine. Increased Abilify to 15 mg p.o. daily and administered Abilify Maintena 400 mg IM q. monthly. Will have 10 additional days of oral supplementation. 2.? Encourage sobriety at the highest possible level of care the patient is willing to commit. 3.? Encourage individual, group and milieu therapy. 4.? Continue every 15 minute checks for safety. 5. We will file a 21-day hold tomorrow and then will go to forced medication protocol once the 21-day hold is granted. 21-day hold hearing Yesterday at 2 PM. 21-day hold granted 06/05/2024. PDMP PDMP Reviewed: Not Reviewed Involuntary Hold Information 96 Hour Hold: 96 Hour Involuntary Admission: Yes 96 Hour Hold Ending Date: 06/04/24 96 Hour Hold Ending Time: 22:45 Other Hold: Hold End Date: 06/26/24 Attestations NPU Medical Necessity Statement*: Inpatient hospitalization is medically necessary and clinically appropriate intervention at this time.? We will initiate medication and/or make changes as indicated. His likely length of stay is 7-10 days. Coding Level of Care Code Acute Code for [facility] Fwd Diagnoses Schizoaffective disorder, bipolar type without good prognostic features F25.0 Acute psychosis F23 Chronic schizophrenia F20.9 Marijuana use F12.90
[2024-06-12 14:00] VITALS: BP 129/87; PULSE 91; RESP 16; TEMP 36.8; O2SAT 97
[2024-06-12] MEDS: hyDROXYzine 25 mg Capsule 50 MG PO (19:45)
[2024-06-12 22:00] VITALS: BP 117/74; PULSE 72; RESP 18; O2SAT 98
[2024-06-13 06:00] VITALS: BP 112/73; PULSE 93; RESP 17; TEMP 36.8; O2SAT 97
--- NOTE | 2024-06-13 08:31 | W.PM.NPUPNS ---
Subjective NPU Subjective: Patient presented today reporting that things are going okay. He endorsed he continues to struggle with figuring out what he can do when he leaves as his idea for a car seems to be failing due to economics. We continue to discussed the fact that we do not want to have him living in a car or having a unreasonable residential situation and he continues to not want to be in the situation where there is in a assisted. He denied any side effects to medications. Mental Status Exam MSE Comments: This is a well-nourished well-developed white male in hospital scrubs looking older than his stated age with adequate grooming. No abnormal involuntary motor movements except for mild psychomotor agitation. He was cooperative with exam in no acute distress. Speech was normal rate and mostly in volume. Mood described as fine. His affect was generally congruent. His thought process was linear. Thought content: Patient denied homicidal ideation, denied suicidal ideation. There were prominent delusions of grandeur and paranoia was evident. He did not report auditory or visual hallucinations and did not appear to be responding to internal stimuli. Attention and concentration were limited and memory was unreliable, but none were formally tested. He is alert and oriented to person and place. Insight is impaired and judgment is poor and impulse control is impaired. Vitals/I&O/Wt Last Vital Signs Temp 98.3 F 06/13/24 06:00 Pulse 93 06/13/24 06:00 Resp 17 06/13/24 06:00 BP 112/73 06/13/24 06:00 Pulse Ox 97 06/13/24 06:00 O2 Del Method Room Air 06/13/24 06:00 Weight last 48 hrs Weight 111.402 kg Data NPU 05/29/24 22:52 05/29/24 22:52 A&P Assessment and plan (1) Schizoaffective disorder, bipolar type without good prognostic features: (2) Acute psychosis: (3) Chronic schizophrenia: (4) Marijuana use: Plan This is a 48-year-old white male who presents inpatient unit noncompliant with medications, not receiving mental health services for a chronic mental health disorder with homicidal ideation and grandiose delusions. 1.? Monitor for worsening agitation, prn haldol and zyprexa for aggression. Started Thorazine 50 mg p.o. twice daily.Increase to 100 mg p.o. twice daily. Decreased Thorazine back to 50 mg p.o. twice daily and started Abilify 10 mg p.o. daily. Will look to move to the long-acting injectable. Discontinued Thorazine. Increased Abilify to 15 mg p.o. daily and administered Abilify Maintena 400 mg IM q. monthly. Will have 9 additional days of oral supplementation. 2.? Encourage sobriety at the highest possible level of care the patient is willing to commit. 3.? Encourage individual, group and milieu therapy. 4.? Continue every 15 minute checks for safety. 5. We will file a 21-day hold tomorrow and then will go to forced medication protocol once the 21-day hold is granted. 21-day hold hearing Yesterday at 2 PM. 21-day hold granted 06/05/2024. PDMP PDMP Reviewed: Not Reviewed Involuntary Hold Information 96 Hour Hold: 96 Hour Involuntary Admission: Yes 96 Hour Hold Ending Date: 06/04/24 96 Hour Hold Ending Time: 22:45 Other Hold: Hold End Date: 06/26/24 Attestations NPU Medical Necessity Statement*: Inpatient hospitalization is medically necessary and clinically appropriate intervention at this time.? We will initiate medication and/or make changes as indicated. His likely length of stay is 7-10 days. Coding Level of Care Code Acute Code for [facility] Fwd Diagnoses Schizoaffective disorder, bipolar type without good prognostic features F25.0 Acute psychosis F23 Chronic schizophrenia F20.9 Marijuana use F12.90
[2024-06-13] MEDS: ARIPiprazole 10 mg Tablet 15 MG PO (09:43)
[2024-06-13] MEDS: pantoprazole DR 40 mg Tablet PO ×2 (09:43→18:00)
[2024-06-13] MEDS: nicotine 21 mg Patch 1 PATCH TRANSDERMA (10:52)
[2024-06-13] MEDS: hyDROXYzine 25 mg Capsule 50 MG PO ×2 (12:19→22:13)
[2024-06-13] MEDS: acetaminophen 325 mg Tablet 650 MG PO (12:19)
[2024-06-13 14:00] VITALS: BP 125/79; PULSE 103; RESP 17; TEMP 36.8; O2SAT 96
[2024-06-13] MEDS: ondansetron 4 MG Tablet PO (16:18)
[2024-06-13] MEDS: magnesium hydroxide 30 mL UDC PO (17:14)
--- NOTE | 2024-06-13 19:45 | PC.NURSE ---
this nurse has been with this patient since 7am. Patient alert and oriented x4. Patient cooperative, interacts minimally with peers and more frequently with staff. patient denies SI/HI/AVH. Patient did call and check on hotel room prices during the day. 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 I don't have for them to comp me a room; it would mess up my social security and mess up the book keeping. Patient states he owns several [employer], [employer] and the [employer].
[2024-06-13 21:58] VITALS: BP 117/82; PULSE 88; RESP 18; TEMP 36.9; O2SAT 97
[2024-06-13] MEDS: trazodone 50 mg Tablet PO (22:13)
[2024-06-14 06:00] VITALS: BP 121/86; PULSE 89; RESP 18; TEMP 36.3; O2SAT 99
[2024-06-14] MEDS: pantoprazole DR 40 mg Tablet PO ×2 (08:19→17:17)
[2024-06-14] MEDS: nicotine 21 mg Patch 1 PATCH TRANSDERMA (08:19)
[2024-06-14] MEDS: ARIPiprazole 10 mg Tablet 15 MG PO (08:19)
[2024-06-14] MEDS: acetaminophen 325 mg Tablet 650 MG PO (09:59)
[2024-06-14] MEDS: magnesium hydroxide 30 mL UDC PO (12:17)
[2024-06-14 14:00] VITALS: BP 127/87; PULSE 85; RESP 17; TEMP 36.6; O2SAT 100
--- NOTE | 2024-06-14 14:24 | P.NPUPN_ITS ---
Subjective NPU 2 Subjective: 48-year-old male with history of schizoa ffective disorder bipolar type admitted with homicidal ideation. The patient had reported feeling better with the Abilify and reported continued problems with nausea associated with taking his iron pills. He had reported no side effects from his Abilify at this time. He had been less isolative on the milieu. He had continued to report concerns about his living situation. There have been no acts of aggression noted and he made no threats to harm others today. He had continued to report that he would not take his medications when he left here. Mental Status Exam 2 MSE Comments: This is a well-nourished well-developed white male in hospital scrubs looking older than his stated age with adequate grooming. No abnormal involuntary motor movements except for mild psychomotor agitation. He was cooperative with exam in no acute distress. Speech was normal in rate and normal in volume. Mood described as okay. His affect was flat. His thought process was linear. Thought content: Patient denied homicidal ideation, denied suicidal ideation. There were continued delusions of grandeur but less paranoia evident. He did not report auditory or visual hallucinations and did not appear to be responding to internal stimuli. Attention and concentration were limited and memory was unreliable, but none were formally tested. He is alert and oriented to person and place. Insight is impaired and judgment is poor and impulse control is impaired. Vitals/I&O/Wt Last Vital Signs Temp 97.4 F L 06/14/24 06:00 Pulse 89 06/14/24 06:00 Resp 18 06/14/24 06:00 BP 121/86 06/14/24 06:00 Pulse Ox 99 06/14/24 06:00 O2 Del Method Room Air 06/12/24 14:00 Weight last 48 hrs Weight 111.402 kg Data NPU 05/29/24 22:52 05/29/24 22:52 A&P Assessment and plan (1) Schizoaffective disorder, bipolar type without good prognostic features: (2) Acute psychosis: (3) Chronic schizophrenia: (4) Marijuana use: Plan This is a 48-year-old white male who presents inpatient unit noncompliant with medications, not receiving mental health services for a chronic mental health disorder with homicidal ideation and grandiose delusions. 1.? Monitor for worsening agitation, prn haldol and zyprexa for aggression. Started Thorazine 50 mg p.o. twice daily.Increase to 100 mg p.o. twice daily. Decreased Thorazine back to 50 mg p.o. twice daily and started Abilify 10 mg p.o. daily. Will look to move to the long-acting injectable. Discontinued Thorazine. Increased Abilify to 15 mg p.o. daily and administered Abilify Maintena 400 mg IM q. monthly. Will have 6 additional days of oral supplementation. 2.? Encourage sobriety at the highest possible level of care the patient is willing to commit. 3.? Encourage individual, group and milieu therapy. 4.? Continue every 15 minute checks for safety. 5. We will file a 21-day hold tomorrow and then will go to forced medication protocol once the 21-day hold is granted. 21-day hold hearing Yesterday at 2 PM. 21-day hold granted 06/05/2024. PDMP PDMP Reviewed: Not Reviewed Involuntary Hold Information 2 96 Hour Hold: 96 Hour Involuntary Admission: Yes 96 Hour Hold Ending Date: 06/04/24 96 Hour Hold Ending Time: 22:45 Other Hold: Hold End Date: 06/26/24 Attestations NPU 2 Medical Necessity Statement*: Inpatient hospitalization is medically necessary and clinically appropriate intervention at this time.? We will initiate medication and/or make changes as indicated. His likely length of stay is 7-10 days. Coding Level of Care Code Acute Code for [facility] Fwd Diagnoses Schizoaffective disorder, bipolar type without good prognostic features F25.0 Acute psychosis F23 Chronic schizophrenia F20.9 Marijuana use F12.90
[2024-06-14] MEDS: hyDROXYzine 25 mg Capsule 50 MG PO (21:42)
[2024-06-14] MEDS: trazodone 50 mg Tablet PO (21:42)
[2024-06-14 22:00] VITALS: BP 134/94; PULSE 85; RESP 18; TEMP 36.4; O2SAT 97
[2024-06-15 06:00] VITALS: BP 112/69; PULSE 73; RESP 18; O2SAT 95
[2024-06-15] MEDS: nicotine 21 mg Patch 1 PATCH TRANSDERMA (08:17)
[2024-06-15] MEDS: ARIPiprazole 10 mg Tablet 15 MG PO (08:18)
[2024-06-15] MEDS: pantoprazole DR 40 mg Tablet PO ×2 (08:18→17:41)
[2024-06-15 14:00] VITALS: BP 153/85; PULSE 89; RESP 16; TEMP 36.8; O2SAT 98
--- NOTE | 2024-06-15 15:02 | P.NPUPN_ITS ---
Subjective NPU 2 Subjective: 48-year-old male with history of schizoa ffective disorder bipolar type admitted with homicidal ideation. Patient had been more pleasant and cooperative on the milieu. He had been able to attend groups. He continued to remain frustrated over his living situation but stated that he would continue to want to live in the [facility] area. He had reported no side effects from taking the Abilify and was agreeable to consider outpatient medication management. He had reported adequate sleep. He had expressed continued concern over his homeless situation. Mental Status Exam 2 MSE Comments: This is a well-nourished well-developed white male in hospital scrubs looking older than his stated age with adequate grooming. No abnormal involuntary motor movements except for mild psychomotor agitation. He was cooperative with exam in no acute distress. Speech was normal in rate and normal in volume. Mood described as good. His affect was less restricted. His thought process was linear. Thought content: Patient denied homicidal ideation, denied suicidal ideation. There was continued evidence of grandiosity. He did not report auditory or visual hallucinations and did not appear to be responding to internal stimuli. Attention and concentration were limited and memory was unreliable, but none were formally tested. He is alert and oriented to person and place. Insight is impaired and judgment is poor and impulse control is improving. Vitals/I&O/Wt Last Vital Signs Temp 97.6 F 06/14/24 22:00 Pulse 73 06/15/24 06:00 Resp 18 06/15/24 06:00 BP 112/69 06/15/24 06:00 Pulse Ox 95 06/15/24 06:00 O2 Del Method Room Air 06/12/24 14:00 Weight last 48 hrs Weight 111.402 kg Data NPU 05/29/24 22:52 05/29/24 22:52 A&P Assessment and plan (1) Schizoaffective disorder, bipolar type without good prognostic features: (2) Acute psychosis: (3) Chronic schizophrenia: (4) Marijuana use: Plan This is a 48-year-old white male who presents inpatient unit noncompliant with medications, not receiving mental health services for a chronic mental health disorder with homicidal ideation and grandiose delusions. 1.? IM Abilify given, reduce Abilify oral to 10mg daily. 2.? Encourage sobriety at the highest possible level of care the patient is willing to commit. 3.? Encourage individual, group and milieu therapy. 4.? Continue every 15 minute checks for safety. 5. We will file a 21-day hold tomorrow and then will go to forced medication protocol once the 21-day hold is granted. 21-day hold hearing Yesterday at 2 PM. 21-day hold granted 06/05/2024. PDMP PDMP Reviewed: Not Reviewed Involuntary Hold Information 2 96 Hour Hold: 96 Hour Involuntary Admission: Yes 96 Hour Hold Ending Date: 06/04/24 96 Hour Hold Ending Time: 22:45 Other Hold: Hold End Date: 06/26/24 Attestations NPU 2 Medical Necessity Statement*: Inpatient hospitalization is medically necessary and clinically appropriate intervention at this time.? We will initiate medication and/or make changes as indicated. His likely length of stay is 3-5 days. Coding Level of Care Code Acute Code for [facility] Fwd Diagnoses Schizoaffective disorder, bipolar type without good prognostic features F25.0 Acute psychosis F23 Chronic schizophrenia F20.9 Marijuana use F12.90
[2024-06-15] MEDS: hyDROXYzine 25 mg Capsule 50 MG PO (19:21)
[2024-06-15] MEDS: ibuprofen 600 mg Tablet PO (19:21)
[2024-06-15] MEDS: trazodone 50 mg Tablet PO (20:14)
[2024-06-15 21:01] VITALS: BP 150/97; PULSE 93; RESP 18; TEMP 37; O2SAT 99
[2024-06-16 06:00] VITALS: BP 121/83; PULSE 71; RESP 18; TEMP 36.4; O2SAT 98
[2024-06-16] MEDS: pantoprazole DR 40 mg Tablet PO (08:18)
[2024-06-16] MEDS: nicotine 21 mg Patch 1 PATCH TRANSDERMA (08:18)
[2024-06-16] MEDS: magnesium hydroxide 30 mL UDC PO (08:18)
[2024-06-16] MEDS: ARIPiprazole 10 mg Tablet PO (08:18)
[2024-06-16] MEDS: ascorbic acid 500 mg Tablet PO (08:18)
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
[2024-06-16 13:43] VITALS: BP 121/83; PULSE 71; RESP 18; TEMP 37; O2SAT 98
[2024-06-16] MEDS: acetaminophen 325 mg Tablet 650 MG PO (14:20)
== END 2024-06-16 15:50 | disposition home or self-care (01) | DRG 885 ==
LOC: ER 23:47 → NP 05-30 01:13
PROVIDERS: Admitting Provider Psychiatry & Neurology Psychiatry; Emergency Provider Physician Assistant; PCP Family Medicine; Visit Provider Psychiatry & Neurology Psychiatry
DX: F25.0 Schizoaffective disorder, bipolar type (principal); F23 Brief psychotic disorder; Z59.01 Sheltered homelessness; R45.850 Homicidal ideations; Z91.148 Patient's other noncompliance with medication regimen for other reason; F17.210 Nicotine dependence, cigarettes, uncomplicated
CPT/HCPCS: 36415; 80053; 80306; 80307; 85025; 87486; 87581; 87633; 93005; 96372; 97150; 97165; 99285; J1200; J1630; J2060; Q0161; Q0162

== ENCOUNTER 2024-06-22 08:33 | Inpatient (IN) | payer MEDICAID, SELFPAY ==
[2024-05-13 11:18] VITALS: BP 108/66; BMI 29.4
[2024-06-22 08:34] VITALS: BP 186/114; PULSE 108; RESP 20; TEMP 36.6; O2SAT 96
--- NOTE | 2024-06-22 08:47 | W.ED.PSYCHS ---
HPI - Psych General: Chief Complaint: Psychiatric Symptoms Stated Complaint: SI, Time Seen by Provider: 06/22/24 08:34 History of Present Illness: 48-year-old male presents emergency room via EMS accompanied by police. Patient has a history of chronic schizophrenia he is on Abilify. He tells me he gets a shot q. 28 days. He is unsure when his last shot was. Patient presents this morning acutely psychotic. He is having delusions. He made comments to the information assurance officer at the scene that they were he made other comments about having a headache but someone restraining him from fixing it he is also having hallucinations. Patient recent hospitalization in late May for the same. He denies any homicidal or suicidal ideation. Please officers who accompanied him and from the scene both filled out affidavits regarding his acute psychosis Related Data Home Medications ?Medication ?Instructions ?Recorded ?Confirmed ascorbic acid (vitamin C) 500 mg 500 mg PO DAILY 04/14/24 05/30/24 capsule Previous Rx's ?Medication ?Instructions ?Recorded ferrous sulfate 325 mg (65 mg 325 mg PO .q48 3 months #45 tabs 03/12/24 iron) tablet (Feosol) pantoprazole 40 mg tablet,delayed 40 mg PO BID 30 days #60 tabs 04/09/24 release (Protonix) aripiprazole 10 mg tablet 10 mg PO DAILY 7 days #7 tabs 06/16/24 aripiprazole 400 mg intramuscular 400 mg IM Q28D #1 ea 06/16/24 suspension,extended release (Abilify Maintena) Allergies Allergy/AdvReac Type Severity Reaction Status Date / Time amoxicillin AdvReac Intermediate Rash Verified 04/14/24 09:37 Penicillins AdvReac Intermediate Rash Verified 04/14/24 09:37 Review of Systems Const: Denies: fever(s) or chills Card: Denies: chest pain Resp: Denies: dyspnea GI: Denies: abdominal pain : Denies: dysuria, urinary frequency or urinary urgency Musc: Denies: neck pain or back pain Skin/Breast: Denies: rash PFSH ED PFSH: Medical History Auditory hallucination Varicose vein of leg Psychiatric care Schizoaffective disorder, bipolar type without good prognostic features Chronic schizophrenia Spina bifida Peripheral neuropathy Duodenal ulcer Perforated stomach GI bleed Anemia Upper gastrointestinal hemorrhage Chronic idiopathic constipation Folliculitis cruris pustulosa atrophicans Nonvenomous insect bite of neck Nicotine dependence, unspecified, uncomplicated Schizoaffective disorder, bipolar type Borderline personality disorder Surgical History History of incision and drainage left hip History of tonsillectomy History of carpal tunnel surgery of right wrist History of back surgery History of cholecystectomy Family History Mother Bleeding disorder anemia Cancer uterine Hypertension Lung disease asthma Grandmother Bleeding disorder anemia Diabetes Father Cancer melonoma Hyperlipidemia Grandfather Chronic kidney disease (CKD) Diabetes Stroke Other Acute psychosis Denies family history of CAD (coronary artery disease) Clotting disorder Dementia Psychiatric illness Anesthesia complication Social History Smoking and tobacco/nicotine status: current every day tobacco/nicotine user cigarettes Quit status (tobacco/nicotine): has tried quititng Number of times tried to quit tobacco: 8 Second hand smoke exposure: No Alcohol intake: current Alcohol intake frequency: holidays/special occasions only Alcohol type: hard liquor Substance/Drug Use: never Lives independently: Yes Household members: caregiver Marital status: Single Number of children: 0 Current occupational status: disabled Current gender identity: Male Special dagmar needs: No Agree to transfusion: Yes Physical Exam Const: GENERAL APPEARANCE: cooperative ORIENTATION/CONSCIOUSNESS: Yes awake HENMT: COMMON NORMALS: normocephalic, atraumatic and hearing grossly normal bilaterally HEAD & SCALP: normocephalic and atraumatic Resp: COMMON NORMALS: normal respiratory effort, No retractions, No use of accessory muscles and clear to auscultation bilaterally AUSCULTATION: clear to auscultation bilaterally Cardio: COMMON NORMALS: regular rate, regular rhythm and No murmurs present (Cardio) RATE: regular rate RHYTHM: regular rhythm Extremity: COMMON NORMALS: normal to inspection, capillary refill normal, no clubbing, cyanosis or edema, no calf tenderness and no pedal edema Skin: COMMON NORMALS: no rashes or lesions noted GENERAL SKIN EXAM: no rashes or lesions noted Course Vital Signs: Vital signs: Vital Signs Temperature 97.8 F 06/22/24 08:34 Pulse Rate 108 H 06/22/24 08:34 Respiratory Rate 20 H 06/22/24 08:34 Blood Pressure 186/114 06/22/24 08:34 Pulse Oximetry 96 06/22/24 08:34 MDM - Psych Medical Decision Making Acute psychosis placed on 96-hour hold. Discussed Dr. horta orders written Medical Records I reviewed the patient's medical records. Lab Data I reviewed the patient's lab results. No radiology studies performed this visit Discharge Plan Discharge Patient Disposition: Admitted As Inpatient Clinical Impression: Acute psychosis, Schizoaffective disorder, bipolar type Condition: Stable Coding Level of Care Code ED [employer] for Kobe Riggs
--- NOTE | 2024-06-22 08:51 | PC.NURSE ---
PT STATED TO THIS NURSE AND SITTER, I HAVE EPILEPSY. I FEEL LIKE I AM ABOUT TO HAVE A SEIZURE. DR. JACOBO NOTIFIED. NO NEW ORDERS AT THIS TIME.
--- NOTE | 2024-06-22 08:52 | ED.C_ITS ---
HPI - Psych General: Chief Complaint: Psychiatric Symptoms Stated Complaint: SI, Time Seen by Provider: 06/22/24 08:34 Related Data Home Medications ?Medication ?Instructions ?Recorded ?Confirmed ascorbic acid (vitamin C) 500 mg 500 mg PO DAILY 04/1405/30/24 capsule Previous Rx's ?Medication ?Instructions ?Recorded ferrous sulfate 325 mg (65 mg 325 mg PO .q48 3 months #45 tabs 03/12/24 iron) tablet (Feosol) pantoprazole 40 mg tablet,delayed 40 mg PO BID 30 days #60 tabs 04/09/24 release (Protonix) aripiprazole 10 mg tablet 10 mg PO DAILY 7 days #7 tab s 06/16/24 aripiprazole 400 mg intramuscular 400 mg IM Q28D #1 ea 06/16/24 suspension,extended release (Abilify Maintena) Allergies Allergy/AdvReac Type Severity Reaction Status Date / Time amoxicillin AdvReac Intermediate Rash Verified 04/14/24 09:37 Penicillins AdvReac Intermediate Rash Verified 04/14/24 09:37 PFS ED PFSH: Medical History Auditory hallucination Varicose vein of leg Psychiatric care Schizoaffective disorder, bipolar type without good prognostic features Chronic schizophrenia Spina bifida Peripheral neuropathy Duodenal ulcer Perforated stomach GI bleed Anemia Upper gastrointestinal hemorrhage Chronic idiopathic constipation Folliculitis cruris pustulosa atrophicans Nonvenomous insect bite of neck Nicotine dependence, unspecified, uncomplicated Schizoaffective disorder, bipolar type Borderline personality disorder Surgical History History of incision and drainage left hip History of tonsillectomy History of carpal tunnel surgery of right wrist History of back surgery History of cholecystectomy Family History Mother Bleeding disorder anemia Cancer uterine Hypertension Lung disease asthma Grandmother Bleeding disorder anemia Diabetes Father Cancer melonoma Hyperlipidemia Grandfather Chronic kidney disease (CKD) Diabetes Stroke Other Acute psychosis Denies family history of CAD (coronary artery disease) Clotting disorder Dementia Psychiatric illness Anesthesia complication Social History Smoking and tobacco/nicotine status: current every day tobacco/nicotine user cigarettes Quit status (tobacco/nicotine): has tried quititng Number of times tried to quit tobacco: 8 Second hand smoke exposure: No Alcohol intake: current Alcohol intake frequency: holidays/special occasions only Alcohol type: hard liquor Substance/Drug Use: never Lives independently: Yes Household members: caregiver Marital status: Single Number of children: 0 Current occupational status: disabled Current gender identity: Male Special dagmar needs: No Agree to transfusion: Yes Course Vital Signs: Vital signs: Vital Signs Temperature 97.8 F 06/22/24 08:34 Pulse Rate 108 H 06/22/24 08:34 Respiratory Rate 20 H 06/22/24 08:34 Blood Pressure 186/114 06/22/24 08:34 Pulse Oximetry 96 06/22/24 08:34 Discharge Plan Discharge Patient Disposition: Admitted As Inpatient Clinical Impression: Acute psychosis, Schizoaffective disorder, bipolar type Condition: Stable Coding Level of Care Code ED [facility] for Kobe Riggs
[2024-06-22 09:53] LABS: Basophils % 0.4 %; Eosinophils # 0.1 10^3/uL (0.0-0.8); Lymphocytes # 1.5 10^3/uL (0.8-4.8); Lymphocytes % 20.3 %; Mean Corpuscular HGB Conc 33.4 g/dL (30-55); Mean Corpuscular Hemoglobin 27.9 pg (27-33); Mean Corpuscular Volume 83.7 fl (82-101); Mean Platelet Volume 8.7 fL (7.4-10.4); Monocytes # 0.6 10^3/uL (0.2-0.9); Monocytes % 8.4 %; Neutrophils # 4.91 10^3/uL (1.8-7.7); Neutrophils % 68.6 %; Nucleated Red Blood Cells % 0 %; Platelet Count 281 10^3/cmm (157-399); Red Blood Count 5.26 10^6/uL (3.85-5.65); Red Cell Distribution Width 14.7 % (12.1-15.1); White Blood Count 7.15 10^3/uL (3.29-11.43)
--- NOTE | 2024-06-22 09:59 | PC.NURSE ---
96 hr rights reviewed with patient @[id number] with assistance of [facility] chairman & chief executive officer Ravindra. All education reviewed with patient. No verbalized questions or concerns at this time Patient copy was left with patient. No further needs at this time.
[2024-06-22 10:02] LABS: Acetaminophen < 5.0 ug/mL (10-30); Alanine Aminotransferase 13 U/L (0-41); Albumin Level 4.2 g/dL (3.5-5.2); Alkaline Phosphatase 111 U/L (40-130); Anion Gap 16.4 (5-19); Aspartate Amino Transferase 14 U/L (0-40); Blood Urea Nitrogen 4 mg/dL (6-20); Calcium 9.4 mg/dL (8.5-10.5); Carbon Dioxide 25 mmol/L (22-29); Chloride 96 mmol/L (98-107); Creatinine Clr Calc Pharmacy 167.1708; Globulin 3.4 g/dL (1.3-4.6); Glomerular Filtration Rate 121.4 mL/min (90-130); Glucose 137 mg/dL (65-115); Osmolality Calculated 275 mOsm/kg (285-295); Potassium 4.4 mmol/L (3.5-5.1); Salicylate < 0.3 mg/dL (3-10); Sodium 133 mmol/L (136-145); Total Bilirubin 0.2 mg/dL (0.15-1.2); Total Protein 7.6 g/dL (6.6-8.7)
[2024-06-22 10:38] VITALS: BP 149/82
[2024-06-22 10:55] LABS: Influenza A NEGATIVE (Negative); Influenza B NEGATIVE (Negative); Respiratory Syncytial Virus Ce NEGATIVE (Negative); SARS-CoV-2 PCR NEGATIVE (Negative)
[2024-06-22 11:23] VITALS: BP 141/82; PULSE 80; O2SAT 96
[2024-06-22 11:26] VITALS: BP 139/90; PULSE 105; RESP 18; TEMP 37; O2SAT 98
[2024-06-22] MEDS: OLANZapine 5 mg ODT PO (11:59)
[2024-06-22] MEDS: acetaminophen 325 mg Tablet 650 MG PO (11:59)
[2024-06-22] MEDS: nicotine 21 mg Patch 1 PATCH TRANSDERMA (12:00)
--- NOTE | 2024-06-22 12:30 | PC.NURSE ---
Admission assessment Pt. stated he is living in a hotel right now and that he has enough money for about another week and half. Stated he filled his Abilify, but was afraid he might OD on them, so he threw them away. Pt. stated he needed some Tylenol and bought some, but said he was afraid he would take too many because he has done this in the past. Pt. said he tried to make a deal with the hotel he was staying at for a cheaper rate, but the hotel would not give him a cheaper rate and that the residential mortgage manager was called.
[2024-06-22 14:30] VITALS: BP 136/82; PULSE 100; TEMP 36.5; O2SAT 96
[2024-06-22] MEDS: pantoprazole DR 40 mg Tablet PO (17:25)
[2024-06-22 20:35] VITALS: BP 140/86; PULSE 95; RESP 18; TEMP 36.9; O2SAT 97
[2024-06-23 05:59] VITALS: BP 124/87; PULSE 95; RESP 18; TEMP 36.9; O2SAT 98
[2024-06-23] MEDS: pantoprazole DR 40 mg Tablet PO ×2 (07:38→17:07)
[2024-06-23] MEDS: acetaminophen 325 mg Tablet 650 MG PO ×2 (07:38→14:53)
[2024-06-23] MEDS: nicotine 21 mg Patch 1 PATCH TRANSDERMA (07:39)
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
[2024-06-23] MEDS: bisacodyl 10 mg Supp PR (09:54)
[2024-06-23] MEDS: ondansetron 4 MG Tablet PO (11:21)
[2024-06-23] MEDS: magnesium hydroxide 30 mL UDC PO (13:24)
[2024-06-23 14:00] VITALS: BP 180/92; PULSE 131; RESP 22; TEMP 36.9; O2SAT 98
[2024-06-23 16:00] VITALS: BP 161/114; PULSE 138; RESP 20; O2SAT 97
--- NOTE | 2024-06-23 16:10 | PC.NURSE ---
Patients BP was elevated, contacted Dr. Bansal who gave verbal orders for one time Ativan 2mg PO and Clonidine 0.2mg PO.
[2024-06-23] MEDS: LORazepam 2 mg Tablet PO (16:20)
[2024-06-23 16:38] VITALS: BP 161/114
[2024-06-23] MEDS: cloNIDine 0.1 mg Tablet 0.2 MG PO (16:38)
[2024-06-23] MEDS: ARIPiprazole 10 mg Tablet PO (17:07)
--- NOTE | 2024-06-23 18:34 | PC.NURSE ---
Called Dr. Bansal to inform him of pt.'s BP of 161/100 after giving Clonidine 0.2mg and Ativan 2mg PO. Dr. Bansal said to give Klonopin 1mg PO 1 x only now.
[2024-06-23] MEDS: CLONazepam 1 mg Tablet PO (18:52)
[2024-06-23 19:54] VITALS: BP 133/97; PULSE 80; RESP 16; TEMP 36.4; O2SAT 99
[2024-06-24] VITALS (7 sets, daily range): BP systolic 114–161; BP diastolic 77–109; PULSE 84–104; RESP 16–18; TEMP 36.4–36.9; O2SAT 97–100
[2024-06-24] MEDS: ibuprofen 600 mg Tablet PO (06:43)
[2024-06-24] MEDS: acetaminophen 325 mg Tablet 650 MG PO (07:47)
[2024-06-24] MEDS: pantoprazole DR 40 mg Tablet PO ×2 (07:48→18:14)
[2024-06-24] MEDS: nicotine 21 mg Patch 1 PATCH TRANSDERMA (07:49)
[2024-06-24] MEDS: OLANZapine 5 mg ODT PO (10:02)
--- NOTE | 2024-06-24 13:58 | W.PM.NPUPNS ---
Subjective NPU Subjective: 48-year-old male with history of schizoaffective disorder bipolar type admitted with disorganized behavior and bizarre delusions. The patient had reported that he had problems with his blood stating that his cholesterol had merged and was present in his tissues and was somehow contributing to his rise in blood pressure. He had continued to report that the manager social responsibility and the patient were well-developed and spoke in code. He had reported that he had left his things at a hotel and reported to staff that he was the president's . The patient had reported a history of atrial fibrillation which had not been corroborated but stated that he would be willing to take medications to control his blood pressure which had required as needed use of clonidine yesterday. Vitals/I&O/Wt Last Vital Signs Temp 97.6 F 06/24/24 06:00 Pulse 88 06/24/24 06:00 Resp 18 06/24/24 06:00 BP 125/78 06/24/24 09:42 Pulse Ox 100 06/24/24 06:00 O2 Del Method Room Air 06/24/24 06:00 Data NPU 06/22/24 09:39 06/22/24 09:39 A&P Assessment and plan (1) Schizoaffective disorder, bipolar type without good prognostic features: (2) Chronic schizophrenia: (3) Acute psychosis: (4) Marijuana use: Plan This is a 48-year-old white male who presents inpatient unit 1 week after discharge, noncompliant with oral medications, with active paranoia and bizarre behavior leading to inpatient hospitalization. 1.? Continue Abilify 10mg daily. Add Metaprolol for HTN, hx of a-fib. Consider additional mood stabilizer such as lamotrigine or depakote. 2.? Encourage sobriety at the highest possible level of care the patient is willing to commit. 3.? Encourage individual, group and milieu therapy. 4.? Continue every 15 minute checks for safety. PDMP PDMP Reviewed: Not Reviewed Involuntary Hold Information 96 Hour Hold: 96 Hour Involuntary Admission: Yes Other Hold: Hold End Date: 06/29/24 Attestations NPU Medical Necessity Statement*: Inpatient hospitalization is medically necessary and clinically appropriate intervention at this time.? He will be in the hospital for over 2 midnights.? We will initiate medication and/or make changes as indicated..? His likely length of stay is 5-10 days. Coding Level of Care Code Acute Code for g Fwd Diagnoses Schizoaffective disorder, bipolar type without good prognostic features F25.0 Chronic schizophrenia F20.9 Acute psychosis F23 Marijuana use F12.90
[2024-06-24] MEDS: acetaminophen 325 mg Tablet PO ×2 (16:15→20:19)
[2024-06-24] MEDS: metoprolol tartrate 25 mg Tablet PO ×2 (16:16→20:18)
[2024-06-24] MEDS: ARIPiprazole 10 mg Tablet PO (18:14)
[2024-06-24] MEDS: CLONazepam 1 mg Tablet PO (20:18)
[2024-06-25 06:00] VITALS: BP 107/70; PULSE 80; RESP 16; O2SAT 99
[2024-06-25] MEDS: metoprolol tartrate 25 mg Tablet PO ×2 (08:17→21:01)
[2024-06-25] MEDS: acetaminophen 325 mg Tablet PO ×3 (08:17→21:46)
[2024-06-25] MEDS: nicotine 21 mg Patch 1 PATCH TRANSDERMA (08:19)
[2024-06-25] MEDS: pantoprazole DR 40 mg Tablet PO ×2 (08:23→17:18)
[2024-06-25] MEDS: magnesium hydroxide 30 mL UDC PO (09:11)
--- NOTE | 2024-06-25 11:33 | W.PM.NPUPNS ---
Subjective NPU Subjective: 48-year-old male with history of schizoaffective disorder bipolar type admitted with disorganized behavior and bizarre delusions. The patient had expressed desire to consider placement at [facility]. He stated he was looking forward to the interview. However, the patient stated that if he was not admitted there he would be okay with remaining homeless. 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 He had been compliant and redirectable on the unit. There have been no acts of aggression. He had taken his supplemental Abilify oral in addition to his IM Abilify given to him last month on 06/16/24. Mental Status Exam MSE Comments: This is a well-nourished well-developed white male in hospital scrubs looking older than his stated age with poor grooming and fair eye contact today. No abnormal movements except for mild psychomotor retardation. He was cooperative with exam and in no acute distress. Speech was normal in rate, and productivity today. Mood described as okay. His affect was euphoric. His thought process was linear and logical. Thought content: Patient denied suicidal or homicidal ideation. There were prominent delusions of grandeur, ideas of reference stating that he had owned [facility]. He did not report auditory or visual hallucinations. Attention and concentration were impaired and memory was unreliable, but none were formally tested. He is alert and oriented to person and place and time. Insight is impaired and judgment is poor and impulse control is impaired. Vitals/I&O/Wt Last Vital Signs Temp 98.5 F 06/24/24 17:40 Pulse 80 06/25/24 06:00 Resp 16 06/25/24 06:00 BP 107/70 06/25/24 06:00 Pulse Ox 99 06/25/24 06:00 O2 Del Method Room Air 06/25/24 06:00 Data NPU 06/22/24 09:39 06/22/24 09:39 A&P Assessment and plan (1) Schizoaffective disorder, bipolar type without good prognostic features: (2) Chronic schizophrenia: (3) Acute psychosis: (4) Marijuana use: Plan This is a 48-year-old white male who presents inpatient unit 1 week after discharge, noncompliant with oral medications, with active paranoia and bizarre behavior leading to inpatient hospitalization. 1.? Continue Abilify 10mg daily in addition to Abilify Maintena 400mg given on 06/16/24. Metaprolol 25mg bid appears helpful for HTN, hx of a-fib. Consider additional mood stabilizer such as lamotrigine or depakote. 2.? Encourage sobriety at the highest possible level of care the patient is willing to commit. 3.? Encourage individual, group and milieu therapy. 4.? Continue every 15 minute checks for safety. 5. Patient has interview for placement at [facility] to be scheduled in 1-2 days. PDMP PDMP Reviewed: Not Reviewed Involuntary Hold Information 96 Hour Hold: 96 Hour Involuntary Admission: Yes Other Hold: Hold End Date: 06/29/24 Attestations NPU Medical Necessity Statement*: Inpatient hospitalization is medically necessary and clinically appropriate intervention at this time.? We will initiate medication and/or make changes as indicated..? His likely length of stay is 5-10 days. Coding Level of Care Code Acute Code for [facility] Fwd Diagnoses Schizoaffective disorder, bipolar type without good prognostic features F25.0 Chronic schizophrenia F20.9 Acute psychosis F23 Marijuana use F12.90
[2024-06-25 14:00] VITALS: BP 150/96; PULSE 97; RESP 16; TEMP 36.5; O2SAT 100
[2024-06-25] MEDS: magnesium citrate Btl 296 mL PO (16:34)
[2024-06-25] MEDS: ARIPiprazole 10 mg Tablet PO (17:18)
[2024-06-25 20:13] VITALS: BP 123/87; PULSE 94; RESP 18; TEMP 37.2; O2SAT 96
[2024-06-25] MEDS: CLONazepam 1 mg Tablet PO (21:01)
[2024-06-26 06:00] VITALS: BP 100/58; PULSE 73; RESP 16; TEMP 36.7; O2SAT 99
[2024-06-26] MEDS: nicotine 21 mg Patch 1 PATCH TRANSDERMA (08:05)
[2024-06-26] MEDS: metoprolol tartrate 25 mg Tablet PO ×2 (08:05→20:20)
[2024-06-26] MEDS: acetaminophen 325 mg Tablet PO ×3 (08:05→20:19)
[2024-06-26] MEDS: pantoprazole DR 40 mg Tablet PO ×2 (08:06→17:10)
[2024-06-26 14:00] VITALS: BP 126/81; PULSE 84; RESP 16; TEMP 36.3; O2SAT 100
[2024-06-26] MEDS: ARIPiprazole 10 mg Tablet PO (17:10)
[2024-06-26] MEDS: ibuprofen 600 mg Tablet PO (18:12)
--- NOTE | 2024-06-26 19:26 | P.NPUPN_ITS ---
Subjective NPU 2 Subjective: Patient presented today reporting that he is doing okay as he has typically done in the past he makes to the point of addressing this food writer as Manfred. He endorses that he had to come back but was all over the place about why he had to come back as he often dances between grandiose delusions and the reality of his limited finances and options. He reports that they are looking at [facility] as an opportunity for him for discharge. We discussed continuing to manage his medications appropriately and supporting a possible move to placement. He denied any side effects to his medication. Mental Status Exam 2 MSE Comments: This is a well-nourished well-developed white male in hospital scrubs looking older than his stated age with adequate grooming and eye contact. No abnormal involuntary motor movements except for mild psychomotor agitation. He was cooperative with exam in no acute distress. Speech was normal rate and mostly in volume. Mood described as pretty good. His affect was generally congruent but odd. His thought process was linear. Thought content: Patient denied homicidal ideation, denied suicidal ideation. There were prominent delusions of grandeur and paranoia was evident. He did not report auditory or visual hallucinations and did not appear to be responding to internal stimuli. Attention and concentration were limited and memory was unreliable, but none were formally tested. He is alert and oriented to person and place. Insight is impaired and judgment is poor and impulse control is impaired. Vitals/I&O/Wt Last Vital Signs Temp 97.4 F L 06/26/24 14:00 Pulse 84 06/26/24 14:00 Resp 16 06/26/24 14:00 BP 126/81 06/26/24 14:00 Pulse Ox 100 06/26/24 14:00 O2 Del Method Room Air 06/26/24 14:00 06/26/24 06/26/24 06/26/24 06:59 14:59 22:59 Intake Total 1999 Balance 1999 Data NPU 06/22/24 09:39 06/22/24 09:39 A&P Assessment and plan (1) Schizoaffective disorder, bipolar type without good prognostic features: (2) Chronic schizophrenia: (3) Acute psychosis: (4) Marijuana use: Plan This is a 48-year-old white male who presents inpatient unit 1 week after discharge, noncompliant with oral medications, with active paranoia and bizarre behavior leading to inpatient hospitalization. 1.? Continue Abilify 10mg daily in addition to Abilify Maintena 400mg given on 06/16/24. Metaprolol 25mg bid appears helpful for HTN, hx of a-fib. Consider additional mood stabilizer such as lamotrigine or depakote. 2.? Encourage sobriety at the highest possible level of care the patient is willing to commit. 3.? Encourage individual, group and milieu therapy. 4.? Continue every 15 minute checks for safety. 5. Patient has interview for placement at [facility] to be scheduled in 1-2 days. 6. Filed for 21-day hold will await placement possibility. PDMP PDMP Reviewed: Not Reviewed Involuntary Hold Information 2 96 Hour Hold: 96 Hour Involuntary Admission: Yes Other Hold: Hold End Date: 06/29/24 Attestations NPU 2 Medical Necessity Statement*: Inpatient hospitalization is medically necessary and clinically appropriate intervention at this time.? We will initiate medication and/or make changes as indicated..? His likely length of stay is 5-10 days. Coding Level of Care Code Acute Code for [facility] Fwd Diagnoses Schizoaffective disorder, bipolar type without good prognostic features F25.0 Chronic schizophrenia F20.9 Acute psychosis F23 Marijuana use F12.90
[2024-06-26 20:03] VITALS: BP 124/83; PULSE 83; RESP 18; TEMP 36.5; O2SAT 97
[2024-06-26] MEDS: CLONazepam 1 mg Tablet PO (20:20)
[2024-06-27 06:00] VITALS: BP 96/56; PULSE 74; RESP 17; TEMP 36.4; O2SAT 97
[2024-06-27] MEDS: metoprolol tartrate 25 mg Tablet PO ×2 (08:39→23:20)
[2024-06-27] MEDS: acetaminophen 325 mg Tablet PO ×3 (08:40→18:01)
[2024-06-27] MEDS: nicotine 21 mg Patch 1 PATCH TRANSDERMA (08:40)
[2024-06-27] MEDS: pantoprazole DR 40 mg Tablet PO ×2 (08:40→18:02)
[2024-06-27] MEDS: OLANZapine 5 mg ODT PO (09:17)
[2024-06-27] MEDS: ibuprofen 600 mg Tablet PO (09:18)
--- NOTE | 2024-06-27 09:21 | PC.NURSE ---
Morning assessment Patient reports anxiety during morning assessment. Administered zyprexa 5mg ODT. Patient rates back pain /10.Patient denies AVH, SI, and HI.
--- NOTE | 2024-06-27 09:40 | W.PM.NPUPNS ---
Subjective NPU Subjective: Patient presented today reporting that he is doing fine and as he has typically done in the past he makes to the point of addressing this senior grant writer as Manfred. He endorses grandiose delusions in addition to the reality of his limited finances and options per report and direct observation. He reports that they are looking at [facility] as an opportunity for him for discharge. We discussed continuing to manage his medications appropriately and supporting a possible move to placement. He requested the opportunity to cut his hair which was granted he denied any side effects to his medication. Mental Status Exam MSE Comments: This is a well-nourished well-developed white male in hospital scrubs looking older than his stated age with adequate grooming and eye contact. No abnormal involuntary motor movements except for mild psychomotor agitation. He was cooperative with exam in no acute distress. Speech was normal rate and mostly in volume. Mood described as pretty good. His affect was generally congruent but odd. His thought process was linear. Thought content: Patient denied homicidal ideation, denied suicidal ideation. There were prominent delusions of grandeur and paranoia was evident. He did not report auditory or visual hallucinations and did not appear to be responding to internal stimuli. Attention and concentration were limited and memory was unreliable, but none were formally tested. He is alert and oriented to person and place. Insight is impaired and judgment is poor and impulse control is impaired. Vitals/I&O/Wt Last Vital Signs Temp 97.6 F 06/27/24 06:00 Pulse 74 06/27/24 06:00 Resp 17 06/27/24 06:00 BP 96/56 06/27/24 06:00 Pulse Ox 97 06/27/24 06:00 O2 Del Method Room Air 06/27/24 06:00 Data NPU 06/22/24 09:39 06/22/24 09:39 A&P Assessment and plan (1) Schizoaffective disorder, bipolar type without good prognostic features: (2) Chronic schizophrenia: (3) Acute psychosis: (4) Marijuana use: Plan This is a 48-year-old white male who presents inpatient unit 1 week after discharge, noncompliant with oral medications, with active paranoia and bizarre behavior leading to inpatient hospitalization. 1.? Continue Abilify 10mg daily in addition to Abilify Maintena 400mg given on 06/16/24. Metaprolol 25mg bid appears helpful for HTN, hx of a-fib. Consider additional mood stabilizer such as lamotrigine or depakote. 2.? Encourage sobriety at the highest possible level of care the patient is willing to commit. 3.? Encourage individual, group and milieu therapy. 4.? Continue every 15 minute checks for safety. 5. Patient has interview for placement at [facility] to be scheduled in 1-2 days. 6. Filed for 21-day hold will await placement possibility. PDMP PDMP Reviewed: Not Reviewed Involuntary Hold Information 96 Hour Hold: 96 Hour Involuntary Admission: Yes Other Hold: Hold End Date: 06/29/24 Attestations NPU Medical Necessity Statement*: Inpatient hospitalization is medically necessary and clinically appropriate intervention at this time.? We will initiate medication and/or make changes as indicated..? His likely length of stay is 4-9 days. Coding Level of Care Code Acute Code for [facility] Fwd Diagnoses Schizoaffective disorder, bipolar type without good prognostic features F25.0 Chronic schizophrenia F20.9 Acute psychosis F23 Marijuana use F12.90
[2024-06-27 14:00] VITALS: BP 108/76; PULSE 93; RESP 19; TEMP 37.2; O2SAT 98
--- NOTE | 2024-06-27 14:48 | PC.NURSE ---
Dr. Field gave verbal permission for patient to shave his head.
[2024-06-27] MEDS: ARIPiprazole 10 mg Tablet PO (18:02)
[2024-06-27 21:00] VITALS: BP 113/63; PULSE 76; RESP 18; TEMP 37.1; O2SAT 96
[2024-06-27] MEDS: CLONazepam 1 mg Tablet PO (23:20)
[2024-06-28 05:56] VITALS: BMI 35.6
[2024-06-28 06:00] VITALS: BP 117/77; PULSE 65; RESP 16; TEMP 36.9; O2SAT 97
[2024-06-28] MEDS: acetaminophen 325 mg Tablet PO ×4 (07:46→21:04)
[2024-06-28] MEDS: pantoprazole DR 40 mg Tablet PO ×2 (07:46→17:01)
[2024-06-28] MEDS: nicotine 21 mg Patch 1 PATCH TRANSDERMA (07:49)
[2024-06-28] MEDS: OLANZapine 5 mg ODT PO (09:41)
--- NOTE | 2024-06-28 11:25 | P.NPUPN_ITS ---
Subjective NPU 2 Subjective: Patient presented today reporting that he is doing okay. He suggest that he may have an interview with [facility] tomorrow. He greeted this television script writer as Dr. Field today which was a change. He is accepting of the fact that a 21-day hold was filed but we discussed our openness to assist him in getting into [facility] or some other facility sooner rather than later. He denied any side effects from medication. Mental Status Exam 2 MSE Comments: This is a well-nourished well-developed white male in hospital scrubs looking older than his stated age with adequate grooming and eye contact. No abnormal involuntary motor movements except for mild psychomotor agitation. He was cooperative with exam in no acute distress. Speech was normal rate and mostly in volume. Mood described as pretty good. His affect was generally congruent but odd. His thought process was linear. Thought content: Patient denied homicidal ideation, denied suicidal ideation. There were prominent delusions of grandeur and paranoia was evident. He did not report auditory or visual hallucinations and did not appear to be responding to internal stimuli. Attention and concentration were limited and memory was unreliable, but none were formally tested. He is alert and oriented to person and place. Insight is impaired and judgment is poor and impulse control is impaired. Vitals/I&O/Wt Last Vital Signs Temp 98.5 F 06/28/24 06:00 Pulse 65 06/28/24 06:00 Resp 16 06/28/24 06:00 BP 117/77 06/28/24 06:00 Pulse Ox 97 06/28/24 06:00 O2 Del Method Room Air 06/28/24 06:00 06/27/24 06/28/24 06/28/24 22:59 06:59 14:59 Intake Total 1999 Balance 1999 Weight last 48 hrs Weight 115.723 kg Data NPU 06/22/24 09:39 06/22/24 09:39 A&P Assessment and plan (1) Schizoaffective disorder, bipolar type without good prognostic features: (2) Chronic schizophrenia: (3) Acute psychosis: (4) Marijuana use: Plan This is a 48-year-old white male who presents inpatient unit 1 week after discharge, noncompliant with oral medications, with active paranoia and bizarre behavior leading to inpatient hospitalization. 1.? Continue Abilify 10mg daily in addition to Abilify Maintena 400mg given on 06/16/24. Metaprolol 25mg bid appears helpful for HTN, hx of a-fib. Consider additional mood stabilizer such as lamotrigine or depakote. 2.? Encourage sobriety at the highest possible level of care the patient is willing to commit. 3.? Encourage individual, group and milieu therapy. 4.? Continue every 15 minute checks for safety. 5. Patient has interview for placement at [facility] to be scheduled in 1-2 days. 6. Filed for 21-day hold will await placement possibility. PDMP PDMP Reviewed: Not Reviewed Involuntary Hold Information 2 96 Hour Hold: 96 Hour Involuntary Admission: Yes Other Hold: Hold End Date: 06/29/24 Attestations NPU 2 Medical Necessity Statement*: Inpatient hospitalization is medically necessary and clinically appropriate intervention at this time.? We will initiate medication and/or make changes as indicated..? His likely length of stay is 3-8 days. Coding Level of Care Code Acute Code for [facility] Fwd Diagnoses Schizoaffective disorder, bipolar type without good prognostic features F25.0 Chronic schizophrenia F20.9 Acute psychosis F23 Marijuana use F12.90
[2024-06-28 14:00] VITALS: BP 142/89; PULSE 87; RESP 20; TEMP 37.1; O2SAT 100
[2024-06-28] MEDS: ARIPiprazole 10 mg Tablet PO (17:02)
[2024-06-28] MEDS: metoprolol tartrate 25 mg Tablet PO (21:04)
[2024-06-28 21:05] VITALS: BP 112/64; PULSE 67; RESP 17; O2SAT 98
[2024-06-28] MEDS: CLONazepam 1 mg Tablet PO (21:06)
[2024-06-29 06:00] VITALS: BP 117/76; PULSE 73; RESP 16; O2SAT 98
[2024-06-29] MEDS: metoprolol tartrate 25 mg Tablet PO ×2 (08:11→20:24)
[2024-06-29] MEDS: acetaminophen 325 mg Tablet PO ×4 (08:11→20:15)
[2024-06-29] MEDS: pantoprazole DR 40 mg Tablet PO ×2 (08:11→18:03)
[2024-06-29] MEDS: nicotine 21 mg Patch 1 PATCH TRANSDERMA (08:13)
[2024-06-29] MEDS: magnesium hydroxide 30 mL UDC PO (10:46)
[2024-06-29] MEDS: nystatin powder 15 gm Btl 1 APPLIC TOPICAL (10:46)
--- NOTE | 2024-06-29 11:05 | PC.NURSE ---
Constipation Pt states stool is dry and hard. States rectum is bleeding because of stool consistency. MOM administered per order. Nystatin powder requested for moist groin. Requested hemorrhoid cream.
[2024-06-29] MEDS: OLANZapine 5 mg ODT PO (12:03)
--- NOTE | 2024-06-29 12:44 | P.NPUPN_ITS ---
Subjective NPU 2 Subjective: Patient presented today reporting that life is good. He knows his hearing is going be tomorrow and he understands that he does not have to go. He understands that the goal is to get him into a placement and that process is moving forward in a positive way. We discussed continuing the Abilify in the same way with the oral Abilify which seems to be helpful. He denies any side effects to the medication. Mental Status Exam 2 MSE Comments: This is a well-nourished well-developed white male in hospital scrubs looking older than his stated age with adequate grooming and eye contact. No abnormal involuntary motor movements except for mild psychomotor agitation. He was cooperative with exam in no acute distress. Speech was normal rate and mostly in volume. Mood described as pretty good. His affect was generally congruent but odd. His thought process was linear. Thought content: Patient denied homicidal ideation, denied suicidal ideation. Delusions of grandeur and paranoia are less evident. He did not report auditory or visual hallucinations and did not appear to be responding to internal stimuli. Attention and concentration were limited and memory was unreliable, but none were formally tested. He is alert and oriented to person and place. Insight is impaired and judgment is poor and impulse control is impaired. Vitals/I&O/Wt Last Vital Signs Temp 98.8 F 06/28/24 14:00 Pulse 73 06/29/24 06:00 Resp 16 06/29/24 06:00 BP 117/76 06/29/24 06:00 Pulse Ox 98 06/29/24 06:00 O2 Del Method Room Air 06/29/24 06:00 Weight last 48 hrs Weight 115.723 kg Data NPU 06/22/24 09:39 06/22/24 09:39 A&P Assessment and plan (1) Schizoaffective disorder, bipolar type without good prognostic features: (2) Chronic schizophrenia: (3) Acute psychosis: (4) Marijuana use: Plan This is a 48-year-old white male who presents inpatient unit 1 week after discharge, noncompliant with oral medications, with active paranoia and bizarre behavior leading to inpatient hospitalization. 1.? Continue Abilify 10mg daily in addition to Abilify Maintena 400mg given on 06/16/24. Metaprolol 25mg bid appears helpful for HTN, hx of a-fib. Consider additional mood stabilizer such as lamotrigine or depakote. 2.? Encourage sobriety at the highest possible level of care the patient is willing to commit. 3.? Encourage individual, group and milieu therapy. 4.? Continue every 15 minute checks for safety. 5. Patient has interview for placement at [facility] to be scheduled in 1-2 days. 6. Filed for 21-day hold will await placement possibility. Hearing is tomorrow. PDMP PDMP Reviewed: Not Reviewed Involuntary Hold Information 2 96 Hour Hold: 96 Hour Involuntary Admission: Yes Other Hold: Hold End Date: 06/29/24 Attestations NPU 2 Medical Necessity Statement*: Inpatient hospitalization is medically necessary and clinically appropriate intervention at this time.? We will initiate medication and/or make changes as indicated..? His likely length of stay is 2-7 days. Coding Level of Care Code Acute Code for g Fwd Diagnoses Schizoaffective disorder, bipolar type without good prognostic features F25.0 Chronic schizophrenia F20.9 Acute psychosis F23 Marijuana use F12.90
[2024-06-29 14:00] VITALS: BP 129/88; PULSE 107; RESP 16; TEMP 37.1; O2SAT 100
[2024-06-29] MEDS: phenyleph-mineral oil-petrolat Oint 28 gm 1 APPLIC TOPICAL ×2 (16:12→20:19)
[2024-06-29] MEDS: ARIPiprazole 10 mg Tablet PO (18:03)
[2024-06-29] MEDS: CLONazepam 1 mg Tablet PO (20:18)
[2024-06-29 21:39] VITALS: BP 145/94; PULSE 76; RESP 18; TEMP 36.3; O2SAT 98
[2024-06-30] MEDS: acetaminophen 325 mg Tablet 650 MG PO (05:46)
[2024-06-30 06:00] VITALS: RESP 18
[2024-06-30] MEDS: pantoprazole DR 40 mg Tablet PO ×2 (08:20→18:08)
[2024-06-30] MEDS: metoprolol tartrate 25 mg Tablet PO ×2 (08:21→19:37)
[2024-06-30] MEDS: nicotine 21 mg Patch 1 PATCH TRANSDERMA (08:21)
[2024-06-30] MEDS: acetaminophen 325 mg Tablet PO ×4 (08:21→19:37)
[2024-06-30] MEDS: ibuprofen 600 mg Tablet PO (08:51)
[2024-06-30] MEDS: magnesium hydroxide 30 mL UDC PO (12:22)
[2024-06-30] MEDS: phenyleph-mineral oil-petrolat Oint 28 gm 1 APPLIC TOPICAL ×2 (12:53→18:08)
[2024-06-30 14:00] VITALS: BP 138/93; PULSE 103; RESP 17; O2SAT 93
--- NOTE | 2024-06-30 16:28 | P.NPUPN_ITS ---
Subjective NPU 2 Subjective: Patient presented today reporting that things are going okay. He reportedly rejected the hearing with [facility] and is now asking this va underwriter to make sure he can have 15 minutes a day with his phone so he can get a car to live in. When this decision was questioned he became somewhat anxious with the conversation and as he often does started with grandiose talk. Today this focused on the fact that I was not 1 to question him because he is my father. He denied any side effects to the medication. Mental Status Exam 2 MSE Comments: This is a well-nourished well-developed white male in hospital scrubs looking older than his stated age with adequate grooming and eye contact. No abnormal involuntary motor movements except for mild psychomotor agitation. He was cooperative with exam in no acute distress. Speech was normal rate and mostly in volume. Mood described as pretty good. His affect was generally congruent but odd. His thought process was linear. Thought content: Patient denied homicidal ideation, denied suicidal ideation. Delusions of grandeur and paranoia are less evident. He did not report auditory or visual hallucinations and did not appear to be responding to internal stimuli. Attention and concentration were limited and memory was unreliable, but none were formally tested. He is alert and oriented to person and place. Insight is impaired and judgment is poor and impulse control is impaired. Vitals/I&O/Wt Last Vital Signs Temp 97.4 F L 06/29/24 21:39 Pulse 103 H 06/30/24 14:00 Resp 17 06/30/24 14:00 BP 138/93 06/30/24 14:00 Pulse Ox 93 06/30/24 14:00 O2 Del Method Room Air 06/29/24 14:00 Data NPU 06/22/24 09:39 06/22/24 09:39 A&P Assessment and plan (1) Schizoaffective disorder, bipolar type without good prognostic features: (2) Chronic schizophrenia: (3) Acute psychosis: (4) Marijuana use: Plan This is a 48-year-old white male who presents inpatient unit 1 week after discharge, noncompliant with oral medications, with active paranoia and bizarre behavior leading to inpatient hospitalization. 1.? Continue Abilify 10mg daily in addition to Abilify Maintena 400mg given on 06/16/24. Metaprolol 25mg bid appears helpful for HTN, hx of a-fib. Consider additional mood stabilizer such as lamotrigine or depakote. 2.? Encourage sobriety at the highest possible level of care the patient is willing to commit. 3.? Encourage individual, group and milieu therapy. 4.? Continue every 15 minute checks for safety. 5. Patient has interview for placement at [facility] to be scheduled in 1-2 days. Will try to convince him to see them tomorrow. 6. Filed for 21-day hold will await placement possibility. Patient placed on a hold 06/30/2024. PDMP PDMP Reviewed: Not Reviewed Involuntary Hold Information 2 96 Hour Hold: 96 Hour Involuntary Admission: Yes Other Hold: Hold End Date: 06/29/24 Attestations NPU 2 Medical Necessity Statement*: Inpatient hospitalization is medically necessary and clinically appropriate intervention at this time.? We will initiate medication and/or make changes as indicated..? His likely length of stay is 4-7 days. Coding Level of Care Code Acute Code for [facility] Fwd Diagnoses Schizoaffective disorder, bipolar type without good prognostic features F25.0 Chronic schizophrenia F20.9 Acute psychosis F23 Marijuana use F12.90
[2024-06-30] MEDS: ARIPiprazole 10 mg Tablet PO (18:08)
[2024-06-30] MEDS: CLONazepam 1 mg Tablet PO (19:37)
[2024-06-30 20:09] VITALS: BP 170/123; PULSE 78; RESP 17; TEMP 37.1; O2SAT 98
[2024-07-01 06:00] VITALS: BP 128/75; PULSE 72; RESP 17; TEMP 36.8; O2SAT 100
[2024-07-01] MEDS: nicotine 21 mg Patch 1 PATCH TRANSDERMA (08:21)
[2024-07-01] MEDS: acetaminophen 325 mg Tablet PO ×4 (08:22→20:26)
[2024-07-01] MEDS: pantoprazole DR 40 mg Tablet PO ×2 (08:23→18:25)
[2024-07-01] MEDS: metoprolol tartrate 25 mg Tablet PO ×2 (08:23→20:26)
[2024-07-01] MEDS: phenyleph-mineral oil-petrolat Oint 28 gm 1 APPLIC TOPICAL ×3 (08:24→18:25)
[2024-07-01] MEDS: magnesium hydroxide 30 mL UDC PO (13:09)
[2024-07-01 14:00] VITALS: BP 134/87; PULSE 88; RESP 17; O2SAT 98
--- NOTE | 2024-07-01 14:00 | P.NPUPN_ITS ---
Subjective NPU 2 Subjective: Patient presented today reporting that life is okay. He is very focused on whether or not it would be reasonable to be allowed to have access to his phone 15 minutes a day or so so that he can make calls and make sure that he had a car by the time he was discharged. We continued to discuss the fact that him living in his car as his primary plan with a focus on having a past to go to the [employer] and take a shower daily does not come across as a reasonable long-term plan. He continues to feel that this is a point of autonomy not a point of reason. But continues to have grandiose and delusional comments when pressed on issues per staff reports and direct observation. He denies any side effects to his medication. Mental Status Exam 2 MSE Comments: This is a well-nourished well-developed white male in hospital scrubs looking older than his stated age with adequate grooming and eye contact. No abnormal involuntary motor movements except for mild psychomotor agitation. He was cooperative with exam in no acute distress. Speech was normal rate and mostly in volume. Mood described as pretty good. His affect was generally congruent but odd. His thought process was linear. Thought content: Patient denied homicidal ideation, denied suicidal ideation. Delusions of grandeur and paranoia are less evident. He did not report auditory or visual hallucinations and did not appear to be responding to internal stimuli. Attention and concentration were limited and memory was unreliable, but none were formally tested. He is alert and oriented to person and place. Insight is impaired and judgment is poor and impulse control is impaired. Vitals/I&O/Wt Last Vital Signs Temp 98.2 F 07/01/24 06:00 Pulse 72 07/01/24 06:00 Resp 17 07/01/24 06:00 BP 128/75 07/01/24 06:00 Pulse Ox 100 07/01/24 06:00 O2 Del Method Room Air 07/01/24 06:00 Data NPU 06/22/24 09:39 06/22/24 09:39 A&P Assessment and plan (1) Schizoaffective disorder, bipolar type without good prognostic features: (2) Chronic schizophrenia: (3) Acute psychosis: (4) Marijuana use: Plan This is a 48-year-old white male who presents inpatient unit 1 week after discharge, noncompliant with oral medications, with active paranoia and bizarre behavior leading to inpatient hospitalization. 1.? Continue Abilify 10mg daily in addition to Abilify Maintena 400mg given on 06/16/24. Metaprolol 25mg bid appears helpful for HTN, hx of a-fib. Consider additional mood stabilizer such as lamotrigine or depakote. 2.? Encourage sobriety at the highest possible level of care the patient is willing to commit. 3.? Encourage individual, group and milieu therapy. 4.? Continue every 15 minute checks for safety. 5. Patient has interview for placement at [facility] to be scheduled in 1-2 days. Will try to convince him to see them tomorrow. 6. Filed for 21-day hold will await placement possibility. Patient placed on a hold 06/30/2024. 7. We may have to have a serious discussion about whether guardianship is our only option. PDMP PDMP Reviewed: Not Reviewed Involuntary Hold Information 2 96 Hour Hold: 96 Hour Involuntary Admission: Yes Other Hold: Hold End Date: 06/29/24 Attestations NPU 2 Medical Necessity Statement*: Inpatient hospitalization is medically necessary and clinically appropriate intervention at this time.? We will initiate medication and/or make changes as indicated..? His likely length of stay is 4-7 days. Coding Level of Care Code Acute Code for g Fwd Diagnoses Schizoaffective disorder, bipolar type without good prognostic features F25.0 Chronic schizophrenia F20.9 Acute psychosis F23 Marijuana use F12.90
[2024-07-01] MEDS: hyDROXYzine 25 mg Capsule 50 MG PO (15:33)
[2024-07-01] MEDS: ARIPiprazole 10 mg Tablet PO (18:25)
[2024-07-01] MEDS: ibuprofen 600 mg Tablet PO (19:40)
[2024-07-01] MEDS: CLONazepam 1 mg Tablet PO (19:51)
[2024-07-01 19:57] VITALS: BP 158/95; PULSE 91; RESP 18; TEMP 36.7; O2SAT 99
[2024-07-02] MEDS: ondansetron 4 MG Tablet PO (00:36)
[2024-07-02 06:00] VITALS: BP 162/94; PULSE 68; RESP 18; TEMP 36.6; O2SAT 99
[2024-07-02] MEDS: acetaminophen 325 mg Tablet PO ×4 (06:55→20:53)
[2024-07-02] MEDS: metoprolol tartrate 25 mg Tablet PO (06:56)
[2024-07-02] MEDS: pantoprazole DR 40 mg Tablet PO ×2 (06:56→17:17)
[2024-07-02] MEDS: OLANZapine 5 mg ODT PO (06:57)
[2024-07-02 07:30] VITALS: BP 150/104; PULSE 113; RESP 16; TEMP 37; O2SAT 98
[2024-07-02 07:34] VITALS: BP 131/87; PULSE 69; RESP 16; TEMP 36.4; O2SAT 98
[2024-07-02] MEDS: nicotine 21 mg Patch 1 PATCH TRANSDERMA (09:46)
--- NOTE | 2024-07-02 11:26 | PC.NURSE ---
NEW ORDERS RECEIVED BY DR WEST TO INCREASE HIS METOPROLOL TO 50 MG BID PO. PTS BP HAS CONTINUED TO STAY ELEVATED. PT EDUCATED ON NEW ORDERS. SUPPORT VOICED.
--- NOTE | 2024-07-02 12:28 | P.NPUPN_ITS ---
Subjective NPU 2 Subjective: Patient presented today reporting that he is feeling fine. He continued to focus on his desire to be allowed to buy a car that he can live in and continue to forward this is a reasonable plan for discharge. Continue to take medication as prescribed and we discussed briefly the treatment team's plan to review his inpatient utilization and consider whether it makes any sense to proceed without guardianship. He denied any side effects to the medication. Mental Status Exam 2 MSE Comments: This is a well-nourished well-developed white male in hospital scrubs looking older than his stated age with adequate grooming and eye contact. No abnormal involuntary motor movements except for mild psychomotor agitation. He was cooperative with exam in no acute distress. Speech was normal rate and mostly in volume. Mood described as pretty good. His affect was generally congruent but odd. His thought process was linear. Thought content: Patient denied homicidal ideation, denied suicidal ideation. Delusions of grandeur and paranoia are less evident. He did not report auditory or visual hallucinations and did not appear to be responding to internal stimuli. Attention and concentration were limited and memory was unreliable, but none were formally tested. He is alert and oriented to person and place. Insight is impaired and judgment is poor and impulse control is impaired. Vitals/I&O/Wt Last Vital Signs Temp 97.5 F L 07/02/24 07:34 Pulse 69 07/02/24 07:34 Resp 16 07/02/24 07:34 BP 131/87 07/02/24 07:34 Pulse Ox 98 07/02/24 07:34 O2 Del Method Room Air 07/02/24 07:34 Data NPU 06/22/24 09:39 06/22/24 09:39 A&P Assessment and plan (1) Schizoaffective disorder, bipolar type without good prognostic features: (2) Chronic schizophrenia: (3) Acute psychosis: (4) Marijuana use: Plan This is a 48-year-old white male who presents inpatient unit 1 week after discharge, noncompliant with oral medications, with active paranoia and bizarre behavior leading to inpatient hospitalization. 1.? Continue Abilify 10mg daily in addition to Abilify Maintena 400mg given on 06/16/24. Metaprolol 25mg bid appears helpful for HTN, hx of a-fib. Consider additional mood stabilizer such as lamotrigine or depakote. 2.? Encourage sobriety at the highest possible level of care the patient is willing to commit. 3.? Encourage individual, group and milieu therapy. 4.? Continue every 15 minute checks for safety. 5. Patient has interview for placement at [facility] to be scheduled in 1-2 days. Will try to convince him to see them tomorrow. 6. Filed for 21-day hold will await placement possibility. Patient placed on a hold 06/30/2024. 7. We may have to have a serious discussion about whether guardianship is our only option. PDMP PDMP Reviewed: Not Reviewed Involuntary Hold Information 2 96 Hour Hold: 96 Hour Involuntary Admission: Yes Other Hold: Hold End Date: 06/29/24 Attestations NPU 2 Medical Necessity Statement*: Inpatient hospitalization is medically necessary and clinically appropriate intervention at this time.? We will initiate medication and/or make changes as indicated..? His likely length of stay is 4-7 days. Coding Level of Care Code Acute Code for [facility] Fwd Diagnoses Schizoaffective disorder, bipolar type without good prognostic features F25.0 Chronic schizophrenia F20.9 Acute psychosis F23 Marijuana use F12.90
[2024-07-02 14:00] VITALS: BP 128/91; PULSE 83; RESP 16; TEMP 36.8; O2SAT 98
[2024-07-02] MEDS: ARIPiprazole 10 mg Tablet PO (17:17)
[2024-07-02 20:03] VITALS: BP 125/82; PULSE 90; RESP 18; TEMP 36.7; O2SAT 98
[2024-07-02] MEDS: metoprolol tartrate 25 mg Tablet 50 MG PO (20:53)
[2024-07-03 06:00] VITALS: BP 129/94; PULSE 83; RESP 17; TEMP 36.6; O2SAT 98
[2024-07-03] MEDS: acetaminophen 325 mg Tablet PO (08:56)
[2024-07-03] MEDS: pantoprazole DR 40 mg Tablet PO ×2 (08:56→16:54)
[2024-07-03] MEDS: nicotine 21 mg Patch 1 PATCH TRANSDERMA (08:56)
[2024-07-03] MEDS: metoprolol tartrate 25 mg Tablet 50 MG PO (08:56)
[2024-07-03 12:04] LABS: Quantiferon Mitogen >10.00 IU/mL; Quantiferon Nil 0.02 IU/mL; Quantiferon Plus TB2 0.01 IU/mL; Quantiferon TB Gold NEGATIVE (NEGATIVE)
[2024-07-03 14:00] VITALS: BP 129/87; PULSE 73; RESP 16; TEMP 36.6; O2SAT 98
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
[2024-07-03 15:34] VITALS: BP 129/94; PULSE 83; RESP 17; TEMP 36.6; O2SAT 98
[2024-07-03] MEDS: ARIPiprazole Maintena 400 MG IM (16:52)
[2024-07-03] MEDS: ARIPiprazole 10 mg Tablet PO (16:54)
== END 2024-07-03 17:22 | disposition home or self-care (01) | DRG 885 ==
LOC: ER 08:52 → NP 09:26
PROVIDERS: Psychiatry & Neurology Psychiatry; Admitting Provider Psychiatry & Neurology Psychiatry; Emergency Provider Family Medicine; PCP Family Medicine; Visit Provider Psychiatry & Neurology Psychiatry
DX: F25.0 Schizoaffective disorder, bipolar type (principal); F29 Unspecified psychosis not due to a substance or known physiological condition; T50.996A Underdosing of other drugs, medicaments and biological substances, initial encounter; Z91.128 Patient's intentional underdosing of medication regimen for other reason; F17.210 Nicotine dependence, cigarettes, uncomplicated
CPT/HCPCS: 36415; 36416; 80053; 80307; 85025; 86480; 87637; 96372; 97150; 97165; 99285; Q0162

== ENCOUNTER 2024-07-12 18:40 | Emergency (ER) | payer MEDICAID, SELFPAY ==
[2024-05-13 11:18] VITALS: BP 108/66; BMI 29.4
[2024-07-12 18:44] VITALS: BP 115/77; PULSE 84; RESP 18; TEMP 37.2; O2SAT 96; BMI 32.8
--- NOTE | 2024-07-12 18:55 | ECG_ITS ---
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
[2024-07-12 20:17] LABS: Basophils % 0.4 %; Eosinophils # 0.7 10^3/uL (0.0-0.8); Eosinophils % 7.7 %; Lymphocytes # 3.2 10^3/uL (0.8-4.8); Lymphocytes % 33.4 %; Mean Corpuscular HGB Conc 33.6 g/dL (30-55); Mean Corpuscular Hemoglobin 28.2 pg (27-33); Mean Platelet Volume 8.8 fL (7.4-10.4); Monocytes # 0.8 10^3/uL (0.2-0.9); Neutrophils % 50.3 %; Nucleated Red Blood Cells % 0 %; Platelet Count 285 10^3/cmm (157-399); Red Cell Distribution Width 14.4 % (12.1-15.1); White Blood Count 9.55 10^3/uL (3.29-11.43)
[2024-07-12 20:40] LABS: Troponin(5th) Baseline < 6 ng/L (0-15)
[2024-07-12 20:43] LABS: Alanine Aminotransferase 11 U/L (0-41); Albumin Level 4.2 g/dL (3.5-5.2); Alkaline Phosphatase 91 U/L (40-130); Anion Gap 15.9 (5-19); Aspartate Amino Transferase 11 U/L (0-40); Blood Urea Nitrogen 8 mg/dL (6-20); Calcium 9.5 mg/dL (8.5-10.5); Carbon Dioxide 28 mmol/L (22-29); Chloride 95 mmol/L (98-107); Creatinine Clr Calc Pharmacy 173.6725; Globulin 2.6 g/dL (1.3-4.6); Glomerular Filtration Rate 121.4 mL/min (90-130); Glucose 94 mg/dL (65-115); Osmolality Calculated 278 mOsm/kg (285-295); Potassium 3.9 mmol/L (3.5-5.1); Sodium 135 mmol/L (136-145); Total Bilirubin 0.2 mg/dL (0.15-1.2); Total Protein 6.8 g/dL (6.6-8.7)
[2024-07-12 21:19] VITALS: BP 117/67; PULSE 72; RESP 18
--- NOTE | 2024-07-12 21:48 | ECG_ITS ---
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1975 Requested By: Iraj Portillo Order Number: [id number] Tomás MD: ANDRES BOLANOS Measurements Intervals [place] Rate: 74 P: 8 [place]: 173 QRS: -14 QRSD: 105 T: 14 QT: 380 QTc: 423 Interpretive Statements SINUS RHYTHM VOLTAGE CRITERIA FOR LVH [MEETS CRITERIA IN ONE OF: R(aVL), S(V1), R(V5), R(V5/V6)+S(V1)] POSSIBLE LATERAL MYOCARDIAL INFARCTION , OF INDETERMINATE AGE [30 ms Q WAVE IN I/aVL/V5/V6] Compared to ECG 07/12/2024 18:55:10 Left ventricular hypertrophy now present Myocardial infarct finding now present Electronically Signed On 07-13-2024 22:21:48 CDT by ANDRES BOLANOS [email or web address] [id number]
--- NOTE | 2024-07-12 21:52 | XRR_ITS ---
PROCEDURE INFORMATION: Exam: XR Chest Exam date and time: 07/12/2024 9:57 PM Age: 48 years old Clinical indication: Prior surgery; Surgery date: 6+ months; Surgery type: Gb; C/O palpitations TECHNIQUE: Imaging protocol: Radiologic exam of the chest. Views: 1 view. COMPARISON: CR XR chest 1V portable [id number] 11/29/2023 7:47 AM FINDINGS: Lungs: Mild left basilar atelectasis. No pulmonary consolidation. Pleural spaces: No pleural effusion or pneumothorax. Heart/Mediastinum: The cardiomediastinal silhouette is within normal limits. Bones/joints: No acute osseous abnormalities are seen. XR/XR chest 1V portable [id number] IMPRESSION: No acute cardiopulmonary disease.
[2024-07-12 22:01] VITALS: BP 130/77; PULSE 71; RESP 16; O2SAT 95
[2024-07-12 22:37] LABS: Bilirubin Urine Negative (Negative); Blood Urine Negative (Negative); Glucose Urine UA Negative (Normal); Ketones Urine Negative (Negative); Leukocyte Esterase Urine Negative (Negative); Nitrate Urine Negative (Negative); Protein Urine Negative (Negative); Specific Gravity, Urine 1.014 (1.005-1.030); Urine Appearance Clear (CLEAR); Urine Color Yellow (Yellow); pH Urine 7.5 (5-7)
[2024-07-12 22:41] LABS: Add Urine Microscopic? YES; Bacteria Urine None Seen /hpf; Hyaline Casts Urine 0-4 /lpf; RBC Urine 0-2 /hpf (0-2); Squamous Epithelial Cell Urine 0-5 /hpf (0-5); WBC Urine 0-5 /hpf (0-5)
[2024-07-12 22:57] VITALS: BP 124/73; PULSE 75; RESP 18; O2SAT 96
--- NOTE | 2024-07-12 23:40 | W.ED.GENADLT ---
HPI - General Adult General: Chief complaint: General Medical Stated complaint: weakness Time Seen by Provider: 07/12/24 21:04 History of Present Illness: 48-year-old male with multiple complaints including chest discomfort, palpitations, near syncope, generalized weakness, stomach upset, swelling of the feet. Onset (ago): day(s) Related Data Home Medications ?Medication ?Instructions ?Recorded ?Confirmed acetaminophen 325 mg tablet 325 mg PO QID pain 06/22/24 06/22/24 (Tylenol) Previous Rx's ?Medication ?Instructions ?Recorded aripiprazole 10 mg tablet 10 mg PO 1800 30 days #30 tabs 07/03/24 aripiprazole 400 mg intramuscular 400 mg IM Q28D #1 ea 07/03/24 suspension,extended release (Abilify Maintena) metoprolol tartrate 50 mg tablet 50 mg PO BID@0900,2100 30 days #60 07/03/24 tabs pantoprazole 40 mg tablet,delayed 40 mg PO BID 30 days #60 tabs 07/03/24 release Allergies Allergy/AdvReac Type Severity Reaction Status Date / Time amoxicillin AdvReac Intermediate Rash Verified 04/14/24 09:37 Penicillins AdvReac Intermediate Rash Verified 04/14/24 09:37 [facility] ED PFSH: Medical History Auditory hallucination Varicose vein of leg Psychiatric care Schizoaffective disorder, bipolar type without good prognostic features Chronic schizophrenia Spina bifida Peripheral neuropathy Duodenal ulcer Perforated stomach GI bleed Anemia Upper gastrointestinal hemorrhage Chronic idiopathic constipation Folliculitis cruris pustulosa atrophicans Nonvenomous insect bite of neck Nicotine dependence, unspecified, uncomplicated Schizoaffective disorder, bipolar type Borderline personality disorder Surgical History History of incision and drainage left hip History of tonsillectomy History of carpal tunnel surgery of right wrist History of back surgery History of cholecystectomy Family History Mother Bleeding disorder anemia Cancer uterine Hypertension Lung disease asthma Grandmother Bleeding disorder anemia Diabetes Father Cancer melonoma Hyperlipidemia Grandfather Chronic kidney disease (CKD) Diabetes Stroke Other Acute psychosis Denies family history of CAD (coronary artery disease) Clotting disorder Dementia Psychiatric illness Anesthesia complication Social History Smoking and tobacco/nicotine status: current every day tobacco/nicotine user cigarettes Quit status (tobacco/nicotine): has tried quititng Number of times tried to quit tobacco: 8 Second hand smoke exposure: No Alcohol intake: current Alcohol intake frequency: holidays/special occasions only Alcohol type: hard liquor Substance/Drug Use: never Lives independently: Yes Household members: caregiver Marital status: Single Number of children: 0 Current occupational status: disabled Current gender identity: Male Special dagmar needs: No Agree to transfusion: Yes Physical Exam Const: COMMON NORMALS: no acute distress GENERAL APPEARANCE: cooperative; not ill appearing and not frail appearing HENMT: COMMON NORMALS: normocephalic, atraumatic and Normal external nose present HEAD & SCALP: normocephalic and atraumatic FACE & SINUS: normal facial exam and face symmetric NOSE: Normal external nose present Eye: COMMON NORMALS: Equal, round and reactive pupils present and EOMs intact bilaterally PUPIL: Yes Equal, round and reactive pupils present Neck/C-Spine: GENERAL: Yes trachea midline Chest: CHEST: Yes Symmetrical chest wall rise Resp: COMMON NORMALS: normal respiratory effort, No retractions, No use of accessory muscles and clear to auscultation bilaterally AUSCULTATION: clear to auscultation bilaterally Cardio: COMMON NORMALS: regular rate and regular rhythm RATE: regular rate RHYTHM: regular rhythm GI: COMMON NORMALS: Normal to inspection, nondistended, normoactive bowel sounds present Extremity: COMMON NORMALS: no pedal edema Neuro: ART COMA SCALE: document GCS findings Art coma scale eye opening: Spontaneous [place] coma scale verbal response: Orientated Art coma scale motor response: Obey commands [place] coma scale total score: 15 SENSORY EXAM: Yes extremities (intact) Psych: COMMON NORMALS: speech normal SPEECH: Yes normal speech Skin: COMMON NORMALS: no rashes or lesions noted GENERAL SKIN EXAM: no rashes or lesions noted Course Vital Signs: Vital signs: Vital Signs Temperature 98.9 F 07/12/24 18:44 Pulse Rate 75 07/12/24 22:57 Respiratory Rate 18 07/12/24 22:57 Blood Pressure 124/73 07/12/24 22:57 Pulse Oximetry 96 07/12/24 22:57 Oxygen Delivery Me thod Room Air 07/12/24 18:44 MDM - General Adult Medical Decision Making Chest x-ray nonacute. EKG shows no acute ST wave changes. Laboratory is not remarkable. He will be discharged. Return for worsening symptoms. Lab Data 07/12/24 20:05 07/12/24 20:05 Radiology Impressions Chest X-Ray 07/12/24 21:52 IMPRESSION: No acute cardiopulmonary disease. Laboratory Results WBC 9.55 10^3/uL (3.29-11.43) 07/12/24 20:05 RBC 5.00 10^6/uL (3.85-5.65) 07/12/24 20:05 Hgb 14.10 g/dL (11.27-16.99) 07/12/24 20:05 Hct 42.0 % (37-53) 07/12/24 20:05 MCV 84.0 fl (82-101) 07/12/24 20:05 MCH 28.2 pg (27-33) 07/12/24 20:05 MCHC 33.6 g/dL (30-55) 07/12/24 20:05 RDW 14.4 % (12.1-15.1) 07/12/24 20:05 Plt Count 285 10^3/cmm (157-399) 07/12/24 20:05 MPV 8.8 fL (7.4-10.4) 07/12/24 20:05 Neut % (Auto) 50.3 % 07/12/24 20:05 Lymph % (Auto) 33.4 % 07/12/24 20:05 [place] % (Auto) 8.0 % 07/12/24 20:05 Eos % (Auto) 7.7 % 07/12/24 20:05 Baso % (Auto) 0.4 % 07/12/24 20:05 Neut # (Auto) 4.80 10^3/uL (1.8-7.7) 07/12/24 20:05 Lymph # (Auto) 3.2 10^3/uL (0.8-4.8) 07/12/24 20:05 [place] # (Auto) 0.8 10^3/uL (0.2-0.9) 07/12/24 20:05 Eos # (Auto) 0.7 10^3/uL (0.0-0.8) 07/12/24 20:05 Baso # (Auto) 0.0 10^3/uL (0.0-0.1) 07/12/24 20:05 Nucleated RBC % (auto) 0 % 07/12/24 20:05 Nucleated RBCs # 0.0 /100WBC 07/12/24 20:05 Sodium 135 mmol/L (136-145) L 07/12/24 20:05 Potassium 3.9 mmol/L (3.5-5.1) 07/12/24 20:05 Chloride 95 mmol/L (98-107) L 07/12/24 20:05 Carbon Dioxide 28 mmol/L (22-29) 07/12/24 20:05 Anion Gap 15.9 (5-19) 07/12/24 20:05 BUN 8 mg/dL (6-20) 07/12/24 20:05 Creatinine 0.7 mg/dL (0.7-1.2) 07/12/24 20:05 GFR Calculation 121.4 mL/min (90-130) 07/12/24 20:05 Glucose 94 mg/dL (65-115) 07/12/24 20:05 Calculated Osmolality 278 mOsm/kg (285-295) L 07/12/24 20:05 Calcium 9.5 mg/dL (8.5-10.5) 07/12/24 20:05 Total Bilirubin 0.2 mg/dL (0.15-1.2) 07/12/24 20:05 AST 11 U/L (0-40) 07/12/24 20:05 ALT 11 U/L (0-41) 07/12/24 20:05 Alkaline Phosphatase 91 U/L (40-130) 07/12/24 20:05 Troponin T Baseline < 6 ng/L (0-15) 07/12/24 20:05 Total Protein 6.8 g/dL (6.6-8.7) 07/12/24 20:05 Albumin 4.2 g/dL (3.5-5.2) 07/12/24 20:05 Globulin 2.6 g/dL (1.3-4.6) 07/12/24 20:05 Urine Color Yellow (Yellow) 07/12/24 22:30 Urine Appearance Clear (CLEAR) 07/12/24 22:30 Urine pH 7.5 (5-7) 07/12/24 22:30 Ur Specific [place] 1.014 (1.005-1.030) 07/12/24 22:30 Urine Protein Negative (Negative) 07/12/24 22:30 Urine Glucose (UA) Negative (Normal) 07/12/24 22:30 Urine Ketones Negative (Negative) 07/12/24 22:30 Urine Blood Negative (Negative) 07/12/24 22:30 Urine Nitrate Negative (Negative) 07/12/24 22:30 Urine Bilirubin Negative (Negative) 07/12/24 22:30 Urine Urobilinogen 1.0 mg/dL (Negative) 07/12/24 22:30 Ur Leukocyte Esterase Negative (Negative) 07/12/24 22:30 Urine RBC 0-2 /hpf (0-2) 07/12/24 22:30 Urine WBC 0-5 /hpf (0-5) 07/12/24 22:30 Ur Squamous Epith Cells 0-5 /hpf (0-5) 07/12/24 22:30 Amorphous Sediment Not Reportable 07/12/24 22:30 Urine Bacteria None seen /hpf (NONE) 07/12/24 22:30 Hyaline Casts 0-4 /lpf H 07/12/24 22:30 All radiology interpretation(s) finalized by discharge Discharge Plan Discharge Patient Disposition: Home Clinical Impression: Heart palpitations Condition: Stable Prescriptions: No Action acetaminophen [Tylenol] 325 mg Tablet 325 mg PO QID aripiprazole 10 mg Tablet 10 mg PO 1800 30 Days Qty: 30 1RF metoprolol tartrate 50 mg tablet 50 mg PO BID@0900,2100 30 Days Qty: 60 1RF pantoprazole 40 mg Tablet,Delayed Release (Dr/Ec) 40 mg PO BID 30 Days Qty: 60 1RF Abilify Maintena 400 mg suspension,extended rel recon 400 mg IM Q28D Qty: 1 1RF Rx Instructions: Due date 08/02/24 Discharge Orders: Discharge ED (Routine); Ordered 07/12/24 Ordered By: Iraj Person Referrals: Jesus Colmenares MD [Primary Care Provider] - 1-3 days Patient Instructions: Heart Palpitations (ED), Opioid Safety, Pain Management Activity Restrictions/Additional Instructions: Your evaluation including exam, laboratory, and imaging did not reveal a cause of your palpitations or weakness this evening. Follow-up with your doctor. Call in the morning for an appointment. Make sure you stay hydrated. Print Language: Serbian Coding Level of Care Code ED Type Soldering Machine Tender for Kobe Riggs
== END 2024-07-12 22:57 | disposition home or self-care (01) ==
PROVIDERS: Emergency Provider Emergency Medicine; PCP Family Medicine
DX: R00.2 Palpitations (principal); F17.210 Nicotine dependence, cigarettes, uncomplicated
CPT/HCPCS: 36415; 71045; 80053; 81001; 84484; 85025; 93005; 99285

== ENCOUNTER 2024-10-28 08:15 | Inpatient (IN) | payer MEDICAID, SELFPAY ==
--- OUTSIDE RECORDS SUMMARY | 2010-06-23 03:45 | XMS_ITS | Continuity of Care Document ---
Author Organization [facility] Address [address] [id number][place] [address] Phone Care Team Providers Care Frame Straightener Name Role Phone Rafael Duran MD Unavailable [...] Copied on Encounter OFFICE/OUTPA TIENT VISIT, EST [facility], [id number]- [place], [place], [address], [place] tel:[phone] Family Medicine F1 hypertension (chief complaint)ashley k pain (chief complaint)bip olar (chief complaint)fas ting labs (chief complaint) LumbagoBipolar disorder, unspecifiedUnspec ified essential hypertension 1 [facility]. [address] [place], [place], [address] , [place]. tel:[phone] Referring Provider: Rafael Dominguez, [address] [place], [address] . tel:[phone] [facility], [id number] [id number]- [facility], [place], [place], [address], [place] tel:[phone] Family Medicine F1 No Information 6-200 9 [facility]. [address] [facility], [facility], [place], [address] , [place]. tel: [phone] [facility], [id number]- [facility], [place], [place], [address], [place] tel:[phone] Family Medicine F1 No Information 8200 9 [facility]. [address] [facility], [facility], [place], [address] , [place]. tel: [phone] EST-EXP PROB FOC/LOW COMPLEXITY [facility], [id number]- [facility], [place], [place], [address], [place] tel:[phone] Family Medicine F1 No Information 7200 9 [facility]. [address] [facility], [facility], [place], [address] , [place]. tel: [phone] [facility], [id number]- [facility], [place], [place], [address], [place] tel:[phone] Family Medicine F1 No Information 0 9-200 8 [facility]. [address] [facility], [facility], [place], [address] , [place]. tel: [phone] EST-EXP PROB FOC/LOW COMPLEXITY [facility], [id number]- [facility], [place], [place], [address], [place] tel:[phone] Family Medicine F1 No Information 7-200 8 [facility]. [address] [facility], [facility], [place], [address] , [place]. tel: [phone] [facility], [id number] [id number], [place], [place], [address], tel:[phone] Family Medicine F1 No Information 8 [facility]. [address] [place], [place], [address] , [place]. tel: [phone] EST-DETAIL/M OD COMPLEXITY [facility], [address] [id number] Lodge [facility], [place], [place], [address], tel:[phone] Family Medicine F1 No Information 8 [facility]. [address] [place], [place], [address] , [place]. tel: [phone] Family History Family Member Type Diagnosis Age At Onset No Information Payers Payer name Insurance type Covered green party ID Shahbaz fraser(s) M [place] Medicaid MC [id number] Social History Type Description Quantity Date Captured [...] Mental Status Date Cognitive Assessment Orientation - [place] ed to time, place, person, situation.Normal Orientation Patient Care Teams Name Effective Dates (start - stop) Status Members No Information
[2024-05-13 11:18] VITALS: BP 108/66; BMI 29.4
[2024-10-28 08:17] VITALS: BP 167/82; PULSE 115; RESP 16; TEMP 37.2; O2SAT 99; BMI 29.1
--- NOTE | 2024-10-28 08:24 | ECG_ITS ---
[facility] Test Date: 2024-10-28 Pat Name: Tarun Summers Department: Room: Gender: Male Water Tender: : 1975 Requested By: Louisa Villegas Order Number: [id number] England MD: Andriy Hairston M.D. Measurements Intervals [place] Rate: 104 P: 72 MN: 128 QRS: 86 QRSD: 98 T: 61 QT: 340 QTc: 449 Interpretive Statements SINUS TACHYCARDIA Compared to ECG 07/12/2024 21:08:54 Sinus rhythm no longer present Left ventricular hypertrophy no longer present Myocardial infarct finding no longer present Electronically Signed On 11-05-2024 09:28:32 CDT by Andriy Hairston M.D. [id number]
--- OUTSIDE RECORDS SUMMARY | 2024-10-28 08:24 | XMS_ITS | Clinical Summary ---
Author Organization [facility] Address [address] [place]: Epic Prelude ADT [place] [id number] Care Team Providers Care Channel Marketing Manager Name Role Phone Unavailable Primary Care Provider Unavailabl e Allergies Active Allergy Reactions Criticality Noted Date Comments Penicillins Rash High Active Problems Problem Noted Date Diagnosed Date Unspecified diseases of blood and blood-forming organs Family History Medical History Relation Name Comments Melanoma Father Relation Name Status Comments Father Alive Mother Alive Social History Tobacco Use Types Packs/Day Years Used Date Smoking Tobacco: Every Day Cigarettes Alcohol Use Standard Drinks/Week Comments No 0 (1 standard drink = 0.6 oz pur e alcohol) Sex and Gender Information Value Date Recorded Sex Assigned at Not on file Legal Sex Male 5:44 AM [employer] MER[employer] Gender Identity Not on file Sexual Orientation Not on file Plan of Treatment Health Maintenance Due Date Last Done Comments DTAP/TDAP/TD VACCINES (1 - Tdap) 1996 HEPATITIS B VACCINES (1 of 3 - 19+ 3-dose series) 1996 COLORECTAL SCREENING 2022 Colorectal Cancer Screening 2022 FIT-DNA Q 3 years 2022 FIT/FOBT Q 1 year 2022 Flex Sig/CT Colonography Q 5 years 2022 INFLUENZA VACCINE (#1) 2023 HPV VACCINES Aged Out No longer eligi ble based on patient's age to complete this topic
[2024-10-28 08:45] LABS: Hematocrit 44.1 % (37-53); Hemoglobin 14.90 g/dL (11.27-16.99); Mean Corpuscular HGB Conc 33.8 g/dL (30-55); Mean Corpuscular Hemoglobin 27.2 pg (27-33); Mean Corpuscular Volume 80.6 fl (82-101); Nucleated Red Blood Cells % 0 %; Platelet Count 212 10^3/cmm (157-399); Red Blood Count 5.47 10^6/uL (3.85-5.65); White Blood Count 8.90 10^3/uL (3.29-11.43)
[2024-10-28] MEDS: water for injection-sterile 10 ML (08:52)
[2024-10-28] MEDS: LORazepam 1 MG/0.5 ML injection 2 MG IM (08:53)
[2024-10-28 09:14] LABS: Alanine Aminotransferase 12 U/L (0-41); Albumin Level 4.2 g/dL (3.5-5.2); Alcohol Level 12 mg/dL (0-10); Alkaline Phosphatase 93 U/L (40-130); Anion Gap 18.6 (5-19); Aspartate Amino Transferase 16 U/L (0-40); Blood Urea Nitrogen 14 mg/dL (6-20); Calcium 9.1 mg/dL (8.5-10.5); Carbon Dioxide 20 mmol/L (22-29); Chloride 100 mmol/L (98-107); Creatinine Clr Calc Pharmacy 124.1276; Globulin 3.4 g/dL (1.3-4.6); Glucose 141 mg/dL (65-115); Osmolality Calculated 283 mOsm/kg (285-295); Potassium 3.6 mmol/L (3.5-5.1); Sodium 135 mmol/L (136-145); Thyroid Stimulating Hormone 1.48 uIU/mL (0.27-4.20); Total Protein 7.6 g/dL (6.6-8.7)
[2024-10-28 09:15] LABS: Acetaminophen < 5.0 ug/mL (10-30); Salicylate < 0.3 mg/dL (3-10)
--- NOTE | 2024-10-28 09:17 | PC.NURSE ---
Involuntary 96 hour hold rights read and reviewed with patient. Tarun from security present during reading of rights. Patient verbalized understandings and copy of rights given to patient.
--- NOTE | 2024-10-28 09:22 | W.ED.PSYCHS ---
HPI - Psych General: Chief Complaint: Psychiatric Symptoms Stated Complaint: HI Time Seen by Provider: 10/28/24 08:24 History of Present Illness: 48-year-old man with a history of schizoaffective disorder, bipolar disorder, auditory hallucinations, schizophrenia and borderline personality disorder who presents to the emergency room with police. Apparently he had been walking around and yelling. 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 Upon arrival here he has flight of ideas and is difficult to get any history from. Keeps yelling about things being lies. Related Data Home Medications ?Medication ?Instructions ?Recorded ?Confirmed acetaminophen 325 mg tablet 325 mg PO QID PRN pain 06/22/24 10/28/24 (Tylenol) Previous Rx's ?Medication ?Instructions ?Recorded aripiprazole 10 mg tablet 10 mg PO 1800 30 days #30 tabs 07/03/24 aripiprazole 400 mg intramuscular 400 mg IM Q28D #1 ea 07/03/24 suspension,extended release (Abilifned Maintena) metoprolol tartrate 50 mg tablet 50 mg PO BID@0900,2100 30 days #60 07/03/24 tabs pantoprazole 40 mg tablet,delayed 40 mg PO BID 30 days #60 tabs 07/03/24 release Allergies Allergy/AdvReac Type Severity Reaction Status Date / Time No Known Allergies Allergy Verified 10/28/24 08:28 Review of Systems General: Reports: ROS unobtainable due to medical condition [facility] ED PFSH: Medical History (Updated 10/28/24 @ 09:28 by Louisa Patrick MD) Auditory hallucination Varicose vein of leg Schizoaffective disorder, bipolar type without good prognostic features Chronic schizophrenia Spina bifida Peripheral neuropathy Duodenal ulcer Perforated stomach GI bleed Anemia Upper gastrointestinal hemorrhage Chronic idiopathic constipation Folliculitis cruris pustulosa atrophicans Nonvenomous insect bite of neck Nicotine dependence, unspecified, uncomplicated Schizoaffective disorder, bipolar type Borderline personality disorder Surgical History History of incision and drainage left hip History of tonsillectomy History of carpal tunnel surgery of right wrist History of back surgery History of cholecystectomy Family History Mother Bleeding disorder anemia Cancer uterine Hypertension Lung disease asthma Grandmother Bleeding disorder anemia Diabetes Father Cancer melonoma Hyperlipidemia Grandfather Chronic kidney disease (CKD) Diabetes Stroke Other Acute psychosis Denies family history of CAD (coronary artery disease) Clotting disorder Dementia Psychiatric illness Anesthesia complication Social History Smoking and tobacco/nicotine status: current every day tobacco/nicotine user cigarettes Quit status (tobacco/nicotine): has tried quititng Number of times tried to quit tobacco: 8 Second hand smoke exposure: No Alcohol intake: current Alcohol intake frequency: holidays/special occasions only Alcohol type: hard liquor Substance/Drug Use: never Lives independently: Yes Household members: caregiver Marital status: Single Number of children: 0 Current occupational status: disabled Current gender identity: Male Special dagmar needs: No Agree to transfusion: Yes Physical Exam Narrative: EXAM NARRATIVE: General: Alert. no acute distress Skin: Warm, dry Head: Normocephalic, atraumatic. Neck: Supple, trachea midline. Eye: Extraocular movements are intact. Ears, nose, mouth and throat: Oral mucosa moist. Cardiovascular: Regular rate and rhythm, Normal peripheral perfusion. Respiratory: Lungs are clear to auscultation, respirations are non-labored, breath sounds are equal, Symmetrical chest wall expansion. Gastrointestinal: Soft, Nontender, Non distended Musculoskeletal: Normal ROM, no deformity. Neurological: Alert, No focal neurological deficit observed. Psychiatric: agitated. flight of ideas Course Vital Signs: Vital signs: Vital Signs Temperature 99.0 F 10/28/24 08:17 Pulse Rate 115 H 10/28/24 08:17 Respiratory Rate 16 10/28/24 08:17 Blood Pressure 167/82 10/28/24 08:17 Pulse Oximetry 99 10/28/24 08:17 Oxygen Delivery Me thod Room Air 10/28/24 08:17 MDM - Psych Medical Decision Making Medical decision making: Differential diagnosis for patient with reported psychosis with plan for psychiatric admission including but not limited to and based on the above HPI, review of systems and physical exam: concerns for infection, alcohol intoxication, cardiac issues or other medical problems prior to psychiatric admission. Orders placed to evaluate differential diagnosis based on the above differential, HPI and physical exam labwork, ekg ordered to evaluate the pathologies and to clear the patient medically prior to psychiatric admission EKG: Time 8:49 AM. Rate 104. Sinus tachycardia, No ST-T changes, no ectopy, normal IA & QRS intervals, This was reviewed and interpreted by myself the ER physician at 8:55 AM. Lab Review: Laboratory results were reviewed and interpreted by myself the emergency room physician. - Medically cleared. - EKG shows no ischemic changes. - Blood alcohol level is negative, as well as salicylate and Tylenol. - Urine drug screen and urinalysis are pending. - No anemia. - BUN and creatinine are within normal limits. I reviewed the patient's medical record. Patient has multiple psych diagnoses. Last admission to this facility was twice in June of this year. Similar type presentation Consultation: I spoke with Dr. Field who is on-call for psychiatry who agrees to admission. Assessment and plan: Acute psychosis Hallucinations Homicidal ideations Agitation ?96-hour hold was placed. Affidavits by police. IM Rachel and Christian in the emergency room. -Admission to neuropsychiatric unit for continued evaluation and treatment. - All lab work was reviewed and interpreted personally by myself, the ER physician - Evaluation and treatment of this problem were appropriate in the emergency setting Lab Data 10/28/24 08:39 10/28/24 08:39 Laboratory Results WBC 8.90 10^3/uL (3.29-11.43) 10/28/24 08:39 RBC 5.47 10^6/uL (3.85-5.65) 10/28/24 08:39 Hgb 14.90 g/dL (11.27-16.99) 10/28/24 08:39 Hct 44.1 % (37-53) 10/28/24 08:39 MCV 80.6 fl (82-101) L 10/28/24 08:39 MCH 27.2 pg (27-33) 10/28/24 08:39 MCHC 33.8 g/dL (30-55) 10/28/24 08:39 RDW 16.0 % (12.1-15.1) H 10/28/24 08:39 Plt Count 212 10^3/cmm (157-399) 10/28/24 08:39 MPV 9.3 fL (7.4-10.4) 10/28/24 08:39 Neut % (Auto) 64.8 % 10/28/24 08:39 Lymph % (Auto) 24.2 % 10/28/24 08:39 [place] % (Auto) 9.2 % 10/28/24 08:39 Eos % (Auto) 1.2 % 10/28/24 08:39 Baso % (Auto) 0.3 % 10/28/24 08:39 Neut # (Auto) 5.76 10^3/uL (1.8-7.7) 10/28/24 08:39 Lymph # (Auto) 2.2 10^3/uL (0.8-4.8) 10/28/24 08:39 [place] # (Auto) 0.8 10^3/uL (0.2-0.9) 10/28/24 08:39 Eos # (Auto) 0.1 10^3/uL (0.0-0.8) 10/28/24 08:39 Baso # (Auto) 0.0 10^3/uL (0.0-0.1) 10/28/24 08:39 Nucleated RBC % (auto) 0 % 10/28/24 08:39 Nucleated RBCs # 0.0 /100WBC 10/28/24 08:39 Sodium 135 mmol/L (136-145) L 10/28/24 08:39 Potassium 3.6 mmol/L (3.5-5.1) 10/28/24 08:39 Chloride 100 mmol/L (98-107) 10/28/24 08:39 Carbon Dioxide 20 mmol/L (22-29) L 10/28/24 08:39 Anion Gap 18.6 (5-19) 10/28/24 08:39 BUN 14 mg/dL (6-20) 10/28/24 08:39 Creatinine 0.9 mg/dL (0.7-1.2) 10/28/24 08:39 GFR Calculation 90.8 mL/min (90-130) 10/28/24 08:39 Glucose 141 mg/dL (65-115) H 10/28/24 08:39 Calculated Osmolality 283 mOsm/kg (285-295) L 10/28/24 08:39 Calcium 9.1 mg/dL (8.5-10.5) 10/28/24 08:39 Total Bilirubin 0.3 mg/dL (0.15-1.2) 10/28/24 08:39 AST 16 U/L (0-40) 10/28/24 08:39 ALT 12 U/L (0-41) 10/28/24 08:39 Alkaline Phosphatase 93 U/L (40-130) 10/28/24 08:39 Total Protein 7.6 g/dL (6.6-8.7) 10/28/24 08:39 Albumin 4.2 g/dL (3.5-5.2) 10/28/24 08:39 Globulin 3.4 g/dL (1.3-4.6) 10/28/24 08:39 TSH 1.48 uIU/mL (0.27-4.20) 10/28/24 08:39 Salicylates < 0.3 mg/dL (3-10) L 10/28/24 08:39 Acetaminophen < 5.0 ug/mL (10-30) L 10/28/24 08:39 Ethyl Alcohol 12 mg/dL (0-10) H 10/28/24 08:39 No radiology studies performed this visit Discharge Plan Discharge Patient Disposition: Admitted As Inpatient Clinical Impression: Acute psychosis, Acute paranoia, Agitation, Homicidal ideation, Chronic schizophrenia Condition: Stable Coding Level of Care Code ED Boxing Inspector for Kobe Riggs
--- NOTE | 2024-10-28 09:47 | PC.PHAR ---
New order for protonix 40mg bid filled and picked up 10/17/24 330ds-Lyndon MIRANDA. All 3 other medications were filled here upon discharge 07/29/24 30ds and never filled again.
[2024-10-28 10:19] VITALS: BP 122/78; PULSE 96; O2SAT 95
[2024-10-28 13:50] VITALS: BP 90/49; PULSE 76; O2SAT 99
[2024-10-28 13:54] LABS: Glucose Urine UA Negative (Normal); Nitrate Urine Negative (Negative); Specific Gravity, Urine 1.009 (1.005-1.030)
[2024-10-28 13:59] LABS: Add Urine Microscopic? YES
[2024-10-28 14:00] LABS: PCP Screen Urine Negative (Negative)
[2024-10-28 15:31] VITALS: BP 101/68; PULSE 76; RESP 16; TEMP 36.4; O2SAT 99
--- NOTE | 2024-10-28 15:45 | PC.NURSE ---
attempted report to [facility] three times with no response
--- NOTE | 2024-10-28 16:28 | PC.NURSE ---
Pt stated that he is upset because last time he was here he didn't receive payment for the Porn that he made. Pt is upset with his body and feels like he has hit a plateau with his weight loss. Pt feels ugly. Pt was encouraged by the nursing staff to keep his chin up.
[2024-10-28 20:48] VITALS: RESP 16
[2024-10-29 06:00] VITALS: BP 126/80; PULSE 64; RESP 16; TEMP 36.6; O2SAT 94
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
[2024-10-29 14:00] VITALS: BP 152/95; PULSE 97; RESP 16; TEMP 36.6; O2SAT 99
[2024-10-29 19:44] VITALS: BP 142/98; PULSE 95; RESP 18; TEMP 36.8; O2SAT 97
[2024-10-30 06:00] VITALS: BP 99/58; PULSE 60; RESP 18; O2SAT 97
--- NOTE | 2024-10-30 12:00 | PC.NURSE ---
nicotine patch this nurse had to replace pt nicoltine patch after shower. unable to document in JUL d/t time
[2024-10-30 14:00] VITALS: BP 146/89; PULSE 86; RESP 16; TEMP 36.8; O2SAT 96
--- NOTE | 2024-10-30 15:30 | P.NPUPN_ITS ---
Subjective NPU 2 Subjective: Patient presented today reporting that he is doing fine. He continued with his usual behavior when he comes into the hospital being very labile and mercurial. Ultimately however he reports that he is surrendering to the plan for guardian and accepting of the long-acting injectable and ready to stop fighting the process. He denied any side effects of the medication. Mental Status Exam 2 MSE Comments: This is a well-nourished well-developed white male in hospital scrubs looking older than his stated age with adequate grooming and eye contact. No abnormal involuntary motor movements except for mild psychomotor agitation. He was cooperative with exam in no acute distress. Speech was normal rate and mostly in volume. Mood described as pretty good. His affect was irritable and odd. His thought process was linear. Thought content: Patient denied homicidal ideation, denied suicidal ideation. There were prominent delusions of grandeur and paranoia was evident. He did not report auditory or visual hallucinations and did not appear to be responding to internal stimuli. Attention and concentration were limited and memory was unreliable, but none were formally tested. He is alert and oriented to person and place. Insight is impaired and judgment is poor and impulse control is impaired. Vitals/I&O/Wt Last Vital Signs Temp 98.3 F 10/30/24 14:00 Pulse 86 10/30/24 14:00 Resp 16 10/30/24 14:00 BP 146/89 10/30/24 14:00 Pulse Ox 96 10/30/24 14:00 O2 Del Method Room Air 10/30/24 14:00 Data NPU 10/28/24 08:39 10/28/24 08:39 A&P Assessment and plan (1) Schizoaffective disorder, bipolar type without good prognostic features: (2) Chronic schizophrenia: (3) Acute psychosis: (4) Marijuana use: Plan This is a 48-year-old white male who presents almost 4 months since his last hospitalization. He is well-known to our inpatient system from frequent hospitalizations at least 6-7 since 2022. He has a long history of struggling with addiction and psychosis and presents again psychotic with of UDS positive for benzodiazepines had cannabis and a blood alcohol of 12. His last hospitalization which was part of a couple of hospitalizations that happened fairly quickly raise the specter of whether or not he is capable of managing himself independently whether guardianship should be examined. 1.? Restart medication. Will initiate long-acting injectable in the morning. 2.? Encourage sobriety at the highest possible level of care the patient is willing to commit. 3.? Encourage individual, group and milieu therapy. 4.? Continue every 15 minute checks for safety. 5. Obtain collateral information. 6. Evaluate against the backdrop of 96-hour hold. PDMP PDMP Reviewed: Not Reviewed Involuntary Hold Information 2 Hold Status: Legal Status: 96 Hour Hold Date/Time Hold Expires: 11/03/24 @ 0854 96 Hour Hold: 96 Hour Involuntary Admission: Yes Other Hold: Hold End Date: 06/29/24 Attestations NPU 2 Medical Necessity Statement*: Inpatient hospitalization is medically necessary and clinically appropriate intervention at this time.? We will initiate medication and/or make changes as indicated.? His likely length of stay is 7-10 days. Coding Level of Care Code Acute Code for [facility] Fwd Diagnoses Schizoaffective disorder, bipolar type without good prognostic features F25.0 Chronic schizophrenia F20.9 Acute psychosis F23 Marijuana use F12.90
[2024-10-30 20:46] VITALS: BP 124/67; PULSE 70; RESP 18; TEMP 36.7; O2SAT 98
[2024-10-31 06:00] VITALS: BP 125/69; PULSE 60; RESP 17; O2SAT 97
--- NOTE | 2024-10-31 07:22 | W.PM.NPUPNS ---
Subjective NPU Subjective: Patient presented today reporting that he is doing fine. He took his injection this morning and denied any issues. He continues to say delusional things regularly per staff reports and direct observation. 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 He vacillated between being totally fine with having a guardian to feeling like there was some time I told him that if he was able to stay out of the hospital for a few months we would not pursue guardianship which was never the case and that we were really wrestling with him last time surrounding him wanting to just get a car and have that be his housing plan for him to just get a car finding places at the park and have ac on. And live out there. He never got the car but he has continued to be homeless which is what we are trying to avoid last time. It is clear that the main reason why he does not want to go to some housing/residential option is that they will take the lion share of his money and he and his mind would rather live in situation where he is homeless and has all of his money than to go to some residential facility and get a little allowance. We discussed the fact that the problem is he continues to fail independently. He is not on his medication and continues to be homeless and chooses that situation over a stable situation due to not wanting to be losing control of his money. We discussed the risks, benefits and alternatives of starting the long-acting injectable Abilify Maintena and hopefully moving to Abilify Asimtufii and he understood and agreed to proceed as documented in his note. We discussed likely moving towards guardianship on Saturday. We discussed Dr. Bansal returning tomorrow. Mental Status Exam MSE Comments: This is a well-nourished well-developed white male in hospital scrubs looking older than his stated age with adequate grooming and eye contact. No abnormal involuntary motor movements except for mild psychomotor agitation. He was cooperative with exam in no acute distress. Speech was normal rate and mostly in volume. Mood described as pretty good. His affect was irritable and odd. His thought process was linear. Thought content: Patient denied homicidal ideation, denied suicidal ideation. There were prominent delusions of grandeur and paranoia was evident. He did not report auditory or visual hallucinations and did not appear to be responding to internal stimuli. Attention and concentration were limited and memory was unreliable, but none were formally tested. He is alert and oriented to person and place. Insight is impaired and judgment is poor and impulse control is impaired. Vitals/I&O/Wt Last Vital Signs Temp 98.0 F 10/30/24 20:46 Pulse 60 10/31/24 06:00 Resp 17 10/31/24 06:00 BP 125/69 10/31/24 06:00 Pulse Ox 97 10/31/24 06:00 O2 Del Method Room Air 10/30/24 14:00 Data NPU 10/28/24 08:39 10/28/24 08:39 A&P Assessment and plan (1) Schizoaffective disorder, bipolar type without good prognostic features: (2) Chronic schizophrenia: (3) Acute psychosis: (4) Marijuana use: Plan This is a 48-year-old white male who presents almost 4 months since his last hospitalization. He is well-known to our inpatient system from frequent hospitalizations at least 6-7 since 2022. He has a long history of struggling with addiction and psychosis and presents again psychotic with of UDS positive for benzodiazepines had cannabis and a blood alcohol of 12. His last hospitalization which was part of a couple of hospitalizations that happened fairly quickly raise the specter of whether or not he is capable of managing himself independently whether guardianship should be examined. 1.? Restart medication. Will initiate long-acting injectable in the morning. Started Abilify 400 mg IM q. monthly. 2.? Encourage sobriety at the highest possible level of care the patient is willing to commit. 3.? Encourage individual, group and milieu therapy. 4.? Continue every 15 minute checks for safety. 5. Obtain collateral information. 6. Evaluate against the backdrop of 96-hour hold. PDMP PDMP Reviewed: Not Reviewed Involuntary Hold Information Hold Status: Legal Status: 96 Hour Hold Date/Time Hold Expires: 11/03/24 @ 0854 96 Hour Hold: 96 Hour Involuntary Admission: Yes Other Hold: Hold End Date: 06/29/24 Attestations NPU Medical Necessity Statement*: Inpatient hospitalization is medically necessary and clinically appropriate intervention at this time.? We will initiate medication and/or make changes as indicated.? His likely length of stay is 7-10 days. Coding Level of Care Code Acute Code for g Fwd Diagnoses Schizoaffective disorder, bipolar type without good prognostic features F25.0 Chronic schizophrenia F20.9 Acute psychosis F23 Marijuana use F12.90
--- NOTE | 2024-10-31 13:07 | PC.NURSE ---
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 He stated that the Security guards name is actually José . 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
--- NOTE | 2024-10-31 13:16 | PC.NURSE ---
Pt up at the nurses station rambling on, presenting with auditory wren, administered meds.
[2024-10-31 13:20] VITALS: BP 153/91; PULSE 77; RESP 17; TEMP 36.9; O2SAT 97
[2024-10-31] MEDS: ARIPiprazole Maintena 400 MG IM (15:50)
--- NOTE | 2024-10-31 15:50 | PC.NURSE ---
Administered Abilify Maintena 400mg IM in the left deltoid, pt tolerated well.
[2024-10-31 22:00] VITALS: BP 126/92; PULSE 70; RESP 18; TEMP 36.8; O2SAT 99
[2024-11-01 06:00] VITALS: RESP 18
[2024-11-01 14:00] VITALS: BP 124/82; PULSE 100; RESP 16; TEMP 36.8; O2SAT 95
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
[2024-11-01] MEDS: LORazepam 1 MG/0.5 ML injection 2 MG IM (18:16)
[2024-11-01] MEDS: haloperidol inj 5 mg/mL INJ 1 mL IM (18:16)
[2024-11-01] MEDS: diphenhydrAMINE 50 mg/mL SDV 1mL IM (18:17)
[2024-11-01 22:00] VITALS: RESP 16
[2024-11-02 06:00] VITALS: BP 90/65; PULSE 54; RESP 16; TEMP 36.4; O2SAT 97
[2024-11-02 14:00] VITALS: BP 112/72; PULSE 78; RESP 18; O2SAT 98
--- NOTE | 2024-11-02 14:01 | PC.NURSE ---
Verbal order received from Dr. Piper to give Abilify 400mg IM now. Signee called pharmacy and informed them the order was entered on the JUL and requested they bring the medication up.
--- NOTE | 2024-11-02 14:44 | P.NPUPN_ITS ---
Subjective NPU 2 Subjective: 48-year-old male with schizoaffective di sorder admitted with paranoia and homicidal threats towards police. 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 He had reported that he continued to feel that he did not need to be here at this time. Patient had expressed concern about his involuntary hospitalization. He had remained agreeable to taking medications here at this time. He denied any auditory hallucinations. He had been compliant on the milieu. He reported no side effects from his oral medications. He had continued to report that the [employer] were employing him and that he was anger at the director of the [employer] for unspecified reasons. Mental Status Exam 2 MSE Comments: This is a well-nourished well-developed white male in hospital scrubs looking older than his stated age with adequate grooming and eye contact. He had a justin complexion and appeared extremely price in various areas. No abnormal involuntary motor movements except for mild psychomotor agitation. He was cooperative with exam in no acute distress. Speech was normal in rate and normal in volume. Mood described as okay. His affect was pleasant today. His thought process remained tangential. Thought content: Patient denied homicidal ideation, denied suicidal ideation. There were prominent delusions of grandeur and paranoia was evident. He did not report auditory or visual hallucinations and did not appear to be responding to internal stimuli. Attention and concentration were limited and memory was unreliable, but none were formally tested. He is alert and oriented to person and place. Insight is impaired and judgment is poor and impulse control is impaired. Vitals/I&O/Wt Last Vital Signs Temp 97.5 F L 11/02/24 06:00 Pulse 78 11/02/24 14:00 Resp 18 11/02/24 14:00 BP 112/72 11/02/24 14:00 Pulse Ox 98 11/02/24 14:00 O2 Del Method Nasal Cannula 11/02/24 14:00 Weight last 48 hrs Weight 104.236 kg Data NPU 10/28/24 08:39 10/28/24 08:39 A&P Assessment and plan (1) Schizoaffective disorder, bipolar type without good prognostic features: (2) Chronic schizophrenia: (3) Acute psychosis: (4) Marijuana use: Plan This is a 48-year-old white male who presents almost 4 months since his last hospitalization. He is well-known to our inpatient system from frequent hospitalizations at least 6-7 since 2022. He has a long history of struggling with addiction and psychosis and presents again psychotic with of UDS positive for benzodiazepines had cannabis and a blood alcohol of 12. His last hospitalization which was part of a couple of hospitalizations that happened fairly quickly raise the specter of whether or not he is capable of managing himself independently whether guardianship should be examined. 1.? Continue abilify oral 10mg daily. Started Abilify 400 mg IM q. monthly. 2.? Encourage sobriety at the highest possible level of care the patient is willing to commit. 3.? Encourage individual, group and milieu therapy. 4.? Continue every 15 minute checks for safety. 5. Obtain collateral information. 6. Evaluate against the backdrop of 96-hour hold, the treatment team may pursue guardianship. PDMP PDMP Reviewed: Not Reviewed Involuntary Hold Information 2 Hold Status: Legal Status: 96 Hour Hold Date/Time Hold Expires: 11/03/24 @ 0854 96 Hour Hold: 96 Hour Involuntary Admission: Yes Other Hold: Hold End Date: 06/29/24 Attestations NPU 2 Medical Necessity Statement*: Inpatient hospitalization is medically necessary and clinically appropriate intervention at this time.? We will initiate medication and/or make changes as indicated.? His likely length of stay is 7-10 days. Coding Level of Care Code Acute Code for Chg Fwd Diagnoses Schizoaffective disorder, bipolar type without good prognostic features F25.0 Chronic schizophrenia F20.9 Acute psychosis F23 Marijuana use F12.90
[2024-11-02] MEDS: ARIPiprazole Maintena 400 MG IM (15:42)
[2024-11-02 19:23] VITALS: BP 98/59; PULSE 56; RESP 16; O2SAT 98
[2024-11-03 06:00] VITALS: BP 113/70; PULSE 61; RESP 16; O2SAT 98
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
[2024-11-03 10:50] VITALS: BP 125/81; PULSE 106; RESP 17; TEMP 36.6; O2SAT 96
[2024-11-03 10:55] VITALS: BP 125/81; PULSE 106; RESP 16; TEMP 36.6; O2SAT 96
== END 2024-11-03 11:12 | disposition home or self-care (01) | DRG 885 ==
LOC: ER 09:28 → NP 14:33
PROVIDERS: Admitting Provider Psychiatry & Neurology Psychiatry; Emergency Provider Emergency Medicine; PCP Family Medicine; Visit Provider Psychiatry & Neurology Psychiatry
DX: F25.0 Schizoaffective disorder, bipolar type (principal); F12.90 Cannabis use, unspecified, uncomplicated; F60.3 Borderline personality disorder; R45.850 Homicidal ideations; G62.9 Polyneuropathy, unspecified; F17.210 Nicotine dependence, cigarettes, uncomplicated; Z87.11 Personal history of peptic ulcer disease
CPT/HCPCS: 36415; 80053; 80306; 80307; 81001; 84443; 85025; 93005; 96372; 97150; 97165; 99285; J1200; J1630; J2060; J3486; J9999; Q0162

== ENCOUNTER 2024-11-17 20:41 | Emergency (ER) | payer MEDICAID, SELFPAY ==
--- OUTSIDE RECORDS SUMMARY | 2010-06-23 03:45 | XMS_ITS | Continuity of Care Document ---
Author Organization [facility] Address [address] [id number][place] [address] Phone Care Team Providers Care Reception Manager Name Role Phone Rafael Duran MD Unavailable [...] Copied on Encounter OFFICE/OUTPA TIENT VISIT, EST [facility], [id number]- [place], [place], [address], [place] tel:[phone] Family Medicine F1 hypertension (chief complaint)ashley k pain (chief complaint)bip olar (chief complaint)fas ting labs (chief complaint) LumbagoBipolar disorder, unspecifiedUnspec ified essential hypertension 1 [facility]. [address] [place], [place], [address] , [place]. tel:[phone] Referring Provider: Rafael Dominguez, [address] [place], [address] . tel:[phone] [facility], [id number] [id number]- [facility], [place], [place], [address], [place] tel:[phone] Family Medicine F1 No Information 6-200 9 [facility]. [address] [facility], [facility], [place], [address] , [place]. tel: [phone] [facility], [id number] [id number]- [facility], [place], [place], [address], [place] tel:[phone] Family Medicine F1 No Information 8200 9 [facility]. [address] [facility], [facility], [place], [address] , [place]. tel: [phone] EST-EXP PROB FOC/LOW COMPLEXITY [facility], [id number] [id number]- [facility], [place], [place], [address], [place] tel:[phone] Family Medicine F1 No Information 7200 9 [facility]. [address] [facility], [facility], [place], [address] , [place]. tel: [phone] [facility], [id number] [id number]- [facility], [place], [place], [address], [place] tel:[phone] Family Medicine F1 No Information 0 9-200 8 [facility]. [address] [facility], [facility], [place], [address] , [place]. tel: [phone] EST-EXP PROB FOC/LOW COMPLEXITY [facility], [id number]- [facility], [place], [place], [address], [place] tel:[phone] Family Medicine F1 No Information 7-200 8 [facility]. [address] [facility], [facility], [place], [address] , [place]. tel: [phone] [facility], [id number], [place], [place], [address], tel:[phone] Family Medicine F1 No Information 8 [facility]. [address] [place], [place], [address] , [place]. tel: [phone] EST-DETAIL/M OD COMPLEXITY [facility], [id number] [id number], [place], [place], [address], tel:[phone] Family Medicine F1 No Information 8 [facility]. [address] [place], [place], [address] , [place]. tel: [phone] Family History Family Member Type Diagnosis Age At Onset No Information Payers Payer name Insurance type Covered alliance party ID Shahbaz fraser(s) M [place] Medicaid MC [id number] Social History Type Description Quantity Date Captured [...] Mental Status Date Cognitive Assessment Orientation - [place] ed to time, place, person, situation.Normal Orientation Patient Care Teams Name Effective Dates (start - stop) Status Members No Information
[2024-05-13 11:18] VITALS: BP 108/66; BMI 29.4
[2024-11-17 20:51] VITALS: BP 129/89; PULSE 98; RESP 16; TEMP 36.7; O2SAT 97; BMI 30.4
--- OUTSIDE RECORDS SUMMARY | 2024-11-17 20:53 | XMS_ITS | Encounter Summary ---
Author Organization [facility] Address [address] [place] [address] Care Team Providers Care Fur Storage Clerk Name Role Phone Robi Restrepo DO Primary Care Provider [phone] Encounter Details Date Type Department Care Team (Late st Contact Info) Description 09/25/2006 Outpatient Historical [facility] Medicine[address] [id number] Robi Restrepo DO [address] [place] [address] Cough (Primary Dx); Lack of Coordination Social History Tobacco Use Types Packs/Day Years Used Date Smoking Tobacco: Never Assessed Sex and Gender Information Value Date Recorded Sex Assigned at Not on file 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
--- OUTSIDE RECORDS SUMMARY | 2024-11-17 20:53 | XMS_ITS | Encounter Summary ---
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
--- OUTSIDE RECORDS SUMMARY | 2024-11-17 20:53 | XMS_ITS | Encounter Summary ---
Author Organization [facility] Address [address] [place] [address] Care Team Providers Care Property Insurance Claims Examiner Name Role Phone Robi Restrepo DO Primary Care Provider [phone] Encounter Details Date Type Department Care Team (Late st Contact Info) Description 12/02/2006 Outpatient Historical [address] [phone] Robi Restrepo DO [address] [place] [address] Anxiety State, Unspecified (Primary Dx); Esophageal Reflux; Calculus of GB w/ Obst w/o Cystitis Social History Tobacco Use Types Packs/Day Years Used Date Smoking Tobacco: Never Assessed Sex and Gender Information Value Date Recorded Sex Assigned at Not on file Legal 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
--- OUTSIDE RECORDS SUMMARY | 2024-11-17 20:53 | XMS_ITS | Encounter Summary ---
Author Organization 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
--- OUTSIDE RECORDS SUMMARY | 2024-11-17 20:53 | XMS_ITS | Encounter Summary ---
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
--- OUTSIDE RECORDS SUMMARY | 2024-11-17 20:53 | XMS_ITS | Encounter Summary ---
Author Organization [facility] Address [address] [place] [address] Care Team Providers Care Corporate Secretary Name Role Phone Robi Restrepo DO Primary Care Provider [phone] Encounter Details Date Type Department Care Team (Late st Contact Info) Description 01/31/2007 Outpatient Historical [address] [phone] Robi Restrepo DO [address] [place] [address] Affective Personality (CMS/HCC) (Primary Dx) Social History Tobacco Use Types Packs/Day Years Used Date Smoking Tobacco: Never Assessed Sex and Gender Information Value Date Recorded Sex Assigned at Not on file 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
--- OUTSIDE RECORDS SUMMARY | 2024-11-17 20:53 | XMS_ITS | Encounter Summary ---
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
--- OUTSIDE RECORDS SUMMARY | 2024-11-17 20:53 | XMS_ITS | Encounter Summary ---
Author Organization [facility] Address [address] [place] [address] Care Team Providers Care Powder Carrier Name Role Phone Robi Restrepo DO Primary Care Provider [phone] Encounter Details Date Type Department Care Team (Late st Contact Info) Description 11/26/2006 Outpatient Historical [address] [phone] Robi Restrepo DO [address] [place] [address] Pain in Limb (Primary Dx) Social History Tobacco Use Types Packs/Day Years Used Date Smoking Tobacco: Never Assessed Sex and Gender Information Value Date Recorded Sex Assigned at Not on file Legal Sex Male 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
--- OUTSIDE RECORDS SUMMARY | 2024-11-17 20:53 | XMS_ITS | Encounter Summary ---
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
--- OUTSIDE RECORDS SUMMARY | 2024-11-17 20:53 | XMS_ITS | Encounter Summary ---
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
--- OUTSIDE RECORDS SUMMARY | 2024-11-17 20:53 | XMS_ITS | Encounter Summary ---
Author Organization [facility] Address [address] [place] [address] Care Team Providers Care Snorkelling Instructor Name Role Phone Robi Restrepo DO Primary Care Provider [phone] Encounter Details Date Type Department Care Team (Late st Contact Info) Description 11/15/2006 Outpatient Historical [address] [phone] Robi Restrepo DO [address] [place] [address] Sebaceous Cyst (Primary Dx); Nausea Alone Social History Tobacco Use Types Packs/Day Years Used Date Smoking Tobacco: Never Assessed Sex and Gender Information Value Date Recorded Sex Assigned at Not on file Legal Sex Male 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
--- OUTSIDE RECORDS SUMMARY | 2024-11-17 20:53 | XMS_ITS | Encounter Summary ---
Author Organization [facility] Address [address] [place] [address] Care Team Providers Care School Psychologist Name Role Phone Robi Restrepo DO Primary Care Provider [phone] Encounter Details Date Type Department Care Team (Late st Contact Info) Description 10/03/2006 Outpatient Historical [facility] [address] [place] [address] Robi Restrepo DO [address] [place] [address] Social History Tobacco Use Types Packs/Day Years Used Date Smoking Tobacco: Never Assessed Sex and Gender Information Value Date Recorded Sex Assigned at Not on file Legal 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 Cardiovascular silhouette within normal limits. IMPRESSION: No apparent acute disease. jaw Dictated By: Gal Reina M.D. Electronically Signed By: Gal Reina M.D. Date Signed: 10/03/06 JAW Procedure Note 03/26/2009 PA AND LATERAL CHEST 10/03/2006 Lungs unremarkable. Cardiovascular silhouette within normal limits. IMPRESSION: No apparent acute disease. jaw Dictated By: Gal Reina M.D. Electronically Signed By: Gal Reina M.D. Date Signed: 10/03/06 OLESYA Keith Solomon MD DIAGNOSTIC IMAGING ORDER LUCERO Final Result INTERFACE SYSTEM Refer to clinic/hospital department documented in this encounter Visit Diagnoses Not on filedocumented in this encounter Care Teams School Psychologist Relationship Specialty Start Date End Date Robi Restrepo DO [address] [place] [address] PCP - General 12/24/06 06/25/11 documented as of this encounter
--- OUTSIDE RECORDS SUMMARY | 2024-11-17 20:53 | XMS_ITS | Encounter Summary ---
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
--- OUTSIDE RECORDS SUMMARY | 2024-11-17 20:53 | XMS_ITS | Encounter Summary ---
Author Organization [facility] Address [address] [place] [address] Care Team Providers Care Infant Nanny Name Role Phone Robi Restrepo DO Primary Care Provider [phone] Encounter Details Date Type Department Care Team (Late st Contact Info) Description 12/31/2006 Outpatient Historical [address] [phone] Robi Restrepo DO [address] [place] [address] Cholecystitis Uns (Primary Dx); Sprain Lumbar Region Social History Tobacco Use Types Packs/Day Years Used Date Smoking Tobacco: Never Assessed Sex and Gender Information Value Date Recorded Sex Assigned at Not on file Legal Sex Male 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
--- OUTSIDE RECORDS SUMMARY | 2024-11-17 20:53 | XMS_ITS | Encounter Summary ---
Author Organization [facility] Address [address] [place] [address] Care Team Providers Care Assistant Professor Of Mathematics Name Role Phone Robi Restrepo DO Primary Care Provider [phone] Encounter Details Date Type Department Care Team (Latest Contact Info) Description 01/15/2007 Outpatient Historical [facility] Gen Spec Surg 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
--- OUTSIDE RECORDS SUMMARY | 2024-11-17 20:53 | XMS_ITS | Encounter Summary ---
Author Organization [facility] Address [address] [place] [address] Care Team Providers Care Agricultural Equipment Mechanic Name Role Phone Robi Restrepo DO Primary Care Provider [phone] Encounter Details Date Type Department Care Team (Late st Contact Info) Description 08/28/2006 Outpatient Historical [facility] Imaging Services [address] [place] [address] Robi Restrepo DO [address] [place] [address] Gastritis/Duodeniti s (Primary Dx) Social History Tobacco Use Types Packs/Day Years Used Date Smoking Tobacco: Never Assessed Sex and Gender Information Value Date Recorded Sex Assigned at Not on file Legal Sex Male 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 COTTON 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 Comparison: None. Findings: Routine air-contrast upper GI by our RPA was performed under my direct supervision. Theesophagus, stomach, and proximal small bowel are anatomically normal. Normal primary and secondarystripping waves of the esophagus are present. No persistent intrinsic or extrinsic filling defectswere identified. No extravasation of contrast medium was identified. No definite gastroesophagealreflux was present. Impression: 1. Negative air-contrast upper GI. - Dictated By: Phill Gill M.D. Electronically Signed By: Phill Gill M.D. Date Signed: 08/28/06 SDM Procedure Note 03/26/2009 Exam: Upper GI with Air Contrast ([id number])Date/Time of Exam: Aug 28, 2006 8:43:34 AMIndication: GASTRITIS 535.5. Comparison: None. Findings: Routine air-contrast upper GI by our RPA was performed under my directsupervision. Theesophagus, stomach, and proximal small bowel are anatomically normal. Normal primaryand secondarystripping waves of the esophagus are present. No persistent intrinsic or extrinsic fillingdefectswere identified. No extravasation of contrast medium was identified. No definitegastroesophagealreflux was present. Impression: 1. Negative air-contrast upper GI. - Dictated By: Phill Gill M.D. Electronically Signed By: Phill Gill M.D. Date Signed: 08/28/06 SDM Robi Restrepo DO DIAGNOSTIC IMAGING ORDERABLE S Final Result documented in this encounter Visit Diagnoses Diagnosis Unspecified gastritis and gastroduodenitis without mention of hemorrhage- Primary documented in this encounter Care Teams Agricultural Equipment Mechanic Relationship Specialty Start Date End Date Robi Restrepo DO [address] [place] [address] PCP - General 12/24/06 06/25/11 documented as of this encounter
--- OUTSIDE RECORDS SUMMARY | 2024-11-17 20:53 | XMS_ITS | Encounter Summary ---
Author Organization [facility] Address [address] [place] [address] Care Team Providers Care Supervising Architect Name Role Phone Robi Restrepo DO Primary Care Provider [phone] Encounter Details Date Type Department Care Team (Latest Contact Info) Description 12/24/2006 Outpatient Historical [facility] Operating Room [address] [place] [address] Robi Greenberg MD NO ADDRESS ON FILE Calculus of GB w/ Other Cystitis (Primary Dx) Social History Tobacco Use Types Packs/Day Years Used Date Smoking Tobacco: Never Assessed Sex and Gender Information Value Date Recorded Sex Assigned at Not on file Legal Sex Male 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 BUTCHER FISH Gender Identity Not on file Sexual Orientation Not on file documented as of this encounter Plan of Treatment Not on file documented as of this encounter Procedures Procedure Name Priority Date/Time Associated Diagnosis Comments CBC WITH DIFFERENTIAL Routine 12/24/2006 6:53 AM CDT COMPREHENSIVE METABOLIC PANEL Routine 12/24/2006 6:53 AM CDT documented in this encounter Results * (ABNORMAL) COMPREHENSIVE METABOLIC PANEL (12/24/2006 6:53 AM CDT) GLUCOSE 102 70 - 110 mg/dL INTERFACE SYSTEM BUN 7(L) 9 - 20 mg/dL INTERFACE SYSTEM CREATININE 0.8 0.7 - 1.5 mg/dL INTERFACE SYSTEM SODIUM 142 136 - 145 mEq/L INTERFACE SYSTEM POTASSIUM 4.6 3.5 - 5.0 mEq/L INTERFACE SYSTEM CHLORIDE 109 95 - 110 mEq/L INTERFACE SYSTEM CO2 26 22 - 32 mmol/l INTERFACE SYSTEM CALCIUM 9.2 8.4 - 10.5 mg/dL INTERFACE SYSTEM TOTAL PROTEIN 6.9 6.3 - 8.2 g/dL INTERFACE SYSTEM ALBUMIN 4.1 3.5 - 5.0 g/dL INTERFACE SYSTEM ALKALINE PHOSPHATASE 78 25 - 100 U/L INTERFACE SYSTEM AST 17 8 - 33 U/L INTERFACE SYSTEM ALT 19 4 - 36 IU/L INTERFACE SYSTEM BILIRUBIN TOTAL 0.3 0.3 - 1.2 mg/dL INTERFACE SYSTEM GLOBULIN (CALC) 2.8 2.4 - 3.9 g/dL INTERFACE SYSTEM ALBUMIN/GLOBULIN RATIO 1.5 1.0 - 2.3 INTERFACE SYSTEM ANION GAP 12 9 - 20 mEq/L INTERFACE SYSTEM OSMOLALITY, CALCULATED 291 275 - 295 mOsm/Kg INTERFACE SYSTEM 12/24/2006 6:53 AM CDT us Robi Greenberg MD CHEMISTRY ORDERABLES Edited INTERFACE SYSTEM Refer to clinic/hospital department * (ABNORMAL) CBC WITH DIFFERENTIAL (12/24/2006 6:53 AM CDT) WBC 6.6 4.5 - 11.0 K/ul INTERFACE SYSTEM RBC 5.27 4.60 - 6.20 Mil/ul INTERFACE SYSTEM HEMOGLOBIN 14.7 14.0 - 18.0 g/dL INTERFACE SYSTEM HEMATOCRIT 43.3 41.0 - 53.0 % INTERFACE SYSTEM MCV 82.2(L) 84.0 - 103.0 Fl INTERFACE SYSTEM MCH 27.9 27.0 - 34.0 pg INTERFACE SYSTEM MCHC 33.9 30.0 - 35.0 g/dL INTERFACE SYSTEM RDW 14.3 11.0 - 14.5 % INTERFACE SYSTEM PLATELETS 210 140 - 440 K/ul INTERFACE SYSTEM MPV 10.9 8.9 - 12.8 Fl INTERFACE SYSTEM NEUTROPHILS 53.2 42.2 - 75.2 % INTERFACE SYSTEM LYMPHOCYTES 31.9 24.0 - 44.0 % INTERFACE SYSTEM MONOCYTES 11.9(H) 2.0 - 10.0 % INTERFACE SYSTEM EOSINOPHILS 2.7 0.0 - 7.0 % INTERFACE SYSTEM BASOPHILS 0.3 0.0 - 1.0 % INTERFACE SYSTEM NEUTROPHIL ABSOLUTE 3.5 2.0 - 8.0 K/ul INTERFACE SYSTEM LYMPHOCYTE ABSOLUTE 2.1 1.2 - 4.0 K/ul INTERFACE SYSTEM MONOCYTE ABSOLUTE 0.8(H) 0.1 - 0.6 K/ul INTERFACE SYSTEM EOSINOPHIL ABSOLUTE 0.2 0.0 - 0.7 K/ul INTERFACE SYSTEM BASOPHILS ABSOLUTE 0.0 0.0 - 0.2 K/ul INTERFACE SYSTEM 12/24/2006 6:53 AM CDT us Robi Greenberg MD HEMATOLOGY ORDERABLES Edited INTERFACE SYSTEM Refer to clinic/hospital department documented in this encounter Visit Diagnoses Diagnosis Calculus of gallbladder with other cholecystitis, without mention of obstruction- Primary documented in this encounter Care Teams Supervising Architect Relationship Specialty Start Date End Date Robi Restrepo DO [address] [place] [id number] PCP - General 12/24/06 06/25/11 documented as of this encounter
--- OUTSIDE RECORDS SUMMARY | 2024-11-17 20:53 | XMS_ITS | Encounter Summary ---
Author Organization [facility] Address [address] [place] [address] Care Team Providers Care Metrology Manager Name Role Phone Robi Restrepo DO Primary Care Provider [phone] Encounter Details Date Type Department Care Team (Late st Contact Info) Description 07/23/2006 Outpatient Historical [address] [phone] Robi Restrepo DO [address] [place] [address] Affective Personality (CMS/HCC) (Primary Dx); Unspecified Schizophrenia, Subchronic Condition (CMS/HCC) Social History Tobacco Use Types Packs/Day Years Used Date Smoking Tobacco: Never Assessed Sex and Gender Information Value Date Recorded Sex Assigned at Not on file Legal Sex Male 5:51 AM SOCIAL MEDIA COORDINATOR Gender Identity Not on file Sexual Orientation Not on file documented as of this encounter Plan of Treatment Not on file documented as of this encounter Visit Diagnoses Diagnosis Bipolar I disorder, most recent episode (or current) unspecified (CMS/HCC)- Primary Bipolar I disorder, most recent episode (or current) unspecified Unspecified schizophrenia, subchronic condition (CMS/HCC) Unspecified schizophrenia, subchronic condition documented in this encounter Care Teams Metrology Manager Relationship Specialty Start Date End Date Robi Restrepo DO [address] [place] [address] PCP - General 12/24/06 06/25/11 documented as of this encounter
--- OUTSIDE RECORDS SUMMARY | 2024-11-17 20:53 | XMS_ITS | Encounter Summary ---
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
--- OUTSIDE RECORDS SUMMARY | 2024-11-17 20:53 | XMS_ITS | Encounter Summary ---
Author Organization [facility] Address [address] [place] [address] Care Team Providers Care Field Services Director Name Role Phone Robi Restrepo DO Primary Care Provider [phone] Encounter Details Date Type Department Care Team (Late st Contact Info) Description 05/28/[address] [phone] Kina Trinidad FNP NO ADDRESS ON FILE Social History Tobacco Use Types Packs/Day Years Used Date Smoking Tobacco: Never Assessed Sex and Gender Information Value Date Recorded Sex Assigned at Not on file Legal Sex Male 5:51 AM SILK PRESSER Gender Identity Not on file Sexual Orientation Not on file documented as of this encounter Plan of Treatment Not on file documented as of this encounter Visit Diagnoses Not on filedocumented in this encounter Care Teams Field Services Director Relationship Specialty Start Date End Date Robi Restrepo DO [address] [place] [address] PCP - General 12/24/06 06/25/11 documented as of this encounter
--- OUTSIDE RECORDS SUMMARY | 2024-11-17 20:53 | XMS_ITS | Encounter Summary ---
Author Organization [facility] Address [address] [place] [address] Care Team Providers Care Quality Assurance Name Role Phone Robi Restrepo DO Primary Care Provider [phone] Encounter Details Date Type Department Care Team (Late st Contact Info) Description 10/24/2006 Outpatient Historical [facility] [address] [phone] Robi Restrepo DO [address] [place] [address] Tobacco Use Disorder (Primary Dx); Nausea Alone Social History Tobacco Use Types Packs/Day Years Used Date Smoking Tobacco: Never Assessed Sex and Gender Information Value Date Recorded Sex Assigned at Not on file Legal Sex Male 5:51 AM VIDEO PRODUCER Gender Identity Not on file Sexual Orientation Not on file documented as of this encounter Plan of Treatment Not on file documented as of this encounter Visit Diagnoses Diagnosis Tobacco use disorder- Primary Nausea alone documented in this encounter Care Teams Quality Assurance Relationship Specialty Start Date End Date Robi Restrepo DO [address] [place] [address] PCP - General 12/24/06 06/25/11 documented as of this encounter
--- OUTSIDE RECORDS SUMMARY | 2024-11-17 20:53 | XMS_ITS | Encounter Summary ---
Author Organization [facility] Address [address] [place] [address] Care Team Providers Care Mixed Crop And Livestock Farm Worker Name Role Phone Robi Restrepo DO Primary Care Provider [phone] Encounter Details Date Type Department Care Team (Late st Contact Info) Description 10/17/2006 Outpatient Historical [address] [phone] Robi Restrepo DO [address] [place] [address] Affective Personality (CMS/HCC) (Primary Dx); Unspecified Schizophrenia, Unspecified Condition (CMS/HCC) Social History Tobacco Use Types Packs/Day Years Used Date Smoking Tobacco: Never Assessed Sex and Gender Information Value Date Recorded Sex Assigned at Not on file Legal Sex Male 5: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 WATER PROJECT MANAGER Gender Identity Not on file Sexual Orientation Not on file documented as of this encounter Plan of Treatment Not on file documented as of this encounter Visit Diagnoses Diagnosis Bipolar I disorder, most recent episode (or current) unspecified (CMS/HCC)- Primary Bipolar I disorder, most recent episode (or current) unspecified Unspecified schizophrenia, unspecified condition (CMS/HCC) Unspecified schizophrenia, unspecified condition documented in this encounter Care Teams Mixed Crop And Livestock Farm Worker Relationship Specialty Start Date End Date Robi Restrepo DO [address] [place] [address] PCP - General 12/24/06 06/25/11 documented as of this encounter
--- OUTSIDE RECORDS SUMMARY | 2024-11-17 20:53 | XMS_ITS | Encounter Summary ---
Author Organization [facility] Address [address] [place] [address] Care Team Providers Care Fruit Sprayer Name Role Phone Robi Restrepo DO Primary Care Provider [phone] Encounter Details Date Type Department Care Team (Late st Contact Info) Description 03/24/2007 Outpatient Historical [facility] [address] [phone] Robi Restrepo DO [address] [place] [address] Abdominal Pain, Unspecified Site (Primary Dx) Social History Tobacco Use Types Packs/Day Years Used Date Smoking Tobacco: Never Assessed Sex and Gender Information Value Date Recorded Sex Assigned at Not on file Legal Sex Male 5:51 AM FOOD SERVICE AIDE Gender Identity Not on file Sexual Orientation Not on file documented as of this encounter Plan of Treatment Not on file documented as of this encounter Visit Diagnoses Diagnosis Abdominal pain, unspecified site- Primary documented in this encounter Care Teams Fruit Sprayer Relationship Specialty Start Date End Date Robi Restrepo DO [address] [place] [address] PCP - General 12/24/06 06/25/11 documented as of this encounter
--- OUTSIDE RECORDS SUMMARY | 2024-11-17 20:53 | XMS_ITS | Encounter Summary ---
Author Organization [facility] Address [address] [place] [address] Care Team Providers Care Assistant Professor Name Role Phone Robi Restrepo DO Primary Care Provider [phone] Encounter Details Date Type Department Care Team (Latest Contact Info) Description 12/16/2006 Outpatient Historical [facility] Gen Spec [address] [place] [address] Robi Greenberg MD NO ADDRESS ON FILE Calculus of GB w/o Cystitis/Obst (Primary Dx) Social History Tobacco Use Types Packs/Day Years Used Date Smoking Tobacco: Never Assessed Sex and Gender Information Value Date Recorded Sex Assigned at Not on file Legal Sex Male 5:51 AM METALLURGICAL ANALYST Gender Identity Not on file Sexual Orientation Not on file documented as of this encounter Plan of Treatment Not on file documented as of this encounter Visit Diagnoses Diagnosis Calculus of gallbladder without mention of cholecystitis or obstruction- Primary documented in this encounter Care Teams Assistant Professor Relationship Specialty Start Date End Date Robi Restrepo DO [address] [place] [address] PCP - General 12/24/06 06/25/11 documented as of this encounter
--- OUTSIDE RECORDS SUMMARY | 2024-11-17 20:53 | XMS_ITS | Encounter Summary ---
Author Organization [facility] Address [address] [place] [address] Care Team Providers Care Suspect Artist Supervisor Name Role Phone Robi Restrepo DO Primary Care Provider [phone] Encounter Details Date Type Department Care Team (Latest Contact Info) Description 10/31/2006 Outpatient Historical [address] [phone] Mary Red, AMOR NO ADDRESS ON FILE Nausea with Vomiting (Primary Dx) Social History Tobacco Use Types Packs/Day Years Used Date Smoking Tobacco: Never Assessed Sex and Gender Information Value Date Recorded Sex Assigned at Not on file Legal Sex Male 5:51 AM ICING COATER Gender Identity Not on file Sexual Orientation Not on file documented as of this encounter Plan of Treatment Not on file documented as of this encounter Visit Diagnoses Diagnosis Nausea with vomiting- Primary documented in this encounter Care Teams Suspect Artist Supervisor Relationship Specialty Start Date End Date Robi Restrepo DO [address] [place] [address] PCP - General 12/24/06 06/25/11 documented as of this encounter
--- OUTSIDE RECORDS SUMMARY | 2024-11-17 20:53 | XMS_ITS | Clinical Summary ---
Author Organization [facility] Address [address] [place] [address] Care Team Providers Care Secretarial Teacher Name Role Phone Unavailable Primary Care Provider Unavailabl e Allergies Active Allergy Reactions Criticality Noted Date Comments Penicillins Rash High Medications GEODON 40 mg Oral Cap Take 40 mg by mouth 2 times daily. Active TOPAMAX 100 mg Oral Tab Take 100 mg by mouth 2 times daily. Active IBUPROFEN PO Take by mouth. As needed Active trazodone (DESYREL) 50 mg Oral Tab Take 50 mg by mouth. As needed for sleep Active asenapine (SAPHRIS) [address] 5 mg under tongue 2 times daily. Active Active Problems Problem Noted Date Diagnosed Date [...] on file Legal Sex Male 5:51 AM CAR REFINISHER Gender Identity Not on file Sexual Orientation Not on file Occupation Industry Job Start Date Job End Date Not on file Not on file Not on file Not on file Not on file Not on file Not on file Not on file Last Filed Vital Signs Vital Sign Reading Time Taken Comments Blood Pressure 135/64 06/26/2011 1:00 PM CAR REFINISHER Pulse 81 06/26/2011 1:00 PM CAR REFINISHER Temperature 36.4 C (97.6 F) 06/26/2011 10:53 AM CAR REFINISHER Respiratory Rate 16 06/26/2011 1:00 PM CAR REFINISHER Oxygen Saturation 98% 06/26/2011 1:00 PM CAR REFINISHER Inhaled Oxygen Concentration - - Weight 106.6 kg (235 lb) 06/26/2011 10:53 AM CAR REFINISHER Height 177.8 cm (5' 10 ) 06/26/2011 10:53 AM CAR REFINISHER Body Mass Index 33.72 06/26/2011 10:53 AM CAR REFINISHER Plan of Treatment Health Maintenance Due Date Last Done Comments DTAP/TDAP/TD VACCINES (1 - Tdap) 1996 HEPATITIS B VACCINES (1 of 3 - 19+ 3-dose series) 11/03 COLORECTAL SCREENING 2022 Colorectal Cancer Screening 2022 FIT-DNA Q 3 years 2022 FIT/FOBT Q 1 year 2022 Flex Sig/CT Colonography Q 5 years 2022 INFLUENZA VACCINE (#1) 2024 [place]
--- OUTSIDE RECORDS SUMMARY | 2024-11-17 20:53 | XMS_ITS | Encounter Summary ---
Author Organization [facility] Address [address] [place] [address] Care Team Providers Care Reservoir Engineering Advisor Name Role Phone Robi Restrepo DO Primary Care Provider [phone] Encounter Details Date Type Department Care Team (Late st Contact Info) Description 06/18/[address] [phone] Kina Trinidad FNP NO ADDRESS ON FILE Social History Tobacco Use Types Packs/Day Years Used Date Smoking Tobacco: Never Assessed Sex and Gender Information Value Date Recorded Sex Assigned at Not on file Legal Sex Male 5:51 AM MILITARY LAWYER Gender Identity Not on file Sexual Orientation Not on file documented as of this encounter Plan of Treatment Not on file documented as of this encounter Visit Diagnoses Not on filedocumented in this encounter Care Teams Reservoir Engineering Advisor Relationship Specialty Start Date End Date Robi Restrepo DO [address] [place] [address] PCP - General 12/24/06 06/25/11 documented as of this encounter
--- OUTSIDE RECORDS SUMMARY | 2024-11-17 20:53 | XMS_ITS | Encounter Summary ---
Author Organization [facility] Address [address] [place] [address] Care Team Providers Care Customer Marketing Intern Name Role Phone Robi Restrepo DO Primary Care Provider [phone] Encounter Details Date Type Department Care Team (Late st Contact Info) Description 10/10/2006 Outpatient Historical [address] [phone] Robi Restrepo DO [address] [place] [address] Gastritis/Duodeniti s (Primary Dx) Social History Tobacco Use Types Packs/Day Years Used Date Smoking Tobacco: Never Assessed Sex and Gender Information Value Date Recorded Sex Assigned at Not on file Legal Sex Male 5:51 AM STAMP PRESSER Gender Identity Not on file Sexual Orientation Not on file documented as of this encounter Plan of Treatment Not on file documented as of this encounter Visit Diagnoses Diagnosis Unspecified gastritis and gastroduodenitis without mention of hemorrhage- Primary documented in this encounter Care Teams Customer Marketing Intern Relationship Specialty Start Date End Date Robi Restrepo DO [address] [place] [address] PCP - General 12/24/06 06/25/11 documented as of this encounter
--- OUTSIDE RECORDS SUMMARY | 2024-11-17 20:53 | XMS_ITS | Encounter Summary ---
Author Organization [facility] Address [address] [place] [address] Care Team Providers Care Leadership Program Internship Name Role Phone Robi Restrepo DO Primary Care Provider [phone] Encounter Details Date Type Department Care Team (Late st Contact Info) Description 03/19/2007 Outpatient Historical [address] [phone] Robi Restrepo DO [address] [place] [address] Other Malaise and Fatigue (Primary Dx); Obesity, Unspecified Social History Tobacco Use Types Packs/Day Years Used Date Smoking Tobacco: Never Assessed Sex and Gender Information Value Date Recorded Sex Assigned at Not on file Legal Sex Male 5:51 AM BUCKLE INSPECTOR Gender Identity Not on file Sexual Orientation Not on file documented as of this encounter Plan of Treatment Not on file documented as of this encounter Visit Diagnoses Diagnosis Other malaise and fatigue- Primary Obesity, unspecified documented in this encounter Care Teams Leadership Program Internship Relationship Specialty Start Date End Date Robi Restrepo DO [address] [place] [address] PCP - General 12/24/06 06/25/11 documented as of this encounter
--- OUTSIDE RECORDS SUMMARY | 2024-11-17 20:53 | XMS_ITS | Clinical Summary ---
Author Organization [facility] Address [address] [place]: Epic Prelude [place]T [place] [address] Care Team Providers Care Office Equipment Technician Name Role Phone Unavailable Primary Care Provider [...] on file Legal Sex Male 5:44 AM FORM RAISER Gender Identity Not on file Sexual Orientation [...]
[2024-11-17 21:58] LABS: Hematocrit 39.6 % (37-53); Hemoglobin 13.00 g/dL (11.27-16.99); Mean Corpuscular HGB Conc 32.8 g/dL (30-55); Mean Corpuscular Hemoglobin 26.7 pg (27-33); Mean Corpuscular Volume 81.5 fl (82-101); Nucleated Red Blood Cells % 0 %; Platelet Count 255 10^3/cmm (157-399); Red Blood Count 4.86 10^6/uL (3.85-5.65); White Blood Count 8.78 10^3/uL (3.29-11.43)
[2024-11-17 22:00] LABS: Glucose Urine UA Negative (Normal); Nitrate Urine Negative (Negative); Specific Gravity, Urine 1.027 (1.005-1.030)
[2024-11-17 22:05] LABS: Add Urine Microscopic? YES
[2024-11-17 22:08] LABS: PCP Screen Urine Negative (Negative)
[2024-11-17 23:05] LABS: Alanine Aminotransferase 10 U/L (0-41); Albumin Level 3.6 g/dL (3.5-5.2); Alkaline Phosphatase 81 U/L (40-130); Anion Gap 15.2 (5-19); Aspartate Amino Transferase 13 U/L (0-40); Blood Urea Nitrogen 14 mg/dL (6-20); Calcium 8.6 mg/dL (8.5-10.5); Carbon Dioxide 25 mmol/L (22-29); Chloride 103 mmol/L (98-107); Creatinine Clr Calc Pharmacy 109.4471; Globulin 2.6 g/dL (1.3-4.6); Glucose 92 mg/dL (65-115); Osmolality Calculated 288 mOsm/kg (285-295); Potassium 4.2 mmol/L (3.5-5.1); Sodium 139 mmol/L (136-145); Total Protein 6.2 g/dL (6.6-8.7)
[2024-11-17 23:07] LABS: Acetaminophen < 5.0 ug/mL (10-30); Alcohol Level < 10 mg/dL (0-10); Salicylate < 0.3 mg/dL (3-10)
[2024-11-18] VITALS: PULSE 88; RESP 16; O2SAT 99
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
[2024-11-18 04:00] VITALS: BP 126/87; PULSE 88; RESP 16; O2SAT 93
[2024-11-18 06:50] VITALS: BP 136/78; PULSE 84; RESP 16; O2SAT 96
== END 2024-11-18 06:52 | disposition home or self-care (01) ==
PROVIDERS: Registered Nurse; Emergency Provider Emergency Medicine; PCP Family Medicine
DX: F20.9 Schizophrenia, unspecified (principal); F17.210 Nicotine dependence, cigarettes, uncomplicated; Z59.00 Homelessness unspecified
CPT/HCPCS: 36415; 80053; 80306; 80307; 81001; 85025; 99283; J9999

== ENCOUNTER 2024-11-28 16:01 | Emergency (ER) | payer MEDICAID, SELFPAY ==
--- OUTSIDE RECORDS SUMMARY | 2010-06-23 03:45 | XMS_ITS | Continuity of Care Document ---
Author Organization [facility] Address [address] [id number] [address] Phone Care Team Providers Care Supervisor Alteration Workroom Name Role Phone Rafael Duran MD Unavailable Unavailable Allergies, Adverse Reactions, Alerts Substance Reaction Status Criticality Penicillins Active No Information Medications Medication Instructions Dosage Effective Dates (start - stop) Status Comments tramadol 50 mg Tab take 1 - 2 Tablet (50MG) by ORAL route every 4 hours as needed for prn pain 50 MG - Active max 8/day lithium carbonate 300 mg Tab take 1 tablet (300MG) by ORAL route 2 times every day for bipolar d/o 300 MG - Active lisinopril 20 mg Tab take 1 tablet (20MG) by oral route every day for high blood pressure 20 MG - Active prescribed by Darrian Medrano tramadol 50 mg Tab take 1 - 2 Tablet (50MG) by ORAL route every 4 hours as needed 50 MG - Active no more than 8 tabs per day LIPOFEN (unknown strength) take 1 capsule by oral route every day with food Not Available - Active 200 mg cap Glob prescribed by Robi Brown trazodone 100 mg Tab take 1 - 2 Tablet (100MG) by ORAL route every bedtime after meals 100 MG - Active prescribed by Bernabe VILLARREAL naproxen 500 mg Tab take 1 tablet (500MG) by oral route 2 times every day with food 500 MG - Active prescribed by Bernabe VILLARREAL lisinopril 20 mg Tab take 1 tablet (20MG) by oral route every day 20 MG - No Longer Active prescribed by Darrian Medrano SKELAXIN (unknown strength) SI tab(s) orally 3 times a day Not Available - No Longer Active ULTRAM (unknown strength) SI tab(s) to 2 tab(s) orally every 6 hours PRN(as needed for pain) Not Available No Longer Active (unknown strength) SIG: once a day Not Available No Longer Active MILK OF MAGNESIA (unknown strength) SIG: PRN(as needed for constipation) Not Available - No Longer Active COLACE (unknown strength) SI times a day Not Available No Longer Active FLEXERIL (unknown strength) SI.5 tab(s) to 1 tab(s) orally 3 times a day PRN(as needed for spasm) Not Available No Longer Active ROBITUSSIN (unknown strength) SI mL to 10 mL orally every 4 hours PRN(as needed for cough) Not Available No Longer Active MYLANTA (unknown strength) SI mL orally every 4 to 6 hours Not Available No Longer Active TYLENOL EXTRA STRENGTH (unknown strength) SI tab(s) 4 times a day PRN(as needed for pain) Not Available No Longer Active TRILEPTAL (unknown strength) SI mg 2 times a day Not Available No Longer Active HALDOL (unknown strength) SIG: once a day (at bedtime) Not Available - No Longer Active KEFLEX (unknown strength) SI cap(s) orally 3 times a day for 10 day(s) Not Available No Longer Active Celexa 10 mg Tab take 1 tablet (10MG) by oral route every day 10 MG - No Longer Active prescribed by Dr.Richard Hendricks haloperidol 5 mg Tab take 1 tablet (5MG) by oral route 2 times every day 5 MG - No Longer Active prescribed by Dr.Richard Hendricks. Procedures Procedure Date OFFICE/OUTPATIENT VISIT, EST CRYOTHERAPY OF SKIN ($45) EST-EXP PROB FOC/LOW COMPLEXITY 009 CRYOTHERAPY OF SKIN ($45) HIV-1/HIV-2, SINGLE ASSAY EST-EXP PROB FOC/LOW COMPLEXITY 008 CRYOTHERAPY OF SKIN ($45) EST-DETAIL/MOD COMPLEXITY Advance Directives Directive Yes / No Effective Date File Name Resuscitation Not Answered N/A N/A Life Support Not Answered N/A N/A Intubation Not Answered N/A N/A Antibiotics Not Answered N/A N/A IV Fluid Support Not Answered N/A N/A Tube Feed Not Answered N/A N/A Other Directive N/A N/A WARNING:The information contained in this section is historical and is provided for information only and does not constitute a legal document or any assurance that the information is still accurate. Please verify the information with the oakley of the legal document before using it for clinical purposes. Encounters Encounter Description Practice Location Reason(s) For Visit Diagnoses Date Provider Providers Copied on Encounter OFFICE/OUTPA TIENT VISIT, EST [facility], [id number]- [place], [place], [address], [place] tel:[phone] Family Medicine F1 hypertension (chief complaint)ashley k pain (chief complaint)bip olar (chief complaint)fas ting labs (chief complaint) LumbagoBipolar disorder, unspecifiedUnspec ified essential hypertension 1 [facility]. [address] [place], [place], [address] , [place]. tel:[phone] Referring Provider: Rafael Dominguez, [address] [place], [address] . tel:[phone] [facility], [id number]- [facility], [place], [place], [address], [place] tel:[phone] Family Medicine F1 No Information 6-200 9 [facility]. [address] [facility], [facility], [place], [address] , [place]. tel: [phone] [facility], [id number]- [facility], [place], [place], [address], [place] tel:[phone] Family Medicine F1 No Information 8200 [address] [facility]. [address] [facility], [facility], [place], [address] , [place]. tel: [phone] EST-EXP PROB FOC/LOW COMPLEXITY [facility], [id number]- [facility], [place], [place], [address], [place] tel:[phone] Family Medicine F1 No Information 7200 [address] [facility]. [address] [facility], [facility], [place], [address] , [place]. tel: [phone] [facility], [id number] 8561140RS- [facility], [place], [place], [address], [place] tel:[phone] Family Medicine F1 No Information 0 [phone] 8 [facility]. [address] [facility], [facility], [place], [address] , [place]. tel: [phone] EST-EXP PROB FOC/LOW COMPLEXITY [facility], [id number]- [facility], [place], [place], [address], [place] tel:[phone] Family Medicine F1 No Information 7-200 8 [facility]. [address] [facility], [facility], [place], [address] , [place]. tel: [phone] [facility], [id number] [place], [place], [address], tel:[phone] Family Medicine F1 No Information 8 [facility]. [address], [place], [address] , [place]. tel: [phone] EST-DETAIL/M OD COMPLEXITY [facility], [id number], [place], [place], [address], tel:[phone] Family Medicine F1 No Information 8 [facility]. [address], [place], [address] , [place]. tel: [phone] Family History Family Member Type Diagnosis Age At Onset No Information Payers Payer name Insurance type Covered green party ID Shahbaz fraser(s) M [place] Medicaid MC [id number] Social History Type Description Quantity Date Captured Comments Alcohol Use Details hard liquor 4-5 shots weekly 11 Caffeine Use Details coffee and tea 4 cups per day 2010 Tobacco Use Status No Information Smoking Status No Information Sex Male Vital Signs Date / Time: Height Weight BMI Pulse Rate Blood Pressure Temperature Respiratory Rate Body Surface Area Head Circumference Head Circ. Percentile Wt./Jelani. Percentile BMI percentile Pulse Ox Inhaled Ox 9:10 AM 71.00 in 230.00 lbs 32.0 7 kg/m eter (2) 93 /min 117/76 mm[Hg] 98.30 F 18 /min Chief Complaint And Reason For Visit From encounter dated '06/23/2010 08:45'. hypertension (chief complaint) back pain (chief complaint) bipolar (chief complaint) fasting labs (chief complaint) Reason For Referral Reason For Referral No Information History Of Present Illness Encounter Date Complaint History Of Prese nt Illness No Information Functional Status Date Functional Assessmen t Pain Score 7/10 Medications Administered Medication Instructions Dosage Effective Dates (start - stop) Status Comments lisinopril 20 mg Tab take 1 tablet (20MG) by oral route every day 20 MG - No Longer Active prescribed by Darrian Medrano Instructions Date Instruction Additional Infor mation No Information Assessments Type Assessment Date No Information Mental Status Date Cognitive Assessment Orientation - [place] ed to time, place, person, situation.Normal Orientation Patient Care Teams Name Effective Dates (start - stop) Status Members No Information
[2024-05-13 11:18] VITALS: BP 108/66; BMI 29.4
[2024-11-28 16:04] VITALS: BP 115/70; PULSE 73; RESP 17; TEMP 36.7; O2SAT 99; BMI 29.5
--- NOTE | 2024-11-28 16:07 | XRR_ITS ---
PROCEDURE INFORMATION: Exam: XR Right Foot Exam date and time: 11/28/2024 5:02 PM Age: 49 years old Clinical indication: Pain; Foot; Right; Additional info: Foot pain TECHNIQUE: Imaging protocol: Radiologic exam of the right foot. Views: 3 or more views. COMPARISON: No relevant prior studies available. FINDINGS: Bones/joints: Subtle fracture along the proximal lateral aspect of the right 5th metatarsal. This is only seen on the oblique view. Soft tissues: Normal. XR/XR foot RT min 3V* [id number] IMPRESSION: Subtle fracture along the proximal lateral aspect of the right 5th metatarsal. This is only seen on the oblique view.
--- OUTSIDE RECORDS SUMMARY | 2024-11-28 16:07 | XMS_ITS | Encounter Summary ---
Author Organization [facility] Address [address] [place] [address] Care Team Providers Care Production Maintenance Technician Name Role Phone Robi Restrepo DO Primary Care Provider [phone] Encounter Details Date Type Department Care Team (Late st Contact Info) Description 12/31/2006 Outpatient Historical [address] [phone] Robi Restrepo DO [address] [place] [address] Cholecystitis Uns (Primary Dx); Sprain Lumbar Region Social History Tobacco Use Types Packs/Day Years Used Date Smoking Tobacco: Never Assessed Sex and Gender Information Value Date Recorded Sex Assigned at Not on file 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
--- OUTSIDE RECORDS SUMMARY | 2024-11-28 16:07 | XMS_ITS | Encounter Summary ---
Author Organization [facility] Address [address] [place] [address] Care Team Providers Care Apparel Stock Checker Name Role Phone Robi Restrepo DO Primary Care Provider [phone] Encounter Details Date Type Department Care Team (Late st Contact Info) Description 11/15/2006 Outpatient Historical [address] [phone] Robi Restrepo DO [address] [place] [address] Sebaceous Cyst (Primary Dx); Nausea Alone Social History Tobacco Use Types Packs/Day Years Used Date Smoking Tobacco: Never Assessed Sex and Gender Information Value Date Recorded Sex Assigned at Not on file 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
--- OUTSIDE RECORDS SUMMARY | 2024-11-28 16:07 | XMS_ITS | Encounter Summary ---
Author Organization [facility] Address [address] [place] [address] Care Team Providers Care Amusement Machine Mechanic Name Role Phone Robi Restrepo DO Primary Care Provider [phone] Encounter Details Date Type Department Care Team (Late st Contact Info) Description 08/28/2006 Outpatient Historical [facility] [address] [place] [address] Robi Restrepo DO [address] [place] [address] Gastritis/Duodeniti s (Primary Dx) Social History Tobacco Use Types Packs/Day Years Used Date Smoking Tobacco: Never Assessed Sex and Gender Information Value Date Recorded Sex Assigned at Not on file 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
--- OUTSIDE RECORDS SUMMARY | 2024-11-28 16:07 | XMS_ITS | Encounter Summary ---
Author Organization [facility] Address [address] [place] [address] Care Team Providers Care Jewelry Sales Name Role Phone Robi Restrepo DO Primary Care Provider [phone] Encounter Details Date Type Department Care Team (Late st Contact Info) Description 07/23/2006 Outpatient Historical [address] [phone] Robi Restrepo DO [address] [place] [address] Affective Personality (CMS/HCC) (Primary Dx); Unspecified Schizophrenia, Subchronic Condition (CMS/HCC) Social History Tobacco Use Types Packs/Day Years Used Date Smoking Tobacco: Never Assessed Sex and Gender Information Value Date Recorded Sex Assigned at Not on file 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
--- OUTSIDE RECORDS SUMMARY | 2024-11-28 16:07 | XMS_ITS | Encounter Summary ---
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
--- OUTSIDE RECORDS SUMMARY | 2024-11-28 16:07 | XMS_ITS | Encounter Summary ---
Author Organization 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
--- OUTSIDE RECORDS SUMMARY | 2024-11-28 16:07 | XMS_ITS | Encounter Summary ---
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
--- OUTSIDE RECORDS SUMMARY | 2024-11-28 16:07 | XMS_ITS | Encounter Summary ---
Author Organization [facility] Address [address] [place] [address] Care Team Providers Care Galvanizing Pot Runner Name Role Phone Robi Restrepo DO Primary Care Provider [phone] Encounter Details Date Type Department Care Team (Latest Contact Info) Description 01/15/2007 Outpatient Historical [facility] Gen Spec Surg 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
--- OUTSIDE RECORDS SUMMARY | 2024-11-28 16:07 | XMS_ITS | Encounter Summary ---
Author Organization [facility] Address [address] [place] [address] Care Team Providers Care Chief Minister Name Role Phone Robi Restrepo DO Primary Care Provider [phone] Encounter Details Date Type Department Care Team (Late st Contact Info) Description 08/08/2006 Outpatient Historical [address] [phone] Robi Restrepo DO [address] [place] [address] Gastritis/Duodeniti s (Primary Dx) Social History Tobacco Use Types Packs/Day Years Used Date Smoking Tobacco: Never Assessed Sex and Gender Information Value Date Recorded Sex Assigned at Not on file Legal Sex Male 5:51 AM QLIKVIEW DEVELOPER Gender Identity Not on file Sexual Orientation Not on file documented as of this encounter Plan of Treatment Not on file documented as of this encounter Visit Diagnoses Diagnosis Unspecified gastritis and gastroduodenitis without mention of hemorrhage- Primary documented in this encounter Care Teams Chief Minister Relationship Specialty Start Date End Date Robi Restrepo DO [address] [place] [address] PCP - General 12/24/06 06/25/11 documented as of this encounter
--- OUTSIDE RECORDS SUMMARY | 2024-11-28 16:07 | XMS_ITS | Encounter Summary ---
Author Organization [facility] Address [address] [place] [address] Care Team Providers Care Submarine Diver Name Role Phone Robi Restrepo DO Primary Care Provider [phone] Encounter Details Date Type Department Care Team (Late st Contact Info) Description 06/18/[address] [phone] Mary Red, AMOR NO ADDRESS ON FILE Social History Tobacco Use Types Packs/Day Years Used Date Smoking Tobacco: Never Assessed Sex and Gender Information Value Date Recorded Sex Assigned at Not on file Legal Sex Male 5:51 AM CERTIFIED HOME HEALTH AIDE Gender Identity Not on file Sexual Orientation Not on file documented as of this encounter Plan of Treatment Not on file documented as of this encounter Visit Diagnoses Not on filedocumented in this encounter Care Teams Submarine Diver Relationship Specialty Start Date End Date Robi Restrepo DO [address] [place] [address] PCP - General 12/24/06 06/25/11 documented as of this encounter
--- OUTSIDE RECORDS SUMMARY | 2024-11-28 16:07 | XMS_ITS | Encounter Summary ---
Author Organization [facility] Address [address] [place] [address] Care Team Providers Care Crew Car Driver Name Role Phone Robi Restrepo DO Primary Care Provider [phone] Encounter Details Date Type Department Care Team (Late st Contact Info) Description 11/26/2006 Outpatient Historical [address] [phone] Robi Restrepo DO [address] [place] [address] Pain in Limb (Primary Dx) Social History Tobacco Use Types Packs/Day Years Used Date Smoking Tobacco: Never Assessed Sex and Gender Information Value Date Recorded Sex Assigned at Not on file Legal Sex Male 5:51 AM CHIMNEY BUILDER Gender Identity Not on file Sexual Orientation Not on file documented as of this encounter Plan of Treatment Not on file documented as of this encounter Visit Diagnoses Diagnosis Pain in limb- Primary Pain in soft tissues of limb documented in this encounter Care Teams Crew Car Driver Relationship Specialty Start Date End Date Robi Restrepo DO [address] [place] [address] PCP - General 12/24/06 06/25/11 documented as of this encounter
--- OUTSIDE RECORDS SUMMARY | 2024-11-28 16:07 | XMS_ITS | Encounter Summary ---
Author Organization [facility] Address [address] [place] [address] Care Team Providers Care Water Rights Specialist Name Role Phone oRbi Restrepo DO Primary Care Provider [phone] Encounter Details Date Type Department Care Team (Latest Contact Info) Description 12/24/2006 Outpatient Historical [facility] Operating Room [address] [place] [address] Robi Greenberg MD NO ADDRESS ON FILE Calculus of GB w/ Other Cystitis (Primary Dx) Social History Tobacco Use Types Packs/Day Years Used Date Smoking Tobacco: Never Assessed Sex and Gender Information Value Date Recorded Sex Assigned at Not on file Legal Sex Male 5:51 AM GLOVE TAGGER Gender Identity Not on file Sexual Orientation [...] Primary documented in this encounter Care Teams Water Rights Specialist Relationship Specialty Start Date End Date Robi Restrepo DO [address] [place] [id number] PCP - General 12/24/06 06/25/11 documented as of this encounter
--- OUTSIDE RECORDS SUMMARY | 2024-11-28 16:07 | XMS_ITS | Encounter Summary ---
Author Organization [facility] Address [address] [place] [address] Care Team Providers Care Metal Miner Name Role Phone Robi Restrepo DO Primary Care Provider [phone] Encounter Details Date Type Department Care Team (Latest Contact Info) Description 12/16/2006 Outpatient Historical [facility] Gen Spec Surg [place] [address] [place] [address] Robi Greenberg MD NO ADDRESS ON FILE Calculus of GB w/o Cystitis/Obst (Primary Dx) Social History Tobacco Use Types Packs/Day Years Used Date Smoking Tobacco: Never Assessed Sex and Gender Information Value Date Recorded Sex Assigned at Not on file Legal Sex Male 5:51 AM TIN CAN LABORER Gender Identity Not on file Sexual Orientation Not on file documented as of this encounter Plan of Treatment Not on file documented as of this encounter Visit Diagnoses Diagnosis Calculus of gallbladder without mention of cholecystitis or obstruction- Primary documented in this encounter Care Teams Metal Miner Relationship Specialty Start Date End Date Robi Restrepo DO [address] [place] [address] PCP - General 12/24/06 06/25/11 documented as of this encounter
--- OUTSIDE RECORDS SUMMARY | 2024-11-28 16:07 | XMS_ITS | Encounter Summary ---
Author Organization [facility] Address [address] [place] [address] Care Team Providers Care Dye Line Operator Name Role Phone Robi Restrepo DO Primary Care Provider [phone] Encounter Details Date Type Department Care Team (Late st Contact Info) Description 12/02/2006 Outpatient Historical [address] [phone] Robi Restrepo DO [address] [place] [address] Anxiety State, Unspecified (Primary Dx); Esophageal Reflux; Calculus of GB w/ Obst w/o Cystitis Social History Tobacco Use Types Packs/Day Years Used Date Smoking Tobacco: Never Assessed Sex and Gender Information Value Date Recorded Sex Assigned at Not on file Legal Sex Male 5:51 AM TRANSMITTER SUPERVISOR Gender Identity Not on file Sexual Orientation Not on file documented as of this encounter Plan of Treatment Not on file documented as of this encounter Visit Diagnoses Diagnosis Anxiety state, unspecified- Primary Esophageal reflux Calculus of gallbladder without mention of cholecystitis, with obstruction documented in this encounter Care Teams Dye Line Operator Relationship Specialty Start Date End Date Robi Restrepo DO [address] [place] [address] PCP - General 12/24/06 06/25/11 documented as of this encounter
--- OUTSIDE RECORDS SUMMARY | 2024-11-28 16:07 | XMS_ITS | Encounter Summary ---
Author Organization [facility] Address [address] [place] [address] Care Team Providers Care Bath Tester Name Role Phone Robi Restrepo DO Primary Care Provider [phone] Encounter Details Date Type Department Care Team (Latest Contact Info) Description 10/31/2006 Outpatient Historical [address] [phone] Mary Red, AMOR NO ADDRESS ON FILE Nausea with Vomiting (Primary Dx) Social History Tobacco Use Types Packs/Day Years Used Date Smoking Tobacco: Never Assessed Sex and Gender Information Value Date Recorded Sex Assigned at Not on file Legal Sex Male 5:51 AM MARINE 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
--- OUTSIDE RECORDS SUMMARY | 2024-11-28 16:07 | XMS_ITS | Encounter Summary ---
Author Organization [facility] Address [address] [place] [address] Care Team Providers Care Instructor Bridge Name Role Phone Robi Restrepo DO Primary Care Provider [phone] Encounter Details Date Type Department Care Team (Late st Contact Info) Description 10/10/2006 Outpatient Historical [address] [phone] Robi Restrepo DO [address] [place] [address] Gastritis/Duodeniti s (Primary Dx) Social History Tobacco Use Types Packs/Day Years Used Date Smoking Tobacco: Never Assessed Sex and Gender Information Value Date Recorded Sex Assigned at Not on file Legal Sex Male 5:51 AM TEXTILE BROKER Gender Identity Not on file Sexual Orientation Not on file documented as of this encounter Plan of Treatment Not on file documented as of this encounter Visit Diagnoses Diagnosis Unspecified gastritis and gastroduodenitis without mention of hemorrhage- Primary documented in this encounter Care Teams Instructor Bridge Relationship Specialty Start Date End Date Robi Restrepo DO [address] [place] [address] PCP - General 12/24/06 06/25/11 documented as of this encounter
--- OUTSIDE RECORDS SUMMARY | 2024-11-28 16:07 | XMS_ITS | Encounter Summary ---
Author Organization [facility] Address [address] [place] [address] Care Team Providers Care Asphalt Mixer Name Role Phone Robi Restrepo DO Primary Care Provider [phone] Encounter Details Date Type Department Care Team (Late st Contact Info) Description 05/28/[address] [phone] Kina Trinidad FNP NO ADDRESS ON FILE Social History Tobacco Use Types Packs/Day Years Used Date Smoking Tobacco: Never Assessed Sex and Gender Information Value Date Recorded Sex Assigned at Not on file Legal Sex Male 5:51 AM HARD HAT DIVER Gender Identity Not on file Sexual Orientation Not on file documented as of this encounter Plan of Treatment Not on file documented as of this encounter Visit Diagnoses Not on filedocumented in this encounter Care Teams Asphalt Mixer Relationship Specialty Start Date End Date Robi Restrepo DO [address] [place] [address] PCP - General 12/24/06 06/25/11 documented as of this encounter
--- OUTSIDE RECORDS SUMMARY | 2024-11-28 16:07 | XMS_ITS | Encounter Summary ---
Author Organization [facility] Address [address] [place] [address] Care Team Providers Care Social Service Assistant Name Role Phone Robi Restrepo DO Primary Care Provider [phone] Encounter Details Date Type Department Care Team (Late st Contact Info) Description 10/24/2006 Outpatient Historical [facility] [address] [phone] Robi Restrepo DO [address] [place] [address] Tobacco Use Disorder (Primary Dx); Nausea Alone Social History Tobacco Use Types Packs/Day Years Used Date Smoking Tobacco: Never Assessed Sex and Gender Information Value Date Recorded Sex Assigned at Not on file Legal Sex Male 5:51 AM SENIOR PHYSICAL THERAPIST Gender Identity Not on file Sexual Orientation Not on file documented as of this encounter Plan of Treatment Not on file documented as of this encounter Visit Diagnoses Diagnosis Tobacco use disorder- Primary Nausea alone documented in this encounter Care Teams Social Service Assistant Relationship Specialty Start Date End Date Robi Restrepo DO [address] [place] [address] PCP - General 12/24/06 06/25/11 documented as of this encounter
--- OUTSIDE RECORDS SUMMARY | 2024-11-28 16:07 | XMS_ITS | Encounter Summary ---
Author Organization [facility] Address [address] [place] [address] Care Team Providers Care Organizational Development Director Name Role Phone Robi Restrepo DO Primary Care Provider [phone] Encounter Details Date Type Department Care Team (Late st Contact Info) Description 10/17/2006 Outpatient Historical [address] [phone] Robi Restrepo DO [address] [place] [address] Affective Personality (CMS/HCC) (Primary Dx); Unspecified Schizophrenia, Unspecified Condition (CMS/HCC) Social History Tobacco Use Types Packs/Day Years Used Date Smoking Tobacco: Never Assessed Sex and Gender Information Value Date Recorded Sex Assigned at Not on file Legal Sex Male 5:51 AM YARD DRIVER Gender Identity Not on file Sexual Orientation [...] condition documented in this encounter Care Teams Organizational Development Director Relationship Specialty Start Date End Date Robi Restrepo DO [address] [place] [address] PCP - General 12/24/06 06/25/11 documented as of this encounter
--- OUTSIDE RECORDS SUMMARY | 2024-11-28 16:08 | XMS_ITS | Encounter Summary ---
Author Organization [facility] Address [address] [place] [address] Care Team Providers Care Electronics Instructor Name Role Phone Robi Restrepo DO Primary Care Provider [phone] Encounter Details Date Type Department Care Team (Late st Contact Info) Description 05/02/2007 Outpatient Historical [address] [phone] Robi Restrepo DO [address] [place] [address] Social History Tobacco Use Types Packs/Day Years Used Date Smoking Tobacco: Never Assessed Sex and Gender Information Value Date Recorded Sex Assigned at Not on file Legal Sex Male 5:51 AM SAS PROGRAMMER ANALYST Gender Identity Not on file Sexual Orientation Not on file documented as of this encounter Plan of Treatment Not on file documented as of this encounter Visit Diagnoses Not on filedocumented in this encounter Care Teams Electronics Instructor Relationship Specialty Start Date End Date Robi Restrepo DO [address] [place] [address] PCP - General 12/24/06 06/25/11 documented as of this encounter
--- OUTSIDE RECORDS SUMMARY | 2024-11-28 16:08 | XMS_ITS | Encounter Summary ---
Author Organization [facility] Address [address] [place] [address] Care Team Providers Care Breaker Tender Name Role Phone Robi Restrepo DO Primary Care Provider [phone] Encounter Details Date Type Department Care Team (Late st Contact Info) Description 09/03/2006 Outpatient Historical [address] [phone] Social History Tobacco Use Types Packs/Day Years Used Date Smoking Tobacco: Never Assessed Sex and Gender Information Value Date Recorded Sex Assigned at Not on file Legal Sex Male 5:51 AM CRITICAL CARE NURSE Gender Identity Not on file Sexual Orientation Not on file documented as of this encounter Plan of Treatment Not on file documented as of this encounter Visit Diagnoses Not on filedocumented in this encounter Care Teams Breaker Tender Relationship Specialty Start Date End Date Robi Restrepo DO [address] [place] [address] PCP - General 12/24/06 06/25/11 documented as of this encounter
--- OUTSIDE RECORDS SUMMARY | 2024-11-28 16:08 | XMS_ITS | Encounter Summary ---
Author Organization [facility] Address [address] [place] [address] Care Team Providers Care Optical Instruments Supervisor Name Role Phone Robi Restrepo DO Primary Care Provider [phone] Encounter Details Date Type Department Care Team (Late st Contact Info) Description 09/25/2006 Outpatient Historical [facility] [address] [phone] Robi Restrepo DO [address] [place] [address] Cough (Primary Dx); Lack of Coordination Social History Tobacco Use Types Packs/Day Years Used Date Smoking Tobacco: Never Assessed Sex and Gender Information Value Date Recorded Sex Assigned at Not on file Legal Sex Male 5:51 AM HAND TAPPER Gender Identity Not on file Sexual Orientation Not on file documented as of this encounter Plan of Treatment Not on file documented as of this encounter Visit Diagnoses Diagnosis Cough- Primary Lack of coordination documented in this encounter Care Teams Optical Instruments Supervisor Relationship Specialty Start Date End Date Robi Restrepo DO [address] [place] [address] PCP - General 12/24/06 06/25/11 documented as of this encounter
--- OUTSIDE RECORDS SUMMARY | 2024-11-28 16:08 | XMS_ITS | Clinical Summary ---
Author Organization [facility] Address [address] [facility] [address]: Epic Prelude [place]T [place] [address] Care Team Providers Care Group Home Counselor Name Role Phone Unavailable Primary Care Provider [...] on file Legal Sex Male 5:44 AM SUPERVISOR LABORATORY ANIMAL FACILITY Gender Identity Not on file Sexual Orientation [...]
--- OUTSIDE RECORDS SUMMARY | 2024-11-28 16:08 | XMS_ITS | Encounter Summary ---
Author Organization [facility] Address [address] [place] [address] Care Team Providers Care Youth Officer Name Role Phone Robi Restrepo DO Primary Care Provider [phone] Encounter Details Date Type Department Care Team (Late st Contact Info) Description 04/09/2007 Outpatient Historical [address] [phone] Kina Trinidad FNP NO ADDRESS ON FILE Social History Tobacco Use Types Packs/Day Years Used Date Smoking Tobacco: Never Assessed Sex and Gender Information Value Date Recorded Sex Assigned at Not on file Legal Sex Male 5:51 AM APPRAISER AUDITOR Gender Identity Not on file Sexual Orientation Not on file documented as of this encounter Plan of Treatment Not on file documented as of this encounter Visit Diagnoses Not on filedocumented in this encounter Care Teams Youth Officer Relationship Specialty Start Date End Date Robi Restrepo DO [address] [place] [address] PCP - General 12/24/06 06/25/11 documented as of this encounter
--- OUTSIDE RECORDS SUMMARY | 2024-11-28 16:08 | XMS_ITS | Clinical Summary ---
Author Organization [facility] Address [address] [place] [address] Care Team Providers Care Crayon Sawyer Name Role Phone Unavailable Primary Care Provider [...] on file Legal Sex Male 5:51 AM CORPORATE ETHICS OFFICER Gender Identity Not on file Sexual Orientation Not on file Occupation Industry Job Start Date Job End Date Not on file Not on file Not on file Not on file Not on file Not on file Not on file Not on file Last Filed Vital Signs Vital Sign Reading Time Taken Comments Blood Pressure 135/64 06/26/2011 1:00 PM CORPORATE ETHICS OFFICER Pulse 81 06/26/2011 1:00 PM CORPORATE ETHICS OFFICER Temperature 36.4 C (97.6 F) 06/26/2011 10:53 AM CORPORATE ETHICS OFFICER Respiratory Rate 16 06/26/2011 1:00 PM CORPORATE ETHICS OFFICER Oxygen Saturation 98% 06/26/2011 1:00 PM CORPORATE ETHICS OFFICER Inhaled Oxygen Concentration - - Weight 106.6 kg (235 lb) 06/26/2011 10:53 AM CORPORATE ETHICS OFFICER Height 177.8 cm (5' 10 ) 06/26/2011 10:53 AM CORPORATE ETHICS OFFICER Body Mass Index 33.72 06/26/2011 10:53 AM CORPORATE ETHICS OFFICER Plan of Treatment Health Maintenance Due Date [...]
--- OUTSIDE RECORDS SUMMARY | 2024-11-28 16:08 | XMS_ITS | Encounter Summary ---
Author Organization [facility] Address [address] [place] [address] Care Team Providers Care Flight Line Mechanic Name Role Phone Robi Restrepo DO Primary Care Provider [phone] Encounter Details Date Type Department Care Team (Latest Contact Info) Description 10/01/2006 Outpatient Historical [address] [phone] Mary Red, AMOR NO ADDRESS ON FILE Gastritis/Duodenitis (Primary Dx) Social History Tobacco Use Types Packs/Day Years Used Date Smoking Tobacco: Never Assessed Sex and Gender Information Value Date Recorded Sex Assigned at Not on file Legal Sex Male 5:51 AM DRESSMAKING TEACHER Gender Identity Not on file Sexual Orientation Not on file documented as of this encounter Plan of Treatment Not on file documented as of this encounter Visit Diagnoses Diagnosis Unspecified gastritis and gastroduodenitis without mention of hemorrhage- Primary documented in this encounter Care Teams Flight Line Mechanic Relationship Specialty Start Date End Date Robi Restrepo DO [address] [place] [address] PCP - General 12/24/06 06/25/11 documented as of this encounter
--- OUTSIDE RECORDS SUMMARY | 2024-11-28 16:08 | XMS_ITS | Encounter Summary ---
Author Organization [facility] Address [address] [place] [address] Care Team Providers Care Med Surg Nurse Name Role Phone Robi Restrepo DO Primary Care Provider [phone] Encounter Details Date Type Department Care Team (Late st Contact Info) Description 03/19/2007 Outpatient Historical [address] [phone] Robi Restrepo DO [address] [place] [address] Other Malaise and Fatigue (Primary Dx); Obesity, Unspecified Social History Tobacco Use Types Packs/Day Years Used Date Smoking Tobacco: Never Assessed Sex and Gender Information Value Date Recorded Sex Assigned at Not on file Legal Sex Male 5:51 AM GARMENT ALTERATION EXAMINER Gender Identity Not on file Sexual Orientation Not on file documented as of this encounter Plan of Treatment Not on file documented as of this encounter Visit Diagnoses Diagnosis Other malaise and fatigue- Primary Obesity, unspecified documented in this encounter Care Teams Med Surg Nurse Relationship Specialty Start Date End Date Robi Restrepo DO [address] [place] [address] PCP - General 12/24/06 06/25/11 documented as of this encounter
--- OUTSIDE RECORDS SUMMARY | 2024-11-28 16:08 | XMS_ITS | Encounter Summary ---
Author Organization [facility] Address [address] [place] [address] Care Team Providers Care Sap Business Objects Developer Name Role Phone Robi Restrepo DO Primary Care Provider [phone] Encounter Details Date Type Department Care Team (Late st Contact Info) Description 03/24/2007 Outpatient Historical [facility] [address] [phone] Robi Restrepo DO [address] [place] [address] Abdominal Pain, Unspecified Site (Primary Dx) Social History Tobacco Use Types Packs/Day Years Used Date Smoking Tobacco: Never Assessed Sex and Gender Information Value Date Recorded Sex Assigned at Not on file Legal Sex Male 5:51 AM VACUUM METALIZING SUPERVISOR Gender Identity Not on file Sexual Orientation Not on file documented as of this encounter Plan of Treatment Not on file documented as of this encounter Visit Diagnoses Diagnosis Abdominal pain, unspecified site- Primary documented in this encounter Care Teams Sap Business Objects Developer Relationship Specialty Start Date End Date Robi Restrepo DO [address] [place] [address] PCP - General 12/24/06 06/25/11 documented as of this encounter
--- OUTSIDE RECORDS SUMMARY | 2024-11-28 16:08 | XMS_ITS | Encounter Summary ---
Author Organization [facility] Address [address] [place] [address] Care Team Providers Care Furnace Hand Name Role Phone Robi Restrepo DO Primary Care Provider [phone] Encounter Details Date Type Department Care Team (Late st Contact Info) Description 04/03/[address] [phone] Kina Trinidad, [place] NO ADDRESS ON FILE Social History Tobacco Use Types Packs/Day Years Used Date Smoking Tobacco: Never Assessed Sex and Gender Information Value Date Recorded Sex Assigned at Not on file Legal Sex Male 5:51 AM PUMPER BREWERY Gender Identity Not on file Sexual Orientation Not on file documented as of this encounter Plan of Treatment Not on file documented as of this encounter Visit Diagnoses Not on filedocumented in this encounter Care Teams Furnace Hand Relationship Specialty Start Date End Date Robi Restrepo DO [address] [place] [address] PCP - General 12/24/06 06/25/11 documented as of this encounter
--- OUTSIDE RECORDS SUMMARY | 2024-11-28 16:08 | XMS_ITS | Encounter Summary ---
Author Organization [facility] Address [address] [place] [address] Care Team Providers Care Store Administrative Assistant Name Role Phone Robi Restrepo DO Primary Care Provider [phone] Encounter Details Date Type Department Care Team (Late st Contact Info) Description 10/03/2006 Outpatient Historical [facility] [address] [place] [address] Robi Restrepo DO [address] [place] [address] Social History Tobacco Use Types Packs/Day Years Used Date Smoking Tobacco: Never Assessed Sex and Gender Information Value Date Recorded Sex Assigned at Not on file Legal Sex Male 5:51 AM SIMULATION TECH Gender Identity Not on file Sexual Orientation [...] No apparent acute disease. jaw Dictated By: aGl Reina M.D. Electronically Signed By: Gal Reina M.D. Date Signed: 10/03/06 OLESYA Keith Solomon MD DIAGNOSTIC IMAGING ORDER LUCERO Final Result INTERFACE SYSTEM Refer to clinic/hospital department documented in this encounter Visit Diagnoses Not on filedocumented in this encounter Care Teams Store Administrative Assistant Relationship Specialty Start Date End Date Robi Restrepo DO [address] [place] [address] PCP - General 12/24/06 06/25/11 documented as of this encounter
--- NOTE | 2024-11-28 17:56 | ED_ITS ---
HPI - Extremity Problem General: Chief complaint: Extremity Injury, Lower Stated complaint: right foot pain Time Seen by Provider: 11/28/24 17:48 Source: patient Mode of arrival: ambulatory Limitations: no limitations History of Present Illness: 49-year-old male states he has previousl y injured his right foot in the past states he is get up today and fell to crack and had pain in his right lateral f oot since then his believes it fractured it. States he is able to bear some weight but it is painful. Denies any other injuries Associated symptoms: Deny chest pain, fever(s) or rash Related Data Previous Rx's ?Medication ?Instructions ?Recorded pantoprazole 40 mg tablet,delayed 40 mg PO BID 30 days #60 tabs 07/03/24 release aripiprazole 400 mg intramuscular 400 mg IM Q28D #1 ea 11/03/24 suspension,extended release (Abilify Maintena) Allergies Allergy/AdvReac Type Severity Reaction Status Date / Time Penicillins Allergy Unknown Verified 11/17/24 20:57 Review of Systems Const: Denies: fever(s), chills, body aches or change in appetite ENMT: Denies: throat pain or dental pain Card: Denies: chest pain Resp: Denies: dyspnea GI: Denies: abdominal pain, nausea, vomiting or diarrhea Musc: Reports: extremity pain; Denies: neck pain or back pain Skin/Breast: Denies: rash Neuro: Denies: headache(s) PFS ED PFSH: Medical History Auditory hallucination Varicose vein of leg Schizoaffective disorder, bipolar type without good prognostic features Chronic schizophrenia Spina bifida Peripheral neuropathy Duodenal ulcer Perforated stomach GI bleed Anemia Upper gastrointestinal hemorrhage Chronic idiopathic constipation Folliculitis cruris pustulosa atrophicans Nonvenomous insect bite of neck Nicotine dependence, unspecified, uncomplicated Schizoaffective disorder, bipolar type Borderline personality disorder Surgical History History of incision and drainage left hip History of tonsillectomy History of carpal tunnel surgery of right wrist History of back surgery History of cholecystectomy Family History Mother Bleeding disorder anemia Cancer uterine Hypertension Lung disease asthma Grandmother Bleeding disorder anemia Diabetes Father Cancer melonoma Hyperlipidemia Grandfather Chronic kidney disease (CKD) Diabetes Stroke Other Acute psychosis Denies family history of CAD (coronary artery disease) Clotting disorder Dementia Psychiatric illness Anesthesia complication Social History Smoking and tobacco/nicotine status: current every day tobacco/nicotine user cigarettes Quit status (tobacco/nicotine): has tried quititng Number of times tried to quit tobacco: 8 Second hand smoke exposure: No Alcohol intake: current Alcohol intake frequency: holidays/special occasions only Alcohol type: hard liquor Substance/Drug Use: never Lives independently: Yes Household members: caregiver Marital status: Single Number of children: 0 Current occupational status: disabled Current gender identity: Male Special dagmar needs: No Agree to transfusion: Yes Physical Exam Const: COMMON NORMALS: no acute distress, patient oriented x3 and healthy appearing HENMT: COMMON NORMALS: normocephalic and atraumatic HEAD & SCALP: normocephalic and atraumatic Eye: COMMON NORMALS: conjunctivae normal CONJUNCTIVA: Yes conjunctivae normal Neck/C-Spine: COMMON NORMALS: full ROM and supple Chest: COMMONS NORMALS: normal inspection of the chest Resp: COMMON NORMALS: normal respiratory effort Cardio: COMMON NORMALS: regular rate RATE: regular rate Extremity: NARRATIVE EXTREMITY EXAM: Tenderness noted to right lateral foot Neuro: COMMON NORMALS: patient oriented x3, moves all extremities and no focal motor deficits Psych: COMMON NORMALS: mental status grossly normal, Normal thought process present and cooperative THOUGHT PROCESS: Normal thought process present Skin: COMMON NORMALS: no rashes or lesions noted and no wounds GENERAL SKIN EXAM: no rashes or lesions noted Course Vital Signs: Vital signs: Vital Signs Temperature 98.0 F 11/28/24 16:04 Pulse Rate 73 11/28/24 16:04 Respiratory Rate 17 11/28/24 16:04 Blood Pressure 115/70 11/28/24 16:04 Pulse Oximetry 99 11/28/24 16:04 Oxygen Delivery Me thod Room Air 11/28/24 16:04 MDM - Extremity (Nontraumatic) Medical Decision Making Patient presents with a fracture to his fifth metatarsal he is to be nonweightbearing did place in a splint we will get him follow-up with podiatry Medical Records I reviewed the patient's medical records. XR interpretation done by ED provider, pending radiology final review ED provider radiology interpretation(s): X-ray right foot proximal fifth metatarsal fracture Discharge Plan Discharge Patient Disposition: Home Clinical Impression: Closed nondisplaced fracture of fifth right metatarsal bone Qualifiers: Encounter type: initial encounter Qualified Code(s): S92.354A - Nondisplaced fracture of fifth metatarsal bone, right foot, initial encounter for closed fracture Condition: Stable Prescriptions: No Action pantoprazole 40 mg Tablet,Delayed Release (Dr/Ec) 40 mg PO BID 30 Days Qty: 60 1RF Abilify Maintena 400 mg suspension,extended rel recon 400 mg IM Q28D Qty: 1 1RF Rx Instructions: Next shot due on 11/30/24. Discharge Orders: Discharge ED (Routine); Ordered 11/28/24 Ordered By: Yashira Hubbard Referrals: Andres Clancy DPM [Physician, Podiatry] - 4-7 days Jesus Colmenares MD [Primary Care Provider, Family Practice] Discharge Diet: Advance as tolerated Discharge Activity: Limit activity as instructed and Use walker/crutches as instructed Patient Instructions: Foot Fracture in Adults (ED) Print Language: Colombian Coding Level of Care Code ED Offset Plate Maker for Kobe Riggs
[2024-11-28] MEDS: HYDROcodone-acetaminophen 5-325 mg Tablet 1 TAB PO (18:06)
[2024-11-28 18:25] VITALS: BP 131/81; PULSE 81; O2SAT 99
--- NOTE | 2024-12-02 14:54 | PC.NURSE ---
Podiatry appt sent.
== END 2024-11-28 18:26 | disposition home or self-care (01) ==
PROVIDERS: Emergency Provider Emergency Medicine; PCP Family Medicine
DX: S92.354A Nondisplaced fracture of fifth metatarsal bone, right foot, initial encounter for closed fracture (principal); F17.210 Nicotine dependence, cigarettes, uncomplicated; X58.XXXA Exposure to other specified factors, initial encounter
CPT/HCPCS: 29515; 73630; 99283; E0114; J9999